=== PATIENT | male | born 1950 | race Caucasian/White ===

== ENCOUNTER 2016-08-13 04:39 | Inpatient (IN) | payer MEDICARE, MEDICAID ==
[~2016-08-13] VITALS: Ht 154.9 cm; Wt 52.6 kg
[2016-08-13] VITALS (13 sets, daily range): BP systolic 105–131; BP diastolic 54–85
--- NOTE | ~2016-08-13 | CON ---
[place], [place] REPORT OF CONSULTATION NAME: YURIDIA CHRISTIE UNIT #: [id number] ROOM: [facility] DOCTOR: HEATH GANDARA MD,HAN BIRTHDATE: [birth year] DOS: 08/13/2016 PULMONARY CONSULTATION, EVALUATION AND MANAGEMENT REASON FOR CONSULTATION: Assess the patient for possibility of acute exacerbation. The consultation requested by the hospitalist services. HISTORY OF PRESENT ILLNESS: This is a 65-year-old old male who has been admitted to the hospitalist service this morning and currently noted in the Intensive Care Unit. The patient stated that he has been noted symptoms of shortness breath, which has been ongoing for the patient in about 10 days or so. Shortness of breath for the patient has been noted gradual worsening. The shortness of breath occurs significantly worse in the past couple of days. He has been noted tightness in the chest and also developed pain, which were described in the retrosternal area without radiation scale of 1-10 up to 3 for this patient. The pain was described to be sharp and all other times. The patient has been noted better at this time. The patient does have symptoms of wheezing as well. Denies symptoms of hemoptysis. The patient stated that he has been using the albuterol sulfate for the medical management of his previous history of COPD and took multiple breathing treatments at home for this patient to resolve the symptom and they were not improving prior to admission and assessment in the Emergency Room. REVIEW OF SYSTEMS: CONSTITUTIONAL: Fatigue and tiredness described without symptoms of fever or chills. EYES: Denies any burning, redness, or tenderness. EARS, NOSE, THROAT: No sore throat, hoarseness, otalgia, postnasal drainage or epistaxis. CARDIOVASCULAR SYSTEM: Denies anginal pain, edema or pain of the lower extremities. GASTROINTESTINAL: Denies dysphagia, nausea, vomiting, diarrhea, abdominal pain, hematemesis, melena or hematochezia. Denies any abnormal weight loss history. MUSCULOSKELETAL: Denies acute joint pain, redness, or tenderness. CENTRAL NERVOUS SYSTEM: Denies dizziness, headache, diplopia or syncopal episodes. SKIN: No lesions or rashes described. Remaining systems were reviewed with the patient, they were noted all negative. PAST MEDICAL HISTORY: 1. Past hospitalization noted in April 2016. The patient was treated at that time for the electrolyte imbalance with alcohol intoxication, independent. 2. History of centrilobular emphysema. 3. Coronary artery disease. 4. Past history of alcohol dependence. 5. Essential hypertension. 6. Hepatitis C. [place], [place] REPORT OF CONSULTATION NAME: YURIDIA CHRISTIE UNIT #: [id number] ROOM: [facility] DOCTOR: HEATH GANDARA MD,HAN BIRTHDATE: [birth year] 7. Past CVA for patient without any focal neurologic deficit. 8. Degenerative arthritis. 9. History of congestive heart failure with diastolic dysfunction as well. 10. Difficulty of ambulation. SOCIAL HISTORY: The patient stated that he is , has 4 children. Smoking, the patient was noted as his younger age 1 pack of cigarettes per day that was discontinued approximately in 2011. He has been noted with past history of intermittent alcohol use. There was no history of illicit drug use described. PAST SURGICAL HISTORY: 1. Cataract extraction bilaterally. 2. Left hip ORIF. FAMILY HISTORY: The patient's father at the age of about 60-year-old, complication of myocardial infarction with cancer as well. The mother at the age of 60-year-old from complication related to acute myocardial infarction, history of diabetes as well. HOME MEDICATIONS: 1. Listed use of ProAir HFA inhaler p.r.n. use, Norvasc 5 mg p.o. b.i.d. 2. Atenolol 25 mg daily. 3. Vitamin D 3000 international units daily. 4. DuoNeb for the patient q.4 hours. 5. Harvoni 1 tablet p.o. daily. 6. Lisinopril 5 mg daily. 7. Protonix 40 mg daily. 8. Thiamine 100 mg p.o. daily. DRUG ALLERGY: Noted no known allergies. PHYSICAL EXAMINATION: GENERAL: This is a 65-year-old white male who has been comfortably resting seen in the Intensive Care Unit without any distress. The patient has been getting IV heparin and nitro drip. Height was noted 5 feet 1 inch, weight of 116 pounds, BMI 21.9. VITAL SIGNS: Normal temperature since admission, respiratory recorded highest of 30 and the lowest of 18, heart rate of patient ranges between 112-72 beats per minute, sinus tachycardia, which is mild, blood pressure 163/76-110/71. Pulse oxygen saturation of the patient is 100% on 100% nonrebreather mask later on room air was 98% saturation. Currently on 50% Venturi mask 98% saturation. HEENT: Head was atraumatic. Eyes nonicterus. NECK: Supple. CARDIOVASCULAR SYSTEM: S1, S2 is audible. LUNGS: Noted generalized reduction of breath sounds noted in the lungs bilaterally, diffuse expiratory wheezing without any crackles heard. ABDOMEN: Flat, soft, nontender. Bowel sounds present. EXTREMITIES: Showed no edema, clubbing, cyanosis. CENTRAL NERVOUS SYSTEM: No gross focal deficit. The patient has cranial nerves [place], [place] REPORT OF CONSULTATION NAME: YURIDIA CHRISTIE UNIT #: [id number] ROOM: [facility] DOCTOR: JOHANNY KISER MDM BIRTHDATE: [birth year] 2-12 intact. MUSCULOSKELETAL: No deformities. SKIN: No lesions or rashes. LABORATORY DATA: The PT, PTT patient this morning was noted INR 1.2, PTT normal. D-dimer was normal. CMP of the patient this morning, BUN and creatinine were normal, sodium 132, chloride of 94, BUN 66, creatinine 107, alkaline phosphatase normal. Troponin 0.082 for the patient mildly elevated the first set. CBC this morning on admission, hemoglobin 13.6, hematocrit 39.7, WBC count normal, platelet count mildly elevated to 412,000. The PTT for this patient 31.5, the repeat PTT for this patient at 11:30 was greater than 250. The troponin for this patient, second set was elevated at 2.370. Venous duplex of both lower extremities the patient was done, which does not show any evidence of deep venous thrombosis. The chest x-ray of the patient shows hyperinflation of the lungs with changes of COPD without any acute pulmonary infiltration was reviewed. CT of the chest, the patient does not show any evidence of pulmonary embolism. Pulmonary artery of the patient was noted filling defect. A 3 mm nodule the patient was noted in the right upper lobe for this patient. Some deformities of the rib was also noted the patient on the right side, most likely secondary to past heel fractures of the patient as well. No acute pulmonary infiltration noted. Changes of centrilobular emphysema were observed. There was no abnormal lymphadenopathy visible. IMPRESSION: 1. The patient has been currently admitted to the hospital noted with acute exacerbation of chronic obstructive pulmonary disease with acute bacterial bronchitis of the patient, which has noted gradual worsening. 2. Incidental finding of a 3 mm pulmonary nodule in the right upper lobe for this patient of unknown significance at this time needs to be monitored later as an outpatient with additional assessment possibly in 6-[address] scan of the chest. 3. Acute coronary artery syndrome. The patient was also suspected with abnormal troponins. The patient with [id number] elevation myocardial infarction consideration. 4. Mild toxicity was noted with heparin and the dose being adjusted for that. 5. Past history of nicotine dependence. 6. Abnormal liver function testing secondary to hepatitis C, which has been actively treated. 7. Chronic alcohol dependence as well. Monitor for any alcohol withdrawal for this patient as well. PLAN OF TREATMENT: Use of the Solu-Medrol for this patient for the medical management of acute exacerbation of COPD. Bronchodilators for the patient will be used. The patient Cardiology consultation has been pending. Continue nitro drip for this patient and the IV therapeutic anticoagulation in the therapeutic range. Other supportive therapy, plan of management. Sputum for Gram stain culture was ordered. The patient will be started on oral antibiotics for the medical management of acute tracheobronchitis as doxycycline 100 mg p.o. b.i.d. [place], [place] REPORT OF CONSULTATION NAME: YURIDIA CHRISTIE UNIT #: [id number] ROOM: [facility] DOCTOR: HAN KISER MD BIRTHDATE: [birth year] HAN JOE MD CM:CONSTR:REPORT OF CONSULTATION 1247 08/13/16 9952 interface
--- NOTE | ~2016-08-13 | CON ---
[place], [place] REPORT OF CONSULTATION NAME: YURIDIA CHRISTIE UNIT #: [id number] ROOM: [facility] DOCTOR: JOSE MENDOZA MD BIRTHDATE: [birth year] DOS: 08/13/2016 REASON FOR CONSULTATION: Elevated troponin and shortness of breath. HISTORY OF PRESENT ILLNESS: The patient is a 65-year-old gentleman with history of COPD, hypertension, alcohol use, came in with progressive shortness of breath for the past week, and he has been using multiple breathing treatments described that his symptoms continued to worse. Last night, he developed some nonradiating substernal chest pain described as tightness at rest. No associated nausea, diaphoresis. This pain lasted for several minutes and then he came to the Emergency Room, and he was admitted to the hospital for COPD exacerbation and also slight elevation of troponin, but he denies any fever or chills. No palpitation, no dizziness. No nausea, vomiting. No tingling, numbness or weakness, but he said he had history of a heart catheterization 5 years ago, results not available. SOCIAL HISTORY: He was treated with the breathing treatments as well as Solu-Medrol and admitted to the hospital and the manager trade consulted. REVIEW OF SYSTEMS: Review of the 8 systems negative except as mentioned above. His chest pain is at rest, substernal pain. No radiation, mild. No associated nausea, diaphoresis, or dizziness. The pain is more or less steady pain and relieved on its own. PAST MEDICAL HISTORY: 1. Hypertension. 2. Questionable coronary artery disease. 3. COPD. 4. Esophageal stricture. 5. Chronic gastritis. 6. Alcohol use. PAST SURGICAL HISTORY: The patient had left hip surgery. SOCIAL HISTORY: Does not drink chronically mostly beer 6 cans a day. Former smoker, but quit few years ago. Does not use illicit drugs. FAMILY HISTORY: Mother also in the age of 50-60s, history of coronary artery disease and also had diabetes. ALLERGIES: No known drug allergies. HOME MEDICATIONS: Reviewed. PHYSICAL EXAMINATION: VITAL SIGNS: Currently, blood pressure is 122/65, heart rate is 106, respiratory rate is 20. GENERAL: Alert, comfortable, in no acute distress. HEENT: Pupils are round and equal. No jaundice. Tongue is moist and pharynx is clear. [place], [place] REPORT OF CONSULTATION NAME: YURIDIA CHRISTIE UNIT #: [id number] ROOM: [facility] DOCTOR: REJI ATKINSON,SUNITAKAREN BIRTHDATE: [birth year] CHEST: Symmetrical, nontender. LUNGS: A few scattered rhonchi. No rales. Slightly diminished at bases. HEART: Regular rhythm, slightly tachycardic around 110. At the time of my examination, grade 1/6 systolic murmur at the right sternal border. No palpable thrills. ABDOMEN: Benign, nontender. Bowel sounds normal. EXTREMITIES: Showed 1+ pitting edema bilaterally. Distal pulses are palpable. SKIN: Warm and dry. No cyanosis, no clubbing. RECTAL: Deferred. NEUROLOGIC: Deferred. GENITOURINARY: Deferred. MUSCULOSKELETAL: No joint tenderness or swelling. PSYCHIATRIC: The patient is alert with good mood and affect. REVIEW OF THE DIAGNOSTIC TESTS: His EKG showed normal sinus rhythm with old anterior infarction. His CBC, chemistry, labs reviewed. The cardiac troponin was 0.082. The proBNP is normal at 74. Slightly elevated liver enzymes, creatinine 0.66, potassium 4.1, hemoglobin 13.6 and platelets of 412,000. IMPRESSION: 1. Chronic obstructive pulmonary disease exacerbation. 2. Chest pain appears to be atypical with a borderline elevation of troponin x1 set. 3. Alcohol use. 4. Mild normocytic anemia. 5. History of hypertension. 6. Slightly elevated liver enzymes. RECOMMENDATIONS: 1. Currently, denies any chest pains. 2. Second set of cardiac enzymes are pending, and the second set is elevated if he is having recurrent chest pain, then I would recommend cardiac catheterization. He is agreeable to go for cardiac catheterization. Currently, his code status is DNR-CCA. 3. There is no family at bedside. 4. Continue his current treatment including aspirin, nitro and heparin. I will start a low dose beta blockers for his sinus tachycardia and also positive non ST-segment elevation myocardial infarction. 5. Check 2D echo for LV function and valvular function. 6. The patient strongly counseled to quit drinking. 7. If they had 1+ edema clinically, I see no signs of acute heart failure and his BNP levels are normal. [place], [place] REPORT OF CONSULTATION NAME: YURIDIA CHRISTIE UNIT #: [id number] ROOM: [facility] DOCTOR: REJI ATKINSON,JOSE BIRTHDATE: [birth year] JOSE MENDOZA MD CM:CONSTR:REPORT OF CONSULTATION 1200 08/13/16 1908 interface
[~2016-08-13 04:39] MED LIST: AEROSOL THERAPY1 DEV PO; AMLODIPINE BES10 MG PO; AMLODIPINE BESYL5 MG PO; AMOXICILLIN500 MG PO; AMOXIL500 MG PO; ASPIRIN81 M1 PO; ATARAX25 MG PO; ATENOLOL25 MG PO; CARAFATE1 G1 PO; CATAPRES0.1 MG PO; CLARITIN10 MG PO; COLCHICINE0.6 M1 PO; COZAAR50 MG PO; DOXYCYCLINE HY100 M5 PO; DOXYCYCLINE100 M3 PO; DOXYCYCLINE100 MG PO; DUONEB 3 MG/3 ML3 M1 NEB; FLAGYL500 MG PO; HARVONI1 TAB PO; KEFLEX500 MG PO; LEVAQUIN500 M2 PO; LEVAQUIN750 M1 PO; LISINOPRIL/HCTZ1 TA1 PO; LISINOPRIL20 MG PO; LISINOPRIL5 MG PO; MEDROL DOSEPAK4 MG PO; MOTRIN800 MG PO; MUCINEX ER600 MG PO; NAPROXEN500 MG PO; NATURE'S BLEND F1 MG PO; NORVASC5 MG PO; NOVAPLUS V0.09 MG/Ac IH; PREDNISONE10 MG PO; PREDNISONE20 MG PO; PREDNISONE5 M1 PO; PRILOSEC20 MG PO; PROAIR HFA8.5 GM INH; PROTONIX40 MG PO; QVAR40 MCG INH; TENORMIN25 MG PO; TYLENOL325 M1 PO; TYLENOL500 MG PO; ULTRAM50 MG PO; VENTOLIN H0.09 MG/AC INH; VITAMIN B-11 TAB PO; VITAMIN D31000 IU PO; ZITHROMAX250 MG PO; [UNRECOGNIZED DRUG - REMARK]
[2016-08-13 05:16] LABS: HEMATOCRIT 39.7 % (42.0-52.0); HEMOGLOBIN 13.6 g/dl (14.0-18.0); MEAN CELL VOLUME 85.4 fl (80.0-94.0); MEAN CORPUSCULAR HGB 29.2 pg (27.0-31.0); MEAN CORPUSCULAR HGB CONC 34.3 g/dl (33.0-37.0); MEAN PLATELET VOLUME 8.2 fl (9.6-12.3); PLATELET COUNT AUTOMATED 412 10*3/uL (130-400); RED BLOOD COUNT 4.65 10*6/uL (4.50-5.90); RED CELL DISTRI WIDTH 15.1 % (0-14.5); WHITE BLOOD COUNT 6.4 10*3/uL (4.8-10.8)
[2016-08-13 05:29] LABS: INTERNATIONAL NORM RATIO 1.2 (2.0-3.5); PROTHROMBIN TIME 12.7 SECONDS (9.0-12.4)
[2016-08-13 05:33] LABS: ALKALINE PHOSPHATASE 91 U/L (45-117); BILIRUBIN, TOTAL 0.3 mg/dl (0.2-1.0); BUN 3 mg/dl (7-24); CARBON DIOXIDE 26 mmol/L (21-32); CHLORIDE 94 mmol/L (98-107); EST GLOM FILT AFRICAN AMERICAN > 60 ml/min; GLUCOSE 92 mg/dL (65-99); POTASSIUM 4.1 mmol/L (3.5-5.1); SGOT/AST 66 IU/L (3-35); SGPT/ALT 107 U/L (12-78); SODIUM 132 mmol/L (136-145); TOTAL PROTEIN 7.3 gm/dL (6.4-8.2)
[2016-08-13 05:34] LABS: TROPONIN I 0.082 ng/ml (<0.045)
[2016-08-13 05:36] LABS: ATYPICAL LYMPHS 1 % (0-0); BASOPHIL # 0.3 10*3/uL (0-0.1); BASOPHILS 4 % (0-1); EOSINOPHIL # 1.2 10*3/uL (0-0.4); EOSINOPHILS 18 % (1-4); LYMPHOCYTE # 2.2 10*3/uL (1.3-4.4); MONOCYTE # 0.3 10*3/uL (0.1-1.0); NEUTROPHIL # 2.4 10*3/uL (2.3-7.9); NEUTROPHILS 38 % (47-73); PLATELET SUFFICIENCY HIGH (NORMAL); TOTAL CELLS COUNTED 100 #CELLS
[2016-08-13] MEDS ORDERED: LOPRESSOR25 MG PO (15:45)
[2016-08-13] MEDS ORDERED: DOXYCYCLINE MO100 M1 PO (15:45)
[2016-08-13 18:51] LABS: BILIRUBIN NEGATIVE (NEGATIVE); BLOOD NEGATIVE (NEGATIVE); CLARITY CLEAR (CLEAR); COLOR YELLOW (YELLOW); GLUCOSE NEGATIVE (NEGATIVE); KETONE NEGATIVE (NEGATIVE); LEUKO ESTERASE NEGATIVE (NEGATIVE); NITRITE NEGATIVE (NEGATIVE); PROTEIN TRACE (NEGATIVE); SPECIFIC GRAVITY <= 1.005 (1.005-1.030); UROBILINOGEN 0.2 E.U./dl (0.2-1.0)
[2016-08-13 19:12] LABS: RBC 0-2 rbc/hpf (0-2); URINE REFLEX COMMENT NO (NO)
[2016-08-14] VITALS: BP 114/66; BP 133/69
[2016-08-14 03:26] VITALS: BP 110/56
[2016-08-14 06:06] LABS: ALBUMIN 3.3 gm/dl (3.1-4.5); ALKALINE PHOSPHATASE 66 U/L (45-117); BILIRUBIN, TOTAL 0.4 mg/dl (0.2-1.0); BUN 10 mg/dl (7-24); CARBON DIOXIDE 25 mmol/L (21-32); CHLORIDE 97 mmol/L (98-107); EST GLOM FILT AFRICAN AMERICAN > 60 ml/min; GLUCOSE 104 mg/dL (65-99); POTASSIUM 4.1 mmol/L (3.5-5.1); SGOT/AST 37 IU/L (3-35); SGPT/ALT 73 U/L (12-78); SODIUM 133 mmol/L (136-145)
[2016-08-14 06:07] LABS: BASO % 0.2 % (0.0-1.0); EOS % 0.5 % (1.0-4.0); HEMATOCRIT 35.2 % (42.0-52.0); HEMOGLOBIN 12.1 g/dl (14.0-18.0); LYMPH # 1.3 10*3/uL (1.3-4.4); LYMPH % 16.3 % (27.0-41.0); MEAN CELL VOLUME 83.8 fl (80.0-94.0); MEAN CORPUSCULAR HGB 28.8 pg (27.0-31.0); MEAN CORPUSCULAR HGB CONC 34.4 g/dl (33.0-37.0); MONO # 0.8 10*3/uL (0.1-1.0); MONO % 9.3 % (3.0-9.0); NEUT % 73.2 % (47.0-73.0); PLATELET COUNT AUTOMATED 416 10*3/uL (130-400); WHITE BLOOD COUNT 8.2 10*3/uL (4.8-10.8)
[2016-08-14 06:35] LABS: INTERNATIONAL NORM RATIO 1.2 (2.0-3.5); PROTHROMBIN TIME 12.6 SECONDS (9.0-12.4)
== END 2016-08-14 07:14 | disposition other institution (70) | DRG 871 ==
LOC: ED 04:39 → EDHOLD 06:01 → ICCU 06:01
PROVIDERS: Emergency Medicine Emergency Medical Services; Internal Medicine Critical Care Medicine; Internal Medicine Hospice and Palliative Medicine
DX: A41.9 Sepsis, unspecified organism (principal); J18.9 Pneumonia, unspecified organism; I21.4 Non-ST elevation (NSTEMI) myocardial infarction; I11.0 Hypertensive heart disease with heart failure; I50.32 Chronic diastolic (congestive) heart failure; J44.1 Chronic obstructive pulmonary disease with (acute) exacerbation; E44.0 Moderate protein-calorie malnutrition; E87.1 Hypo-osmolality and hyponatremia; I25.110 Atherosclerotic heart disease of native coronary artery with unstable angina pectoris; J44.0 Chronic obstructive pulmonary disease with (acute) lower respiratory infection; F10.239 Alcohol dependence with withdrawal, unspecified; Z66 Do not resuscitate; Z96.642 Presence of left artificial hip joint; K21.9 Gastro-esophageal reflux disease without esophagitis; D47.3 Essential (hemorrhagic) thrombocythemia; B19.20 Unspecified viral hepatitis C without hepatic coma; D64.9 Anemia, unspecified; J20.9 Acute bronchitis, unspecified; T45.515A Adverse effect of anticoagulants, initial encounter; K29.50 Unspecified chronic gastritis without bleeding; Z87.891 Personal history of nicotine dependence; Z82.49 Family history of ischemic heart disease and other diseases of the circulatory system; Z86.73 Personal history of transient ischemic attack (TIA), and cerebral infarction without residual deficits; Z98.42 Cataract extraction status, left eye; Z98.41 Cataract extraction status, right eye; Z83.3 Family history of diabetes mellitus; Z80.9 Family history of malignant neoplasm, unspecified; Z79.51 Long term (current) use of inhaled steroids; Z79.899 Other long term (current) drug therapy; Z68.24 Body mass index [BMI] 24.0-24.9, adult

== ENCOUNTER 2016-08-21 04:00 | Inpatient (IN) | payer MEDICARE, MEDICAID ==
[2016-08-21] VITALS (11 sets, daily range): BP systolic 40–162; BP diastolic 00–79
[~2016-08-21] VITALS: Ht 154.9 cm; Wt 55.6 kg
--- NOTE | ~2016-08-21 | CON ---
[place], [place] REPORT OF CONSULTATION NAME: [facility]IE [id number] UNIT #: [id number] ROOM: 404 DOCTOR: RYNE FORBES MD BIRTHDATE: [birth year] DOS: 08/21/2016 CARDIOLOGY CONSULTATION REASON FOR CONSULTATION: Chest pain and elevated troponin levels. HISTORY OF PRESENT ILLNESS: This is one of multiple hospitalizations for the patient, a 65-year-old man with a history of obstructive lung disease, hypertension, and ongoing alcohol abuse. He presented to the hospital on this occasion with inability to pass his urine. He was seen in the Emergency Room and released, but had more problems with urinary retention and therefore returned to the hospital. Upon return, he stated that he was somewhat dyspneic and did have chest pain. In addition, he was unable to pass his urine. He also felt constipated. Because of all of his complaints, a laboratory workup was done. He was noted to have an elevation in troponin and therefore was admitted to the hospital for further care. The patient was recently hospitalized at the [facility] on 08/13/2016. He was seen by my partner, Dr. Zavala at that time. During that hospitalization, his troponin level was elevated as high as 3.9. He was therefore transferred to the [facility] where he underwent cardiac catheterization by Dr. Rashid Jonas on 08/14/2016. The left main, LAD, circumflex, and right coronary arteries were all wall entirely free of disease. Left ventricular wall motion was normal with an ejection fraction of 60%. An echocardiogram was performed on 08/14/2016 as well and showed normal left ventricular size, wall motion and function with stage 1 diastolic relaxation abnormalities. The ejection fraction was 65%. He had mild mitral annular calcification with mild mitral insufficiency. The left atrium was borderline dilated. There was no other valve abnormality noted. On the current admission, the patient's troponin level was 0.092 and subsequently falling to 0.081. This is 8 days after he had a troponin level of 3.92 and probably does represent the normal clearance kinetics of troponin. Currently, the patient complains of constipation and dyspnea. He does have an indwelling Govea catheter in place. PAST MEDICAL HISTORY: Includes: 1. Essential hypertension. 2. Chronic obstructive pulmonary disease. 3. Esophageal stricture. 4. Chronic gastritis. 5. Long-term and ongoing alcohol abuse. 6. History of cigarette abuse. The patient quit many years ago. 7. Hospitalization with elevated troponin and chest pain 08/13/2016. Cardiac catheterization at [facility] on 08/14/2016 showed normal left ventricular wall motion and systolic function with normal coronary anatomy. It was felt likely that the patient did have an episode of subendocardial ischemia due to an exacerbation of his lung disease. [place], [place] REPORT OF CONSULTATION NAME: YURIDIA CHRISTIE UNIT #: [id number] ROOM: [facility] DOCTOR: RYNE FORBES MD BIRTHDATE: [birth year] 8. History of left hip surgery. REVIEW OF SYSTEMS: The patient denies diplopia or focal weakness. He denies syncope. He does have some lightheadedness. He does admit that his legs are weak and he has a hard time walking. He denies nausea or vomiting. He does have chest pain and indigestion. He does have a nonproductive cough. He does complain of constipation. He denies any blood in his stools or urine. He denies focal weakness, but states that his legs are weak and incoordinated. He denies any new skin rashes. He denies fevers or chills. He denies hemoptysis or hematemesis. He denies heat or cold intolerance and denies any new skin rashes. The remainder of the review of systems is negative except as noted above. SOCIAL HISTORY: The patient does drink beer on a daily basis. He was a smoker, but quit many years ago. He does not use illegal drugs. FAMILY HISTORY: His mother at the age of 50 or 60 from coronary artery disease, but also had diabetes. MEDICATIONS PRIOR TO ADMISSION: Albuterol by inhaler 2 puffs q. 6 hours, amlodipine 5 mg b.i.d., atenolol 25 mg daily, diltiazem 120 mg daily, docusate 100 mg daily, folic acid 1 mg daily, guaifenesin 600 mg q. 12 hours, hydrocodone with acetaminophen 1 tablet b.i.d., lisinopril 5 mg b.i.d., pantoprazole 40 mg daily, tamsulosin 0.4 mg daily and thiamine 100 mg daily. ALLERGIES: The patient has no known drug allergies. PHYSICAL EXAMINATION: GENERAL: The patient is a slender white male who is awake, alert and oriented. VITAL SIGNS: Pulse is 94 and regular, blood pressure is 108/66. He is afebrile. He weighs 55.6 kilograms with a body mass index of 23.2. HEENT: Normocephalic, atraumatic. Extraocular muscles are intact. Sclerae are clear. Pupils are equal, round and react to light. Oral mucosa is moist. Tongue is midline. NECK: Supple. He had mild jugular distention with hepatojugular reflux present. Carotids were full. I heard no bruits. LUNGS: Respirations were labored at rest. He had marked expiratory prolongation bilaterally with scattered wheezes bilaterally. He had no rales. He had no presacral edema. CARDIOVASCULAR: Heart had a regular rhythm with an S4 gallop, but no S3 or murmur. The PMI was not displaced. ABDOMEN: Soft and normoactive without masses, organomegaly or bruits. EXTREMITIES: Showed no edema. Peripheral pulses were palpable in the feet. His gait was ataxic. LABORATORY DATA: I reviewed his electrocardiogram, which showed sinus rhythm with poor precordial R-wave progression, but no acute changes. IMPRESSION: 1. Atypical chest pain. The patient did have a significant elevation in [place], [place] REPORT OF CONSULTATION NAME: YURIDIA CHRISTIE UNIT #: [id number] ROOM: [facility] DOCTOR: RYNE FORBES MD BIRTHDATE: [birth year] troponin approximately a week ago, his current troponin elevation probably represents the normal elimination kinetics of troponin. 2. Significant elevation of troponin 1 week ago. This may have represented subendocardial ischemia due to an exacerbation of the patient's obstructive lung disease, hypoxemia, hypotension, etc. 3. Cardiac catheterization 08/14/2016, normal coronary anatomy, normal left ventricular wall motion and systolic function, normal exam. 4. Long-term and ongoing alcohol abuse. 5. Severe chronic obstructive pulmonary disease with an acute exacerbation noted on this admission. 6. Esophageal stricture. 7. Chronic gastritis. 8. History of hepatitis C. PLAN: We will resume diuretics and low-dose atenolol. We will also keep him on his amlodipine for blood pressure control. No other cardiac workup is felt to be indicated at this time, but we will treat him symptomatically while his primary physicians take care of his underlying lung disease. We thank the hospitalist physicians for asking our advice regarding the patient's care. RYNE FORBES MD CM:CONSTR:REPORT OF CONSULTATION 1733 08/22/16 0506 interface
[~2016-08-21 04:00] MED LIST changes: +DOXYCYCLINE MO100 M1 PO; +FLOMAX0.4 MG PO; +LOPRESSOR25 MG PO
[2016-08-21 04:29] LABS: BILIRUBIN NEGATIVE (NEGATIVE); BLOOD 3+ (NEGATIVE); CLARITY CLEAR (CLEAR); COLOR YELLOW (YELLOW); GLUCOSE NEGATIVE (NEGATIVE); KETONE NEGATIVE (NEGATIVE); LEUKO ESTERASE TRACE (NEGATIVE); NITRITE NEGATIVE (NEGATIVE); PROTEIN NEGATIVE (NEGATIVE); SPECIFIC GRAVITY <= 1.005 (1.005-1.030); UROBILINOGEN 0.2 E.U./dl (0.2-1.0)
[2016-08-21 04:30] LABS: BASO # 0.2 10*3/uL (0.0-0.1); BASO % 1.8 % (0.0-1.0); EOS # 1.3 10*3/uL (0.0-0.4); HEMATOCRIT 36.7 % (42.0-52.0); HEMOGLOBIN 12.6 g/dl (14.0-18.0); IG # 0.1 10*3/uL (0.0-0.1); LYMPH # 2.4 10*3/uL (1.3-4.4); LYMPH % 27.2 % (27.0-41.0); MEAN CELL VOLUME 85.7 fl (80.0-94.0); MEAN CORPUSCULAR HGB 29.4 pg (27.0-31.0); MEAN CORPUSCULAR HGB CONC 34.3 g/dl (33.0-37.0); MEAN PLATELET VOLUME 8.4 fl (9.6-12.3); MONO % 11.5 % (3.0-9.0); NEUT % 44.9 % (47.0-73.0); PLATELET COUNT AUTOMATED 341 10*3/uL (130-400); RED BLOOD COUNT 4.28 10*6/uL (4.50-5.90)
[2016-08-21 04:39] LABS: URINE REFLEX COMMENT YES (NO)
[2016-08-21 04:47] LABS: ALBUMIN 3.7 gm/dl (3.1-4.5); ALKALINE PHOSPHATASE 77 U/L (45-117); BILIRUBIN, TOTAL 0.3 mg/dl (0.2-1.0); BUN 5 mg/dl (7-24); C-REACTIVE PROTEIN < 0.29 MG/DL (0-0.3); CARBON DIOXIDE 24 mmol/L (21-32); CHLORIDE 92 mmol/L (98-107); EST GLOM FILT AFRICAN AMERICAN > 60 ml/min; GLUCOSE 82 mg/dL (65-99); POTASSIUM 4.2 mmol/L (3.5-5.1); SGOT/AST 35 IU/L (3-35); SGPT/ALT 62 U/L (12-78); SODIUM 128 mmol/L (136-145); TOTAL PROTEIN 6.7 gm/dL (6.4-8.2)
[2016-08-21 04:49] LABS: TROPONIN I 0.092 ng/ml (<0.045)
[2016-08-21 06:26] LABS: LA>2 REFLEX 2 HR DRAW NOW
[2016-08-21 06:52] LABS: LA>2 RFLX FOLLOW UP AT 2 HRS 2.6 mmol/L (0.4-2.0)
[2016-08-21 08:46] LABS: LA>2 REFLEX 4 HR DRAW NOW
[2016-08-21] MEDS ORDERED: GUAIFENESIN600 MG PO (10:38)
[2016-08-21] MEDS ORDERED: CARDIZEM120 MG PO (10:39)
[2016-08-21] MEDS ORDERED: ATENOLOL25 MG PO (10:39)
[2016-08-21] MEDS ORDERED: COLACE100 MG PO (10:39)
[2016-08-21] MEDS ORDERED: NORCO 5-325 TA1 EACH PO (10:40)
[2016-08-21 12:46] LABS: TROPONIN I 0.081 ng/ml (<0.045)
[2016-08-21 18:04] LABS: CKMB 7.4 ng/ml (0.5-3.6); TROPONIN I 0.079 ng/ml (<0.045)
[2016-08-22] VITALS: BP 160/72
[2016-08-22 00:54] LABS: CKMB 6.8 ng/ml (0.5-3.6)
[2016-08-22 00:55] LABS: TROPONIN I 0.076 ng/ml (<0.045)
[2016-08-22 06:53] LABS: BASO % 0.2 % (0.0-1.0); EOS % 0.2 % (1.0-4.0); HEMATOCRIT 39.5 % (42.0-52.0); HEMOGLOBIN 13.4 g/dl (14.0-18.0); IG # 0.1 10*3/uL (0.0-0.1); LYMPH # 0.6 10*3/uL (1.3-4.4); LYMPH % 9.2 % (27.0-41.0); MEAN CELL VOLUME 84.8 fl (80.0-94.0); MEAN CORPUSCULAR HGB 28.8 pg (27.0-31.0); MEAN CORPUSCULAR HGB CONC 33.9 g/dl (33.0-37.0); MEAN PLATELET VOLUME 8.7 fl (9.6-12.3); MONO # 0.3 10*3/uL (0.1-1.0); MONO % 4.9 % (3.0-9.0); NEUT # 5.3 10*3/uL (2.3-7.9); NEUT % 84.2 % (47.0-73.0); PLATELET COUNT AUTOMATED 428 10*3/uL (130-400); RED BLOOD COUNT 4.66 10*6/uL (4.50-5.90); RED CELL DISTRI WIDTH 14.9 % (0-14.5); WHITE BLOOD COUNT 6.3 10*3/uL (4.8-10.8)
[2016-08-22 07:28] LABS: INTERNATIONAL NORM RATIO 1.1 (2.0-3.5); PROTHROMBIN TIME 12.1 SECONDS (9.0-12.4)
[2016-08-22 07:30] LABS: ALBUMIN 3.7 gm/dl (3.1-4.5); BUN 10 mg/dl (7-24); CARBON DIOXIDE 27 mmol/L (21-32); CHLORIDE 97 mmol/L (98-107); GLUCOSE 132 mg/dL (65-99); MAGNESIUM 1.6 mg/dL (1.5-2.1); POTASSIUM 3.9 mmol/L (3.5-5.1); SODIUM 134 mmol/L (136-145)
[2016-08-22 07:38] LABS: ALKALINE PHOSPHATASE 77 U/L (45-117); BILIRUBIN, TOTAL 0.5 mg/dl (0.2-1.0); CHOLESTEROL 157 mg/dL (<200); EST GLOM FILT AFRICAN AMERICAN > 60 ml/min; FREE T4 0.87 ng/dl (0.76-1.46); HDL CHOLESTEROL 71 mg/dl (40-60); LDL CHOLESTEROL 77 mg/dL (9-159); PHOSPHOROUS 3.2 mg/dL (2.5-4.9); SGOT/AST 25 IU/L (3-35); SGPT/ALT 52 U/L (12-78); THYROID STIM HORMONE (HS) 0.536 uIU/ml (0.358-4.75); TOTAL PROTEIN 6.9 gm/dL (6.4-8.2); TRIGLYCERIDES 43 mg/dl (<150); VLDL CHOLESTEROL 9 mg/dL (6-40)
[2016-08-22 08:00] VITALS: BP 145/70
[2016-08-22 08:40] LABS: VITAMIN D, 25-HYDROXY 26.8 ng/mL (30-100)
[2016-08-22 08:41] LABS: FOLIC ACID 20.93 ng/mL (>5.38)
[2016-08-22 12:00] VITALS: BP 137/64
[2016-08-22] MEDS ORDERED: ATORVASTATIN CA80 M1 PO (13:39)
[2016-08-22] MEDS ORDERED: D-1000 185 MG-11 TAB PO (13:39)
[2016-08-22] MEDS ORDERED: PREDNISONE10 MG PO (13:39)
[2016-08-22] MEDS ORDERED: DOXYCYCLINE100 M3 PO (13:39)
== END 2016-08-22 16:12 | disposition home health service (06) | DRG 313 ==
LOC: ED 04:00 → 4E 05:26 → EDHOLD 05:26 → 4E 05:33
PROVIDERS: Emergency Medicine Emergency Medical Services; Student in an Organized Health Care Education/Training Program
DX: R07.89 Other chest pain (principal); I25.2 Old myocardial infarction; E87.2 Acidosis; I50.32 Chronic diastolic (congestive) heart failure; I11.0 Hypertensive heart disease with heart failure; E87.1 Hypo-osmolality and hyponatremia; J44.1 Chronic obstructive pulmonary disease with (acute) exacerbation; R07.2 Precordial pain; F10.220 Alcohol dependence with intoxication, uncomplicated; I25.10 Atherosclerotic heart disease of native coronary artery without angina pectoris; K29.20 Alcoholic gastritis without bleeding; B18.2 Chronic viral hepatitis C; R00.1 Bradycardia, unspecified; D64.9 Anemia, unspecified; Z96.642 Presence of left artificial hip joint; K21.9 Gastro-esophageal reflux disease without esophagitis; Z86.73 Personal history of transient ischemic attack (TIA), and cerebral infarction without residual deficits; Z87.891 Personal history of nicotine dependence; Z82.49 Family history of ischemic heart disease and other diseases of the circulatory system; Z80.8 Family history of malignant neoplasm of other organs or systems; Z83.3 Family history of diabetes mellitus

== ENCOUNTER 2016-09-17 14:52 | Inpatient (IN) | payer MEDICARE, MEDICAID ==
[~2016-09-17] VITALS: Ht 157.4 cm; Wt 54.4 kg
--- NOTE | ~2016-09-17 | CON ---
[place], [place] REPORT OF CONSULTATION NAME: YURIDIA CHRISTIE UNIT #: [id number] ROOM: 415 DOCTOR: ELENA CRUZ MD BIRTHDATE: [birth year] DOS: 09/18/2016 GASTROENDOSCOPIC REPORT HISTORY OF PRESENT ILLNESS: A 65-year-old patient who presented with a chief complaint of constipation, unable to move his bowels, chronic and apparently associated with cramps. I have been asked this morning for colonic decompression on this patient. His labs and records are reviewed. CT scan of the abdomen yesterday reviewed. Compression fracture and thoracic, occlusive calcific plaquing, aortic bifurcation, subsegmental atelectasis, normal solid abdominal visceral and gallbladder markedly distended and air filled right colon, transverse colon ileus. He has had a panel of blood work. Lactic acid has been normal. CBC: White blood cells 7.8, H and H 14 and 40. Serum ammonia 12. Urine osmolarity of 318. Basic metabolic panel: Sodium 126, potassium 3.2, phosphorus 2.4. Thyroid studies normal. PAST MEDICAL HISTORY: Associated with constipation, coronary artery disease, esophageal stricture, constipation, presently hypokalemia, hyponatremic, chronic obstructive pulmonary disease, cerebrovascular accident, gastroesophageal reflux, old history of myocardial infarction. PAST SURGICAL HISTORY: Left hip prosthesis. SOCIAL HISTORY: History of alcohol and nicotine dependency. FAMILY HISTORY: Noncontributory. ALLERGIES: None known. MEDICATIONS: List has been reviewed. REVIEW OF SYSTEMS: HEENT: Denies double vision, blurred vision. RESPIRATORY: Admits to chronic shortness of breath. CARDIOVASCULAR: Denies chest pain; however, history of myocardial infarction. DIGESTIVE SYSTEM: History of constipation, reflux, esophageal stricture. MUSCULOSKELETAL: Normal. CENTRAL NERVOUS SYSTEM: No tremor. Review of other systems are benign. PHYSICAL EXAMINATION: VITAL SIGNS: Stable. HEENT: Head normocephalic, nontraumatic. Mouth and buccal mucosa benign. NECK: Supple, no thyromegaly, no cervical lymphadenopathy. CHEST: Symmetric anatomy, decreased air entry in general. HEART: Normal sinus rhythm, no gallop, no murmur. ABDOMEN: Bloated, globular, soft. No rebound tenderness, umbilical hernia a small size was noticed. Bowel sounds present. EXTREMITIES: No cyanosis, no pedal edema. NEUROLOGIC: Alert, oriented to time, place, person. Sensory, motor intact. Cranial nerves 2-12 intact. [place], [place] REPORT OF CONSULTATION NAME: YURIDIA CHRISTIE UNIT #: [id number] ROOM: 415 DOCTOR: ELENA CRUZ MD BIRTHDATE: [birth year] IMPRESSION: Ileus versus obstruction. Other adjunctive diagnoses as outlined in paragraph of past medical and surgical history. I have been asked for assessment of the patient regarding decompression colonoscopy. Further comments are depending on the findings on the colon. His colon is unprepped. The expected limitation in colonoscopy is on the list. Prolonged PT, PTT at 12.5 seconds and 32.1 seconds with normal INR was noticed. His latest electrolyte abnormality of sodium 126, potassium 3.2, is noticed. PLAN AND DISCUSSION: We will proceed with decompression. ELENA CRUZ MD CM:CONSTR:REPORT OF CONSULTATION 1154 09/19/16 0454 interface
--- NOTE | ~2016-09-17 | EKG ---
[place], [place] ELECTROCARDIOGRAM REPORT NAME: YURIDIA CHRISTIE UNIT #: [id number] ROOM: 415 DOCTOR: RYNE FORBES MD BIRTHDATE: [birth year] DOS: 09/17/2016 TIME: 15:41 p.m. FINDINGS: Normal sinus rhythm at rate of 76. Left axis deviation with left anterior fascicular block. Left atrial enlargement. Anterolateral T-wave inversion suggesting ischemia. Abnormal electrocardiogram. RYNE FORBES MD CM:EKGRPT:ELECTROCARDIOGRAM REPORT [id number] RYNE FORBES MD
--- NOTE | ~2016-09-17 | O ---
[place], [place] OPERATIVE NOTE NAME: YURIDIA CHRISTIE UNIT #: [id number] ROOM: 415 DOCTOR: ELENA CRUZ MD BIRTHDATE: [birth year] DOS: 09/20/2016 GASTROENDOSCOPIC REPORT HISTORY OF PRESENT ILLNESS: This is a 65-year-old patient who has presented with chief complaint of ileus, right upper quadrant pain, abdominal pain, bloated. Consultation has been dictated. PROCEDURE: Today's procedure part of investigation is colonoscopy decompression. PREMEDICATION: Versed and Diprivan. SCOPE: Olympus forward viewing colonoscope 10L video. REPORT: After putting the patient in the left lateral position and after application of lubricant to the scope, the scope was introduced; thereafter, under direct visualization, advanced through the length of colon without difficulty. Base of the cecum explored, appendiceal orifice identified, and ileocecal valve was defined. Evidence of segmental ischemic colitis in a skipped form in the cecum and hepatic flexure and mid ascending colon was identified. Photographed, biopsied. The scope was gradually withdrawn. Air was suctioned out. The patient was extubated, tolerated procedure well. IMPRESSION: Short segments of ischemic colitis in the cecum, hepatic flexure and mid ascending colon, status post biopsy. PLAN AND DISCUSSION: This is ischemia that I noticed without ulcerations. They are nonsurgical concerns. Therefore, soft diet and Flagyl therapy while inpatient is recommended and clinical reassessment. ELENA CRUZ MD CM:OPRECORD:OPERATIVE NOTE 180 15 ELENA CRUZ MD 09/20/162116 interface
--- NOTE | ~2016-09-17 | PR ---
[place], [place] PROGRESS NOTE NAME[id number] UNIT #: [id number] ROOM: 415 DOCTOR: PAPO SANTOS MD BIRTHDATE: [birth year] DOS: 09/21/2016 SUBJECTIVE: The patient underwent another colonoscopy yesterday by Dr. De, tolerated it fairly well, short segments of ischemic colitis were noted. Biopsies were taken. Soft diet was started and Flagyl also started. The patient is eating and drinking well who was very hungry from several days of liquid and n.p.o. diets. His sodium continues to improve slowly, it is 132. No other acute events overnight. OBJECTIVE: VITAL SIGNS: 97.4, pulse 72, respiratory rate 16, blood pressure 130-140s over 50s-60s, pulse ox 100%. GENERAL: Awake, alert and oriented without acute distress, age appropriate male. LUNGS: Decreased breath sounds, no audible rales or wheeze. CARDIOVASCULAR: Rate regular. No audible rub. No palpable lift or heave. ABDOMEN: Soft, nontender, less distended. SKIN: Without diffuse rashes or breakdown. EXTREMITIES: Peripheries without cyanosis or edema of significance. LABORATORY DATA AND DIAGNOSTICS: White blood cell count 5.2, hemoglobin 12.3, platelets 407. Sodium 132, potassium 3.2, chloride 96, bicarb 27, BUN 5, creatinine 0.4, calcium 7.8. ASSESSMENT AND PLAN: Acute on chronic hyponatremia, improved. Discontinue normal saline at this point as he has now ordered a diet, try to maintain slight fluid restriction. However, this will be difficult given the past days clear liquid diets and now soft diet. We will continue fair amount of fluid. Generally, I think discontinuation of the alcoholic beverages when he is discharged will be the primary main state of continued treatment and he should be able to maintain a fairly eunatremic state. The patient is made aware and is going to try to do this. He told this son in fact that he cannot continue to drink otherwise his body is deteriorating. The patient may also have an element of reset osmostat and that may be playing a role into his chronically low sodium levels as well. His BUN is finally starting to trend up and was likely secondary to very poor protein calorie malnutrition, at least of a moderate nature. He has mild anemia, which appears partly dilutional, mild hypokalemia will be replaced with potassium runs today and hopefully an increased diet will improve this as well. [place], [place] PROGRESS NOTE NAME: YURIDIA CHRISTIE UNIT #: [id number] ROOM: [facility] DOCTOR: PAPO SANTOS MD BIRTHDATE: [birth year] PAPO SANTOS MD CM:PNTRANS [phone] PAPO SANTOS MD 09/22/16 013 interface
--- NOTE | ~2016-09-17 | O ---
[place], [place] OPERATIVE NOTE NAME: YURIDIA CHRISTIE UNIT #: [id number] ROOM: 415 DOCTOR: ELENA CRUZ MD BIRTHDATE: [birth year] DOS: GASTROENDOSCOPIC REPORT INDICATIONS: This gentleman is a 65-year-old who has presented with multiple medical problems, among which has been abdominal distention. I have been asked this morning for colonic decompression. CT scan, labs and records were reviewed. He was found to have severe hyponatremia. PROCEDURE: Today's procedure part of investigation is colonoscopy and decompression. PREMEDICATION: Versed and Diprivan. SCOPE: Olympus forward-viewing colonoscope 10L video. REPORT: After putting the patient in the left lateral position and after application of lubricant to the scope, the scope was introduced. Thereafter, under direct visualization, I advanced through the length of colon without difficulty. Left colon benign, some diverticular concerns were noticed. However, scope was negotiated beyond mid transverse colon, residual pasty stool was identified. Detailed cecal evaluation cannot be done due to retention of stool. Air was suctioned out. The patient was extubated, tolerated the procedure well. Decompression was performed. IMPRESSION: Ileus, retained stool, suspected diverticulosis. PLAN AND DISCUSSION: Gradual prep of colon with Dulcolax 25 mg p.o. today and 255 gram of MiraLax tomorrow and organizing colonoscopy on Friday. Hyponatremia, hypokalemia and suspected hypomagnesemia and phosphorus is going to be addressed and recolonoscopy Friday. ELENA CRUZ MD CM:OPRECORD:OPERATIVE NOTE 1239 1344 ELENA CRUZ MD 09/18/16 1345 interface
[2016-09-17 14:52] VITALS: BP 110/50
[~2016-09-17 14:52] MED LIST changes: +ATORVASTATIN CA80 M1 PO; +CARDIZEM120 MG PO; +COLACE100 MG PO; +D-1000 185 MG-11 TAB PO; +GUAIFENESIN600 MG PO; +NORCO 5-325 TA1 EACH PO
[2016-09-17 15:30] LABS: BASO # 0.1 10*3/uL (0.0-0.1); BASO % 0.8 % (0.0-1.0); EOS # 0.1 10*3/uL (0.0-0.4); EOS % 1.5 % (1.0-4.0); HEMATOCRIT 40.5 % (42.0-52.0); HEMOGLOBIN 14.2 g/dl (14.0-18.0); IG # 0.1 10*3/uL (0.0-0.1); LYMPH # 0.9 10*3/uL (1.3-4.4); LYMPH % 11.9 % (27.0-41.0); MEAN CORPUSCULAR HGB 28.7 pg (27.0-31.0); MEAN CORPUSCULAR HGB CONC 35.1 g/dl (33.0-37.0); MEAN PLATELET VOLUME 8.1 fl (9.6-12.3); MONO # 0.7 10*3/uL (0.1-1.0); NEUT % 76.2 % (47.0-73.0); PLATELET COUNT AUTOMATED 447 10*3/uL (130-400); RED BLOOD COUNT 4.94 10*6/uL (4.50-5.90); RED CELL DISTRI WIDTH 14.1 % (0-14.5); WHITE BLOOD COUNT 7.8 10*3/uL (4.8-10.8)
[2016-09-17 15:50] LABS: ALBUMIN 3.6 gm/dl (3.1-4.5); ALKALINE PHOSPHATASE 69 U/L (45-117); BILIRUBIN, TOTAL 0.4 mg/dl (0.2-1.0); BUN 8 mg/dl (7-24); CARBON DIOXIDE 24 mmol/L (21-32); CHLORIDE 91 mmol/L (98-107); CPK 125 U/L (39-308); EST GLOM FILT AFRICAN AMERICAN > 60 ml/min; GLUCOSE 103 mg/dL (65-99); LDH 268 U/L (87-241); MAGNESIUM 1.7 mg/dL (1.5-2.1); POTASSIUM 3.7 mmol/L (3.5-5.1); SGOT/AST 35 IU/L (3-35); SGPT/ALT 41 U/L (12-78); SODIUM 127 mmol/L (136-145); TOTAL PROTEIN 7.1 gm/dL (6.4-8.2); TROPONIN I 0.025 ng/ml (<0.045)
[2016-09-17] MEDS ORDERED: LASIX20 MG PO (17:32)
[2016-09-17] MEDS ORDERED: LACTULOSE20 GM/30 M PO (18:17)
[2016-09-17 18:46] LABS: CKMB 4.2 ng/ml (0.5-3.6); TROPONIN I 0.023 ng/ml (<0.045)
[2016-09-17 20:00] VITALS: BP 129/67
[2016-09-17 23:36] LABS: BILIRUBIN NEGATIVE (NEGATIVE); BLOOD NEGATIVE (NEGATIVE); CLARITY CLEAR (CLEAR); COLOR YELLOW (YELLOW); GLUCOSE NEGATIVE (NEGATIVE); KETONE 1+ (NEGATIVE); LEUKO ESTERASE NEGATIVE (NEGATIVE); NITRITE NEGATIVE (NEGATIVE); PROTEIN NEGATIVE (NEGATIVE); UROBILINOGEN 0.2 E.U./dl (0.2-1.0)
[2016-09-17 23:43] LABS: URINE TP/CRE RATIO 0.6 (<0.21)
[2016-09-17 23:44] LABS: RBC 0-2 rbc/hpf (0-2); URINE REFLEX COMMENT NO (NO)
[2016-09-18] VITALS (9 sets, daily range): BP systolic 124–143; BP diastolic 50–86
[2016-09-18 00:49] LABS: CKMB 3.3 ng/ml (0.5-3.6); TROPONIN I 0.037 ng/ml (<0.045)
[2016-09-18 06:04] LABS: BASO # 0.1 10*3/uL (0.0-0.1); BASO % 0.6 % (0.0-1.0); EOS # 0.2 10*3/uL (0.0-0.4); EOS % 1.5 % (1.0-4.0); HEMOGLOBIN 14.4 g/dl (14.0-18.0); IG # 0.1 10*3/uL (0.0-0.1); LYMPH % 9.5 % (27.0-41.0); MEAN CORPUSCULAR HGB 29.1 pg (27.0-31.0); MEAN CORPUSCULAR HGB CONC 35.1 g/dl (33.0-37.0); MEAN PLATELET VOLUME 8.2 fl (9.6-12.3); MONO # 0.8 10*3/uL (0.1-1.0); MONO % 7.2 % (3.0-9.0); NEUT # 8.8 10*3/uL (2.3-7.9); NEUT % 80.6 % (47.0-73.0); PLATELET COUNT AUTOMATED 435 10*3/uL (130-400); RED BLOOD COUNT 4.94 10*6/uL (4.50-5.90); RED CELL DISTRI WIDTH 14.3 % (0-14.5)
[2016-09-18 06:14] LABS: CKMB 3.2 ng/ml (0.5-3.6); TROPONIN I 0.035 ng/ml (<0.045)
[2016-09-18 06:34] LABS: BUN 2 mg/dl (7-24); CARBON DIOXIDE 25 mmol/L (21-32); CHLORIDE 94 mmol/L (98-107); EST GLOM FILT AFRICAN AMERICAN > 60 ml/min; FREE T4 1.05 ng/dl (0.76-1.46); GLUCOSE 90 mg/dL (65-99); PHOSPHOROUS 2.4 mg/dL (2.5-4.9); POTASSIUM 3.2 mmol/L (3.5-5.1); SODIUM 126 mmol/L (136-145)
[2016-09-18 06:40] LABS: THYROID STIM HORMONE (HS) 0.365 uIU/ml (0.358-4.75)
[2016-09-18 06:54] LABS: INTERNATIONAL NORM RATIO 1.2 (2.0-3.5); PROTHROMBIN TIME 12.5 SECONDS (9.0-12.4)
[2016-09-18 06:58] LABS: HEMOGLOBIN A1c 5.5 % (4.8-5.6)
[2016-09-18 17:28] LABS: BUN 2 mg/dl (7-24); CARBON DIOXIDE 25 mmol/L (21-32); CHLORIDE 94 mmol/L (98-107); EST GLOM FILT AFRICAN AMERICAN > 60 ml/min; GLUCOSE 130 mg/dL (65-99); POTASSIUM 3.5 mmol/L (3.5-5.1); SODIUM 130 mmol/L (136-145)
[2016-09-19] VITALS: BP 144/68
[2016-09-19 06:03] LABS: BASO # 0.1 10*3/uL (0.0-0.1); BASO % 1.1 % (0.0-1.0); EOS # 0.2 10*3/uL (0.0-0.4); EOS % 2.9 % (1.0-4.0); HEMATOCRIT 36.6 % (42.0-52.0); HEMOGLOBIN 12.8 g/dl (14.0-18.0); LYMPH % 13.7 % (27.0-41.0); MEAN CELL VOLUME 83.4 fl (80.0-94.0); MEAN CORPUSCULAR HGB 29.2 pg (27.0-31.0); MEAN PLATELET VOLUME 8.1 fl (9.6-12.3); MONO # 0.7 10*3/uL (0.1-1.0); NEUT # 5.2 10*3/uL (2.3-7.9); NEUT % 71.7 % (47.0-73.0); PLATELET COUNT AUTOMATED 412 10*3/uL (130-400); RED BLOOD COUNT 4.39 10*6/uL (4.50-5.90); RED CELL DISTRI WIDTH 14.2 % (0-14.5); WHITE BLOOD COUNT 7.2 10*3/uL (4.8-10.8)
[2016-09-19 06:24] LABS: BUN 1 mg/dl (7-24); CARBON DIOXIDE 28 mmol/L (21-32); CHLORIDE 91 mmol/L (98-107); EST GLOM FILT AFRICAN AMERICAN > 60 ml/min; GLUCOSE 92 mg/dL (65-99); MAGNESIUM 1.2 mg/dL (1.5-2.1); PHOSPHOROUS 2.3 mg/dL (2.5-4.9); POTASSIUM 3.3 mmol/L (3.5-5.1); SODIUM 129 mmol/L (136-145)
[2016-09-19 08:00] VITALS: BP 150/72
[2016-09-19 12:00] VITALS: BP 148/82
[2016-09-19 16:00] VITALS: BP 153/66
[2016-09-19 20:00] VITALS: BP 160/67
[2016-09-20] VITALS (9 sets, daily range): BP systolic 101–186; BP diastolic 41–86
[2016-09-20 06:06] LABS: BASO # 0.1 10*3/uL (0.0-0.1); BASO % 1.5 % (0.0-1.0); EOS # 0.2 10*3/uL (0.0-0.4); EOS % 3.5 % (1.0-4.0); HEMATOCRIT 37.9 % (42.0-52.0); HEMOGLOBIN 13.3 g/dl (14.0-18.0); IG # 0.1 10*3/uL (0.0-0.1); LYMPH # 1.2 10*3/uL (1.3-4.4); LYMPH % 19.9 % (27.0-41.0); MEAN CORPUSCULAR HGB 29.5 pg (27.0-31.0); MEAN CORPUSCULAR HGB CONC 35.1 g/dl (33.0-37.0); MEAN PLATELET VOLUME 7.8 fl (9.6-12.3); MONO # 0.8 10*3/uL (0.1-1.0); MONO % 14.1 % (3.0-9.0); NEUT # 3.6 10*3/uL (2.3-7.9); PLATELET COUNT AUTOMATED 424 10*3/uL (130-400); RED BLOOD COUNT 4.51 10*6/uL (4.50-5.90); RED CELL DISTRI WIDTH 14.1 % (0-14.5)
[2016-09-20 06:37] LABS: CHLORIDE 92 mmol/L (98-107); POTASSIUM 3.6 mmol/L (3.5-5.1); SODIUM 130 mmol/L (136-145)
[2016-09-20 06:41] LABS: CARBON DIOXIDE 28 mmol/L (21-32); EST GLOM FILT AFRICAN AMERICAN > 60 ml/min; GLUCOSE 90 mg/dL (65-99)
[2016-09-20 06:48] LABS: BUN < 1 mg/dl (7-24)
[2016-09-21] VITALS: BP 138/76
[2016-09-21 07:03] LABS: BASO # 0.1 10*3/uL (0.0-0.1); BASO % 1.5 % (0.0-1.0); EOS # 0.2 10*3/uL (0.0-0.4); EOS % 3.6 % (1.0-4.0); HEMOGLOBIN 12.3 g/dl (14.0-18.0); LYMPH # 1.2 10*3/uL (1.3-4.4); LYMPH % 22.1 % (27.0-41.0); MEAN CELL VOLUME 84.7 fl (80.0-94.0); MEAN CORPUSCULAR HGB 28.9 pg (27.0-31.0); MEAN CORPUSCULAR HGB CONC 34.2 g/dl (33.0-37.0); MONO # 0.8 10*3/uL (0.1-1.0); MONO % 15.5 % (3.0-9.0); NEUT % 56.5 % (47.0-73.0); PLATELET COUNT AUTOMATED 407 10*3/uL (130-400); RED BLOOD COUNT 4.25 10*6/uL (4.50-5.90); RED CELL DISTRI WIDTH 14.1 % (0-14.5); WHITE BLOOD COUNT 5.2 10*3/uL (4.8-10.8)
[2016-09-21 07:32] LABS: BUN 5 mg/dl (7-24); CARBON DIOXIDE 27 mmol/L (21-32); CHLORIDE 96 mmol/L (98-107); EST GLOM FILT AFRICAN AMERICAN > 60 ml/min; GLUCOSE 96 mg/dL (65-99); POTASSIUM 3.2 mmol/L (3.5-5.1); SODIUM 132 mmol/L (136-145)
[2016-09-21 08:00] VITALS: BP 147/66
[2016-09-21] MEDS ORDERED: METRONIDAZOLE250 M1 PO (11:37)
[2016-09-21 12:00] VITALS: BP 150/71
== END 2016-09-21 14:25 | disposition home health service (06) | DRG 394 ==
LOC: ED 14:52 → EDHOLD 16:30 → 4E 16:30
PROVIDERS: Internal Medicine; Internal Medicine Nephrology; Physician Assistant; Student in an Organized Health Care Education/Training Program
PROC: 0DBH8ZX Excision of Cecum, Via Natural or Artificial Opening Endoscopic, Diagnostic (ICD-10-PCS; principal; 2016-09-20)
PROC: 0DBK8ZX Excision of Ascending Colon, Via Natural or Artificial Opening Endoscopic, Diagnostic (ICD-10-PCS; principal; 2016-09-20)
PROC: 0D9H8ZX Drainage of Cecum, Via Natural or Artificial Opening Endoscopic, Diagnostic (ICD-10-PCS; principal; 2016-09-20)
PROC: 0DBL8ZX Excision of Transverse Colon, Via Natural or Artificial Opening Endoscopic, Diagnostic (ICD-10-PCS; principal; 2016-09-20)
DX: K55.9 Vascular disorder of intestine, unspecified (principal); K56.7 Ileus, unspecified; I11.0 Hypertensive heart disease with heart failure; E87.1 Hypo-osmolality and hyponatremia; I50.32 Chronic diastolic (congestive) heart failure; E83.42 Hypomagnesemia; D47.3 Essential (hemorrhagic) thrombocythemia; F10.10 Alcohol abuse, uncomplicated; K21.9 Gastro-esophageal reflux disease without esophagitis; B19.20 Unspecified viral hepatitis C without hepatic coma; J44.9 Chronic obstructive pulmonary disease, unspecified; D64.9 Anemia, unspecified; E87.6 Hypokalemia; E83.39 Other disorders of phosphorus metabolism; K57.30 Diverticulosis of large intestine without perforation or abscess without bleeding; Z79.899 Other long term (current) drug therapy

== ENCOUNTER → 2016-10-11 | Outpatient (CLI) | payer MEDICARE, MEDICAID ==
[~2016-10-11] MED LIST changes: +LACTULOSE20 GM/30 M PO; +LASIX20 MG PO; +METRONIDAZOLE250 M1 PO
[2016-10-11 08:52] LABS: BASO # 0.2 10*3/uL (0.0-0.1); BASO % 1.9 % (0.0-1.0); EOS # 0.5 10*3/uL (0.0-0.4); EOS % 5.5 % (1.0-4.0); HEMATOCRIT 39.1 % (42.0-52.0); IG # 0.1 10*3/uL (0.0-0.1); LYMPH % 20.6 % (27.0-41.0); MEAN CELL VOLUME 85.4 fl (80.0-94.0); MEAN CORPUSCULAR HGB 28.4 pg (27.0-31.0); MEAN CORPUSCULAR HGB CONC 33.2 g/dl (33.0-37.0); MEAN PLATELET VOLUME 8.2 fl (9.6-12.3); MONO # 0.9 10*3/uL (0.1-1.0); MONO % 8.8 % (3.0-9.0); NEUT % 62.5 % (47.0-73.0); PLATELET COUNT AUTOMATED 599 10*3/uL (130-400); RED BLOOD COUNT 4.58 10*6/uL (4.50-5.90); RED CELL DISTRI WIDTH 13.5 % (0-14.5); WHITE BLOOD COUNT 9.7 10*3/uL (4.8-10.8)
[2016-10-11 09:27] LABS: ALBUMIN 3.9 gm/dl (3.1-4.5); ALKALINE PHOSPHATASE 92 U/L (45-117); BILIRUBIN, TOTAL 0.3 mg/dl (0.2-1.0); BUN 8 mg/dl (7-24); CARBON DIOXIDE 26 mmol/L (21-32); CHLORIDE 101 mmol/L (98-107); EST GLOM FILT AFRICAN AMERICAN > 60 ml/min; GLUCOSE 90 mg/dL (65-99); POTASSIUM 4.2 mmol/L (3.5-5.1); SGOT/AST 87 IU/L (3-35); SGPT/ALT 102 U/L (12-78); SODIUM 135 mmol/L (136-145); TOTAL PROTEIN 7.4 gm/dL (6.4-8.2)
== END ==
LOC: LAB 08:31
PROVIDERS: Internal Medicine
DX: E78.00 Pure hypercholesterolemia, unspecified (principal); R06.02 Shortness of breath

== ENCOUNTER 2016-10-22 08:25 | Inpatient (IN) | payer MEDICARE, MEDICAID ==
[~2016-10-22] VITALS: Ht 157.4 cm; Wt 53.1 kg
--- NOTE | ~2016-10-22 | CON ---
[place], [place] REPORT OF CONSULTATION NAME: YURIDIA CHRISTIE UNIT #: [id number] ROOM: 507 [facility] [birth year] DOS: HISTORY OF PRESENT ILLNESS: A 65-year-old patient who has presented with chief complaint of abdominal pain who has been suspected to have a mass in the right liver and extensive calcification of vasculature in the abdomen. The patient with COPD, O2 dependency and emaciation. The patient has had a colonoscopy done a few weeks ago and at that stage, he had multi segment skipped segments of the colon ischemic pattern in the cecum as well as hepatic flexure and mid ascending colon. This has been biopsied at that stage. At that stage, we have discussed with the family and with patient itself who is fully alert. He did not want to have surgical option to be considered. Therefore, on 09/20/2016, the decision was to proceed with antibiotic therapy and resumption of the feedings for and reassessment of supportive management. His labs and records have been reviewed. White blood cell at this stage was 20, H and H of 13 and 39 with neutrophil of 89. Chest x-ray remains normal. Basic metabolic panel, electrolytes, sodium 131, chloride 93, otherwise liver function test normal. BNP of 350. Troponin within normal limits. Lactic acid remained normal. Serum ammonia level less than 10. CT scan of the abdomen with contrast was done. There is 3 cm mass of the right lobe of the liver just under the diaphragm; no significant enhancement is noticed, remainder of the liver appeared to be normal. Extensive calcifications of arteries to rule out the abdomen noticed. Urinary bladder is without mass. Prostate is not enlarged and colon throughout without obstructive mass. Skeleton, multiple compression fractures of thoracic and lumbar, no suspicious bony lesions. Troponins were within normal limits. KUB of the abdomen today, significant amount of generalized vascular calcifications, which is known to us adynamic ileus possibility. PAST MEDICAL HISTORY: Associated with coronary artery disease, vascular calcification, history of ETOH dependency, coronary artery disease, degenerative joint disease, COPD, O2 dependency, gastroesophageal reflux, hepatitis C, CVA history, ischemic colitis history. PAST SURGICAL HISTORY: Multi rib fractures, cataract, left hip prosthesis, cardiac catheterization. SOCIAL HISTORY: History of extensive alcohol dependency and smoking history extensively. FAMILY HISTORY: Noncontributory. ALLERGIES: No known medications. MEDICATIONS: Medication list has been reviewed. REVIEW OF SYSTEMS: HEENT: Denies double vision, blurred vision. RESPIRATORY: Admits some shortness of breath, O2 helps him nasal cannula therefore in place. CARDIOVASCULAR: Denies chest pain. DIGESTIVE SYSTEM: Abdominal pain. No hematemesis, no hematochezia, no [place], [place] REPORT OF CONSULTATION NAME: YURIDIA CHRISTIE UNIT #: [id number] ROOM: 507 DOCTOR: ELENA CRUZ MD BIRTHDATE: [birth year] diarrhea. PHYSICAL EXAMINATION: VITAL SIGNS: Stable. HEENT: Head: Normocephalic, nontraumatic. Mouth and buccal mucosa benign. NECK: Supple, no thyromegaly. CHEST: Symmetric anatomy, equal expansion. Decreased air entry bilaterally. HEART: Normal sinus rhythm, no gallop, no murmur. ABDOMEN: Soft. No hepato-organomegaly. Bowel sounds present. No pulsatile mass. EXTREMITIES: No cyanosis, no pedal edema. NEUROLOGIC: Alert, oriented to time, place, person. IMPRESSION: Abdominal pain presence of mass in the liver, history of ischemic colitis has multiple levels, cecum, mid ascending and hepatic flexure. Other adjunctive diagnoses, hepatitis C, extensive vascular calcifications, chronic obstructive pulmonary disease, O2 dependency, diastolic congestive heart failure, history of ETOH and nicotine dependency and dip-BZ-[id number] elevation myocardial infarction history all has been recognized. Labs have been reviewed. Records have been reviewed. CBC differential, CT scan of the abdomen all has been reviewed. Past biopsies of his colon nonmalignant tissue has been reported in past. PLAN AND DISCUSSION: The patient has changed his mind regarding surgery at this time and he is telling me that I have changed by mind since then and if surgery helps me I want to have that option. Therefore, arrangement has been made for transfer to . ELENA CRUZ MD CM:CONSTR:REPORT OF CONSULTATION 99 10/23/16 364 interface
[2016-10-22 08:26] VITALS: BP 119/58
[2016-10-22 09:20] LABS: BASO # 0.1 10*3/uL (0.0-0.1); BASO % 0.2 % (0.0-1.0); HEMATOCRIT 39.4 % (42.0-52.0); HEMOGLOBIN 13.6 g/dl (14.0-18.0); IG # 0.1 10*3/uL (0.0-0.1); LYMPH # 0.7 10*3/uL (1.3-4.4); LYMPH % 3.6 % (27.0-41.0); MEAN CELL VOLUME 82.4 fl (80.0-94.0); MEAN CORPUSCULAR HGB 28.5 pg (27.0-31.0); MEAN CORPUSCULAR HGB CONC 34.5 g/dl (33.0-37.0); MEAN PLATELET VOLUME 8.5 fl (9.6-12.3); MONO # 1.2 10*3/uL (0.1-1.0); NEUT # 18.5 10*3/uL (2.3-7.9); NEUT % 89.5 % (47.0-73.0); PLATELET COUNT AUTOMATED 434 10*3/uL (130-400); RED BLOOD COUNT 4.78 10*6/uL (4.50-5.90); RED CELL DISTRI WIDTH 13.7 % (0-14.5); WHITE BLOOD COUNT 20.7 10*3/uL (4.8-10.8)
[2016-10-22 09:38] LABS: ALBUMIN 3.6 gm/dl (3.1-4.5); ALKALINE PHOSPHATASE 85 U/L (45-117); BILIRUBIN, DIRECT 0.2 mg/dL (0.0-0.2); BILIRUBIN, TOTAL 0.7 mg/dl (0.2-1.0); BUN 9 mg/dl (7-24); CARBON DIOXIDE 27 mmol/L (21-32); CHLORIDE 93 mmol/L (98-107); EST GLOM FILT AFRICAN AMERICAN > 60 ml/min; GLUCOSE 112 mg/dL (65-99); POTASSIUM 4.2 mmol/L (3.5-5.1); SGOT/AST 25 IU/L (3-35); SGPT/ALT 48 U/L (12-78); SODIUM 131 mmol/L (136-145); TOTAL PROTEIN 7.2 gm/dL (6.4-8.2)
[2016-10-22 09:40] LABS: TROPONIN I < 0.015 ng/ml (<0.045)
[2016-10-22 10:00] VITALS: BP 112/78
[2016-10-22 11:01] LABS: BILIRUBIN NEGATIVE (NEGATIVE); BLOOD NEGATIVE (NEGATIVE); CLARITY CLEAR (CLEAR); COLOR YELLOW (YELLOW); GLUCOSE NEGATIVE (NEGATIVE); KETONE TRACE (NEGATIVE); LEUKO ESTERASE NEGATIVE (NEGATIVE); NITRITE NEGATIVE (NEGATIVE); PH 6.5 (5.0-9.0); PROTEIN NEGATIVE (NEGATIVE); SPECIFIC GRAVITY <= 1.005 (1.005-1.030); UROBILINOGEN 0.2 E.U./dl (0.2-1.0)
[2016-10-22 11:11] LABS: EPITHELIAL CELLS 0-2; RBC 0-2 rbc/hpf (0-2); URINE REFLEX COMMENT NO (NO)
[2016-10-22 11:24] VITALS: BP 107/62
[2016-10-22 16:00] VITALS: BP 105/55
[2016-10-22 20:00] VITALS: BP 110/53
[2016-10-23] VITALS: BP 110/55
[2016-10-23 06:27] LABS: BASO # 0.1 10*3/uL (0.0-0.1); BASO % 0.3 % (0.0-1.0); EOS # 0.1 10*3/uL (0.0-0.4); EOS % 0.6 % (1.0-4.0); HEMATOCRIT 35.9 % (42.0-52.0); HEMOGLOBIN 12.3 g/dl (14.0-18.0); IG # 0.1 10*3/uL (0.0-0.1); LYMPH # 1.4 10*3/uL (1.3-4.4); LYMPH % 7.3 % (27.0-41.0); MEAN CELL VOLUME 83.9 fl (80.0-94.0); MEAN CORPUSCULAR HGB 28.7 pg (27.0-31.0); MEAN CORPUSCULAR HGB CONC 34.3 g/dl (33.0-37.0); MEAN PLATELET VOLUME 8.6 fl (9.6-12.3); MONO # 1.2 10*3/uL (0.1-1.0); MONO % 6.1 % (3.0-9.0); NEUT # 16.4 10*3/uL (2.3-7.9); NEUT % 85.1 % (47.0-73.0); PLATELET COUNT AUTOMATED 367 10*3/uL (130-400); RED BLOOD COUNT 4.28 10*6/uL (4.50-5.90); WHITE BLOOD COUNT 19.3 10*3/uL (4.8-10.8)
[2016-10-23 06:47] LABS: HEMOGLOBIN A1c 5.7 % (4.8-5.6)
[2016-10-23 06:48] LABS: INTERNATIONAL NORM RATIO 1.3 (2.0-3.5); PROTHROMBIN TIME 14.1 SECONDS (9.0-12.4)
[2016-10-23 07:00] LABS: BUN 9 mg/dl (7-24); CARBON DIOXIDE 27 mmol/L (21-32); CHLORIDE 97 mmol/L (98-107); CHOLESTEROL 103 mg/dL (<200); EST GLOM FILT AFRICAN AMERICAN > 60 ml/min; FREE T4 1.32 ng/dl (0.76-1.46); GLUCOSE 110 mg/dL (65-99); HDL CHOLESTEROL 43 mg/dl (40-60); LDL CHOLESTEROL 52 mg/dL (9-159); MAGNESIUM 1.3 mg/dL (1.5-2.1); PHOSPHOROUS 2.7 mg/dL (2.5-4.9); POTASSIUM 3.9 mmol/L (3.5-5.1); SODIUM 134 mmol/L (136-145); TRIGLYCERIDES 38 mg/dl (<150); VLDL CHOLESTEROL 8 mg/dL (6-40)
[2016-10-23 07:06] LABS: THYROID STIM HORMONE (HS) 0.896 uIU/ml (0.358-4.75)
[2016-10-23 07:23] LABS: VITAMIN D, 25-HYDROXY 26.9 ng/mL (30-100)
[2016-10-23 07:24] LABS: FOLIC ACID 20.82 ng/mL (>5.38)
[2016-10-23 08:00] VITALS: BP 116/58
[2016-10-23 12:00] VITALS: BP 118/60
[2016-10-23] MEDS ORDERED: VITAMIN D50000 I3 PO (15:30)
[2016-10-23 16:00] VITALS: BP 127/60
[2016-10-23] MEDS ORDERED: ENOXAPARIN40 MG/0.2 SC (16:06)
[2016-10-23] MEDS ORDERED: PROTONIX40 M1 IV (16:06)
[2016-10-23] MEDS ORDERED: ONDANSETRON H2 MG/ML IV (16:06)
[2016-10-23] MEDS ORDERED: ZOSYN1 SO1 IV (16:06)
[2016-10-23] MEDS ORDERED: MORPHINE SULF2 MG/M1 IV (16:06)
[2016-10-23] MEDS ORDERED: NOVAPLUS LIDOCAINE5% T (16:06)
== END 2016-10-23 18:34 | disposition short-term general hospital (02) | DRG 375 ==
LOC: ED 08:25 → EDHOLD 11:21 → 5E 11:21
PROVIDERS: Emergency Medicine; Internal Medicine
DX: C18.9 Malignant neoplasm of colon, unspecified (principal); K56.7 Ileus, unspecified; I11.0 Hypertensive heart disease with heart failure; J44.1 Chronic obstructive pulmonary disease with (acute) exacerbation; I50.32 Chronic diastolic (congestive) heart failure; E87.1 Hypo-osmolality and hyponatremia; R16.0 Hepatomegaly, not elsewhere classified; I25.10 Atherosclerotic heart disease of native coronary artery without angina pectoris; K29.50 Unspecified chronic gastritis without bleeding; K59.03 Drug induced constipation; D64.9 Anemia, unspecified; D47.3 Essential (hemorrhagic) thrombocythemia; Z96.1 Presence of intraocular lens; Z96.642 Presence of left artificial hip joint; F10.10 Alcohol abuse, uncomplicated; K21.9 Gastro-esophageal reflux disease without esophagitis; Z86.73 Personal history of transient ischemic attack (TIA), and cerebral infarction without residual deficits; I25.2 Old myocardial infarction; Z98.42 Cataract extraction status, left eye; Z98.41 Cataract extraction status, right eye; Z87.891 Personal history of nicotine dependence; Z82.49 Family history of ischemic heart disease and other diseases of the circulatory system; Z79.51 Long term (current) use of inhaled steroids; Z79.899 Other long term (current) drug therapy; K76.9 Liver disease, unspecified

== ENCOUNTER 2016-11-10 12:45 | Inpatient (IN) | payer MEDICARE, MEDICAID ==
[2016-11-10] VITALS (8 sets, daily range): BP systolic 112–157; BP diastolic 52–72
[~2016-11-10] VITALS: Ht 157.5 cm; Wt 51.3 kg
--- NOTE | ~2016-11-10 | CON ---
[place], [place] REPORT OF CONSULTATION NAME: [facility]IA [facility]RISTIE [id number] UNIT #: [id number] ROOM: 422 DOCTOR: RYNE FORBES MD BIRTHDATE: [birth year] DOS: 11/11/2016 REASON FOR CONSULTATION: Dyspnea, chest pain and constipation. HISTORY OF PRESENT ILLNESS: This is one of several hospitalizations for the patient who is a 65-year-old man with history of obstructive lung disease, hypertension, and alcohol abuse. He has had several hospitalizations recently with abdominal discomfort, constipation and dyspnea. Yesterday, he stated that he felt constipated and strained at stool. As he was trying to move his bowels, he became dyspneic. Associated with the dyspnea was some chest discomfort. Because of all these complaints, he came to the Emergency Room. His electrocardiogram shows no acute changes and cardiac biomarkers on this occasion have been normal. The patient was hospitalized in 07/2016 at which time he did have an elevation in troponin. He was sent to [facility] where he underwent cardiac catheterization. He had no significant coronary artery disease and his left ventricular ejection fraction was 60% with normal wall motion. No cardiac cause for the patient's symptoms and elevation in troponin was found. PAST MEDICAL HISTORY: Includes: 1. Essential hypertension. 2. Chronic obstructive pulmonary disease. 3. History of esophageal stricture. 4. Chronic gastritis. 5. Long-term alcohol abuse. 6. History of cigarette abuse. The patient quit many years ago. 7. Hospitalization with elevated troponin and chest pain, 08/13/2016. The patient was transferred to [facility] where cardiac catheterization, 08/14/2016, showed normal left ventricular wall motion and systolic function with multiple coronary anatomy. It was felt that he had subendocardial ischemia due to hypoxemia from his lung disease. 8. Echocardiogram, 08/14/2016, at [facility], normal left ventricular size, wall motion and function with stage 1 diastolic relaxation abnormalities. Ejection fraction 65%, mild mitral annular calcification with mild mitral insufficiency, left atrium borderline dilated. No other significant abnormalities were noted. 9. History of left hip surgery. REVIEW OF SYSTEMS: The patient currently feels well. He denies diplopia or focal weakness. He denies lightheadedness or syncope. He does have occasional generalized weakness and does occasionally have a hard time walking. He has not had any recent nausea or vomiting. He does have constipation and states that he gets breathless when he tries to strain at stool. He denies chest pain again. He does have a nonproductive cough. He denies any blood in his stools or urine. He denies any focal weakness. He denies hemoptysis or hematemesis. He denies heat or cold intolerance and denies any skin rashes. He denies any peripheral edema on the left. He states that his right leg is always a little bit swollen, but does not hurt. The remainder of the review of systems is negative except as noted above. [place], [place] REPORT OF CONSULTATION NAME: YURIDIA CHRISTIE UNIT #: [id number] ROOM: 422 DOCTOR: RYNE FORBES MD BIRTHDATE: [birth year] MEDICATIONS PRIOR TO ADMISSION: Albuterol by metered dose inhaler p.r.n., acetaminophen p.r.n., aspirin 81 mg daily, atenolol 25 mg daily, calcium carbonate b.i.d., vitamin D 3000 units daily, Colace 100 mg daily, folic acid 1 mg daily, furosemide 20 mg daily, guaifenesin 600 mg twice a day, hydrocodone with acetaminophen 1 tablet q.12h. Lisinopril 5 mg every 12 hours, Protonix 40 mg daily, tamsulosin 0.4 mg daily and thiamine 100 mg daily. ALLERGIES: He has no known drug allergies. FAMILY HISTORY: Mother at age 50 or 60 from coronary artery disease, also had a history of diabetes. There is no family history of early coronary disease. SOCIAL HISTORY: The patient admits to drinking beer on a daily basis. He was a smoker, but quit many years ago. He does not use illegal drugs. PHYSICAL EXAMINATION: GENERAL: The patient is a slender white male who is awake, alert and oriented. VITAL SIGNS: Pulse is 90 and regular, blood pressure 147/69. He is afebrile. He weighs 51.3 kg and has a body mass index of 20.7. HEENT: Normocephalic, atraumatic. Extraocular muscles are intact. Sclerae are clear. Pupils are round and react to light. The oral mucosa is moist. Tongue is midline. NECK: Supple. He has no jugular distention. Carotids are full, he has no bruits. He has no neck or supraclavicular masses. No thyromegaly. LUNGS: Respirations are unlabored. Chest is clear to auscultation and percussion. He had no presacral edema or chest wall tenderness. CARDIOVASCULAR: Heart had a regular rhythm. He had a fourth heart sound. He did not have an obvious third heart sound. The PMI was not displaced. There was no precordial heave, lift or thrill. ABDOMEN: Soft and normally active without masses, organomegaly or bruits. EXTREMITIES: Showed no clubbing, cyanosis or edema. Peripheral pulses are easily palpated bilaterally. LABORATORY DATA: I reviewed his electrocardiogram, which showed sinus rhythm and was a normal tracing. His chest x-ray was also normal. Serial cardiac biomarkers have been negative. IMPRESSION: 1. Chronic constipation. 2. Dyspnea while straining at stool. The patient does not have any signs of heart failure or acute coronary syndrome and recently had a normal catheterization. He has dyspnea with straining, probably is related to underlying pulmonary problems. 3. Cardiac catheterization, 08/14/2016, normal coronary anatomy with normal left ventricular wall motion and systolic function, normal exam. 4. Long-term alcohol abuse. 5. Severe chronic obstructive pulmonary disease. 6. History of esophageal stricture. [place], [place] REPORT OF CONSULTATION NAME: YURIDIA CHRISTIE UNIT #: [id number] ROOM: [facility] DOCTOR: RYNE FORBES MD BIRTHDATE: [birth year] 7. Chronic gastritis. 8. History of hepatitis C. PLAN: The patient appears to be hemodynamically stable and I do not see any signs of heart failure. We will continue to observe him with his other physicians, but no other cardiac workup is planned at this time. I thank the hospitalist physicians for asking our advice regarding his management. RYNE FORBES MD CM:CONSTR:REPORT OF CONSULTATION 1114 11/11/16 2228 interface
--- NOTE | ~2016-11-10 | PR ---
[place], [place] PROGRESS NOTE NAME: YURIDIA CHRISTIE UNIT #: [id number] ROOM: 422 DOCTOR: HEATH GANDARA MD,HAN BIRTHDATE: [birth year] DOS: 11/12/2016 PULMONARY FOLLOWUP SUBJECTIVE: He has reported significant reduction in the respiratory symptom this morning. Denies symptoms of chest pain. Coughing has been subsiding. Denies symptoms of abdominal pain. OBJECTIVE: VITAL SIGNS: For the patient, which has been recorded for the patient showed the temperature noted as normal, respiratory rate 18, heart rate 76, blood pressure 120/56. Pulse oxygen saturation on room air 95% saturation. HEENT: Examination shows no acute change. NECK: Supple. CARDIOVASCULAR: S1, S2 audible. LUNGS: Moderate decreased breath sounds noted without any crackles. Occasional wheezing. ABDOMEN: Soft, nontender. IMPRESSION: The patient with resolving acute exacerbation of chronic obstructive pulmonary disease with acute tracheobronchitis was noted at this time, responding to treatment with clinical improvement in the respiratory status continued. PLAN OF TREATMENT: No changes in the plan of therapy, continue the patient's current therapy and plan of management as previously. Usual care, other supportive plan of management. HAN JOE MD CM:PNTRANS 1121 1306 HAN GANDARA MD 11/12/16 1305 interface
--- NOTE | ~2016-11-10 | CON ---
[place], [place] REPORT OF CONSULTATION NAME: YURIDIA CHRISTIE UNIT #: [id number] ROOM: 422 DOCTOR: HEATH GANDARA MD,HAN BIRTHDATE: [birth year] DOS: 11/11/2016 PULMONARY CONSULTATION EVALUATION AND MANAGEMENT CONSULTATION REQUESTED BY: Hospitalist service. REASON FOR CONSULTATION: Assessment of pneumonia and other respiratory problems. HISTORY OF PRESENT ILLNESS: This is a 65-year-old white male with a past diagnosis of COPD, has been admitted to the hospital for the increased respiratory symptoms related to the COPD. The patient has been noted symptoms of shortness of breath, which has been present for the past few days with gradual worsening. He was also noted with coughing with some sputum expectoration. The patient was reported with symptoms of wheezing as well. Denies symptoms of chest pain or hemoptysis. PAST MEDICAL HISTORY: 1. Centrilobular emphysema. 2. Uncomplicated severe persistent bronchial asthma, treated with Singulair and Xolair shots twice a week. 3. History of past alcohol use. 4. Coronary artery disease. 5. Hepatitis C. 6. Past CVA without any residual focal neurologic deficit. 7. Degenerative arthritis. 8. History of congestive heart failure with diastolic dysfunction. 9. Decreased mobility. SOCIAL HISTORY: The patient is , has 4 children. Denies history of alcohol or illicit drug use, tobacco use was started at younger age, a pack of cigarettes per day. The patient smoked 1 pack of cigarettes per day that has been discontinued in 2011 approximately. History of alcohol use was noted with dependence from the past as well. PAST SURGICAL HISTORY: 1. Cataract extraction with lens implantation. 2. Left hip ORIF. FAMILY HISTORY: The patient's father at the age of 6565 years old, complication of myocardial infarction, also known with history of cancer. Mother at the age of 6060 years old, complication related to acute myocardial infarction and diabetes mellitus. MEDICATIONS: The current administered medications noted use of aspirin, atenolol, Flomax, folic acid, thiamine, Lovenox, Protonix, lisinopril, Mucinex, Solu-Medrol 40 mg q.8h., DuoNeb and Levaquin. DRUG ALLERGIES: The patient was noted as no known drug allergies. [place], [place] REPORT OF CONSULTATION NAME: YURIDIA CHRISTIE UNIT #: [id number] ROOM: 422 DOCTOR: HEATH GANDARA MD,[facility] BIRTHDATE: [birth year] REVIEW OF SYSTEMS: CONSTITUTIONAL: Fatigue and tiredness noted without symptoms of fever or chills. EYES: Denies any burning, redness, or tenderness. EARS, NOSE, AND THROAT: No sore throat, hoarseness, otalgia, postnasal drainage. CARDIOVASCULAR: Denies anginal pain, edema, pain of the lower extremities. CENTRAL NERVOUS SYSTEM: Denies dizziness, headache, diplopia, syncopal episode. SKIN: Denies any lesions or rashes. PHYSICAL EXAMINATION: GENERAL: A 65-year-old male who has been currently sitting, resting on his bed without any distress. VITAL SIGNS: Height noted as 5 feet 2 inches, weight of 113 pounds, BMI was normal. Vital signs of the patient which has been recorded showed the temperature noted as normal, respiratory rate 18-20, heart rate of 90-105, blood pressure 147/69 to 190/52. Pulse oxygen saturation 2-1/2 liters nasal cannula 97% saturation. HEENT: Examination shows no new change. NECK: Supple. CARDIOVASCULAR: S1, S2 audible. LUNGS: The patient was noted with expiratory wheezing. There were no crackles heard. ABDOMEN: Soft, flat, nontender, bowel sounds present. CENTRAL NERVOUS SYSTEM: Cranial nerves 2-12 intact. No focal deficit. SKIN: No lesions or rashes. MUSCULOSKELETAL: No deformities. LABORATORY DATA: CBC on 11/10/2016 on admission noted hemoglobin 11.4, hematocrit 34.7, platelet count was elevated at 597 with normal WBC count. The CK-MB and troponin, which were done on the and were all noted normal. CBC of 11/11/2016 shows similar finding as of yesterday. PT/INR noted 1.3 with normal PTT. CMP of 11/10/2016 shows normal CBC. The CMP of the patient of 11/10/2016 on admission, normal electrolytes. The AST was minimally elevated at 40. The chest x-ray of the patient that was done on 11/10/2016 was noted changes, hyperinflation without any acute pulmonary infiltration. The PT and PTT were noted as INR 1.3, which is normal with normal PTT at 25. IMPRESSION: 1. The patient who has been currently admitted to the hospital and to hospitalist services was noted with acute exacerbation of chronic obstructive pulmonary disease and acute tracheobronchitis. 2. There was no clinical or radiologic evidence of large pneumonia was noted. 3. Past history of alcohol use. 4. Former tobacco use for 40 years or greater. PLAN OF TREATMENT: The patient will be continued on current plan of therapy as previously in progress. Usual care. Bronchodilator administration to be continued. Monitor respiratory status closely. Further treatment changes will be done based on progression of the illness. Order the sputum for Gram stain [place], [place] REPORT OF CONSULTATION NAME: YURIDIA CHRISTIE UNIT #: [id number] ROOM: 422 DOCTOR: HAN KISER MD BIRTHDATE: [birth year] and culture as well. Continued abstinence from tobacco use was advised. Thanks for allowing me to participate in the care of this patient. HAN JOE MD CM:CONSTR:REPORT OF CONSULTATION 1236 11/11/16 1348 interface
[~2016-11-10 12:45] MED LIST changes: +ENOXAPARIN40 MG/0.2 SC; +MORPHINE SULF2 MG/M1 IV; +NOVAPLUS LIDOCAINE5% T; +ONDANSETRON H2 MG/ML IV; +PROTONIX40 M1 IV; +VITAMIN D50000 I3 PO; +ZOSYN1 SO1 IV
[2016-11-10 13:19] LABS: BASO # 0.1 10*3/uL (0.0-0.1); BASO % 2.6 % (0.0-1.0); EOS # 0.4 10*3/uL (0.0-0.4); EOS % 6.9 % (1.0-4.0); HEMATOCRIT 34.7 % (42.0-52.0); HEMOGLOBIN 11.4 g/dl (14.0-18.0); LYMPH # 1.6 10*3/uL (1.3-4.4); LYMPH % 30.1 % (27.0-41.0); MEAN CELL VOLUME 85.9 fl (80.0-94.0); MEAN CORPUSCULAR HGB 28.2 pg (27.0-31.0); MEAN CORPUSCULAR HGB CONC 32.9 g/dl (33.0-37.0); MEAN PLATELET VOLUME 7.9 fl (9.6-12.3); MONO # 0.8 10*3/uL (0.1-1.0); MONO % 14.1 % (3.0-9.0); NEUT # 2.5 10*3/uL (2.3-7.9); NEUT % 46.1 % (47.0-73.0); PLATELET COUNT AUTOMATED 597 10*3/uL (130-400); RED BLOOD COUNT 4.04 10*6/uL (4.50-5.90); WHITE BLOOD COUNT 5.4 10*3/uL (4.8-10.8)
[2016-11-10 13:41] LABS: ALBUMIN 3.7 gm/dl (3.1-4.5); ALKALINE PHOSPHATASE 68 U/L (45-117); BILIRUBIN, TOTAL 0.3 mg/dl (0.2-1.0); BUN 7 mg/dl (7-24); CARBON DIOXIDE 26 mmol/L (21-32); CHLORIDE 100 mmol/L (98-107); EST GLOM FILT AFRICAN AMERICAN > 60 ml/min; GLUCOSE 94 mg/dL (65-99); POTASSIUM 4.9 mmol/L (3.5-5.1); SGOT/AST 40 IU/L (3-35); SGPT/ALT 57 U/L (12-78); SODIUM 137 mmol/L (136-145); TROPONIN I 0.018 ng/ml (<0.045)
[2016-11-10] MEDS ORDERED: COLACE100 MG PO (15:02)
[2016-11-10] MEDS ORDERED: NORCO 5-325 TA1 EACH PO (15:02)
[2016-11-10] MEDS ORDERED: GUAIFENESIN600 MG PO (15:03)
[2016-11-10] MEDS ORDERED: VITAMIN B-1100 M1 PO (15:03)
[2016-11-10] MEDS ORDERED: ZESTRIL5 MG PO (15:04)
[2016-11-10] MEDS ORDERED: LASIX20 MG PO (15:04)
[2016-11-10] MEDS ORDERED: NATURE'S BLEND F1 MG PO (15:05)
[2016-11-10] MEDS ORDERED: FLOMAX0.4 MG PO (15:06)
[2016-11-10] MEDS ORDERED: PROTONIX40 MG PO (15:06)
[2016-11-10] MEDS ORDERED: VITAMIN D31000 I1 PO (15:06)
[2016-11-10] MEDS ORDERED: VENTOLIN H0.09 MG/AC INH (15:07)
[2016-11-10] MEDS ORDERED: TENORMIN25 M1 PO (15:07)
[2016-11-10] MEDS ORDERED: OYSTER SHELL+D1 EACH PO (15:09)
[2016-11-10] MEDS ORDERED: TYLENOL325 M1 PO (15:09)
[2016-11-10] MEDS ORDERED: ASPIR 8181 MG PO (15:09)
[2016-11-10] MEDS ORDERED: MUCINEX ER600 MG PO (15:10)
[2016-11-10] MEDS ORDERED: OSCAL/D,OYSTER250 MG PO (15:12)
[2016-11-10 15:54] LABS: BILIRUBIN NEGATIVE (NEGATIVE); BLOOD NEGATIVE (NEGATIVE); CLARITY CLEAR (CLEAR); COLOR YELLOW (YELLOW); GLUCOSE NEGATIVE (NEGATIVE); KETONE NEGATIVE (NEGATIVE); LEUKO ESTERASE NEGATIVE (NEGATIVE); NITRITE NEGATIVE (NEGATIVE); PROTEIN NEGATIVE (NEGATIVE); UROBILINOGEN 0.2 E.U./dl (0.2-1.0)
[2016-11-10 16:11] LABS: BACTERIA TRACE; HYALINE CAST 0-2; RBC 0-2 rbc/hpf (0-2); URINE REFLEX COMMENT NO (NO); WBC 0-2 wbc/hpf (0-5)
[2016-11-10 16:23] LABS: CKMB 3.7 ng/ml (0.5-3.6); TROPONIN I 0.018 ng/ml (<0.045)
[2016-11-10 19:16] LABS: CPK 80 U/L (39-308)
[2016-11-10 19:17] LABS: TROPONIN I < 0.015 ng/ml (<0.045)
[2016-11-11] VITALS: BP 119/52
[2016-11-11 06:19] LABS: BASO % 0.2 % (0.0-1.0); HEMATOCRIT 35.3 % (42.0-52.0); HEMOGLOBIN 11.9 g/dl (14.0-18.0); LYMPH # 0.6 10*3/uL (1.3-4.4); LYMPH % 11.3 % (27.0-41.0); MEAN CELL VOLUME 83.8 fl (80.0-94.0); MEAN CORPUSCULAR HGB 28.3 pg (27.0-31.0); MEAN CORPUSCULAR HGB CONC 33.7 g/dl (33.0-37.0); MEAN PLATELET VOLUME 8.1 fl (9.6-12.3); MONO # 0.1 10*3/uL (0.1-1.0); MONO % 2.5 % (3.0-9.0); NEUT # 4.4 10*3/uL (2.3-7.9); NEUT % 85.2 % (47.0-73.0); PLATELET COUNT AUTOMATED 610 10*3/uL (130-400); RED BLOOD COUNT 4.21 10*6/uL (4.50-5.90); RED CELL DISTRI WIDTH 14.6 % (0-14.5); WHITE BLOOD COUNT 5.2 10*3/uL (4.8-10.8)
[2016-11-11 06:42] LABS: INTERNATIONAL NORM RATIO 1.3 (2.0-3.5); PROTHROMBIN TIME 13.7 SECONDS (9.0-12.4)
[2016-11-11 06:44] LABS: ALBUMIN 3.4 gm/dl (3.1-4.5); BUN 11 mg/dl (7-24); CARBON DIOXIDE 26 mmol/L (21-32); CHLORIDE 96 mmol/L (98-107); EST GLOM FILT AFRICAN AMERICAN > 60 ml/min; GLUCOSE 151 mg/dL (65-99); MAGNESIUM 1.4 mg/dL (1.5-2.1); SGOT/AST 26 IU/L (3-35); SODIUM 133 mmol/L (136-145)
[2016-11-11 06:53] LABS: ALKALINE PHOSPHATASE 63 U/L (45-117); BILIRUBIN, TOTAL 0.4 mg/dl (0.2-1.0); FREE T4 1.07 ng/dl (0.76-1.46); SGPT/ALT 48 U/L (12-78); THYROID STIM HORMONE (HS) 0.183 uIU/ml (0.358-4.75); TOTAL PROTEIN 6.8 gm/dL (6.4-8.2)
[2016-11-11 07:22] LABS: FOLIC ACID 20.02 ng/mL (>5.38); VITAMIN D, 25-HYDROXY 38.2 ng/mL (30-100)
[2016-11-11 08:00] VITALS: BP 147/69
[2016-11-11 12:00] VITALS: BP 136/66
[2016-11-11 16:00] VITALS: BP 114/45
[2016-11-11 20:00] VITALS: BP 112/56
[2016-11-12] VITALS: BP 134/77
[2016-11-12 05:57] LABS: BASO % 0.1 % (0.0-1.0); HEMATOCRIT 33.1 % (42.0-52.0); HEMOGLOBIN 11.1 g/dl (14.0-18.0); IG # 0.1 10*3/uL (0.0-0.1); LYMPH # 0.9 10*3/uL (1.3-4.4); MEAN CELL VOLUME 83.6 fl (80.0-94.0); MEAN CORPUSCULAR HGB CONC 33.5 g/dl (33.0-37.0); MEAN PLATELET VOLUME 8.3 fl (9.6-12.3); MONO # 0.3 10*3/uL (0.1-1.0); MONO % 2.7 % (3.0-9.0); NEUT # 10.1 10*3/uL (2.3-7.9); NEUT % 88.2 % (47.0-73.0); PLATELET COUNT AUTOMATED 575 10*3/uL (130-400); RED BLOOD COUNT 3.96 10*6/uL (4.50-5.90); RED CELL DISTRI WIDTH 14.7 % (0-14.5); WHITE BLOOD COUNT 11.4 10*3/uL (4.8-10.8)
[2016-11-12 06:40] LABS: CHLORIDE 96 mmol/L (98-107); POTASSIUM 3.9 mmol/L (3.5-5.1); SODIUM 136 mmol/L (136-145)
[2016-11-12 06:46] LABS: ALBUMIN 3.4 gm/dl (3.1-4.5); ALKALINE PHOSPHATASE 54 U/L (45-117); BILIRUBIN, TOTAL 0.2 mg/dl (0.2-1.0); BUN 15 mg/dl (7-24); CARBON DIOXIDE 27 mmol/L (21-32); EST GLOM FILT AFRICAN AMERICAN > 60 ml/min; GLUCOSE 141 mg/dL (65-99); MAGNESIUM 1.4 mg/dL (1.5-2.1); SGOT/AST 17 IU/L (3-35); SGPT/ALT 38 U/L (12-78); TOTAL PROTEIN 6.4 gm/dL (6.4-8.2)
[2016-11-12 08:00] VITALS: BP 128/56
[2016-11-12 12:00] VITALS: BP 118/62
[2016-11-12] MEDS ORDERED: LEVOFLOXACIN500 MG PO (13:18)
[2016-11-12] MEDS ORDERED: PREDNISONE10 MG PO (13:18)
== END 2016-11-12 14:30 | disposition home or self-care (01) | DRG 190 ==
LOC: ED 12:45 → 4E 14:46
PROVIDERS: Emergency Medicine; Internal Medicine Hospice and Palliative Medicine
DX: J44.0 Chronic obstructive pulmonary disease with (acute) lower respiratory infection (principal); J18.9 Pneumonia, unspecified organism; I11.0 Hypertensive heart disease with heart failure; E87.1 Hypo-osmolality and hyponatremia; I50.30 Unspecified diastolic (congestive) heart failure; J44.1 Chronic obstructive pulmonary disease with (acute) exacerbation; E55.9 Vitamin D deficiency, unspecified; K29.50 Unspecified chronic gastritis without bleeding; Z86.73 Personal history of transient ischemic attack (TIA), and cerebral infarction without residual deficits; E83.42 Hypomagnesemia; R73.9 Hyperglycemia, unspecified; Z85.038 Personal history of other malignant neoplasm of large intestine; F10.20 Alcohol dependence, uncomplicated; I25.10 Atherosclerotic heart disease of native coronary artery without angina pectoris; K21.9 Gastro-esophageal reflux disease without esophagitis; B19.20 Unspecified viral hepatitis C without hepatic coma; I25.2 Old myocardial infarction; Z82.49 Family history of ischemic heart disease and other diseases of the circulatory system; Z79.82 Long term (current) use of aspirin; Z79.899 Other long term (current) drug therapy; K76.9 Liver disease, unspecified; Z98.49 Cataract extraction status, unspecified eye

== ENCOUNTER 2016-12-08 06:10 | Inpatient (IN) | payer MEDICARE, MEDICAID ==
[~2016-12-08] VITALS: Ht 157.4 cm; Wt 52.4 kg
[2016-12-08] VITALS (7 sets, daily range): BP systolic 112–152; BP diastolic 61–118
[~2016-12-08 06:10] MED LIST changes: +ASPIR 8181 MG PO; +LEVOFLOXACIN500 MG PO; +OSCAL/D,OYSTER250 MG PO; +OYSTER SHELL+D1 EACH PO; +TENORMIN25 M1 PO; +VITAMIN B-1100 M1 PO; +VITAMIN D31000 I1 PO; +ZESTRIL5 MG PO
[2016-12-08 06:46] LABS: BASO # 0.1 10*3/uL (0.0-0.1); BASO % 1.8 % (0.0-1.0); EOS % 16.7 % (1.0-4.0); HEMATOCRIT 34.8 % (42.0-52.0); HEMOGLOBIN 12.1 g/dl (14.0-18.0); LYMPH # 2.1 10*3/uL (1.3-4.4); LYMPH % 33.2 % (27.0-41.0); MEAN CORPUSCULAR HGB 27.8 pg (27.0-31.0); MEAN CORPUSCULAR HGB CONC 34.8 g/dl (33.0-37.0); MEAN PLATELET VOLUME 8.4 fl (9.6-12.3); MONO % 15.6 % (3.0-9.0); NEUT % 32.4 % (47.0-73.0); PLATELET COUNT AUTOMATED 432 10*3/uL (130-400); RED BLOOD COUNT 4.35 10*6/uL (4.50-5.90); RED CELL DISTRI WIDTH 14.7 % (0-14.5); WHITE BLOOD COUNT 6.2 10*3/uL (4.8-10.8)
[2016-12-08 07:02] LABS: ALBUMIN 3.9 gm/dl (3.1-4.5); ALKALINE PHOSPHATASE 80 U/L (45-117); BILIRUBIN, TOTAL 0.8 mg/dl (0.2-1.0); BUN 6 mg/dl (7-24); CARBON DIOXIDE 25 mmol/L (21-32); CHLORIDE 84 mmol/L (98-107); EST GLOM FILT AFRICAN AMERICAN > 60 ml/min; GLUCOSE 93 mg/dL (65-99); POTASSIUM 4.1 mmol/L (3.5-5.1); SGOT/AST 35 IU/L (3-35); SGPT/ALT 45 U/L (12-78); SODIUM 122 mmol/L (136-145)
[2016-12-08 07:03] LABS: TROPONIN I 0.017 ng/ml (<0.045)
[2016-12-08 07:12] LABS: CKMB 13.2 ng/ml (0.5-3.6)
[2016-12-08 07:14] LABS: INTERNATIONAL NORM RATIO 1.2 (2.0-3.5); PROTHROMBIN TIME 12.7 SECONDS (9.0-12.4)
[2016-12-08 08:58] LABS: BILIRUBIN NEGATIVE (NEGATIVE); BLOOD NEGATIVE (NEGATIVE); CLARITY CLEAR (CLEAR); COLOR YELLOW (YELLOW); GLUCOSE NEGATIVE (NEGATIVE); KETONE NEGATIVE (NEGATIVE); LEUKO ESTERASE NEGATIVE (NEGATIVE); NITRITE NEGATIVE (NEGATIVE); PH 5.5 (5.0-9.0); PROTEIN TRACE (NEGATIVE); SPECIFIC GRAVITY <= 1.005 (1.005-1.030); UROBILINOGEN 0.2 E.U./dl (0.2-1.0)
[2016-12-08 09:21] LABS: EPITHELIAL CELLS 0-2; RBC 0-2 rbc/hpf (0-2); URINE REFLEX COMMENT NO (NO)
[2016-12-08] MEDS ORDERED: NORCO 7.5-3251 EACH PO (10:12)
[2016-12-08] MEDS ORDERED: CARTIA XT120 MG PO (10:12)
[2016-12-08] MEDS ORDERED: NORVASC5 MG PO (10:12)
[2016-12-08 14:34] LABS: URINE OSMOLALITY 141 mOsm/kg (500-850)
[2016-12-08 18:39] LABS: BUN 8 mg/dl (7-24); CARBON DIOXIDE 25 mmol/L (21-32); CHLORIDE 86 mmol/L (98-107); EST GLOM FILT AFRICAN AMERICAN > 60 ml/min; GLUCOSE 166 mg/dL (65-99); POTASSIUM 4.4 mmol/L (3.5-5.1); SODIUM 123 mmol/L (136-145)
[2016-12-09] VITALS: BP 102/59
[2016-12-09 06:36] LABS: HEMATOCRIT 34.1 % (42.0-52.0); LYMPH # 0.5 10*3/uL (1.3-4.4); LYMPH % 9.8 % (27.0-41.0); MEAN CELL VOLUME 79.9 fl (80.0-94.0); MEAN CORPUSCULAR HGB 28.1 pg (27.0-31.0); MEAN CORPUSCULAR HGB CONC 35.2 g/dl (33.0-37.0); MEAN PLATELET VOLUME 8.8 fl (9.6-12.3); MONO # 0.2 10*3/uL (0.1-1.0); MONO % 4.3 % (3.0-9.0); NEUT # 4.2 10*3/uL (2.3-7.9); NEUT % 85.1 % (47.0-73.0); PLATELET COUNT AUTOMATED 476 10*3/uL (130-400); RED BLOOD COUNT 4.27 10*6/uL (4.50-5.90); WHITE BLOOD COUNT 4.9 10*3/uL (4.8-10.8)
[2016-12-09 07:02] LABS: ALBUMIN 3.5 gm/dl (3.1-4.5); ALKALINE PHOSPHATASE 70 U/L (45-117); BILIRUBIN, TOTAL 0.5 mg/dl (0.2-1.0); BUN 10 mg/dl (7-24); CARBON DIOXIDE 24 mmol/L (21-32); CHLORIDE 89 mmol/L (98-107); CHOLESTEROL 143 mg/dL (<200); EST GLOM FILT AFRICAN AMERICAN > 60 ml/min; GLUCOSE 149 mg/dL (65-99); HDL CHOLESTEROL 84 mg/dl (40-60); LDL CHOLESTEROL 52 mg/dL (9-159); MAGNESIUM 1.4 mg/dL (1.5-2.1); PHOSPHOROUS 2.6 mg/dL (2.5-4.9); POTASSIUM 3.9 mmol/L (3.5-5.1); SGOT/AST 22 IU/L (3-35); SGPT/ALT 36 U/L (12-78); SODIUM 126 mmol/L (136-145); TOTAL PROTEIN 6.5 gm/dL (6.4-8.2); TRIGLYCERIDES 35 mg/dl (<150); VLDL CHOLESTEROL 7 mg/dL (6-40)
[2016-12-09 07:06] LABS: THYROID STIM HORMONE (HS) 0.151 uIU/ml (0.358-4.75)
[2016-12-09 07:27] LABS: HEMOGLOBIN A1c 5.4 % (4.8-5.6)
[2016-12-09 07:36] LABS: FOLIC ACID 20.57 ng/mL (>5.38); VITAMIN D, 25-HYDROXY 46.3 ng/mL (30-100)
[2016-12-09 08:00] VITALS: BP 112/59
[2016-12-09 12:00] VITALS: BP 100/55
[2016-12-09 16:00] VITALS: BP 108/45
[2016-12-09 20:00] VITALS: BP 91/46
[2016-12-10] VITALS (8 sets, daily range): BP systolic 92–124; BP diastolic 43–60
[2016-12-10 07:05] LABS: ALBUMIN 3.5 gm/dl (3.1-4.5); ALKALINE PHOSPHATASE 63 U/L (45-117); BILIRUBIN, TOTAL 0.3 mg/dl (0.2-1.0); BUN 11 mg/dl (7-24); CARBON DIOXIDE 25 mmol/L (21-32); CHLORIDE 87 mmol/L (98-107); EST GLOM FILT AFRICAN AMERICAN > 60 ml/min; GLUCOSE 152 mg/dL (65-99); POTASSIUM 4.5 mmol/L (3.5-5.1); SGOT/AST 14 IU/L (3-35); SGPT/ALT 29 U/L (12-78); SODIUM 122 mmol/L (136-145)
[2016-12-10 12:38] LABS: ALBUMIN 3.7 gm/dl (3.1-4.5); BUN 10 mg/dl (7-24); CARBON DIOXIDE 24 mmol/L (21-32); CHLORIDE 90 mmol/L (98-107); EST GLOM FILT AFRICAN AMERICAN > 60 ml/min; GLUCOSE 134 mg/dL (65-99); PHOSPHOROUS 1.5 mg/dL (2.5-4.9); POTASSIUM 5.2 mmol/L (3.5-5.1); SODIUM 125 mmol/L (136-145)
[2016-12-11] VITALS: BP 120/47
[2016-12-11 06:21] LABS: HEMATOCRIT 32.4 % (42.0-52.0); MEAN CORPUSCULAR HGB 27.8 pg (27.0-31.0); MEAN PLATELET VOLUME 8.9 fl (9.6-12.3); PLATELET COUNT AUTOMATED 444 10*3/uL (130-400); RED BLOOD COUNT 3.95 10*6/uL (4.50-5.90); RED CELL DISTRI WIDTH 15.6 % (0-14.5)
[2016-12-11 06:25] LABS: BUN 7 mg/dl (7-24); CARBON DIOXIDE 25 mmol/L (21-32); CHLORIDE 97 mmol/L (98-107); EST GLOM FILT AFRICAN AMERICAN > 60 ml/min; GLUCOSE 145 mg/dL (65-99); MAGNESIUM 1.6 mg/dL (1.5-2.1); PHOSPHOROUS 1.9 mg/dL (2.5-4.9); SODIUM 131 mmol/L (136-145)
[2016-12-11 06:29] LABS: POTASSIUM 4.1 mmol/L (3.5-5.1)
[2016-12-11 06:57] LABS: LYMPHOCYTE # 0.4 10*3/uL (1.3-4.4); MONOCYTE # 0.2 10*3/uL (0.1-1.0); NEUTROPHIL # 6.4 10*3/uL (2.3-7.9); NEUTROPHILS 91 % (47-73); PLATELET SUFFICIENCY HIGH (NORMAL); TOTAL CELLS COUNTED 100 #CELLS
[2016-12-11 08:00] VITALS: BP 151/55
[2016-12-11] MEDS ORDERED: MUCINEX ER600 MG PO (11:19)
[2016-12-11] MEDS ORDERED: K-PHOS500 MG PO (11:19)
[2016-12-11] MEDS ORDERED: PREDNISONE10 MG PO (11:19)
[2016-12-11] MEDS ORDERED: LEVAQUIN500 M2 PO (11:19)
[2016-12-11 12:00] VITALS: BP 102/53
== END 2016-12-11 14:17 | disposition home or self-care (01) | DRG 191 ==
LOC: ED 06:10 → 5E 07:27 → EDHOLD 07:27 → 5E 07:33
PROVIDERS: Emergency Medicine Emergency Medical Services; Hospitalist; Internal Medicine Nephrology; Nurse Practitioner Adult Health
DX: J44.1 Chronic obstructive pulmonary disease with (acute) exacerbation (principal); I50.32 Chronic diastolic (congestive) heart failure; C18.9 Malignant neoplasm of colon, unspecified; E87.1 Hypo-osmolality and hyponatremia; I11.0 Hypertensive heart disease with heart failure; E83.39 Other disorders of phosphorus metabolism; D64.9 Anemia, unspecified; K21.9 Gastro-esophageal reflux disease without esophagitis; K29.20 Alcoholic gastritis without bleeding; B18.2 Chronic viral hepatitis C; Z96.642 Presence of left artificial hip joint; F10.20 Alcohol dependence, uncomplicated; I25.10 Atherosclerotic heart disease of native coronary artery without angina pectoris; Z86.73 Personal history of transient ischemic attack (TIA), and cerebral infarction without residual deficits; Z82.49 Family history of ischemic heart disease and other diseases of the circulatory system; Z98.42 Cataract extraction status, left eye; Z98.41 Cataract extraction status, right eye; Z87.891 Personal history of nicotine dependence; I25.2 Old myocardial infarction

== ENCOUNTER 2017-01-17 07:43 | Inpatient (IN) | payer MEDICARE, MEDICAID ==
[~2017-01-17] VITALS: Ht 157.4 cm; Wt 55.1 kg
[~2017-01-17 07:43] MED LIST changes: +CARTIA XT120 MG PO; +K-PHOS500 MG PO; +NORCO 7.5-3251 EACH PO
[2017-01-17 07:46] VITALS: BP 122/68
[2017-01-17 08:05] LABS: BASO % 0.3 % (0.0-1.0); EOS # 0.2 10*3/uL (0.0-0.4); EOS % 3.7 % (1.0-4.0); HEMATOCRIT 39.2 % (42.0-52.0); HEMOGLOBIN 12.9 g/dl (14.0-18.0); LYMPH # 1.3 10*3/uL (1.3-4.4); LYMPH % 21.1 % (27.0-41.0); MEAN CELL VOLUME 80.2 fl (80.0-94.0); MEAN CORPUSCULAR HGB 26.4 pg (27.0-31.0); MEAN CORPUSCULAR HGB CONC 32.9 g/dl (33.0-37.0); MEAN PLATELET VOLUME 8.4 fl (9.6-12.3); MONO # 0.5 10*3/uL (0.1-1.0); NEUT # 3.9 10*3/uL (2.3-7.9); NEUT % 65.6 % (47.0-73.0); PLATELET COUNT AUTOMATED 391 10*3/uL (130-400); RED BLOOD COUNT 4.89 10*6/uL (4.50-5.90)
[2017-01-17 08:14] LABS: ACT PARTIAL THROMBO TIME 29.8 SECONDS (20.8-31.5); INTERNATIONAL NORM RATIO 1.2 (2.0-3.5)
[2017-01-17 08:23] LABS: ALBUMIN 3.9 gm/dl (3.1-4.5); ALKALINE PHOSPHATASE 77 U/L (45-117); BUN 4 mg/dl (7-24); CHLORIDE 98 mmol/L (98-107); CREATININE 0.62 mg/dL (0.70-1.30); MAGNESIUM 1.4 mg/dL (1.5-2.1); POTASSIUM 3.7 mmol/L (3.5-5.1); SGOT/AST 25 IU/L (3-35); SGPT/ALT 38 U/L (12-78); SODIUM 132 mmol/L (136-145); TOTAL PROTEIN 7.6 gm/dL (6.4-8.2)
[2017-01-17 08:24] LABS: TROPONIN I < 0.015 ng/ml (<0.045)
--- NOTE | 2017-01-17 08:35 | NUR ---
SOB RESOLVED. RESP RATE MUCH IMPROVED (SEE). VITALS STABLE. NO VOICED COMPLAINTS. WATCHING TV, ADMISSION PENDING.
[2017-01-17 08:58] VITALS: BP 116/64
--- NOTE | 2017-01-17 09:15 | NUR ---
FAMILY NOW ARRIVES TO BEDSIDE. PT DENIES SOB AT THIS TIME. WE ARE NOW AWAITING BED ASSIGNMENT.
--- NOTE | 2017-01-17 09:36 | NUR ---
AWAITING RETURN CALL TO PROVIDE REPORT. ADMISSIONBED PROVIDED, 515/2. NO FURTHER VOICED COMPLAINTS FROM POT.
--- NOTE | 2017-01-17 09:48 | NUR ---
MAG SULFATE INFUSING AT TIME OF ADMISSION.
[2017-01-17 10:40] VITALS: BP 108/59
[2017-01-17 12:00] VITALS: BP 112/53
[2017-01-17 16:00] VITALS: BP 121/54
[2017-01-17] MEDS ORDERED: PROAIR HFA8.5 GM INH (16:25)
[2017-01-17] MEDS ORDERED: LASIX20 MG PO (16:29)
[2017-01-17] MEDS ORDERED: GUAIFENESIN600 MG PO (16:30)
--- NOTE | 2017-01-17 16:32 | NUR ---
MEDS RECONCILLED PER [facility].
--- NOTE | 2017-01-17 16:33 | NUR ---
DR. STARK NOTIFIED OF UPDATED MED REQ.
[2017-01-17 20:00] VITALS: BP 131/49
--- NOTE | 2017-01-17 20:00 | NUR ---
RESTING IN BED WATCHING TV. RESPIRATIONS EASY. LUNGS DIMINISHED WITH SCATTERED WHEEZES. PULSE OX 98% 3L, HUMIDIFICATION APPLIED. CLAIMS INFREQUENT COUGH, NONE NOTED. +2 PITTING BLE EDEMA NOTED R>L, TEDS APPLIED PER ORDER. CALL LIGHT WITHIN REACH. NO VOICED COMPLAINTS.
--- NOTE | 2017-01-17 22:30 | NUR ---
STATES RELIEF FROM EARLIER PAIN MEDS. SITTING IN BED WATCHING TV. NO DISTRESS NOTED. RESPIRATIONS EASY. O2 IN USE. CALL LIGHT WITHIN REACH
[2017-01-18] VITALS: BP 112/44
--- NOTE | 2017-01-18 00:30 | NUR ---
SLEEPING. NO DISTRESS NOTED. RESPIRATIONS EASY. VSS. CALL LIGHT WITHIN REACH
--- NOTE | 2017-01-18 06:00 | NUR ---
SLEPT THROUGHOUT NIGHT WITH NO DISTRESS NOTED. RESPIRATIONS EASY. O2 IN USE. NO C/O SOB. CALL LIGHT WITHIN REACH. NO VOICED COMPLAINTS THIS SHIFT
[2017-01-18 06:26] LABS: BASO % 0.1 % (0.0-1.0); HEMATOCRIT 33.2 % (42.0-52.0); HEMOGLOBIN 11.1 g/dl (14.0-18.0); LYMPH # 0.6 10*3/uL (1.3-4.4); LYMPH % 7.4 % (27.0-41.0); MEAN CELL VOLUME 78.7 fl (80.0-94.0); MEAN CORPUSCULAR HGB 26.3 pg (27.0-31.0); MEAN CORPUSCULAR HGB CONC 33.4 g/dl (33.0-37.0); MEAN PLATELET VOLUME 8.8 fl (9.6-12.3); MONO # 0.2 10*3/uL (0.1-1.0); MONO % 2.3 % (3.0-9.0); NEUT # 7.1 10*3/uL (2.3-7.9); NEUT % 89.1 % (47.0-73.0); PLATELET COUNT AUTOMATED 384 10*3/uL (130-400); RED BLOOD COUNT 4.22 10*6/uL (4.50-5.90); RED CELL DISTRI WIDTH 14.8 % (0-14.5); WHITE BLOOD COUNT 7.9 10*3/uL (4.8-10.8)
[2017-01-18 06:58] LABS: INTERNATIONAL NORM RATIO 1.2 (2.0-3.5)
[2017-01-18 07:00] LABS: BUN 10 mg/dl (7-24); CHLORIDE 99 mmol/L (98-107); CREATININE 0.61 mg/dL (0.70-1.30); MAGNESIUM 1.5 mg/dL (1.5-2.1); PHOSPHOROUS 3.3 mg/dL (2.5-4.9); POTASSIUM 3.9 mmol/L (3.5-5.1); SODIUM 130 mmol/L (136-145)
[2017-01-18 07:07] LABS: THYROID STIM HORMONE (HS) 0.209 uIU/ml (0.358-4.75)
[2017-01-18 08:00] VITALS: BP 126/43
[2017-01-18 09:09] LABS: VITAMIN D, 25-HYDROXY 44.9 ng/mL (30-100)
[2017-01-18 12:00] VITALS: BP 141/68
--- NOTE | 2017-01-18 13:49 | NUR ---
PT ASKED FOR DIET TO BE ADVANCED TO REGULAR ACCOUNTING TUTOR WAS DC'D. DR CANTU CALLED ORDERS TO FOLLOW.
[2017-01-18 16:00] VITALS: BP 118/56
--- NOTE | 2017-01-18 16:00 | NUR ---
PT REQUESTED AND WAS MEDICATED WITH NORCO FOR C/O GENERALIZED PAIN. CALL LIGHT IN REACH. WILL MONITOR
[2017-01-18 20:00] VITALS: BP 116/49
--- NOTE | 2017-01-18 20:00 | NUR ---
RESTING IN BED WATCHING TV. NO DISTRESS NOTED. RESPIRATIONS EASY. LUNGS DIMINISHED. PULSE OX 96% 2L HUMIDIFIED. DENIES SOB. CLAIMS INFREQUENT COUGH, NONE NOTED UPON ASSESSMENT. +1 PITTING BLE EDEMA NOTED, DECLINING TEDS. CALL LIGHT WITHIN REACH. NO VOICED COMPLAINTS
--- NOTE | 2017-01-18 21:19 | NUR ---
REQUESTED AND RECEIVED NORCO PER PRN ORDER FOR COMPLAINTS OF TAILBONE / COCCYX PAIN RATING A 5. CALL LIGHT WITHIN REACH. WILL MONITOR FOR EFFECTIVENESS
--- NOTE | 2017-01-18 23:00 | NUR ---
EARLIER NORCO APPEARS EFFECTIVE. SLEEPING. RESPIRATIONS EASY. O2 IN USE. CALL LIGHT WITHIN REACH
[2017-01-19] VITALS: BP 112/45
--- NOTE | 2017-01-19 01:00 | NUR ---
SLEEPING. NO DISTRESS NOTED. RESPIRATIONS EASY. VSS. CALL LIGHT WITHIN REACH
--- NOTE | 2017-01-19 04:30 | NUR ---
SLEEPING, NO DISTRESS NOTED. RESPIRATIONS EASY. O2 IN USE. CALL LIGHT WITHIN REACH
--- NOTE | 2017-01-19 06:00 | NUR ---
SLEPT THROUGHOUT NIGHT WITH NO DISTRESS NOTED. RESPIRATIONS EASY. O2 IN USE. CALL LIGHT WITHIN REACH. NO VOICED COMPLAINTS THIS SHIFT
[2017-01-19 06:41] LABS: HEMATOCRIT 33.6 % (42.0-52.0); MEAN CELL VOLUME 79.8 fl (80.0-94.0); MEAN CORPUSCULAR HGB 26.1 pg (27.0-31.0); MEAN CORPUSCULAR HGB CONC 32.7 g/dl (33.0-37.0); PLATELET COUNT AUTOMATED 419 10*3/uL (130-400); RED BLOOD COUNT 4.21 10*6/uL (4.50-5.90); RED CELL DISTRI WIDTH 14.9 % (0-14.5); WHITE BLOOD COUNT 11.8 10*3/uL (4.8-10.8)
[2017-01-19 07:04] LABS: BURR CELLS MODERATE; MICROCYTOSIS SLIGHT; SCHISTOCYTES FEW; TOTAL CELLS COUNTED 100 #CELLS
[2017-01-19 07:05] LABS: HOWELL-JOLLY BODIES FEW; PLATELET SUFFICIENCY HIGH (NORMAL)
[2017-01-19 07:08] LABS: BUN 11 mg/dl (7-24); CHLORIDE 96 mmol/L (98-107); CREATININE 0.62 mg/dL (0.70-1.30); FREE T4 0.95 ng/dl (0.76-1.46); POTASSIUM 3.9 mmol/L (3.5-5.1); SODIUM 129 mmol/L (136-145)
[2017-01-19 08:00] VITALS: BP 140/58
--- NOTE | 2017-01-19 11:17 | NUR ---
NORCO 7.5/325 MG GIVEN FOR C/O BACK PAIN,03/04.
[2017-01-19 12:00] VITALS: BP 121/42
[2017-01-19] MEDS ORDERED: PREDNISONE10 MG PO (13:15)
[2017-01-19] MEDS ORDERED: LEVOFLOXACIN500 MG PO (13:15)
--- NOTE | 2017-01-19 15:35 | NUR ---
NORCO 7.5/325 MG GIVEN FOR C/O BACK PAIN,02/02.
--- NOTE | 2017-01-19 16:30 | NUR ---
Discharge instructions reviewed with patient/family. Patient receptive and verbalizes understanding. Follow-up care arranged. Written instructions given to patient/family.HEPLOCK REMOVED. JOSE BURTON
== END 2017-01-19 16:32 | disposition home or self-care (01) | DRG 872 ==
LOC: ED 07:43 → EDHOLD 08:33 → 5E 09:25
PROVIDERS: Emergency Medicine; Internal Medicine; Student in an Organized Health Care Education/Training Program; ADMIT Internal Medicine
DX: A41.9 Sepsis, unspecified organism (principal); I11.0 Hypertensive heart disease with heart failure; I50.32 Chronic diastolic (congestive) heart failure; Z99.81 Dependence on supplemental oxygen; J44.1 Chronic obstructive pulmonary disease with (acute) exacerbation; E87.1 Hypo-osmolality and hyponatremia; D50.9 Iron deficiency anemia, unspecified; F10.20 Alcohol dependence, uncomplicated; R73.9 Hyperglycemia, unspecified; E83.42 Hypomagnesemia; K21.9 Gastro-esophageal reflux disease without esophagitis; R65.20 Severe sepsis without septic shock; I25.10 Atherosclerotic heart disease of native coronary artery without angina pectoris; K29.50 Unspecified chronic gastritis without bleeding; R94.6 Abnormal results of thyroid function studies; Z96.642 Presence of left artificial hip joint; Z96.1 Presence of intraocular lens; Z85.038 Personal history of other malignant neoplasm of large intestine; Z86.73 Personal history of transient ischemic attack (TIA), and cerebral infarction without residual deficits; Z98.42 Cataract extraction status, left eye; Z98.41 Cataract extraction status, right eye; Z87.891 Personal history of nicotine dependence; Z82.49 Family history of ischemic heart disease and other diseases of the circulatory system; Z79.82 Long term (current) use of aspirin; Z79.899 Other long term (current) drug therapy

== ENCOUNTER 2017-04-17 13:32 | Inpatient (IN) | payer MEDICARE, MEDICAID ==
[~2017-04-17] VITALS: Ht 157.4 cm; Wt 57.4 kg
[2017-04-17 13:32] VITALS: BP 146/76
[2017-04-17 14:01] LABS: BASO # 0.2 10*3/uL (0.0-0.1); BASO % 2.9 % (0.0-1.0); EOS # 0.5 10*3/uL (0.0-0.4); EOS % 7.9 % (1.0-4.0); HEMATOCRIT 39.8 % (42.0-52.0); HEMOGLOBIN 13.2 g/dl (14.0-18.0); LYMPH # 2.3 10*3/uL (1.3-4.4); MEAN CELL VOLUME 80.4 fl (80.0-94.0); MEAN CORPUSCULAR HGB 26.7 pg (27.0-31.0); MEAN CORPUSCULAR HGB CONC 33.2 g/dl (33.0-37.0); MEAN PLATELET VOLUME 8.3 fl (9.6-12.3); MONO # 0.8 10*3/uL (0.1-1.0); MONO % 13.8 % (3.0-9.0); NEUT # 2.1 10*3/uL (2.3-7.9); NEUT % 36.1 % (47.0-73.0); PLATELET COUNT AUTOMATED 521 10*3/uL (130-400); RED BLOOD COUNT 4.95 10*6/uL (4.50-5.90); RED CELL DISTRI WIDTH 17.6 % (0-14.5); WHITE BLOOD COUNT 5.9 10*3/uL (4.8-10.8)
[2017-04-17 14:18] LABS: ALBUMIN 4.4 gm/dl (3.1-4.5); ALKALINE PHOSPHATASE 88 U/L (45-117); BUN 7 mg/dl (7-24); CHLORIDE 93 mmol/L (98-107); CREATININE 0.68 mg/dL (0.70-1.30); POTASSIUM 4.7 mmol/L (3.5-5.1); SGOT/AST 15 IU/L (3-35); SGPT/ALT 15 U/L (12-78); SODIUM 129 mmol/L (136-145); TOTAL PROTEIN 8.1 gm/dL (6.4-8.2)
[2017-04-17 14:19] LABS: TROPONIN I < 0.015 ng/ml (<0.045)
[2017-04-17 14:44] VITALS: BP 111/836
--- NOTE | 2017-04-17 14:46 | NUR ---
A 66, admitted to , under the services of VIGNESH Maguire DO with a diagnosis of COPD W/ACUTE EXACERBATION, ELEVATED BP. Chief complaint is COUGH, INCREASED SOB. Patient arrived via bed from ER. Monitor applied. Initial assessment completed. Vital signs taken and recorded. VIGNESH MAGUIRE DO notified of admission to the unit. Orders received. See assessment for past medical history, medications and allergies. Patient and/or family oriented to unit. [facility] Clothing/patient valuable form completed. ALEX CIFUENTES
--- NOTE | 2017-04-17 14:48 | NUR ---
PHARMACY CLOSED TODAY
[2017-04-17 15:30] VITALS: BP 144/51
[2017-04-17 20:00] VITALS: BP 134/65
--- NOTE | 2017-04-17 20:25 | NUR ---
Called and notified Dr. Prater regarding CTA chest results and new orders were received.
[2017-04-18] VITALS: BP 123/61
--- NOTE | 2017-04-18 01:08 | NUR ---
24 HR chart check completed.
[2017-04-18 06:25] LABS: HEMATOCRIT 35.3 % (42.0-52.0); HEMOGLOBIN 11.8 g/dl (14.0-18.0); MEAN CELL VOLUME 81.3 fl (80.0-94.0); MEAN CORPUSCULAR HGB 27.2 pg (27.0-31.0); MEAN CORPUSCULAR HGB CONC 33.4 g/dl (33.0-37.0); MEAN PLATELET VOLUME 8.5 fl (9.6-12.3); PLATELET COUNT AUTOMATED 474 10*3/uL (130-400); RED BLOOD COUNT 4.34 10*6/uL (4.50-5.90); RED CELL DISTRI WIDTH 17.4 % (0-14.5); WHITE BLOOD COUNT 7.8 10*3/uL (4.8-10.8)
[2017-04-18 06:59] LABS: ATYPICAL LYMPHS 1 % (0-0); PLATELET SUFFICIENCY HIGH (NORMAL); TOTAL CELLS COUNTED 100 #CELLS
[2017-04-18 07:54] LABS: BUN 7 mg/dl (7-24); CHLORIDE 99 mmol/L (98-107); PHOSPHOROUS 2.6 mg/dL (2.5-4.9); SODIUM 134 mmol/L (136-145)
[2017-04-18 08:00] VITALS: BP 150/66
[2017-04-18 08:00] LABS: THYROID STIM HORMONE (HS) 0.197 uIU/ml (0.358-4.75)
[2017-04-18 08:19] LABS: VITAMIN D, 25-HYDROXY 37.6 ng/mL (30-100)
[2017-04-18 12:00] VITALS: BP 133/67
--- NOTE | 2017-04-18 13:23 | NUR ---
INFORMED SIGNED CONSENT OBTAINED FOR LEXISCAN STRESS TEST WITH DR FORBES. RESTING EKG NSR HR 99 BP 130/72. PULSE OX 97% ON 3L, LUNGS CLEARLY DIMINISHED. PT COMPLETED ONE MINUTE OF A LEXISCAN PROTOCOL WITH PT RECEIVING LEXISCAN 0.4MG IV OVER 10 SECONDS. NO ARRHYTHMIAS OR ST CHANGES NOTED. LAST RECOVERY HR OF 112 BP 144/86. PT C/O SOB WITH INFUSION, POST TEST SOB RESOLVED. PT IN STABLE CONDITION, AWAITING NUCLEAR IMAGES.
[2017-04-18 16:00] VITALS: BP 130/63
--- NOTE | 2017-04-18 19:50 | NUR ---
PT ASSESSED AT THIS TIME, ALERT, ORIENTED AND PLEASANT. NO COMPLAINTS VOICED, NO PAIN OR SOB PER PT. RESPIRTIONS EASY AND UNLABORED. LUNGS DIMINISHED THROUGHOUT, HEART RATE NSR AND 100 ON CM. NORMOACTIVE BSX4 QUADRANTS. PT ENCOURAGED TO USE CALL LIGHT FOR ANY NEEDS.
[2017-04-18 20:00] VITALS: BP 98/55
--- NOTE | 2017-04-18 22:00 | NUR ---
DR. JULIEN GONZALEZ NOTIFIED OF PT LOW BLOOD PRESSURE AND SCHEDULED LISINPRIL AND NORVASC. LISINOPRIL AND NORVASC HELD AT THIS TIME. PT AWARE. WILL CONTINUE TO MONITOR PT BLOOD PRESSURE THROUGHOUT SHIFT.
[2017-04-19] VITALS: BP 136/67
--- NOTE | 2017-04-19 | NUR ---
PT RESTING IN BED, EASILY AROUSED. NO S/S OF DISTRESS. RESPIRATIONS EASY AND UNLABORED. BLOOD PRESSURE WNL. NO COMPLAINTS VOICED AT THIS TIME. CALL LIGHT IN REACH.
--- NOTE | 2017-04-19 03:40 | NUR ---
24 HR chart check completed.
[2017-04-19 04:39] LABS: HEMATOCRIT 33.3 % (42.0-52.0); HEMOGLOBIN 11.1 g/dl (14.0-18.0); MEAN CORPUSCULAR HGB 27.3 pg (27.0-31.0); MEAN CORPUSCULAR HGB CONC 33.3 g/dl (33.0-37.0); MEAN PLATELET VOLUME 8.5 fl (9.6-12.3); PLATELET COUNT AUTOMATED 473 10*3/uL (130-400); RED BLOOD COUNT 4.06 10*6/uL (4.50-5.90); RED CELL DISTRI WIDTH 17.6 % (0-14.5); WHITE BLOOD COUNT 11.6 10*3/uL (4.8-10.8)
[2017-04-19 04:57] LABS: ATYPICAL LYMPHS 1 % (0-0); PLATELET SUFFICIENCY HIGH (NORMAL); TOTAL CELLS COUNTED 100 #CELLS
[2017-04-19 05:04] LABS: BUN 7 mg/dl (7-24); CHLORIDE 96 mmol/L (98-107); CREATININE 0.59 mg/dL (0.70-1.30); SODIUM 132 mmol/L (136-145)
[2017-04-19 08:00] VITALS: BP 138/62
--- NOTE | 2017-04-19 09:02 | NUR ---
Dr David and team rounded,order recieved for discontinuation of cardiac monitoring. Dr David spoke to family at bedside with pt. regarding outpatient f/u with mri and further tests to lesion on liver.
[2017-04-19] MEDS ORDERED: LEVAQUIN500 M2 PO ×2 (11:13→12:20)
--- NOTE | 2017-04-19 11:26 | NUR ---
MED RECONCILIATION COMPLETED VIA TELEPHONE WITH SUSANNA LEIGH PHARMACIST. NOTIFIED DR BRENNAN.
[2017-04-19] MEDS ORDERED: LACTULOSE20 GM/30 M PO (11:28)
[2017-04-19] MEDS ORDERED: TOPROL XL25 MG PO (11:34)
--- NOTE | 2017-04-19 12:31 | NUR ---
Discharge instructions reviewed with patient/family. Patient receptive and verbalizes understanding. Follow-up care arranged. Written instructions given to patient/family.HEPLOCK REMOVED. JOSE BURTON
== END 2017-04-19 12:31 | disposition home or self-care (01) | DRG 871 ==
LOC: ED 13:32 → EDHOLD 14:24 → 4E 14:34
PROVIDERS: Nurse Practitioner Family; Student in an Organized Health Care Education/Training Program; ADMIT Internal Medicine
PROC: 3E073KZ Introduction of Other Diagnostic Substance into Coronary Artery, Percutaneous Approach (ICD-10-PCS; principal; 2017-04-18)
PROC: 4A02XM4 Measurement of Cardiac Total Activity, External Approach (ICD-10-PCS; principal; 2017-04-18)
DX: A41.9 Sepsis, unspecified organism (principal); J96.20 Acute and chronic respiratory failure, unspecified whether with hypoxia or hypercapnia; I11.0 Hypertensive heart disease with heart failure; J18.9 Pneumonia, unspecified organism; I50.32 Chronic diastolic (congestive) heart failure; Z99.81 Dependence on supplemental oxygen; E87.1 Hypo-osmolality and hyponatremia; J44.1 Chronic obstructive pulmonary disease with (acute) exacerbation; J44.0 Chronic obstructive pulmonary disease with (acute) lower respiratory infection; D70.9 Neutropenia, unspecified; I25.10 Atherosclerotic heart disease of native coronary artery without angina pectoris; K21.9 Gastro-esophageal reflux disease without esophagitis; Z96.642 Presence of left artificial hip joint; Z96.1 Presence of intraocular lens; D64.9 Anemia, unspecified; D47.3 Essential (hemorrhagic) thrombocythemia; F10.10 Alcohol abuse, uncomplicated; B18.2 Chronic viral hepatitis C; R73.9 Hyperglycemia, unspecified; Z79.899 Other long term (current) drug therapy; Z79.82 Long term (current) use of aspirin; Z86.73 Personal history of transient ischemic attack (TIA), and cerebral infarction without residual deficits; Z85.038 Personal history of other malignant neoplasm of large intestine; Z98.42 Cataract extraction status, left eye; Z98.41 Cataract extraction status, right eye; Z87.891 Personal history of nicotine dependence; Z82.49 Family history of ischemic heart disease and other diseases of the circulatory system

== ENCOUNTER 2017-05-08 04:16 | Inpatient (IN) | payer MEDICARE ==
[2017-05-08] VITALS (7 sets, daily range): BP systolic 119–167; BP diastolic 50–75
[~2017-05-08] VITALS: Ht 157.4 cm; Wt 53.7 kg
--- NOTE | ~2017-05-08 | CON ---
[place], [place] REPORT OF CONSULTATION [id number] UNIT #: [id number] ROOM: 416 DOCTOR: HAN KISER MD BIRTHDATE: [birth year] DOS: 05/08/2017 PULMONARY CONSULTATION CONSULTATION REQUESTED BY: Hospitalist services. REASON FOR CONSULTATION: Assessment of acute exacerbation of COPD. HISTORY OF PRESENT ILLNESS: This is a 66-year-old male patient with known past history of chronic hypoxic respiratory failure, use of oxygen 3 liters, continuous use and a history of COPD/centrilobular emphysema, presented to the hospital. The patient has reported symptoms of increased shortness of breath, which has been occurring for about 24 hours or greater. He has taken 3 breathing treatments back to back. Stated that it has not resulted in improvement and resolution of the shortness of breath. The patient brought to the hospital by the EMS. The respiratory symptoms have been noted partially decreased from yesterday assessed ____ hospitalization. He has been hospitalized earlier this morning. The patient denies any symptoms of chest pain without symptoms. He does have symptoms of cough, which has been noted without any sputum expectoration. Denies symptoms of hemoptysis. The patient denies symptoms of chest trauma. The patient's past chart reviewed. The patient has been noted admission in this hospital under care of the hospitalist service from 04/17/2017 until 04/19/2017 and managed for the acute exacerbation of chronic obstructive pulmonary disease and acute bronchitis and other medical problems. REVIEW OF SYSTEMS: CONSTITUTIONAL: No fatigue or tiredness reported and symptoms of fever or chills. EYES: Denies any burning, redness, or tenderness. EARS, NOSE, AND THROAT: Denies sore throat, hoarseness, otalgia, postnasal drainage or epistaxis. CARDIOVASCULAR: Denies anginal pain, edema, or pain of the lower extremity. GASTROINTESTINAL: Denies dysphagia, nausea, vomiting, diarrhea, abdominal pain, hematemesis, melena, hematochezia. SKIN: Denies lesions or rashes. CENTRAL NERVOUS SYSTEM: Denies dizziness, headache, diplopia, syncopal episodes. Remaining systems were reviewed with the patient, they were noted all negative. PAST MEDICAL HISTORY: 1. Known with history of chronic obstructive pulmonary disease. 2. Chronic hypoxic respiratory failure. 3. Past history of alcohol use. 4. Coronary artery disease. 5. Hepatitis C. 6. Previous CVA with complete neurologic recovery. 7. Uncomplicated severe persistent bronchial asthma. [place], [place] REPORT OF CONSULTATION NAME: YURIDIA CHRISTIE UNIT #: [id number] ROOM: [facility] DOCTOR: HEATH GANDARA MD,HAN BIRTHDATE: [birth year] 8. History of congestive heart failure with diastolic dysfunction. 9. Degenerative arthritis. 10. Limited mobility. SOCIAL HISTORY: The patient is , has 4 children. Denies history of alcohol or illicit drug use. Tobacco use noted at younger age, a pack of cigarettes per day. Discontinuation was reported in 2011. History of alcohol use was noted in the past, but currently the patient has not been drinking any alcohol. PAST SURGICAL HISTORY: 1. Cataract extraction with lens implantation. 2. Left hip ORIF. FAMILY HISTORY: The patient's father at the age of 6565 years old for complication of myocardial infarction and also noted with cancer history of unknown origin. The mother at age 60 years of complication related to acute myocardial infarction. MEDICATIONS: Current administered medications Solu-Medrol 60 mg b.i.d., Mucinex 1200 mg b.i.d., Lovenox 40 mg subcutaneous daily, DuoNeb q.4 h., Levaquin 500 mg daily, temazepam 15 mg at bedtime p.r.n. and other p.r.n. medications administration. DRUG ALLERGIES: Noted as no known drug allergies. PHYSICAL EXAMINATION: GENERAL: This is a 66-year-old male who has been currently noted to be awake and alert without any acute distress at this time. VITAL SIGNS: Height was recorded for the patient by the nursing staff on current admission 5 feet 2 inches, weight of 118 pounds, BMI 21.6. VITAL SIGNS: Normal temperature recorded, respiratory rate 18-20, heart rate of 91-107, blood pressure 167/68-142/75. Pulse oxygen saturation on 3 liters is 100% saturation recorded. HEENT: Head was atraumatic. Eyes nonicterus. NECK: Supple. CARDIOVASCULAR: S1, S2 is audible. LUNGS: The patient was noted without any crackles. Diffuse expiratory wheezing was present. ABDOMEN: Soft, flat, nontender. EXTREMITIES: Without any edema. NEUROLOGIC: Cranial nerves 2-12 intact. No focal deficit. MUSCULOSKELETAL: No deformities. SKIN: No lesions or rashes. LABORATORY DATA: CBC this morning; WBC count normal, platelet count normal, hemoglobin 12.3, hematocrit 36.0. CMP from 05/08/2017; BUN of 3, creatinine was normal, glucose 103, sodium 124, chloride of 86. IMAGING: Chest x-ray done, 1 view was personally reviewed. It does show [place], [place] REPORT OF CONSULTATION NAME: YURIDIA CHRISTIE UNIT #: [id number] ROOM: [facility] DOCTOR: HEATH GANDARA MD,HAN BIRTHDATE: [birth year] changes of COPD, old rib fracture noted in the right chest. There was no acute pulmonary infiltration or other abnormalities was visible with the 1 view chest x-ray. Mild blunting of the left costophrenic angle can be excluded. IMPRESSION: 1. The patient who has been currently admitted to the hospital noted recurrence of acute exacerbation of chronic obstructive pulmonary disease, recently admitted to the hospital in 03/2017 and then discharged on oral medications with the recurrence of the symptoms. 2. Past history of tobacco use. Currently, the patient denying any tobacco use. 3. Acute chronic respiratory failure with hypoxia, treated with long-term home oxygen use. 4. Old rib fracture noted on the chest x-ray as well. 5. Hyponatremia, exact etiology unclear, may be related to the intravascular volume depletion and decreased oral intake. However, other etiology SIADH and others to be considered as well. PLAN OF MANAGEMENT: Agree with current use of Solu-Medrol dose 60 mg b.i.d. Continue bronchodilator every 4 hours. Continuation of Mucinex. Collect the sputum for Gram stain culture. I will be ordering PA lateral chest x-ray, which would be more accurately showing the lung to exclude any occult infiltration in the lower lungs. Other supportive therapy, plan and management as well. Usual care. Additional treatment changes will be ordered based on the progression of the illness. Usual medical management and plan of care. Thanks for allowing me to participate in the care of this patient. HAN JOE MD CM:CONSTR:REPORT OF CONSULTATION 1252 05/08/17 1448 interface
--- NOTE | ~2017-05-08 | PR ---
[place], [place] PROGRESS NOTE NAME: YURIDIA CHRISTIE UNIT #: [id number] ROOM: 416 DOCTOR: HEATH GANDARA MD,HAN BIRTHDATE: [birth year] DOS: 05/11/2017 SUBJECTIVE: He has not been noted any ongoing acute shortness of breath. The patient's cough has been noted mild. There was no wheezing or chest pain. OBJECTIVE: VITAL SIGNS: For the patient which has been recorded showed normal temperature, respiratory rate 18, heart rate 58, blood pressure 123/51, pulse ox saturation on room air 97% saturation. HEENT: No acute change. NECK: Supple. CARDIOVASCULAR: S1, S2 audible. LUNGS: The patient was noted without any wheezing or crackles. ABDOMEN: Soft with incisional abdominal hernia, which are noted, reducible. EXTREMITIES: Without any edema. LABORATORY DATA: CBC, mild anemia, otherwise normal. BMP, normal BUN and creatinine. Sodium was still noted, decreased as 128. IMPRESSION: 1. The patient with hyponatremia variable, etiology unclear. 2. The patient with resolving acute exacerbation of chronic obstructive pulmonary disease and acute bronchitis. 3. Abdominal hernia, which has been assessed by the surgeon at this time. No intervention was suggested. PLAN OF MANAGEMENT: From the pulmonary standpoint, the patient could be discharged home. The patient had discussed with Dr. Skip Gtz. Outpatient assessment, if the patient is agreeable ____ respiratory status. In the meantime, continue other supportive plan of management. HAN JOE MD CM:PNTRANS 11 [phone] HAN GANDARA MD 05/11/172130 interface
--- NOTE | ~2017-05-08 | PR ---
[place], [place] PROGRESS NOTE NAME: YURIDIA CHRISTIE UNIT #: [id number] ROOM: 416 DOCTOR: HAN KISER MD BIRTHDATE: [birth year] DOS: 05/09/2017 SUBJECTIVE: The patient was seen and examined on 05/09/2017. He has been noted comfortable at this time, had noted with reduction of symptoms of shortness of breath. The patient denies symptoms of chest pain. The coughing has been noted nonproductive, [id number]. There were symptoms of chest pain. OBJECTIVE: VITAL SIGNS: For the patient which has been recorded shows a normal temperature, respiratory rate recorded as 18, heart rate of 80, blood pressure is 137/57. The pulse oxygen saturation on 3 liters nasal cannula was 100% saturation. HEENT: No acute change. NECK: Supple. CARDIOVASCULAR: S1, S2 audible. LUNGS: The patient was noted without any crackles. Moderate decreased breath sounds with expiratory wheezing. ABDOMEN: Soft, nontender. LABORATORY DATA: PT/PTT on 05/09, was noted as normal. CMP of the patient on 05/09, BUN and creatinine was normal. The sodium was noted at 132. CT scan of the abdomen and pelvis that was done on 05/08/2017, ordered by the primary care attending. The patient was reported without any acute abnormal process. Stable hypodense mass in the dome of the liver was reported. IMPRESSION: 1. The patient with resolving exacerbation of chronic obstructive pulmonary disease, acute tracheobronchitis that is improving. 2. Hyponatremia. 3. Severe debility. 4. Past history of nicotine abuse. PLAN OF MANAGEMENT: No changes in the plan of therapy for the patient at this time. Continuation of other supportive plan of management and care. Usual care. All other supportive treatments. [place], [place] PROGRESS NOTE NAME: YURIDIA CHRISTIE UNIT #: [id number] ROOM: 416 DOCTOR: HAN KISER MD BIRTHDATE: [birth year] HAN JOE MD CM:PNTRANS 1254 [id number] HAN GANDARA MD 05/10/171841 interface
--- NOTE | ~2017-05-08 | PR ---
[place], [place] PROGRESS NOTE NAME: YURIDIA CHRISTIE UNIT #: [id number] ROOM: 416 DOCTOR: HEATH GANDARA MD,HAN BIRTHDATE: [birth year] DOS: 05/10/2017 SUBJECTIVE: She has not been noted any ongoing acute complaints at this time, noted awake and alert and doing much better in the last 24 hours. OBJECTIVE: VITAL SIGNS: Normal temperature, respiratory rate 18, heart rate of 53, blood pressure 133/44. The pulse oxygen saturation on 3 liters is 97% saturation. HEENT: No acute change. NECK: Supple. CARDIOVASCULAR: S1, S2 audible. LUNGS: The patient noted [id number] decreased breath sounds without any wheeze or crackles. ABDOMEN: Soft, nontender. LABORATORY DATA: CBC normal BUN and creatinine. Sodium was still noted as 128 decreased. CBC this morning, mild anemia, otherwise normal CBC. The chest x-ray that was done yesterday as I ordered was noted without any acute pulmonary infiltration or other abnormalities with a PA lateral view chest x-ray. IMPRESSION: 1. The patient was being currently noted with gradual resolution and improvement of the acute exacerbation of chronic obstructive pulmonary disease. 2. ____ was noted partially improved and still noted suboptimal improved, but better than admission. PLAN OF TREATMENT: No change in the plan of therapy at this time. Continue the patient's current therapy, plan of management and care. Other supportive plan of management and therapies. HAN JOE MD CM:LENA 1251 [id number] HAN GANDARA MD 05/10/17 1759 interface
[~2017-05-08 04:16] MED LIST changes: +TOPROL XL25 MG PO
[2017-05-08 05:13] LABS: BASO # 0.1 10*3/uL (0.0-0.1); BASO % 2.2 % (0.0-1.0); EOS # 0.6 10*3/uL (0.0-0.4); EOS % 10.1 % (1.0-4.0); HEMOGLOBIN 12.3 g/dl (14.0-18.0); LYMPH # 1.5 10*3/uL (1.3-4.4); LYMPH % 25.3 % (27.0-41.0); MEAN CELL VOLUME 79.1 fl (80.0-94.0); MEAN CORPUSCULAR HGB CONC 34.2 g/dl (33.0-37.0); MEAN PLATELET VOLUME 8.5 fl (9.6-12.3); MONO % 16.9 % (3.0-9.0); NEUT # 2.7 10*3/uL (2.3-7.9); PLATELET COUNT AUTOMATED 349 10*3/uL (130-400); RED BLOOD COUNT 4.55 10*6/uL (4.50-5.90); RED CELL DISTRI WIDTH 15.9 % (0-14.5); WHITE BLOOD COUNT 5.9 10*3/uL (4.8-10.8)
[2017-05-08 05:27] LABS: ALBUMIN 4.2 gm/dl (3.1-4.5); ALKALINE PHOSPHATASE 75 U/L (45-117); BUN 3 mg/dl (7-24); CHLORIDE 86 mmol/L (98-107); CREATININE 0.49 mg/dL (0.70-1.30); POTASSIUM 3.9 mmol/L (3.5-5.1); SGOT/AST 32 IU/L (3-35); SGPT/ALT 39 U/L (12-78); SODIUM 124 mmol/L (136-145); TOTAL PROTEIN 7.3 gm/dL (6.4-8.2)
--- NOTE | 2017-05-08 06:37 | NUR ---
ATTEMPTED TO CALL REPORT AND WAS INFORMED THAT PT HAD NOT BEEN ASSIGNED YET
--- NOTE | 2017-05-08 06:52 | NUR ---
REPORT GIVEN TO ANUSHA MOSQUEDA
--- NOTE | 2017-05-08 07:05 | NUR ---
A 66, admitted to , under the services of CEDRIC Amato DO with a diagnosis of ACUTE EXACERBATION OF COPD, INGUINAL HERNIA. Chief complaint is SHORTNESS OF BREATH. Patient arrived via bed from ER. Monitor applied. Initial assessment completed. Vital signs taken and recorded. CEDRIC AMATO DO notified of admission to the unit. Orders received. See assessment for past medical history, medications and allergies. Patient and/or family oriented to unit. [facility] visitation policy reviewed. Clothing/patient valuable form completed. RANDY MCKEE
--- NOTE | 2017-05-08 07:06 | NUR ---
REDNESS NOTED TO BUTTOCKS. RN INFORMED
--- NOTE | 2017-05-08 07:46 | NUR ---
NO MED LIST PROVIDED BY PATIENT.
--- NOTE | 2017-05-08 08:36 | NUR ---
DR JOE NOTIFIED OF CONSULT.
--- NOTE | 2017-05-08 08:53 | NUR ---
DR JOE IN TO SEE PATIENT.
[2017-05-08] MEDS ORDERED: GUAIFENESIN600 MG PO (12:10)
[2017-05-08] MEDS ORDERED: OYSTER SHELL 51 EACH PO (12:11)
[2017-05-08] MEDS ORDERED: VITAMIN B-1100 M1 PO (12:13)
[2017-05-08] MEDS ORDERED: NATURE'S BLEND F1 MG PO (16:24)
[2017-05-08] MEDS ORDERED: CONSTULOSE10 GM/151 PO (16:24)
[2017-05-08] MEDS ORDERED: FLOMAX0.4 MG PO (16:25)
[2017-05-08] MEDS ORDERED: CARTIA XT120 MG PO (16:25)
[2017-05-08] MEDS ORDERED: ATENOLOL25 MG PO (16:26)
[2017-05-08] MEDS ORDERED: DOC-Q-LACE100 MG PO (16:28)
[2017-05-09] VITALS: BP 151/64
[2017-05-09 06:44] LABS: BASO % 0.3 % (0.0-1.0); EOS % 0.4 % (1.0-4.0); HEMATOCRIT 37.1 % (42.0-52.0); HEMOGLOBIN 12.2 g/dl (14.0-18.0); LYMPH % 13.8 % (27.0-41.0); MEAN CELL VOLUME 81.4 fl (80.0-94.0); MEAN CORPUSCULAR HGB 26.8 pg (27.0-31.0); MEAN CORPUSCULAR HGB CONC 32.9 g/dl (33.0-37.0); MONO # 0.7 10*3/uL (0.1-1.0); MONO % 9.7 % (3.0-9.0); NEUT # 5.6 10*3/uL (2.3-7.9); NEUT % 75.4 % (47.0-73.0); PLATELET COUNT AUTOMATED 410 10*3/uL (130-400); RED BLOOD COUNT 4.56 10*6/uL (4.50-5.90); RED CELL DISTRI WIDTH 16.1 % (0-14.5); WHITE BLOOD COUNT 7.5 10*3/uL (4.8-10.8)
[2017-05-09 06:59] LABS: ALBUMIN 3.8 gm/dl (3.1-4.5); ALKALINE PHOSPHATASE 80 U/L (45-117); BUN 6 mg/dl (7-24); CHLORIDE 92 mmol/L (98-107); CREATININE 0.61 mg/dL (0.70-1.30); PHOSPHOROUS 2.5 mg/dL (2.5-4.9); POTASSIUM 3.9 mmol/L (3.5-5.1); SGOT/AST 18 IU/L (3-35); SGPT/ALT 32 U/L (12-78); SODIUM 132 mmol/L (136-145); TOTAL PROTEIN 6.9 gm/dL (6.4-8.2)
[2017-05-09 07:05] LABS: THYROID STIM HORMONE (HS) 0.241 uIU/ml (0.358-4.75)
[2017-05-09 07:15] LABS: INTERNATIONAL NORM RATIO 1.2 (2.0-3.5)
[2017-05-09 08:00] VITALS: BP 147/71
--- NOTE | 2017-05-09 09:00 | NUR ---
[place] in to talk to patient. Patient states lives at home a with alone. There are no steps in the home. Physician: olu thomas Pharmacy: [facility]: none Patient's level of ADLs: INDEPENDENT Patient has working utilities: all working DME: home oxygen, portable tanks, nebulizer [facility] Follow-up physician's appointment after d/c: will be made by hospitalist nurse director upon discharge Does patient want to access PORTAL?: no Discharge plan discussed with patient, patient lives at home alone in [facility], he states he uses a walker for ambulation, he also states he doesn't drive and walks to the grocery store, informed him that the grocery store had delivery so he didn't have to go out in the cold and patient stated he liked to go for the walk, patient states he will be going back home when able and denies any home needs. THAIS KUMAR
[2017-05-09 12:00] VITALS: BP 137/57
[2017-05-09 16:00] VITALS: BP 124/51
[2017-05-09 20:00] VITALS: BP 134/46
[2017-05-10] VITALS: BP 138/54
[2017-05-10 06:09] LABS: BASO # 0.1 10*3/uL (0.0-0.1); BASO % 0.5 % (0.0-1.0); EOS # 0.2 10*3/uL (0.0-0.4); EOS % 2.4 % (1.0-4.0); HEMATOCRIT 34.3 % (42.0-52.0); HEMOGLOBIN 11.4 g/dl (14.0-18.0); LYMPH % 19.3 % (27.0-41.0); MEAN CELL VOLUME 81.1 fl (80.0-94.0); MEAN CORPUSCULAR HGB CONC 33.2 g/dl (33.0-37.0); MEAN PLATELET VOLUME 9.2 fl (9.6-12.3); MONO # 0.9 10*3/uL (0.1-1.0); MONO % 8.8 % (3.0-9.0); NEUT % 68.2 % (47.0-73.0); PLATELET COUNT AUTOMATED 389 10*3/uL (130-400); RED BLOOD COUNT 4.23 10*6/uL (4.50-5.90); RED CELL DISTRI WIDTH 16.3 % (0-14.5); WHITE BLOOD COUNT 10.2 10*3/uL (4.8-10.8)
[2017-05-10 06:44] LABS: ALBUMIN 3.3 gm/dl (3.1-4.5); BUN 9 mg/dl (7-24); CHLORIDE 91 mmol/L (98-107); POTASSIUM 3.5 mmol/L (3.5-5.1); SODIUM 128 mmol/L (136-145)
[2017-05-10 06:47] LABS: ALKALINE PHOSPHATASE 88 U/L (45-117); CREATININE 0.48 mg/dL (0.70-1.30); PHOSPHOROUS 2.4 mg/dL (2.5-4.9); SGOT/AST 16 IU/L (3-35); SGPT/ALT 29 U/L (12-78); TOTAL PROTEIN 6.1 gm/dL (6.4-8.2)
[2017-05-10 08:00] VITALS: BP 126/54
--- NOTE | 2017-05-10 11:56 | NUR ---
DR. PRADO AWARE OF CONSULT AND IS ON THE FLOOR TO SEE THE PATIENT.
[2017-05-10 12:00] VITALS: BP 133/44
--- NOTE | 2017-05-10 14:20 | NUR ---
NORCO 5/325 GIVEN FOR LOWER BACK PAIN RATING A 7/10.
[2017-05-10 16:00] VITALS: BP 119/45
[2017-05-10 20:00] VITALS: BP 118/53
[2017-05-11] VITALS: BP 105/61
[2017-05-11 05:55] LABS: ALBUMIN 3.3 gm/dl (3.1-4.5); ALKALINE PHOSPHATASE 71 U/L (45-117); BUN 14 mg/dl (7-24); CHLORIDE 92 mmol/L (98-107); CREATININE 0.53 mg/dL (0.70-1.30); SGOT/AST 10 IU/L (3-35); SGPT/ALT 25 U/L (12-78); SODIUM 128 mmol/L (136-145); TOTAL PROTEIN 6.1 gm/dL (6.4-8.2)
[2017-05-11 06:00] LABS: POTASSIUM 4.5 mmol/L (3.5-5.1)
[2017-05-11 06:08] LABS: BASO % 0.1 % (0.0-1.0); EOS % 0.1 % (1.0-4.0); HEMATOCRIT 33.4 % (42.0-52.0); LYMPH # 1.2 10*3/uL (1.3-4.4); LYMPH % 12.2 % (27.0-41.0); MEAN CELL VOLUME 81.1 fl (80.0-94.0); MEAN CORPUSCULAR HGB 26.7 pg (27.0-31.0); MEAN CORPUSCULAR HGB CONC 32.9 g/dl (33.0-37.0); MEAN PLATELET VOLUME 9.2 fl (9.6-12.3); MONO # 0.7 10*3/uL (0.1-1.0); NEUT % 79.7 % (47.0-73.0); PLATELET COUNT AUTOMATED 423 10*3/uL (130-400); RED BLOOD COUNT 4.12 10*6/uL (4.50-5.90); RED CELL DISTRI WIDTH 16.1 % (0-14.5)
[2017-05-11 08:00] VITALS: BP 144/58
[2017-05-11 12:00] VITALS: BP 123/51
[2017-05-11] MEDS ORDERED: PREDNISONE10 MG PO (13:22)
[2017-05-11] MEDS ORDERED: LEVAQUIN750 M1 PO (13:22)
--- NOTE | 2017-05-11 14:14 | NUR ---
Discharge instructions reviewed with patient/family. Patient receptive and verbalizes understanding. Follow-up care arranged. Written instructions given to patient/family. NITZA SCALES
== END 2017-05-11 14:14 | disposition home or self-care (01) | DRG 871 ==
LOC: ED 04:16 → EDHOLD 06:01 → 4E 06:01
PROVIDERS: Emergency Medicine; Family Medicine; Internal Medicine; Registered Nurse; ADMIT Internal Medicine
DX: A41.9 Sepsis, unspecified organism (principal); J18.9 Pneumonia, unspecified organism; J96.21 Acute and chronic respiratory failure with hypoxia; I11.0 Hypertensive heart disease with heart failure; E22.2 Syndrome of inappropriate secretion of antidiuretic hormone; I50.32 Chronic diastolic (congestive) heart failure; Z99.81 Dependence on supplemental oxygen; D50.9 Iron deficiency anemia, unspecified; F10.10 Alcohol abuse, uncomplicated; J44.1 Chronic obstructive pulmonary disease with (acute) exacerbation; J44.0 Chronic obstructive pulmonary disease with (acute) lower respiratory infection; E83.42 Hypomagnesemia; K40.90 Unilateral inguinal hernia, without obstruction or gangrene, not specified as recurrent; R73.9 Hyperglycemia, unspecified; K21.9 Gastro-esophageal reflux disease without esophagitis; B19.20 Unspecified viral hepatitis C without hepatic coma; K29.50 Unspecified chronic gastritis without bleeding; I25.10 Atherosclerotic heart disease of native coronary artery without angina pectoris; Z96.642 Presence of left artificial hip joint; Z96.1 Presence of intraocular lens; J20.9 Acute bronchitis, unspecified; M19.90 Unspecified osteoarthritis, unspecified site; Z82.49 Family history of ischemic heart disease and other diseases of the circulatory system; Z87.891 Personal history of nicotine dependence; Z98.41 Cataract extraction status, right eye; Z98.42 Cataract extraction status, left eye; Z85.038 Personal history of other malignant neoplasm of large intestine; Z86.73 Personal history of transient ischemic attack (TIA), and cerebral infarction without residual deficits; Z79.82 Long term (current) use of aspirin; Z79.899 Other long term (current) drug therapy; Z86.19 Personal history of other infectious and parasitic diseases; Z80.8 Family history of malignant neoplasm of other organs or systems; Z87.81 Personal history of (healed) traumatic fracture

== ENCOUNTER 2017-06-18 17:32 | Inpatient (IN) | payer MEDICARE ==
[~2017-06-18] VITALS: Ht 157.5 cm; Wt 52.3 kg
[~2017-06-18 17:32] MED LIST changes: +CONSTULOSE10 GM/151 PO; +DOC-Q-LACE100 MG PO; +OYSTER SHELL 51 EACH PO
[2017-06-18 17:44] VITALS: BP 116/92
[2017-06-18 18:25] LABS: BASO # 0.1 10*3/uL (0.0-0.1); BASO % 1.7 % (0.0-1.0); EOS # 0.1 10*3/uL (0.0-0.4); EOS % 1.6 % (1.0-4.0); HEMATOCRIT 34.7 % (42.0-52.0); HEMOGLOBIN 11.6 g/dl (14.0-18.0); LYMPH # 1.5 10*3/uL (1.3-4.4); LYMPH % 20.1 % (27.0-41.0); MEAN CELL VOLUME 78.5 fl (80.0-94.0); MEAN CORPUSCULAR HGB 26.2 pg (27.0-31.0); MEAN CORPUSCULAR HGB CONC 33.4 g/dl (33.0-37.0); MEAN PLATELET VOLUME 7.9 fl (9.6-12.3); MONO # 1.1 10*3/uL (0.1-1.0); NEUT # 4.7 10*3/uL (2.3-7.9); NEUT % 61.7 % (47.0-73.0); PLATELET COUNT AUTOMATED 568 10*3/uL (130-400); RED BLOOD COUNT 4.42 10*6/uL (4.50-5.90); RED CELL DISTRI WIDTH 15.9 % (0-14.5); WHITE BLOOD COUNT 7.6 10*3/uL (4.8-10.8)
[2017-06-18 18:38] LABS: INTERNATIONAL NORM RATIO 1.1 (2.0-3.5)
[2017-06-18 18:44] LABS: ALBUMIN 3.7 gm/dl (3.1-4.5); ALKALINE PHOSPHATASE 74 U/L (45-117); BUN 3 mg/dl (7-24); CHLORIDE 92 mmol/L (98-107); CREATININE 0.46 mg/dL (0.70-1.30); POTASSIUM 4.5 mmol/L (3.5-5.1); SGOT/AST 37 IU/L (3-35); SGPT/ALT 51 U/L (12-78); SODIUM 126 mmol/L (136-145); TOTAL PROTEIN 7.1 gm/dL (6.4-8.2)
[2017-06-18 19:59] VITALS: BP 121/89
[2017-06-18 20:10] VITALS: BP 166/77
[2017-06-18 21:00] VITALS: BP 166/77
[2017-06-18] MEDS ORDERED: K-PHOS500 MG PO (21:25)
[2017-06-18] MEDS ORDERED: LOPRESSOR25 MG PO (21:32)
[2017-06-18] MEDS ORDERED: PROAIR HFA8.5 GM INH (21:33)
[2017-06-18] MEDS ORDERED: DUONEB 3 MG/3 ML3 M1 INH (21:34)
[2017-06-18 22:34] LABS: BILIRUBIN NEGATIVE (NEGATIVE); BLOOD NEGATIVE (NEGATIVE); CLARITY CLEAR (CLEAR); COLOR YELLOW (YELLOW); GLUCOSE NEGATIVE (NEGATIVE); KETONE NEGATIVE (NEGATIVE); LEUKO ESTERASE NEGATIVE (NEGATIVE); NITRITE NEGATIVE (NEGATIVE); SPECIFIC GRAVITY <= 1.005 (1.005-1.030); UROBILINOGEN 0.2 E.U./dl (0.2-1.0)
[2017-06-18 22:54] LABS: RBC 0-2 rbc/hpf (0-2)
[2017-06-19] VITALS: BP 117/50
[2017-06-19 07:25] LABS: BASO # 0.1 10*3/uL (0.0-0.1); BASO % 2.4 % (0.0-1.0); EOS # 0.2 10*3/uL (0.0-0.4); EOS % 3.4 % (1.0-4.0); HEMATOCRIT 34.6 % (42.0-52.0); HEMOGLOBIN 11.3 g/dl (14.0-18.0); LYMPH # 1.2 10*3/uL (1.3-4.4); LYMPH % 19.3 % (27.0-41.0); MEAN CELL VOLUME 79.9 fl (80.0-94.0); MEAN CORPUSCULAR HGB 26.1 pg (27.0-31.0); MEAN CORPUSCULAR HGB CONC 32.7 g/dl (33.0-37.0); MEAN PLATELET VOLUME 8.3 fl (9.6-12.3); MONO # 0.9 10*3/uL (0.1-1.0); MONO % 15.1 % (3.0-9.0); NEUT # 3.5 10*3/uL (2.3-7.9); PLATELET COUNT AUTOMATED 585 10*3/uL (130-400); RED BLOOD COUNT 4.33 10*6/uL (4.50-5.90); RED CELL DISTRI WIDTH 16.1 % (0-14.5)
[2017-06-19 07:57] LABS: ALBUMIN 3.2 gm/dl (3.1-4.5); ALKALINE PHOSPHATASE 64 U/L (45-117); BUN 3 mg/dl (7-24); CHLORIDE 101 mmol/L (98-107); CHOLESTEROL 140 mg/dL (<200); CREATININE 0.45 mg/dL (0.70-1.30); HDL CHOLESTEROL 63 mg/dl (40-60); LDL CHOLESTEROL 68 mg/dL (9-159); PHOSPHOROUS 3.4 mg/dL (2.5-4.9); POTASSIUM 3.7 mmol/L (3.5-5.1); SGOT/AST 28 IU/L (3-35); SGPT/ALT 39 U/L (12-78); SODIUM 135 mmol/L (136-145); TOTAL PROTEIN 6.4 gm/dL (6.4-8.2); TRIGLYCERIDES 43 mg/dl (<150); VLDL CHOLESTEROL 9 mg/dL (6-40)
[2017-06-19 07:58] LABS: INTERNATIONAL NORM RATIO 1.1 (2.0-3.5)
[2017-06-19 08:00] VITALS: BP 158/70
[2017-06-19 08:02] LABS: THYROID STIM HORMONE (HS) 0.897 uIU/ml (0.358-4.75)
[2017-06-19 08:57] LABS: VITAMIN D, 25-HYDROXY 45.3 ng/mL (30-100)
[2017-06-19 12:00] VITALS: BP 162/68
[2017-06-19 16:00] VITALS: BP 147/58
== END 2017-06-19 17:54 | disposition home or self-care (01) | DRG 394 ==
LOC: ED 17:32 → EDHOLD 18:18 → 4E 18:18
PROVIDERS: Emergency Medicine; Hospitalist
DX: K40.30 Unilateral inguinal hernia, with obstruction, without gangrene, not specified as recurrent (principal); I50.32 Chronic diastolic (congestive) heart failure; E87.8 Other disorders of electrolyte and fluid balance, not elsewhere classified; E87.1 Hypo-osmolality and hyponatremia; I11.0 Hypertensive heart disease with heart failure; E44.1 Mild protein-calorie malnutrition; F10.20 Alcohol dependence, uncomplicated; D50.9 Iron deficiency anemia, unspecified; I25.10 Atherosclerotic heart disease of native coronary artery without angina pectoris; K29.50 Unspecified chronic gastritis without bleeding; K21.9 Gastro-esophageal reflux disease without esophagitis; J44.9 Chronic obstructive pulmonary disease, unspecified; Z96.642 Presence of left artificial hip joint; D47.3 Essential (hemorrhagic) thrombocythemia; B18.2 Chronic viral hepatitis C; Z96.1 Presence of intraocular lens; Z99.81 Dependence on supplemental oxygen; Z79.2 Long term (current) use of antibiotics; Z79.82 Long term (current) use of aspirin; Z79.899 Other long term (current) drug therapy; Z85.038 Personal history of other malignant neoplasm of large intestine; Z86.73 Personal history of transient ischemic attack (TIA), and cerebral infarction without residual deficits; Z87.01 Personal history of pneumonia (recurrent); Z98.42 Cataract extraction status, left eye; Z98.41 Cataract extraction status, right eye; Z87.891 Personal history of nicotine dependence; Z82.49 Family history of ischemic heart disease and other diseases of the circulatory system; Z68.21 Body mass index [BMI] 21.0-21.9, adult

== ENCOUNTER 2017-06-25 12:55 | Inpatient (IN) | payer MEDICARE ==
[~2017-06-25] VITALS: Ht 160 cm; Wt 56.8 kg
[~2017-06-25 12:55] MED LIST changes: +DUONEB 3 MG/3 ML3 M1 INH
[2017-06-25 13:05] VITALS: BP 166/80
[2017-06-25 13:30] LABS: BASO # 0.2 10*3/uL (0.0-0.1); BASO % 2.7 % (0.0-1.0); EOS # 0.6 10*3/uL (0.0-0.4); EOS % 9.5 % (1.0-4.0); HEMATOCRIT 33.1 % (42.0-52.0); LYMPH # 1.2 10*3/uL (1.3-4.4); LYMPH % 19.4 % (27.0-41.0); MEAN CELL VOLUME 78.4 fl (80.0-94.0); MEAN CORPUSCULAR HGB 26.1 pg (27.0-31.0); MEAN CORPUSCULAR HGB CONC 33.2 g/dl (33.0-37.0); MEAN PLATELET VOLUME 8.4 fl (9.6-12.3); MONO % 15.4 % (3.0-9.0); NEUT # 3.3 10*3/uL (2.3-7.9); PLATELET COUNT AUTOMATED 476 10*3/uL (130-400); RED BLOOD COUNT 4.22 10*6/uL (4.50-5.90); RED CELL DISTRI WIDTH 16.6 % (0-14.5); WHITE BLOOD COUNT 6.3 10*3/uL (4.8-10.8)
[2017-06-25 13:49] LABS: ALBUMIN 3.7 gm/dl (3.1-4.5); ALKALINE PHOSPHATASE 65 U/L (45-117); BUN 5 mg/dl (7-24); CHLORIDE 93 mmol/L (98-107); CREATININE 0.47 mg/dL (0.70-1.30); POTASSIUM 4.2 mmol/L (3.5-5.1); SGOT/AST 32 IU/L (3-35); SGPT/ALT 30 U/L (12-78); SODIUM 128 mmol/L (136-145); TOTAL PROTEIN 7.1 gm/dL (6.4-8.2); TROPONIN I 0.033 ng/ml (<0.045)
[2017-06-25 13:49] LABS: ACT PARTIAL THROMBO TIME 30.7 SECONDS (20.8-31.5); INTERNATIONAL NORM RATIO 1.1 (2.0-3.5)
[2017-06-25 13:52] LABS: ETHYL ALCOHOL < 3.0 mg/dl (<3)
[2017-06-25 14:31] VITALS: BP 158/78
[2017-06-25 15:30] VITALS: BP 181/72
[2017-06-25] MEDS ORDERED: OXYCODONE5 M1 PO (17:14)
[2017-06-25] MEDS ORDERED: ATENOLOL25 MG PO (17:15)
[2017-06-25 20:00] VITALS: BP 149/73
[2017-06-26] VITALS: BP 143/67
[2017-06-26 06:34] LABS: BASO % 0.8 % (0.0-1.0); EOS % 0.4 % (1.0-4.0); HEMATOCRIT 32.7 % (42.0-52.0); LYMPH # 0.3 10*3/uL (1.3-4.4); LYMPH % 12.5 % (27.0-41.0); MEAN CORPUSCULAR HGB 26.3 pg (27.0-31.0); MEAN CORPUSCULAR HGB CONC 33.6 g/dl (33.0-37.0); MEAN PLATELET VOLUME 8.6 fl (9.6-12.3); MONO # 0.2 10*3/uL (0.1-1.0); MONO % 5.7 % (3.0-9.0); NEUT # 2.1 10*3/uL (2.3-7.9); NEUT % 79.8 % (47.0-73.0); PLATELET COUNT AUTOMATED 483 10*3/uL (130-400); RED BLOOD COUNT 4.19 10*6/uL (4.50-5.90); RED CELL DISTRI WIDTH 16.9 % (0-14.5); WHITE BLOOD COUNT 2.6 10*3/uL (4.8-10.8)
[2017-06-26 06:43] LABS: ALBUMIN 3.3 gm/dl (3.1-4.5); BUN 8 mg/dl (7-24); CHLORIDE 94 mmol/L (98-107); CREATININE 0.37 mg/dL (0.70-1.30); PHOSPHOROUS 3.3 mg/dL (2.5-4.9); POTASSIUM 4.1 mmol/L (3.5-5.1); SGOT/AST 20 IU/L (3-35); SGPT/ALT 30 U/L (12-78); SODIUM 130 mmol/L (136-145); TOTAL PROTEIN 6.8 gm/dL (6.4-8.2)
[2017-06-26 06:45] LABS: ALKALINE PHOSPHATASE 58 U/L (45-117)
[2017-06-26 07:14] LABS: ACT PARTIAL THROMBO TIME 30.3 SECONDS (20.8-31.5); INTERNATIONAL NORM RATIO 1.2 (2.0-3.5)
[2017-06-26 08:50] VITALS: BP 159/72
[2017-06-26 12:35] VITALS: BP 112/52
[2017-06-26 12:37] VITALS: BP 133/63
[2017-06-26 16:00] VITALS: BP 122/53
[2017-06-26 20:00] VITALS: BP 156/63
[2017-06-27] VITALS: BP 146/61
[2017-06-27 07:21] LABS: BUN 7 mg/dl (7-24); CHLORIDE 93 mmol/L (98-107); CREATININE 0.49 mg/dL (0.70-1.30); POTASSIUM 4.1 mmol/L (3.5-5.1); SODIUM 129 mmol/L (136-145)
[2017-06-27 08:00] VITALS: BP 144/52
[2017-06-27] MEDS ORDERED: NATURE'S BLEND100 M2 PO (11:28)
[2017-06-27] MEDS ORDERED: DOXYCYCLINE100 M3 PO (11:28)
[2017-06-27] MEDS ORDERED: PREDNISONE10 MG PO (11:28)
== END 2017-06-27 12:33 | disposition home or self-care (01) | DRG 191 ==
LOC: ED 12:55 → 5E 14:31 → EDHOLD 14:31 → 5E 14:36
PROVIDERS: Emergency Medicine; Family Medicine; Internal Medicine
DX: J44.1 Chronic obstructive pulmonary disease with (acute) exacerbation (principal); I50.32 Chronic diastolic (congestive) heart failure; E87.8 Other disorders of electrolyte and fluid balance, not elsewhere classified; E83.42 Hypomagnesemia; I11.0 Hypertensive heart disease with heart failure; E87.1 Hypo-osmolality and hyponatremia; F10.10 Alcohol abuse, uncomplicated; D50.9 Iron deficiency anemia, unspecified; I25.118 Atherosclerotic heart disease of native coronary artery with other forms of angina pectoris; D47.3 Essential (hemorrhagic) thrombocythemia; K21.9 Gastro-esophageal reflux disease without esophagitis; B18.2 Chronic viral hepatitis C; K40.91 Unilateral inguinal hernia, without obstruction or gangrene, recurrent; K59.00 Constipation, unspecified; K29.50 Unspecified chronic gastritis without bleeding; K29.20 Alcoholic gastritis without bleeding; Y90.9 Presence of alcohol in blood, level not specified; Z96.1 Presence of intraocular lens; Z96.642 Presence of left artificial hip joint; Z87.891 Personal history of nicotine dependence; Z82.49 Family history of ischemic heart disease and other diseases of the circulatory system; Z99.81 Dependence on supplemental oxygen; Z85.038 Personal history of other malignant neoplasm of large intestine; Z86.73 Personal history of transient ischemic attack (TIA), and cerebral infarction without residual deficits; Z98.42 Cataract extraction status, left eye; Z98.41 Cataract extraction status, right eye; Z79.82 Long term (current) use of aspirin; Z79.899 Other long term (current) drug therapy

== ENCOUNTER 2017-06-28 12:03 | Emergency (ER) | payer MEDICARE ==
[~2017-06-28] VITALS: Ht 157.4 cm; Wt 57.2 kg
[~2017-06-28 12:03] MED LIST changes: +NATURE'S BLEND100 M2 PO; +OXYCODONE5 M1 PO
[2017-06-28 13:31] LABS: BASO % 0.1 % (0.0-1.0); EOS % 0.1 % (1.0-4.0); HEMATOCRIT 28.7 % (42.0-52.0); HEMOGLOBIN 9.9 g/dl (14.0-18.0); LYMPH # 0.8 10*3/uL (1.3-4.4); MEAN CELL VOLUME 77.2 fl (80.0-94.0); MEAN CORPUSCULAR HGB 26.6 pg (27.0-31.0); MEAN CORPUSCULAR HGB CONC 34.5 g/dl (33.0-37.0); MEAN PLATELET VOLUME 8.2 fl (9.6-12.3); MONO # 1.2 10*3/uL (0.1-1.0); MONO % 8.9 % (3.0-9.0); NEUT # 11.5 10*3/uL (2.3-7.9); NEUT % 83.7 % (47.0-73.0); PLATELET COUNT AUTOMATED 474 10*3/uL (130-400); RED BLOOD COUNT 3.72 10*6/uL (4.50-5.90); WHITE BLOOD COUNT 13.8 10*3/uL (4.8-10.8)
[2017-06-28 13:45] LABS: ACT PARTIAL THROMBO TIME 26.3 SECONDS (20.8-31.5); INTERNATIONAL NORM RATIO 1.1 (2.0-3.5)
[2017-06-28 13:51] LABS: ALBUMIN 3.3 gm/dl (3.1-4.5); ALKALINE PHOSPHATASE 51 U/L (45-117); BUN 9 mg/dl (7-24); CHLORIDE 86 mmol/L (98-107); CREATININE 0.36 mg/dL (0.70-1.30); POTASSIUM 4.1 mmol/L (3.5-5.1); SGOT/AST 36 IU/L (3-35); SGPT/ALT 25 U/L (12-78); SODIUM 123 mmol/L (136-145); TOTAL PROTEIN 6.1 gm/dL (6.4-8.2)
[2017-06-28 15:24] LABS: BILIRUBIN NEGATIVE (NEGATIVE); BLOOD NEGATIVE (NEGATIVE); CLARITY CLEAR (CLEAR); COLOR YELLOW (YELLOW); GLUCOSE NEGATIVE (NEGATIVE); KETONE TRACE (NEGATIVE); LEUKO ESTERASE NEGATIVE (NEGATIVE); NITRITE NEGATIVE (NEGATIVE); PH 6.5 (5.0-9.0)
[2017-06-28 15:43] LABS: RBC 0-2 rbc/hpf (0-2); WBC 0-2 wbc/hpf (0-5)
== END 2017-06-28 18:30 | disposition short-term general hospital (02) ==
LOC: ED 12:03
PROVIDERS: Nurse Practitioner Family; Student in an Organized Health Care Education/Training Program
DX: S72.001A Fracture of unspecified part of neck of right femur, initial encounter for closed fracture (principal); I25.10 Atherosclerotic heart disease of native coronary artery without angina pectoris; J44.9 Chronic obstructive pulmonary disease, unspecified; K21.9 Gastro-esophageal reflux disease without esophagitis; I11.0 Hypertensive heart disease with heart failure; I50.32 Chronic diastolic (congestive) heart failure; Z79.899 Other long term (current) drug therapy; Z79.82 Long term (current) use of aspirin; Z86.73 Personal history of transient ischemic attack (TIA), and cerebral infarction without residual deficits; Z87.891 Personal history of nicotine dependence; W19.XXXA Unspecified fall, initial encounter; Y93.89 Activity, other specified; Y92.89 Other specified places as the place of occurrence of the external cause; Y99.8 Other external cause status

== ENCOUNTER 2017-07-24 16:31 | Emergency (ER) | payer MEDICARE ==
[~2017-07-24] VITALS: Ht 157.4 cm; Wt 53.5 kg
[2017-07-24 17:15] LABS: BASO # 0.1 10*3/uL (0.0-0.1); BASO % 0.8 % (0.0-1.0); EOS # 0.4 10*3/uL (0.0-0.4); EOS % 5.6 % (1.0-4.0); HEMATOCRIT 31.5 % (42.0-52.0); HEMOGLOBIN 10.1 g/dl (14.0-18.0); LYMPH # 2.1 10*3/uL (1.3-4.4); LYMPH % 27.5 % (27.0-41.0); MEAN CELL VOLUME 81.6 fl (80.0-94.0); MEAN CORPUSCULAR HGB 26.2 pg (27.0-31.0); MEAN CORPUSCULAR HGB CONC 32.1 g/dl (33.0-37.0); MEAN PLATELET VOLUME 8.2 fl (9.6-12.3); MONO # 0.9 10*3/uL (0.1-1.0); MONO % 11.6 % (3.0-9.0); NEUT # 4.2 10*3/uL (2.3-7.9); NEUT % 53.7 % (47.0-73.0); PLATELET COUNT AUTOMATED 576 10*3/uL (130-400); RED BLOOD COUNT 3.86 10*6/uL (4.50-5.90); RED CELL DISTRI WIDTH 16.5 % (0-14.5); WHITE BLOOD COUNT 7.7 10*3/uL (4.8-10.8)
[2017-07-24 17:23] LABS: BILIRUBIN NEGATIVE (NEGATIVE); BLOOD TRACE-INTACT (NEGATIVE); CLARITY SL CLOUDY (CLEAR); COLOR YELLOW (YELLOW); GLUCOSE NEGATIVE (NEGATIVE); KETONE NEGATIVE (NEGATIVE); LEUKO ESTERASE 3+ (NEGATIVE); NITRITE NEGATIVE (NEGATIVE); UROBILINOGEN 0.2 E.U./dl (0.2-1.0)
[2017-07-24 17:30] LABS: BACTERIA 1+; WBC 51-100 wbc/hpf (0-5)
[2017-07-24 17:34] LABS: ALBUMIN 3.1 gm/dl (3.1-4.5); ALKALINE PHOSPHATASE 115 U/L (45-117); BUN 9 mg/dl (7-24); CHLORIDE 95 mmol/L (98-107); CREATININE 0.41 mg/dL (0.70-1.30); POTASSIUM 3.9 mmol/L (3.5-5.1); SGOT/AST 15 IU/L (3-35); SGPT/ALT 22 U/L (12-78); SODIUM 130 mmol/L (136-145); TOTAL PROTEIN 6.7 gm/dL (6.4-8.2)
== END 2017-07-24 21:25 | disposition short-term general hospital (02) ==
LOC: ED 16:31
PROVIDERS: Nurse Practitioner Family
DX: N48.89 Other specified disorders of penis (principal); N39.0 Urinary tract infection, site not specified; Z87.891 Personal history of nicotine dependence; Z96.642 Presence of left artificial hip joint; Z98.890 Other specified postprocedural states; Z79.82 Long term (current) use of aspirin; Z79.899 Other long term (current) drug therapy

== ENCOUNTER 2017-10-04 08:34 | Inpatient (IN) | payer MEDICARE, MEDICAID ==
[~2017-10-04] VITALS: Ht 157.5 cm; Wt 53.1 kg
--- NOTE | ~2017-10-04 | PR ---
[place], [place] PROGRESS NOTE NAME: YURIDIA CHRISTIE UNIT #: [id number] ROOM: [facility] DOCTOR: HEATH GANDARA MD,HAN BIRTHDATE: [birth year] DOS: 10/05/2017 SUBJECTIVE: The patient noted comfortable at this time, resting on the bed at this time. He has used the BiPAP for a short period of time yesterday. He had not been using the BiPAP this morning. He was still complaining of shortness of breath, but the overall reduction noted. The cough has been noted moderate without any sputum ____ has not been noted any hemodynamic instability or change in mental status ____ in the Intensive Care Unit. General weakness and fatigue were noted. He was noted somewhat increased anxiety. The patient was to be treated with his medications. He had not reported symptoms of headache. Denies symptoms of nausea, vomiting, diarrhea, abdominal pain, hematemesis, or melena. Remaining systems were reviewed. They were noted all negative. PHYSICAL EXAMINATION: VITAL SIGNS: Normal temperature, respiratory rate 20, heart rate 88, blood pressure 126/60 142/68. The pulse oxygen saturation on 3 liters nasal cannula was 100% saturation. HEAD, EYES, EARS, NOSE, AND THROAT: Head was atraumatic. Eyes nonicterus. NECK: Supple. CARDIOVASCULAR SYSTEM: S1, S2 is audible. LUNGS: The patient was noted with moderate decreased breath sounds, expiratory wheezing, no crackles. ABDOMEN: Soft, nontender. Bowel sounds present. EXTREMITIES: The patient was noted without any acute edema. MUSCULOSKELETAL SYMPTOMS: Without any acute deformities. LABORATORY DATA: BMP today, sodium 127, potassium 4.0, chloride of 92, normal BUN, creatinine and LFTs normal. CBC noted normal WBC and platelet count was noted mildly elevated 538. Hemoglobin was noted mildly decreased as 11. Troponin noted elevated, highest troponin was noted as 2.30 at midnight. IMPRESSION: 1. The patient with ongoing acute exacerbation of chronic obstructive pulmonary disease was noted with a possible non-ST segment elevation myocardial infarction concomitantly. 2. Anxiety disorder. 3. Mild anemia. 4. Past history of nicotine abuse. PLAN OF MANAGEMENT: The patient already getting unfractionated therapeutic ____ that will be continued. The dose of the Solu-Medrol will be changed from 60 mg every 8 hours to 40 mg every 8 hours. If agreeable by the Cardiology Service the patient could be transferred to the telemetry floor for further continued medical management. The BiPAP was discontinued since the patient does not wish to use it anymore. Continuation of the other supportive plan of therapy and care. Monitoring the culture if the patient is able to expectorate sputum as well that will be sent to the lab. Additional treatment changes, continue be made based on progression of the illness. [place], [place] PROGRESS NOTE NAME: YURIDIA CHRISTIE UNIT #: [id number] ROOM: [facility] DOCTOR: HAN KISER MD BIRTHDATE: [birth year] HAN JOE MD CM:PNTRANS 1216 1305 HAN GANDARA MD 10/05/17 1304 interface
--- NOTE | ~2017-10-04 | CON ---
[place], [place] REPORT OF CONSULTATION NAME: YURIDIA CHRISTIE UNIT #: [id number] ROOM: [facility] DOCTOR: JOSE MENDOZA MD BIRTHDATE: [birth year] DOS: 10/05/2017 CARDIOLOGY CONSULT REASON FOR CONSULTATION: Elevated cardiac enzymes. CLINICAL HISTORY: The patient is a 66-year-old gentleman with history of hypertension and COPD, who came to the Emergency Room with shortness of breath as well as chest pain. He describes the chest pain as midsternal area constant pain. He stated that this pain is pretty there for at least a few years. He is unable to give the type of the pain except it is "uncomfortable." This pain has no radiation and no associated symptoms, but his main complaint is exertional shortness of breath. No PND, no orthopnea, no fever and chills, no cough, no hemoptysis. He was found to have elevated cardiac enzymes and has been admitted to the hospital and Cardiology was consulted for further recommendations. He used to smoke, but he quit several years ago. He was on home oxygen 3 liters, but he does drink regularly. At the time of examination, the patient is alert and oriented and comfortable, no acute distress. Denies any chest pain or shortness of breath. No palpitation, no dizziness, no orthopnea. REVIEW OF SYSTEMS: Review of the 10 system negative except as described above. PAST MEDICAL HISTORY: 1. Hypertension. 2. COPD. 3. Home oxygen. 4. Questionable CVA in the past. 5. Colon cancer. 6. Acid reflux. PAST SURGICAL HISTORY: 1. History of left hip replacement. 2. History of cataract surgery. SOCIAL HISTORY: The patient quit smoking about 7 years ago, but he did drink about 6 cans of beer. Does not use any illicit drugs. FAMILY HISTORY: Father at the age 50s from coronary artery disease. Mother in her 50s from coronary artery disease. ALLERGIES: No known drug allergies. HOME MEDICATIONS: Reviewed. His pertinent cardiac medications include Norvasc 5 mg, aspirin 81 mg, Lipitor, Lopressor, lisinopril and Lasix. PHYSICAL EXAMINATION: VITAL SIGNS: Blood pressure 126/64, pulse 80, respiration is 20. Weight 53.1 kilos, BMI 21.4. GENERAL: Alert, comfortable, in no acute distress. [place], [place] REPORT OF CONSULTATION NAME: YURIDIA CHRISTIE UNIT #: [id number] ROOM: [facility] DOCTOR: JOSE MENDOZA MD BIRTHDATE: [birth year] HEENT: Pupils are equal, no jaundice. The patient is wearing oxygen by nasal cannula. Tongue was moist and pharynx clear. NECK: Supple, no distended neck veins, no carotid bruit. CHEST: Symmetrical, nontender. LUNGS: A few scattered rhonchi, but good air entry bilaterally. HEART: Regular rhythm, no S3, grade 1/6 systolic murmur. ABDOMEN: Benign, nontender. Bowel sounds normal. EXTREMITIES: Showed no edema. Distal pulses palpable. SKIN: Warm and dry. No cyanosis, no clubbing. RECTAL: Deferred. GENITOURINARY: Deferred. REVIEW OF THE DIAGNOSTIC TESTS: EKG and his imaging studies and labs reviewed. EKG showed nonspecific ST-T changes. The troponin I was elevated with the first was 0.3, second set was 1.1, then subsequently 1.9, 2.2., 2.3. Magnesium 1.8, potassium , creatinine 0.44. CK-MB was 13.2, BNP 205, hemoglobin 11, platelets 538,000. IMPRESSION: 1. Non-ST elevation myocardial infarction. 2. Hypertension. 3. Home oxygen. 4. Chronic dyspnea, probably due to pulmonary condition. 5. Acid reflux. 6. Questionable history of CVA in the past. RECOMMENDATIONS: 1. Continue his aspirin, beta blockers, ZACHARY inhibitors and Lovenox. 2. Start statins, Lipitor 40 mg once daily. 3. Recommend cardiac catheterization due to his NSTEMI and multiple coronary disease risk factors. Risks, benefits and alternatives were discussed and the patient agreed to proceed with cardiac arrest and bypass surgery if needed. 4. We will transfer him to [facility] in [place] tomorrow for cardiac catheterization. However if he did have recurrent chest pain with EKG changes, then he will be going for urgent cardiac catheterization. 5. There is no family at bedside at the time of examination. 6. His cardiac catheterization indication is 3 and score 8. JOSE MENDOZA MD CM:CONSTR:REPORT OF CONSULTATION 2321 10/06/17 0136 interface
--- NOTE | ~2017-10-04 | EKG ---
[place], [place] ELECTROCARDIOGRAM REPORT NAME: YURIDIA CHRISTIE UNIT #: [id number] ROOM: [facility] DOCTOR: HEATH GANDARA MD,HAN BIRTHDATE: [birth year] DOS: 10/04/2017 Echocardiogram was done on 10/04/2017, at 1:06 p.m. Sinus tachycardia noted. Heart rate of 117 beats per minute with old inferior myocardial infarction was also noted. HAN JOE MD CM:EKGRPT:ELECTROCARDIOGRAM REPORT 1401 1413 HAN GANDARA MD
--- NOTE | ~2017-10-04 | CON ---
[place], [place] REPORT OF CONSULTATION NAME: YURIDIA CHRISTIE UNIT #: [id number] ROOM: [facility] DOCTOR: HAN KISER MD BIRTHDATE: [birth year] DOS: 10/04/2017 PULMONARY CONSULTATION, EVALUATION AND MANAGEMENT CONSULTATION REQUESTING BY: Hospitalist Service. REASON FOR CONSULTATION: For assessment of current ongoing acute respiratory exacerbation of COPD. HISTORY OF PRESENT ILLNESS: This is 66-year-old white male patient who has been known with past history of COPD with chronic hypoxic respiratory failure, use of oxygen, brought to the hospital by the EMS. The patient has been treated in the hospital previously and later in custodial facility and recently discharged home. He developed symptoms of increasing shortness of breath for the past couple of days. He has been using nebulized bronchodilator frequently. He says no improvement in symptoms. The patient had developed symptoms of increased wheezing with chest congestion, which were noted mild. He has been assessed in the Emergency Room noted with acute exacerbation of chronic obstructive pulmonary disease and admitted to the hospital for further medical management. The patient denies any symptoms of chest tightness, but noted some retrosternal chest pain. REVIEW OF SYSTEMS: CONSTITUTIONAL SYMPTOMS: Fatigue and tiredness reported without any symptoms of fever or chills. EYES: Denies burning, redness, or tenderness. EARS, NOSE, AND THROAT SYMPTOMS: Denies sore throat, hoarseness, otalgia, postnasal drainage or epistaxis. CARDIOVASCULAR: Denies anginal pain, edema, pain of the lower extremity. GASTROINTESTINAL: Denies dysphagia, nausea, vomiting, diarrhea, abdominal pain, hematemesis, melena, or hematochezia. SKIN: Denies abnormal lesions or rashes. MUSCULOSKELETAL: Without any acute deformities. CENTRAL NERVOUS SYSTEM: Denies dizziness, headache, diplopia, syncopal episodes. Remaining systems were reviewed. They were noted all negative. PAST MEDICAL HISTORY: 1. Known with history of chronic obstructive pulmonary disease. 2. Chronic hypoxic respiratory failure. 3. Alcohol dependence. 4. Coronary artery disease. 5. Hepatitis C. 6. Past CVA with complete neurologic recovery by history. 7. Uncomplicated severe persistent bronchial asthma. 8. Congestive heart failure with diastolic dysfunction. 9. Degenerative arthritis. 10. Decreased mobility. 11. Abdominal hernia, which has been currently conservatively managed. [place], [place] REPORT OF CONSULTATION NAME: YURIDIA CHRISTIE UNIT #: [id number] ROOM: [facility] DOCTOR: HEATH GANDARA MD,HAN BIRTHDATE: [birth year] SOCIAL HISTORY: The patient is , has 4 children. Denies alcohol use or illicit drug use. Tobacco use was noted since his early teens a pack of cigarettes per day stated not been smoking cigarettes since 2011. History of intermittent alcohol use. PAST SURGICAL HISTORY: 1. Cataract extraction with lens implantation. 2. Left ORIF. FAMILY HISTORY: The patient and his father passed at the age 65 of complication of myocardial infarction and unknown cancer. Mother at 60 years old, complication related to acute myocardial infarction. CURRENT MEDICATIONS: Administered noted use of Lovenox for DVT prophylaxis, Solu-Medrol 60 mg q. 8 hours, Mucinex 1200 mg b.i.d., Rocephin and Zithromax intravenous use. Other p.r.n. medications also administered. PHYSICAL EXAMINATION: GENERAL: This is a 66-year-old white male who has been noted currently awake and alert without acute distress, sitting on side of the bed. Height of 5 feet 2 inches, weight 117 pounds, BMI 21.4. VITAL SIGNS: For the patient, which has been recorded showed normal temperature, respiratory rate 24-30, heart rate of 119-123, sinus tachycardia, blood pressure 132/79-106/67. The pulse oxygen saturation of the patient noted on 3 liters nasal cannula is 99% saturation. HEENT: Examination shows head was atraumatic. Eyes nonicterus. NECK: Supple. Oral mucosa moist. CARDIOVASCULAR: S1, S2 audible. LUNGS: Noted without any crackles. Expiratory noted diffuse in the lungs bilaterally, decreased breath sounds. ABDOMEN: Flat, soft, nontender. Bowel sounds present. CENTRAL NERVOUS SYSTEM: Noted cranial nerves 2-12 intact. No focal deficit. VISIBLE SKIN: No lesions or rashes. MUSCULOSKELETAL: Without any acute deformities. LABORATORY DATA: The patient's arterial blood gas pH of 7.42 pCO2 of 32, pO2 of 94 in the Emergency Room was done this morning. Lactic acid 1.7 emergent this morning. CBC 10/04/2017, WBC count normal, platelet count 541,000, hemoglobin 11.4. PT and PTT was noted as normal. CMP of 10/04/2017, BUN 6, creatinine normal, glucose 102. Sodium 128. Troponin 0.34. The chest x-ray 1, which was done in the Emergency Room. The patient shows hyperinflation of the lung with changes of COPD without any acute grossly visible pulmonary abnormalities. The patient had a CTA of the chest completed as well in the Emergency Room, the patient that was reviewed. There was no evidence of acute pulmonary embolism noted in the pulmonary arterial branches, which are major. The pulmonary arteries are well opacified. There were no pleural effusions, changes of chronic obstructive pulmonary disease. Centrilobular emphysema was noted No acute pulmonary infiltration noted. There was no evidence of any pulmonary nodule and/or consolidation. [place], [place] REPORT OF CONSULTATION NAME: YURIDIA CHRISTIE UNIT #: [id number] ROOM: [facility] DOCTOR: HAN KISER MD BIRTHDATE: [birth year] IMPRESSION: 1. The patient who has been currently admitted to the hospital noted with ongoing acute exacerbation of chronic obstructive pulmonary disease for this patient with current ongoing presentation. 2. Abnormal troponin rule out acute myocardial infarction as well as stress related elevation of the troponins. 3. The patient with past nicotine abuse, stating no tobacco use since 2011. 4. History of chronic hypoxic respiratory failure. PLAN OF MANAGEMENT: At this time, the patient has been already started on the treatment needed for acute exacerbation of COPD continued and to be monitored. Followup troponin in case of respiratory distress. The patient could be started on the BiPAP setting of 02/27. Other plan of management and care. Further change in treatment will be done for the patient based on progression of the illness for this admission. HAN JOE MD CM:CONSTR:REPORT OF CONSULTATION 1435 10/05/17 0151 interface
--- NOTE | ~2017-10-04 | EKG ---
[place], [place] ELECTROCARDIOGRAM REPORT NAME: YURIDIA CHRISTIE UNIT #: [id number] ROOM: [facility] DOCTOR: HEATH GANDARA MD,HAN BIRTHDATE: [birth year] DOS: 10/05/2017 Echocardiogram was done at 8:53 a.m. Sinus tachycardia noted. Heart rate 126 beats per minute. Old inferior myocardial infarction was also noted with possibility of old anterior wall myocardial infarction as well. HAN JOE MD CM:EKGRPT:ELECTROCARDIOGRAM REPORT 1402 1417 HAN GANDARA MD
[2017-10-04 08:35] VITALS: BP 109/62
[2017-10-04] MEDS ORDERED: VITAMIN B-1100 M1 PO (08:46)
[2017-10-04] MEDS ORDERED: VITAMIN D31000 UNI1 PO (08:46)
[2017-10-04] MEDS ORDERED: CARTIA XT120 MG PO (08:46)
[2017-10-04] MEDS ORDERED: PROTONIX40 MG PO (08:47)
[2017-10-04] MEDS ORDERED: FLOMAX0.4 MG PO (08:47)
[2017-10-04] MEDS ORDERED: ATENOLOL25 MG PO (08:47)
[2017-10-04] MEDS ORDERED: GUAIFENESIN600 MG PO (08:48)
[2017-10-04] MEDS ORDERED: ASPIRIN ADULT L81 M2 PO (08:49)
[2017-10-04] MEDS ORDERED: NORVASC5 MG PO (08:49)
[2017-10-04] MEDS ORDERED: NATURE'S BLEND F1 MG PO (08:49)
[2017-10-04] MEDS ORDERED: METOPROLOL25 MG PO (08:49)
[2017-10-04] MEDS ORDERED: LASIX20 MG PO (08:50)
[2017-10-04] MEDS ORDERED: OYSTER SHELL C1 EAC3 PO (08:50)
[2017-10-04] MEDS ORDERED: K-PHOS500 MG PO (08:51)
[2017-10-04] MEDS ORDERED: ZESTRIL,PRINIVIL5 MG PO (08:51)
[2017-10-04] MEDS ORDERED: HYDROCODONE-AC1 EAC2 PO (08:51)
[2017-10-04] MEDS ORDERED: DOCUSATE SODIU100 M2 PO (08:52)
[2017-10-04] MEDS ORDERED: CONSTULOSE10 GM/151 PO (08:53)
[2017-10-04] MEDS ORDERED: PROVENTIL HFA6.7 GM INH (08:53)
[2017-10-04] MEDS ORDERED: DUONEB 3 MG/3 ML3 M1 INH (08:53)
[2017-10-04 09:17] LABS: ABG BASE EXCESS -1.4 mmol/L (-2.0-2.0); ABG HCO3 21.9 mmol/l (22-26); ABG O2 SATURATION 97.7 % (95-97); ARTERIAL BLOOD GAS PCO2 33.7 mmHg (35-45); ARTERIAL BLOOD GAS PH 7.429 (7.35-7.45); ARTERIAL BLOOD GAS PO2 94.1 mmHg (80-90)
[2017-10-04 09:18] LABS: BASO # 0.1 10*3/uL (0.0-0.1); BASO % 1.6 % (0.0-1.0); EOS # 0.9 10*3/uL (0.0-0.4); EOS % 10.6 % (1.0-4.0); HEMATOCRIT 34.8 % (42.0-52.0); HEMOGLOBIN 11.4 g/dl (14.0-18.0); LYMPH # 1.2 10*3/uL (1.3-4.4); LYMPH % 13.5 % (27.0-41.0); MEAN CELL VOLUME 74.8 fl (80.0-94.0); MEAN CORPUSCULAR HGB 24.5 pg (27.0-31.0); MEAN CORPUSCULAR HGB CONC 32.8 g/dl (33.0-37.0); MEAN PLATELET VOLUME 8.3 fl (9.6-12.3); MONO # 0.6 10*3/uL (0.1-1.0); MONO % 6.5 % (3.0-9.0); NEUT % 67.5 % (47.0-73.0); PLATELET COUNT AUTOMATED 541 10*3/uL (130-400); RED BLOOD COUNT 4.65 10*6/uL (4.50-5.90); RED CELL DISTRI WIDTH 15.6 % (0-14.5); WHITE BLOOD COUNT 8.9 10*3/uL (4.8-10.8)
[2017-10-04 09:23] VITALS: BP 106/67
[2017-10-04 09:29] LABS: INTERNATIONAL NORM RATIO 1.1 (2.0-3.5)
[2017-10-04 09:36] LABS: ALBUMIN 3.8 gm/dl (3.1-4.5); ALKALINE PHOSPHATASE 115 U/L (45-117); BUN 6 mg/dl (7-24); CHLORIDE 91 mmol/L (98-107); CREATININE 0.53 mg/dL (0.70-1.30); POTASSIUM 4.1 mmol/L (3.5-5.1); SGOT/AST 37 IU/L (3-35); SGPT/ALT 34 U/L (12-78); SODIUM 128 mmol/L (136-145); TOTAL PROTEIN 7.6 gm/dL (6.4-8.2)
[2017-10-04 11:21] LABS: BILIRUBIN NEGATIVE (NEGATIVE); BLOOD NEGATIVE (NEGATIVE); CLARITY CLEAR (CLEAR); COLOR YELLOW (YELLOW); GLUCOSE NEGATIVE (NEGATIVE); KETONE NEGATIVE (NEGATIVE); LEUKO ESTERASE NEGATIVE (NEGATIVE); NITRITE NEGATIVE (NEGATIVE); PH 6.5 (5.0-9.0); UROBILINOGEN 0.2 E.U./dl (0.2-1.0)
[2017-10-04 12:00] VITALS: BP 132/79
[2017-10-04 16:00] VITALS: BP 129/70
[2017-10-04 20:00] VITALS: BP 131/59
[2017-10-05 00:05] VITALS: BP 138/74
[2017-10-05 04:00] VITALS: BP 142/68
[2017-10-05 06:35] LABS: BASO % 0.1 % (0.0-1.0); HEMATOCRIT 33.9 % (42.0-52.0); LYMPH # 0.8 10*3/uL (1.3-4.4); LYMPH % 8.7 % (27.0-41.0); MEAN CELL VOLUME 74.5 fl (80.0-94.0); MEAN CORPUSCULAR HGB 24.2 pg (27.0-31.0); MEAN CORPUSCULAR HGB CONC 32.4 g/dl (33.0-37.0); MONO # 0.5 10*3/uL (0.1-1.0); MONO % 5.1 % (3.0-9.0); NEUT # 8.2 10*3/uL (2.3-7.9); NEUT % 85.3 % (47.0-73.0); PLATELET COUNT AUTOMATED 538 10*3/uL (130-400); RED BLOOD COUNT 4.55 10*6/uL (4.50-5.90); RED CELL DISTRI WIDTH 15.6 % (0-14.5); WHITE BLOOD COUNT 9.6 10*3/uL (4.8-10.8)
[2017-10-05 07:06] LABS: ALBUMIN 3.5 gm/dl (3.1-4.5); BUN 11 mg/dl (7-24); CHLORIDE 92 mmol/L (98-107); SODIUM 127 mmol/L (136-145)
[2017-10-05 07:09] LABS: ALKALINE PHOSPHATASE 107 U/L (45-117); CREATININE 0.44 mg/dL (0.70-1.30); PHOSPHOROUS 3.3 mg/dL (2.5-4.9); SGOT/AST 29 IU/L (3-35); SGPT/ALT 30 U/L (12-78); TOTAL PROTEIN 7.3 gm/dL (6.4-8.2)
[2017-10-05 08:00] VITALS: BP 126/60
[2017-10-05 12:00] VITALS: BP 130/64
[2017-10-05 15:40] VITALS: BP 116/60
[2017-10-05] MEDS ORDERED: Azithromycin500 MG IV (16:34)
[2017-10-05] MEDS ORDERED: ENOXAPARIN60 MG/0.2 SC (16:34)
[2017-10-05] MEDS ORDERED: SOLU-MEDRO40 MG/1 ML IV (16:34)
[2017-10-05] MEDS ORDERED: ATORVASTATIN CA40 M1 PO (16:34)
[2017-10-05] MEDS ORDERED: CEFTRIAXONE1 GM IJ (16:34)
[2017-10-05 20:00] VITALS: BP 123/65
[2017-10-06] VITALS: BP 134/71
[2017-10-06 04:00] VITALS: BP 127/69
[2017-10-06 05:14] LABS: ALBUMIN 3.5 gm/dl (3.1-4.5); ALKALINE PHOSPHATASE 91 U/L (45-117); BUN 5 mg/dl (7-24); CHLORIDE 94 mmol/L (98-107); CREATININE 0.41 mg/dL (0.70-1.30); POTASSIUM 4.2 mmol/L (3.5-5.1); SGOT/AST 23 IU/L (3-35); SGPT/ALT 32 U/L (12-78); SODIUM 128 mmol/L (136-145); TOTAL PROTEIN 7.2 gm/dL (6.4-8.2)
[2017-10-06 06:16] LABS: HEMATOCRIT 36.3 % (42.0-52.0); HEMOGLOBIN 11.5 g/dl (14.0-18.0); LYMPH # 0.7 10*3/uL (1.3-4.4); LYMPH % 7.5 % (27.0-41.0); MEAN CELL VOLUME 75.9 fl (80.0-94.0); MEAN CORPUSCULAR HGB 24.1 pg (27.0-31.0); MEAN CORPUSCULAR HGB CONC 31.7 g/dl (33.0-37.0); MEAN PLATELET VOLUME 9.1 fl (9.6-12.3); MONO # 0.3 10*3/uL (0.1-1.0); MONO % 2.9 % (3.0-9.0); NEUT # 8.1 10*3/uL (2.3-7.9); PLATELET COUNT AUTOMATED 490 10*3/uL (130-400); RED BLOOD COUNT 4.78 10*6/uL (4.50-5.90); RED CELL DISTRI WIDTH 15.8 % (0-14.5); WHITE BLOOD COUNT 9.1 10*3/uL (4.8-10.8)
[2017-10-06 08:00] VITALS: BP 127/68
== END 2017-10-06 08:00 | disposition other institution (70) | DRG 871 ==
LOC: ED 08:34 → EDHOLD 09:31 → ICCU 09:47
PROVIDERS: Emergency Medicine; Internal Medicine
PROC: 5A09357 Assistance with Respiratory Ventilation, Less than 24 Consecutive Hours, Continuous Positive Airway Pressure (ICD-10-PCS; principal; 2017-10-04)
DX: A41.9 Sepsis, unspecified organism (principal); I21.4 Non-ST elevation (NSTEMI) myocardial infarction; J96.20 Acute and chronic respiratory failure, unspecified whether with hypoxia or hypercapnia; I11.0 Hypertensive heart disease with heart failure; J18.9 Pneumonia, unspecified organism; I50.32 Chronic diastolic (congestive) heart failure; E87.8 Other disorders of electrolyte and fluid balance, not elsewhere classified; E87.1 Hypo-osmolality and hyponatremia; D50.9 Iron deficiency anemia, unspecified; F10.10 Alcohol abuse, uncomplicated; J44.1 Chronic obstructive pulmonary disease with (acute) exacerbation; J44.0 Chronic obstructive pulmonary disease with (acute) lower respiratory infection; I25.10 Atherosclerotic heart disease of native coronary artery without angina pectoris; K29.20 Alcoholic gastritis without bleeding; K21.9 Gastro-esophageal reflux disease without esophagitis; R73.9 Hyperglycemia, unspecified; D47.3 Essential (hemorrhagic) thrombocythemia; M19.90 Unspecified osteoarthritis, unspecified site; F41.9 Anxiety disorder, unspecified; Z96.1 Presence of intraocular lens; Z96.642 Presence of left artificial hip joint; Y90.9 Presence of alcohol in blood, level not specified; B18.2 Chronic viral hepatitis C; Z85.038 Personal history of other malignant neoplasm of large intestine; Z86.73 Personal history of transient ischemic attack (TIA), and cerebral infarction without residual deficits; Z99.81 Dependence on supplemental oxygen; Z87.440 Personal history of urinary (tract) infections; Z98.42 Cataract extraction status, left eye; Z98.41 Cataract extraction status, right eye; Z87.891 Personal history of nicotine dependence; Z82.49 Family history of ischemic heart disease and other diseases of the circulatory system; Z79.899 Other long term (current) drug therapy; Z79.82 Long term (current) use of aspirin; Z80.9 Family history of malignant neoplasm, unspecified

== ENCOUNTER 2017-10-26 19:44 | Inpatient (IN) | payer MEDICARE, MEDICAID ==
[~2017-10-26] VITALS: Ht 170 cm; Wt 54.0 kg
[2017-10-26] VITALS (21 sets, daily range): BP systolic 61–110; BP diastolic 28–49
--- NOTE | ~2017-10-26 | PR ---
[place], [place] PROGRESS NOTE NAME: YURIDIA CHRISTIE [facility] #: [id number] UNIT #: [id number] ROOM: 405 DOCTOR: RYNE FORBES MD BIRTHDATE: [birth year] DOS: 10/29/2017 SUBJECTIVE: The patient was seen at his bedside today 10/29/2017 for followup of his atypical chest pain, abnormal electrocardiogram, and elevated troponin levels. This is one of multiple hospitalizations for this 66-year-old man with a history of severe obstructive lung disease, hypertension, alcohol abuse. He presented to the hospital on this occasion with recurrent dyspnea. Laboratory studies did show a mild elevation in troponin; however, there was no typical rise and fall pattern to suggest that this was an acute coronary injury. The patient was recently hospitalized with chest discomfort and an elevated troponin level and underwent catheterization at the [facility] on 10/06/2017. He was found to have no significant coronary artery disease; however, there was some evidence for apical ballooning. On this occasion, we did obtain an echocardiogram on 10/27/2017 and it showed normal left ventricular wall motion and overall systolic function. No apical ballooning or cardiomyopathic findings were found. PHYSICAL EXAMINATION: VITAL SIGNS: Today, his pulse is 89 and regular, blood pressure 125/60, he is afebrile. He weighs 54 kg and has a body mass index of 18.7. NECK: Supple. There is no jugular distention. Carotids are full without bruits. LUNGS: Respirations are unlabored. He has decreased breath sounds at the bases, but no wheezes or rales. HEART: Has a regular rhythm with a fourth heart sound, but no third heart sound or significant murmur. EXTREMITIES: Showed no edema. IMPRESSION: 1. Acute exacerbation of chronic obstructive pulmonary disease. 2. Abnormal electrocardiogram with elevated troponin. A stress cardiomyopathy was considered; however, the patient's echocardiogram showed no wall motion abnormalities or left ventricular dysfunction. 3. Cardiac catheterization 10/06/2017 showed normal coronary arteries. 4. Hypotension and bradycardia, probably due to medications. 5. History of alcoholism. 6. History of peripheral vascular disease. PLAN: The patient has tolerated reintroduction of his atenolol and his blood pressure appears well controlled today. No other cardiac assessment is planned. The patient may be discharged to home. Cardiology will sign off, but we will remain available to see the patient if needed. We thank the hospitalist physicians for asking our advice regarding his care. [place], [place] PROGRESS NOTE NAME: YURIDIA CHRISTIE UNIT #: [id number] ROOM: 405 DOCTOR: RYNE FORBES MD BIRTHDATE: [birth year] RYNE FORBES MD CM:PNTRANS 1343 1415 RYNE FORBES MD 10/29/17 1414 interface
--- NOTE | ~2017-10-26 | CON ---
[place], [place] REPORT OF CONSULTATION NAME: YURIDIA CHRISTIE UNIT #: [id number] ROOM: [facility] DOCTOR: HAN KISER MD BIRTHDATE: [birth year] DOS: 10/27/2017 PULMONARY CONSULTATION EVALUATION AND MANAGEMENT REASON FOR CONSULTATION: Assess the patient for possible acute pneumonia and shortness of breath. HISTORY OF PRESENT ILLNESS: This is 66-year-old white male patient, who presented to Emergency Room by the ambulance. The patient stated he has developed symptoms of shortness of breath on the day of the assessment in the ER. He has taken a couple of breathing treatments and stated no improvement in symptom. The patient was also complaining of general weakness and fatigue with the shortness of breath occurring with exertion, not at rest. He does not have any symptoms of coughing or sputum expectoration. Denies symptoms of wheezing. As the patient arrived in the Emergency Room, his blood pressure were reported by the EMS to be 76/40. His pulse ox saturation recorded 99% on 2 liters nasal cannula. He has been admitted to the hospital, given intravenous fluid, later on started on Levophed for the patient that was weaned off for the patient overnight and taken off at about 7 o'clock or later. The patient is receiving Levophed at the present time. He had not been noted any symptoms of acute chest pain. He has been noted chronic pain, which he described in the retrosternal area intermittently. REVIEW OF SYSTEMS: CONSTITUTIONAL: Fatigue and tiredness reported and symptoms of fever or chills. EYES: Denies any burning, discharge or redness. ENT: Denies any epistaxis, sore throat, hoarseness, otalgia, postnasal drainage. GASTROINTESTINAL: Dysphagia, nausea, vomiting, diarrhea, abdominal pain, hematemesis, melena, or abnormal weight loss. SKIN: No abnormal lesions or rashes. GENITOURINARY SYMPTOMS: No dysuria, suprapubic pain, or hematuria. MUSCULOSKELETAL: No acute joint pain, redness or tenderness or deformity reported. CENTRAL NERVOUS SYSTEM: General weakness. There were no symptoms of dizziness, syncopal episode, diplopia or migraine headache. Remaining systems were reviewed. They were noted all negative. Past medical history, social history, surgical history, family history were reviewed for the patient, had essentially remains unchanged, since my consultation of 10/04/2017 for this patient. Please refer to that part of the past history for this patient for further reference, which is [facility]. The patient was admitted in the hospital in 09/2017, he was suspected with non-ST segment elevation myocardial infarction and transferred to [facility] with subsequent discharge. The details about the cardiac workup including cardiac catheterization, but not known by the patient. MEDICATIONS: Current administered medications were noted use of Solu-Medrol 60 mg b.i.d., Lovenox 40 mg subcutaneous daily, Levaquin 500 mg IV daily and other [place], [place] REPORT OF CONSULTATION NAME: YURIDIA CHRISTIE UNIT #: [id number] ROOM: [facility] DOCTOR: HAN KISER MD BIRTHDATE: [birth year] p.r.n. medications. DRUG ALLERGIES: For the patient were noted as no known drug allergies. PHYSICAL EXAMINATION: GENERAL: This is 66-year-old white male who has been noted currently awake and alert without acute distress. Height of 5 feet 7 inches, weight of 119 pounds, BMI 18.6. VITAL SIGNS: Normal temperature, respiratory rate was recorded as 19-20; heart rate 55-64, blood pressure 130/54, the lowest blood pressure was noted as 61/31 in the Emergency Room. Intake is 2.280 liters, output 900 mL, since admission. Pulse oxygen saturation on 3 liter nasal cannula was recorded as 99% saturation. HEENT: Head was atraumatic. Eyes nonicterus. NECK: Supple. Oral mucosa was moist. CARDIOVASCULAR: S1, S2 audible. LUNGS: The patient was noted without any crackles. Decreased breath sounds are noted in the lungs bilaterally. Scattered expiratory wheezing. ABDOMEN: Flat, soft, nontender. EXTREMITIES: Without any acute edema. MUSCULOSKELETAL: The patient was noted without any acute deformities. SKIN: Noted without any lesions or rashes. MUSCULOSKELETAL SYMPTOMS: Noted without any deformities. Cranial nerves 2-12 intact. LABORATORY DATA: The lactic acid noted in remission 4.0. The ammonia level noted at 17. Arterial blood gas on 10/26/2017, pH of 7.49, pCO2 17, pO2 of 18. Ethyl alcohol level noted as 7. CMP of the patient, normal BUN and creatinine. Sodium 122 and chloride of 17. AST was 40. Troponin 0.04. The salicylate level was noted at 25.2. Serum osmolality was noted as 260, which was low. The CBC of the patient; WBC count 8.0, hemoglobin 10.4, hematocrit 32.0, and platelet count were normal on admission yesterday as well. Follow up lactic acid 1.6. Troponin second set was 0.189. CBC showed this morning repeated again normal WBC count, hemoglobin 11.2, and platelet count mildly elevated at 469,000. CMP of the patient, normal BUN and creatinine. Sodium was 124. PT/PTT were noted as normal. The chest x-ray that was done for the patient 1 view in the Emergency Room was noted with changes of chronic obstructive pulmonary disease and hyperinflation. IMPRESSION: 1. The patient will be currently admitted to the hospital for general weakness and fatigue with severe hyponatremia, also noted with alcohol intake for this patient. 2. Hypertension, secondary to intravascular volume depletion, rule out sepsis as well. 3. Lactic acidosis related to the hypoperfusion with hypertension and/or from sepsis or combination of both would be considered. 4. Acute exacerbation of chronic obstructive pulmonary disease as well. 5. Previous history of nicotine use as well. 6. Abnormal troponin with non-ST segment elevation myocardial infarction noted in 09/2017. Further workup was unknown for this patient. [place], [place] REPORT OF CONSULTATION NAME: YURIDIA CHRISTIE UNIT #: [id number] ROOM: [facility] DOCTOR: HEATH GANDARA MD,HAN BIRTHDATE: [birth year] 7. History of chronic hypoxic respiratory failure, use of oxygen supplementation about the same flow of oxygen as previously. PLAN OF THERAPY: The patient has been receiving intravenous corticosteroids. The blood pressure has been ordered to get corrected. Empirical use of the antibiotics until the pneumonia is excluded. A repeat chest x-ray, PA and lateral view for the patient to determination. The pneumonic infiltration especially in the lower lungs. Bronchodilator will be given every 4 hours. Continue DVT prophylaxis. The patient was also noted with elevation of the salicylate level for the patient, which would be also resulting in acidosis as well. There was no history of intentional overdose with the salicylate, reported by the patient. He might be taking pain medication, which might contain salicylate resulting in mild toxicity as well. Repeat the salicylate level for the patient again to assess is still elevated. Alkalinization of the urine might be necessary. Other supportive therapy and plan of management as well. Obtain the arterial blood gas to correctly assess underlying acid based disorder. HAN JOE MD CM:CONSTR:REPORT OF CONSULTATION 1418 10/28/17 0104 interface
--- NOTE | ~2017-10-26 | PR ---
[place], [place] PROGRESS NOTE NAME: YURIDIA CHRISTIE UNIT #: [id number] ROOM: 405 DOCTOR: HEATH GANDARA MD,HAN BIRTHDATE: [birth year] DOS: 10/28/2017 SUBJECTIVE: He has been noted comfortable at this time, resting on the bed. The patient denies symptoms of coughing, sputum expectoration, insisting of wanting to be discharged home. Denies symptoms of chest pain, hemoptysis, or abdominal pain. OBJECTIVE: VITAL SIGNS: For the patient noted without any evidence of hypotension. The temperature noted normal, respiratory rate 22, heart rate 98, blood pressure 144/61. Pulse oxygen saturation of the patient noted on 2 liters nasal cannula 96% saturation. HEENT: Head was atraumatic. Eyes nonicterus. NECK: Supple. CARDIOVASCULAR: S1, S2 audible. LUNGS: The patient was noted without any wheezing or crackles at the present time. ABDOMEN: Soft, nontender. EXTREMITIES: Without acute edema. LABORATORY DATA: CBC today: WBC count of 11.1, hemoglobin 9.2, hematocrit 28.5, platelet count 406. BMP this morning noted, glucose 212. Sodium 131. IMPRESSION: Resolving hyponatremia, improving acute exacerbation of chronic obstructive pulmonary disease gradually. Overall respiratory status, the patient has been improving at the present time. The hypotension resolved. PLAN OF MANAGEMENT: No changes from the pulmonary standpoint. The patient will be planned for home discharge. He will require tapering dose of prednisone. Continued abstinence from tobacco use was advised. Other plan of therapy as previously. Usual care. HAN JOE MD CM:PNTRANS [id number] 1329 HAN GANDARA MD 11/04/17 0753 interface
--- NOTE | ~2017-10-26 | PR ---
[place], [place] PROGRESS NOTE NAME: YURIDIA CHRISTIE UNIT #: [id number] ROOM: 405 DOCTOR: HAN KISER MD BIRTHDATE: [birth year] DOS: 10/29/2017 SUBJECTIVE: The patient noted comfortable at this time without any acute distress, resting on his bed. The patient was not noted any symptoms of hemoptysis or any chest pain. Transferred from the intensive care to telemetry floor. OBJECTIVE: VITAL SIGNS: For the patient, which were recorded showed the temperature noted as normal. The respiratory rate 20, heart rate of 89, blood pressure 125/60, pulse oxygen saturation of the patient recorded 2 liters nasal cannula 99% saturation. HEENT: Head was atraumatic. Eyes nonicterus. NECK: Supple. CARDIOVASCULAR: S1, S2 audible. LUNGS: Without any wheeze or crackles. ABDOMEN: Soft, nontender. Bowel sounds present. EXTREMITIES: No edema. LABORATORY DATA: BUN noted normal, creatinine was normal, and sodium 131. CBC this morning, hemoglobin 9.5, platelet count 439,000, mildly elevated, and normal WBC count. IMPRESSION: 1. Progressive resolution of the hyponatremia, multifactorial with history of alcohol use as well. 2. Improving respiratory status. The patient was noted stable at this time with current medical management. 3. Improving acute exacerbation of chronic obstructive pulmonary disease. PLAN OF MANAGEMENT: No change in the plan of management. Discharge planning per primary care attending. No other change in his treatment needs to be done today. [place], [place] PROGRESS NOTE NAME: YURIDIA CHRISTIE UNIT #: [id number] ROOM: 405 DOCTOR: HAN KISER MD BIRTHDATE: [birth year] HAN JOE MD CM:LENA [id number] HAN GANDARA MD 11/04/17 0754 interface
--- NOTE | ~2017-10-26 | PR ---
[place], [place] PROGRESS NOTE NAME: YURIDIA CHRISTIE [facility] #: [id number] UNIT #: [id number] ROOM: 405 DOCTOR: RYNE FORBES MD BIRTHDATE: [birth year] DOS: 10/28/2017 SUBJECTIVE: The patient was seen at his bedside today, 10/28/2017, for followup of dyspnea and an elevated troponin. This one of multiple hospitalizations for this 66-year-old man with a history of severe obstructive lung disease, hypertension and alcohol abuse. He presented to the hospital on this occasion with recurrent dyspnea. Laboratory studies did show a mild elevation in troponin, but did not show a rise and fall pattern that suggested an acute coronary injury. On the contrary, there was a low-level elevation consistent with a type 2 myocardial injury (demand ischemia). The patient recently was hospitalized with chest discomfort and elevated troponin and underwent catheterization on 10/06/2017. He was found to have no significant coronary artery disease, but he did have apical ballooning. An echocardiogram was done today, which showed normal left ventricular size, wall motion and function. There was no evidence for apical ballooning and wall thickness and systolic function were normal with an ejection fraction of 65%, stage 1 diastolic relaxation abnormalities. PHYSICAL EXAMINATION: VITAL SIGNS: Today, his pulse is 90 and regular, blood pressure is 109/75. He is afebrile and weighs 54 kilograms with a body mass index of 18.7. NECK: Supple. He has no jugular distention. Carotids are full. LUNGS: Respirations are unlabored. He did have decreased breath sounds at the bases, but no wheezes or rales. HEART: Had a regular rhythm with a fourth heart sound, but no third heart sound. The PMI was not displaced. EXTREMITIES: Showed no edema. IMPRESSION: 1. Acute exacerbation of chronic obstructive pulmonary disease. 2. Abnormal electrocardiogram with elevated troponin. A stress cardiomyopathy was considered; however, the patient's echocardiogram shows no evidence for wall motion abnormalities. 3. Recent cardiac catheterization on 10/06/2017 showed normal coronary arteries. 4. Hypotension and bradycardia, probably due to medications. 5. History of alcoholism. 6. History of peripheral vascular disease. PLAN: The patient's atenolol is being reintroduced. His steroids are being weaned. No other cardiac workup is planned at this time and the patient may be discharged to home when medically stable. [facility] and I thank the hospitalist physicians for asking our advice regarding the patient's care. [place], [place] PROGRESS NOTE NAME: YURIDIA CHRISTIE UNIT #: [id number] ROOM: 405 DOCTOR: RYNE FORBES MD BIRTHDATE: [birth year] RYNE FORBES MD CM:PNTRANS [id number] RYNE FORBES MD 10/29/17 0538 interface
--- NOTE | ~2017-10-26 | CON ---
[place], [place] REPORT OF CONSULTATION NAME: Y[facility]IDIA CHRISTIE [facility] #[facility] [id number] UNIT #: [id number] ROOM: [facility] DOCTOR: RYNE FORBES MD BIRTHDATE: [birth year] DOS: 10/27/2017 REASON FOR CONSULTATION: Dyspnea, elevated troponin. HISTORY OF PRESENT ILLNESS: This is one of multiple hospital admissions for the patient, a 66-year-old man who has a history of severe obstructive lung disease, hypertension, and alcohol abuse. He has had episodes of chest discomfort as well as elevated troponins in the past. This prompted a catheterization in July 2016, at which time, his ejection fraction was 60% and he had no significant coronary disease. More recently, he was hospitalized with chest discomfort and elevated troponin in September 2017. He did undergo cardiac catheterization on 10/06/2017. He was found to have evidence for peripheral vascular disease. No right radial artery could be located and he had external iliac disease in both femorals which prevented passage of a wire from the legs. He was catheterized by the left radial approach and was found to have 0% left main disease with 0% LAD stenosis. Circumflex had 0% stenosis. The right coronary artery was dominant with mild disease. The LV angiogram showed an ejection fraction of 75%, but he had apical ballooning. It was felt that his symptoms were due to a stress-induced cardiomyopathy. He was sent home with medical therapy. He presents to the hospital now with recurrent dyspnea. PAST MEDICAL HISTORY: Includes: 1. Essential hypertension. 2. Chronic obstructive pulmonary disease. 3. History of esophageal stricture. 4. Chronic gastritis. 5. Long-term alcohol abuse. 6. History of cigarette abuse; patient quit over 10 years ago. 7. Elevated troponin and chest pain, 08/13/2016. Cardiac catheterization showed normal left ventricular wall motion and systolic function with normal coronary anatomy. It was felt that he had a subendocardial ischemia due to hypoxemia (type 2 myocardial injury or demand ischemia). 8. Echocardiogram, 08/14/2016, normal left ventricular size, wall motion and function with stage 1 diastolic relaxation abnormalities. Ejection fraction 65%. 9. History of left hip surgery. 10. Hospitalization, 10/26/2017, with worsening dyspnea. Troponin levels are mildly elevated at 0.185, 0.189 and 0.196. The electrocardiogram was strikingly different from previous tracings with deep symmetric T-wave inversions in leads I, II, aVL, aVF and V4 through V6. The patient was also hypotensive and bradycardic. MEDICATIONS PRIOR TO ADMISSION: Albuterol by inhaler q.4 hours p.r.n., DuoNeb by nebulizer q.4 hours, aspirin 81 mg per day, atenolol 50 mg per day, diltiazem 120 mg per day, finasteride 5 mg per day, lisinopril 2.5 mg per day, Singulair 10 mg daily, tamsulosin 0.4 mg daily, theophylline 100 mg b.i.d. and Spiriva 1 inhalation daily. ALLERGIES: He has no known drug allergies. [place], [place] REPORT OF CONSULTATION NAME: YURIDIA CHRISTIE UNIT #: [id number] ROOM: [facility] DOCTOR: RYNE FORBES MD BIRTHDATE: [birth year] REVIEW OF SYSTEMS: The patient denies diplopia or loss of vision. He denies lightheadedness or syncope. He denies fevers, chills, sweats or recent weight change. He has been dyspneic and weak. He denies chest pain. He denies nausea or vomiting. Denies hemoptysis or hematemesis. He denies change in bowel or bladder habits. Denies blood in his stool or urine. He denies any peripheral edema. He is dyspneic with minor exertion. The remainder of the review of systems is negative except as noted above. SOCIAL HISTORY: The patient lives alone. He does have a history of alcohol and cigarette abuse, although the cigarette abuse seems to be remote. He continues to consume alcohol. PHYSICAL EXAMINATION: GENERAL: The patient is a slender white male who is awake, alert and oriented. VITAL SIGNS: Pulse is 67 and regular, blood pressure is 130/50. He is afebrile. He weighs 54 kg and has a body mass index of 18.7. HEENT: Normocephalic and atraumatic. Extraocular muscles are intact. Sclerae are clear. Pupils are equal, round and react to light. The oral mucosa is moist. Tongue is midline. NECK: Supple. He has no jugular distention. Carotids are full. He had no bruits. He had no neck or supraclavicular masses. LUNGS: Respirations are unlabored at rest. He has decreased breath sounds at the bases, but no wheezes or rales. CARDIOVASCULAR: His heart has a regular rhythm. He has a fourth heart sound, but no third heart sound. The PMI is not displaced. ABDOMEN: Soft and normally active without masses, organomegaly or bruits. EXTREMITIES: Showed no edema. Peripheral pulses are easily palpated in the feet bilaterally. IMPRESSION: 1. Acute exacerbation of chronic obstructive pulmonary disease. 2. Abnormal electrocardiogram with elevated troponin, possibly due to stress cardiomyopathy (Takotsubo syndrome). The patient did have a heart catheterization 2 weeks ago that did show normal coronary arteries with apical ballooning, but normal overall left ventricular systolic function. 3. Hypotension. 4. Bradycardia, probably due to medications. 5. Possible sepsis. 6. History of alcoholism. 7. Peripheral vascular disease. PLAN: For now, I would avoid rate slowing medications as he is recovering from his acute event. I would reintroduce beta blockers if his heart rate remains stable over the next 24 hours. We will be getting an echocardiogram to assess his left ventricular chamber dimensions and systolic function. For now, however, only supportive care will be administered. Another heart catheterization is not indicated at this time. [facility] and I thank the hospitalist physicians for asking our advice regarding the patient's care. [place], [place] REPORT OF CONSULTATION NAME: YURIDIA CHRISTIE UNIT #: [id number] ROOM: [facility] DOCTOR: RYNE FORBES MD BIRTHDATE: [birth year] RYNE FORBES MD CM:CONSTR:REPORT OF CONSULTATION 1533 10/28/17 0051 interface
[~2017-10-26 19:44] MED LIST changes: +ASPIRIN ADULT L81 M2 PO; +ATORVASTATIN CA40 M1 PO; +Azithromycin500 MG IV; +CEFTRIAXONE1 GM IJ; +DOCUSATE SODIU100 M2 PO; +ENOXAPARIN60 MG/0.2 SC; +HYDROCODONE-AC1 EAC2 PO; +METOPROLOL25 MG PO; +OYSTER SHELL C1 EAC3 PO; +PROVENTIL HFA6.7 GM INH; +SOLU-MEDRO40 MG/1 ML IV; +VITAMIN D31000 UNI1 PO; +ZESTRIL2.5 MG PO
[2017-10-26 20:39] LABS: INTERNATIONAL NORM RATIO 1.1 (2.0-3.5)
[2017-10-26 20:48] LABS: ALBUMIN 3.8 gm/dl (3.1-4.5); ALKALINE PHOSPHATASE 105 U/L (45-117); BUN 10 mg/dl (7-24); CHLORIDE 92 mmol/L (98-107); CREATININE 0.96 mg/dL (0.70-1.30); POTASSIUM 4.3 mmol/L (3.5-5.1); SGOT/AST 40 IU/L (3-35); SGPT/ALT 32 U/L (12-78); SODIUM 122 mmol/L (136-145); TOTAL PROTEIN 7.5 gm/dL (6.4-8.2)
[2017-10-26 20:49] LABS: ABG HCO3 13.6 mmol/l (22-26); ABG O2 SATURATION 98.8 % (95-97); ARTERIAL BLOOD GAS PCO2 17.7 mmHg (35-45); ARTERIAL BLOOD GAS PH 7.492 (7.35-7.45)
[2017-10-26 20:50] LABS: ABG BASE EXCESS -8.3 mmol/L (-2.0-2.0)
[2017-10-26 20:51] LABS: TROPONIN I 0.185 ng/ml (<0.045)
[2017-10-26 21:15] LABS: HEMOGLOBIN 10.4 g/dl (14.0-18.0); MEAN CELL VOLUME 72.9 fl (80.0-94.0); MEAN CORPUSCULAR HGB 23.7 pg (27.0-31.0); MEAN CORPUSCULAR HGB CONC 32.5 g/dl (33.0-37.0); MEAN PLATELET VOLUME 8.7 fl (9.6-12.3); PLATELET COUNT AUTOMATED 350 10*3/uL (130-400); RED BLOOD COUNT 4.39 10*6/uL (4.50-5.90); RED CELL DISTRI WIDTH 16.2 % (0-14.5)
[2017-10-26 22:07] LABS: TOTAL CELLS COUNTED 100 #CELLS
[2017-10-26 22:08] LABS: BURR CELLS FEW; PLATELET SUFFICIENCY NORMAL (NORMAL); POLYCHROMASIA SLIGHT
[2017-10-26 22:09] LABS: OVALOCYTES FEW
[2017-10-26 22:10] LABS: MICROCYTOSIS SLIGHT
[2017-10-27] VITALS (33 sets, daily range): BP systolic 103–1471; BP diastolic 37–64
[2017-10-27 02:46] LABS: BASO % 0.4 % (0.0-1.0); EOS % 0.7 % (1.0-4.0); HEMATOCRIT 34.7 % (42.0-52.0); HEMOGLOBIN 11.2 g/dl (14.0-18.0); LYMPH # 0.4 10*3/uL (1.3-4.4); LYMPH % 7.4 % (27.0-41.0); MEAN CELL VOLUME 73.8 fl (80.0-94.0); MEAN CORPUSCULAR HGB 23.8 pg (27.0-31.0); MEAN CORPUSCULAR HGB CONC 32.3 g/dl (33.0-37.0); MEAN PLATELET VOLUME 8.3 fl (9.6-12.3); MONO # 0.1 10*3/uL (0.1-1.0); MONO % 2.1 % (3.0-9.0); NEUT % 88.5 % (47.0-73.0); RED CELL DISTRI WIDTH 16.3 % (0-14.5); WHITE BLOOD COUNT 5.7 10*3/uL (4.8-10.8)
[2017-10-27 02:51] LABS: PLATELET COUNT AUTOMATED 469 10*3/uL (130-400)
[2017-10-27 02:58] LABS: ACT PARTIAL THROMBO TIME 30.8 SECONDS (20.8-31.5); INTERNATIONAL NORM RATIO 1.1 (2.0-3.5)
[2017-10-27 03:01] LABS: ALBUMIN 3.5 gm/dl (3.1-4.5); ALKALINE PHOSPHATASE 98 U/L (45-117); BUN 13 mg/dl (7-24); CHLORIDE 89 mmol/L (98-107); CREATININE 1.05 mg/dL (0.70-1.30); PHOSPHOROUS 4.5 mg/dL (2.5-4.9); POTASSIUM 4.1 mmol/L (3.5-5.1); SGOT/AST 29 IU/L (3-35); SGPT/ALT 29 U/L (12-78); SODIUM 124 mmol/L (136-145); TOTAL PROTEIN 6.9 gm/dL (6.4-8.2)
[2017-10-27] MEDS ORDERED: PROSCAR5 M1 PO (09:16)
[2017-10-27] MEDS ORDERED: DILTIAZEM 24HR120 MG PO (09:17)
[2017-10-27] MEDS ORDERED: TENORMIN50 MG PO (09:17)
[2017-10-27] MEDS ORDERED: SINGULAIR10 M1 PO (09:18)
[2017-10-27] MEDS ORDERED: THEO-24100 MG PO (09:18)
[2017-10-27] MEDS ORDERED: SPIRIVA18 MCG PO (09:18)
[2017-10-27 14:51] LABS: ABG BASE EXCESS -6.3 mmol/L (-2.0-2.0); ABG HCO3 16.1 mmol/l (22-26); ABG O2 SATURATION 98.2 % (95-97); ARTERIAL BLOOD GAS PH 7.457 (7.35-7.45)
[2017-10-28] VITALS (7 sets, daily range): BP systolic 103–150; BP diastolic 47–75
[2017-10-28 06:02] LABS: HEMOGLOBIN 9.2 g/dl (14.0-18.0); MEAN CELL VOLUME 73.3 fl (80.0-94.0); MEAN CORPUSCULAR HGB 23.7 pg (27.0-31.0); MEAN CORPUSCULAR HGB CONC 32.3 g/dl (33.0-37.0); MEAN PLATELET VOLUME 8.8 fl (9.6-12.3); PLATELET COUNT AUTOMATED 406 10*3/uL (130-400); RED BLOOD COUNT 3.89 10*6/uL (4.50-5.90); RED CELL DISTRI WIDTH 16.5 % (0-14.5); WHITE BLOOD COUNT 11.1 10*3/uL (4.8-10.8)
[2017-10-28 06:14] LABS: HEMATOCRIT 28.5 % (42.0-52.0)
[2017-10-28 06:19] LABS: BUN 11 mg/dl (7-24); CHLORIDE 97 mmol/L (98-107); CREATININE 0.56 mg/dL (0.70-1.30); POTASSIUM 3.6 mmol/L (3.5-5.1); SODIUM 131 mmol/L (136-145)
[2017-10-28 06:36] LABS: BURR CELLS MODERATE; MICROCYTOSIS SLIGHT; PLATELET SUFFICIENCY NORMAL (NORMAL); POLYCHROMASIA SLIGHT; TOTAL CELLS COUNTED 100 #CELLS
[2017-10-28] MEDS ORDERED: LEVAQUIN500 M2 PO (13:26)
[2017-10-28] MEDS ORDERED: PREDNISONE10 MG PO (13:26)
[2017-10-29] VITALS: BP 130/63
[2017-10-29 07:11] LABS: HEMATOCRIT 29.2 % (42.0-52.0); HEMOGLOBIN 9.5 g/dl (14.0-18.0); LYMPH # 0.6 10*3/uL (1.3-4.4); LYMPH % 5.5 % (27.0-41.0); MEAN CELL VOLUME 73.9 fl (80.0-94.0); MEAN CORPUSCULAR HGB 24.1 pg (27.0-31.0); MEAN CORPUSCULAR HGB CONC 32.5 g/dl (33.0-37.0); MEAN PLATELET VOLUME 8.8 fl (9.6-12.3); MONO # 0.5 10*3/uL (0.1-1.0); MONO % 4.6 % (3.0-9.0); PLATELET COUNT AUTOMATED 439 10*3/uL (130-400); RED BLOOD COUNT 3.95 10*6/uL (4.50-5.90); RED CELL DISTRI WIDTH 17.1 % (0-14.5); WHITE BLOOD COUNT 10.1 10*3/uL (4.8-10.8)
[2017-10-29 07:44] LABS: BUN 7 mg/dl (7-24); CHLORIDE 97 mmol/L (98-107); CREATININE 0.43 mg/dL (0.70-1.30); POTASSIUM 4.2 mmol/L (3.5-5.1); SGOT/AST 11 IU/L (3-35); SGPT/ALT 25 U/L (12-78); SODIUM 131 mmol/L (136-145); TOTAL PROTEIN 6.2 gm/dL (6.4-8.2)
[2017-10-29 07:45] LABS: ALKALINE PHOSPHATASE 92 U/L (45-117)
[2017-10-29 08:00] VITALS: BP 126/62
[2017-10-29 12:00] VITALS: BP 125/60
[2017-10-29] MEDS ORDERED: DILTIAZEM60 MG PO (12:12)
== END 2017-10-29 14:00 | disposition home or self-care (01) | DRG 314 ==
LOC: ED 19:44 → ICCU 22:49 → EDHOLD 22:49 → ICCU 22:54 → 4E 10-28 13:31
PROVIDERS: Emergency Medicine; Family Medicine; Internal Medicine; Internal Medicine Critical Care Medicine; Internal Medicine Hospice and Palliative Medicine
PROC: 02HV33Z Insertion of Infusion Device into Superior Vena Cava, Percutaneous Approach (ICD-10-PCS; principal; 2017-10-26)
DX: I95.9 Hypotension, unspecified (principal); J18.9 Pneumonia, unspecified organism; J96.20 Acute and chronic respiratory failure, unspecified whether with hypoxia or hypercapnia; E44.0 Moderate protein-calorie malnutrition; E87.2 Acidosis; E87.3 Alkalosis; E87.8 Other disorders of electrolyte and fluid balance, not elsewhere classified; E87.1 Hypo-osmolality and hyponatremia; F10.20 Alcohol dependence, uncomplicated; D50.9 Iron deficiency anemia, unspecified; I50.32 Chronic diastolic (congestive) heart failure; J44.0 Chronic obstructive pulmonary disease with (acute) lower respiratory infection; J44.1 Chronic obstructive pulmonary disease with (acute) exacerbation; I11.0 Hypertensive heart disease with heart failure; I49.8 Other specified cardiac arrhythmias; R74.8 Abnormal levels of other serum enzymes; Z96.1 Presence of intraocular lens; E78.00 Pure hypercholesterolemia, unspecified; K21.9 Gastro-esophageal reflux disease without esophagitis; B18.2 Chronic viral hepatitis C; K29.50 Unspecified chronic gastritis without bleeding; I25.10 Atherosclerotic heart disease of native coronary artery without angina pectoris; I73.9 Peripheral vascular disease, unspecified; E87.6 Hypokalemia; D47.3 Essential (hemorrhagic) thrombocythemia; N40.0 Benign prostatic hyperplasia without lower urinary tract symptoms; Z66 Do not resuscitate; Z51.5 Encounter for palliative care; D72.810 Lymphocytopenia; Z96.642 Presence of left artificial hip joint; R73.9 Hyperglycemia, unspecified; Z99.81 Dependence on supplemental oxygen; I25.2 Old myocardial infarction; Z85.038 Personal history of other malignant neoplasm of large intestine; Z86.73 Personal history of transient ischemic attack (TIA), and cerebral infarction without residual deficits; Z87.440 Personal history of urinary (tract) infections; Z98.42 Cataract extraction status, left eye; Z98.41 Cataract extraction status, right eye; Z87.891 Personal history of nicotine dependence; Z82.49 Family history of ischemic heart disease and other diseases of the circulatory system; Z83.3 Family history of diabetes mellitus; Z79.82 Long term (current) use of aspirin; Z79.899 Other long term (current) drug therapy

== ENCOUNTER 2017-12-12 13:50 | Inpatient (IN) | payer MEDICARE, MEDICAID ==
[2017-12-12] VITALS (7 sets, daily range): BP systolic 176–215; BP diastolic 82–88
[~2017-12-12] VITALS: Ht 157.4 cm; Wt 52.7 kg
--- NOTE | ~2017-12-12 | PR ---
[place], [place] PROGRESS NOTE NAME: YURIDIA CHRISTIE UNIT #: [id number] ROOM: 506 DOCTOR: REJI ATKINSON,JOSE BIRTHDATE: [birth year] DOS: 12/14/2017 CARDIOLOGY FOLLOWUP VISIT NOTE REASON FOR VISIT: Shortness of breath and abnormal EKG. HISTORY OF PRESENT ILLNESS: The patient is feeling better. Denies any chest pain. His breathing is much better. No fever. No nausea or vomiting. No PND, no orthopnea, no palpitations. REVIEW OF SYSTEMS: Review of the 8 systems negative except as mentioned above. RHYTHM STRIPS: The patient in sinus rhythm. PHYSICAL EXAMINATION: VITAL SIGNS: Blood pressure 109/48, pulse 96, respiratory rate 20. GENERAL: Alert, comfortable, in no acute distress. HEAD AND NECK: Pupils are round and equal, No jaundice. Tongue was moist. Pharynx clear. Neck supple, no distended neck veins, no carotid bruit. CHEST: Symmetrical, nontender. LUNGS: A few scattered rhonchi. Good air entry bilaterally. HEART: Regular rhythm, no S3. Grade 1/6 systolic murmur. ABDOMEN: Benign, nontender. Bowel sounds normal. EXTREMITIES: Showed no edema. Distal pulses are palpable. SKIN: Warm and dry. No cyanosis, no clubbing. RECTAL: Deferred. LABORATORY DATA AND RHYTHM STRIPS: Reviewed. MEDICATIONS: Reviewed. IMPRESSION: 1. Chest pain, atypical and myocardial infarction ruled out. 2. Abnormal EKG with lateral ST-T changes. The patient is chest pain free, had a nonischemic stress in March 2017. 3. Coronary artery disease, currently stable. 4. Acute on chronic diastolic heart failure. 5. Pneumonia. 6. History of cerebrovascular accident. 7. Alcohol abuse. 8. Noncompliance with medications. 9. Mild hypokalemia. RECOMMENDATIONS: 1. Continue current medication. The patient was not on beta elle due to his significant COPD with home oxygen. 2. The patient is also not on statins since the lipid profile is normal in the past with a total cholesterol 138, LDL 75, HDL 55. 3. No further cardiac testing at this time. His recent echo from 10/2017 and stress test in March 2017 reviewed. [place], [place] PROGRESS NOTE NAME: YURIDIA CHRISTIE UNIT #: [id number] ROOM: [facility] DOCTOR: REJI ATKINSON,JOSE BIRTHDATE: [birth year] 4. Compliance with medications and followup was discussed. 5. He is anticipating his hernia surgery in the near future. 6. There is no family at bedside at the time of my examination. JOSE MENDOZA MD CM:PNTRANS 09 01 JOSE MENDOZA MD 12/15/172100 interface
--- NOTE | ~2017-12-12 | CON ---
[place], [place] REPORT OF CONSULTATION NAME: YURIDIA CHRISTIE UNIT #: [id number] ROOM: 506 DOCTOR: REJI ATKINSON,JOSE BIRTHDATE: [birth year] DOS: 12/13/2017 REASON FOR CONSULTATION: Shortness of breath, abnormal EKG. CLINICAL HISTORY: The patient is a 67-year-old gentleman with history of coronary artery disease, diastolic heart failure, COPD, hypertension, CVA, noncompliant with the medications who presented to the Emergency Room for shortness of breath. About a day ago, he started having some shortness of breath that is gradually progressive and also noted to have some midsternal chest pain and runny nose and runny eyes and there was some cough and weakness and fatigue. He also has had some multiple episodes of diarrhea. His chest pain is midsternal like aching, no radiation. He did have some progressive shortness of breath, but no PND, no orthopnea, no cough, no hemoptysis. The chest pain is worse with deep inspiration. So, he came to the Emergency Room and was admitted to the hospital for pneumonia and also his shortness of breath. Cardiology was consulted because of his abnormal EKG and his chest pain on admission. At the time of examination, he denies any chest pain. Breathing is better. No PND, no orthopnea, no fever or chills. No musculoskeletal symptoms. His nausea is better. He did have some diarrhea at home. No headache. No tingling, numbness or weakness. REVIEW OF SYSTEMS: Review of the 10 system negative except as mentioned above. PAST MEDICAL HISTORY: 1. Coronary artery disease, nonischemic stress testing in 03/2017. 2. Chronic diastolic heart failure. 3. Hypertension. 4. Stroke. 5. Chronic obstructive pulmonary disease. 6. Acid reflux. 7. Benign prostate hypertrophy. 8. Hepatitis C. 9. History of anemia. 10. Noncompliance with medications. 11. Inguinal hernia. PAST SURGICAL HISTORY: History of left hip replacement and cataract surgery. SOCIAL HISTORY: The patient does drink alcohol about 6 cans of beer a day. Former smoker, does not use illicit drugs. FAMILY HISTORY: Nil contributory. ALLERGIES: No known drug allergies. HOME MEDICATIONS: Reviewed. PHYSICAL EXAMINATION: VITAL SIGNS: Blood pressure 115/58, pulse 77, respiration rate was 20, weight 52.3 kilos, BMI 21. [place], [place] REPORT OF CONSULTATION NAME: YURIDIA CHRISTIE UNIT #: [id number] ROOM: 506 DOCTOR: JOSE MENDOZA MD BIRTHDATE: [birth year] GENERAL: Alert, comfortable, slightly short of breath. Denies any chest pain. HEAD AND NECK: Pupils are round and equal. No jaundice. Tongue was moist and pharynx clear. NECK: Supple, no distended neck veins, no carotid bruit. CHEST: Symmetrical, nontender. LUNGS: Few scattered rhonchi and diminished at bases. HEART: Regular rhythm, no S3. Grade 1/6 systolic murmur. ABDOMEN: Benign, nontender. Bowel sounds normal. EXTREMITIES: Showed no edema. Distal pulses are palpable. SKIN: Warm and dry. No cyanosis, no clubbing. NEUROLOGIC: Alert, oriented. No focal neurologic deficit. RECTAL: Deferred. GENITOURINARY: Deferred. REVIEW OF THE DIAGNOSTIC TESTS: EKG sinus rhythm with lateral T inversion in lead V4-V6. His CBC, chemistry, and cardiac enzymes reviewed. The pertinent labs including magnesium of 1.5, sodium 121, potassium 3.5. Hemoglobin 12.4. His lipid profile previously, cholesterol 138, LDL 75, HDL is 55. IMPRESSION: 1. Hypoxic respiratory failure, currently better on oxygen. 2. Pneumonia. 3. Atypical chest pain, myocardial infarction ruled out with 3 negative sets of cardiac enzymes. 4. Coronary artery disease with history of nonischemic stress in January 2017. 5. History of cerebrovascular accident. 6. Alcohol use. 7. Noncompliance with medications. 8. Chronic obstructive pulmonary disease. 9. Elevated liver enzymes. RECOMMENDATIONS: Currently, denies any chest pain. His cardiac enzymes are unremarkable. He had non-ischemic stress test in 03/2017. 1. Continue his aspirin and ZACHARY inhibitors. 2. He was not on beta elle due to his severe chronic obstructive pulmonary disease. 3. His lipid profile is normal without any medical therapy. 4. Add isosorbide 20 b.i.d. for CAD and also blood pressure control. 5. Add magnesium oxide 400 mg once daily. 6. Compliance with medications and followups was discussed. 7. Rest of the management for his primary care physicians. There is no family at bedside at the time of my examination. He is answering the hernia surgery in the near future. [place], [place] REPORT OF CONSULTATION NAME: YURIDIA CHRISTIE UNIT #: [id number] ROOM: [facility] DOCTOR: REJI ATKINSON,JOSE BIRTHDATE: [birth year] JOSE MENDOZA MD CM:CONSTR:REPORT OF CONSULTATION 26 12/15/17 1729 interface
--- NOTE | ~2017-12-12 | EKG ---
[place], [place] ELECTROCARDIOGRAM REPORT NAME: YURIDIA CHRISTIE UNIT #: [id number] ROOM: 506 DOCTOR: MICHELLEANY DRAFT REPORT BIRTHDATE: [birth year] [facility] Test Date: 2017-12-12 Test Time: 17:07:56 Pat Name: YURIDIA CHRISTIE Department: Room: Gender: [employer] Hand: EKG.TSJ : 1950 Requested By: MIMI AVILA PA-C Order Number: [id number] Reading MD: Ab Patino MD Measurements Intervals [place] Rate: 90 P: 80 MD: 149 QRS: -55 QRSD: 77 T: 104 QT: 376 QTc: 460 Interpretive Statements Sinus rhythm Probable left atrial enlargement Left anterior fascicular block Nonspecific T abnrm, anterolateral leads Electronically Signed On 12-15-2017 18:40:13 PDT by Ab Patino MD CM:EKGRPT:ELECTROCARDIOGRAM REPORT [id number] MIMI AVILA PA-C EPIPHANY DRAFT REPORT MIMI AVILA PA-C
--- NOTE | ~2017-12-12 | CON ---
[place], [place] REPORT OF CONSULTATION NAME: YRUIDIA CHRISTIE UNIT #: [id number] ROOM: 506 DOCTOR: TRINA PATEL DO BIRTHDATE: [birth year] DOS: 12/13/2017 REASON FOR CONSLUTATION: Hyponatremia. HISTORY OF PRESENT ILLNESS: A pleasant 67-year-old male who has a history of alcoholism, drinks approximately 6 pack a day; BPH; coronary artery disease; COPD; colon cancer; GE reflux disease; hypertension; previous history of CVA x 2 in the past; hepatitis C. He has had recurrent episodes of hyponatremia for which he has been evaluated by our service in the past. This hyponatremia is thought predominantly related to poor solute intake in the setting of his alcohol use as apparently has a typical response in the past to increase solute intake. At one point, he was adding salt to his beer as well, but stopped doing so as he did not care for the taste. Presented to this institution yesterday due to shortness of breath, which had been going on for several days in duration. Had experienced poor oral intake with diarrhea, but this was only 1-day duration and occurred 2-3 days prior to admission, but he states that time he cut down his alcohol consumption as he was not feeling well, but continued to eat quite well. He denied any fevers, chills, rigors, diaphoresis URI symptoms, other than a chronic cough that was unchanged. Denied any cardiac symptoms with the above, denied any change in his voiding habits, denied any edema. When evaluated in the Emergency Room, he underwent a chest x-ray, which showed an atypical interstitial alveolar pattern, thought to represent possibly a form of pneumonitis. He was afebrile and hemodynamically stable. In the Emergency Room, we will start on antibiotic therapy and given a liter of saline in the Emergency Room, which was subsequently stopped after arriving to the floor. He was noted to have a white count of 13.7 in the Emergency Room with a hemoglobin of 12.8, 85 segs on differential with chemistry showing sodium of 122, bicarbonate of 18, magnesium of 1.2, calcium of 8.8 and corrected to normal value with albumin of 3.7. As of today, sodium is slightly worse at 121, bicarbonate is increased to 22, magnesium is now 1.5. Chemistries also show a calcium uncorrected of 8.2 with normal TSH. The white count 14.3, hemoglobin 12.4. He did have urine chemistries obtained last evening after he was put on IV fluid bolus showing a sodium of 75 and osmolality of 469. He has remained afebrile and hemodynamically stable since being admitted. States he is feeling much better now. He is eating better and feeling stronger and his breathing is better. He denies use of NSAIDs, has not been on any other potential medications that may contribute to his hyponatremia. PAST MEDICAL HISTORY: As above. ALLERGIES: No known drug allergies. CURRENT MEDICATIONS: Levaquin 750 mg IV daily, lisinopril 5 mg b.i.d., vitamin D 2000 International Units p.o. daily, Flomax 0.4 mg daily, folic acid 1 mg daily, Lovenox 40 mg subcutaneously daily, Os-Binu plus D 1 p.o. daily, aspirin 81 mg a day, vancomycin 1 gram IV b.i.d., Protonix 40 mg daily, Zosyn 3.375 grams IV q. 6 hours, Solu-Medrol 60 mg IV q. 8 hours, Mucinex 1 p.o. q.12 hours. SOCIAL HISTORY: He resides at home. [place], [place] REPORT OF CONSULTATION NAME: YURIDIA CHRISTIE UNIT #: [id number] ROOM: [facility] DOCTOR: TRINA PATEL DO BIRTHDATE: [birth year] FAMILY HISTORY: Noncontributory. REVIEW OF SYSTEMS: Please see HPI. A 10-point review of system was performed and obtained the above noted measures, was unremarkable except as noted in the HPI. PHYSICAL EXAMINATION: VITAL SIGNS: His blood pressure was 115/58, pulse 67, respiratory rate 20, temperature was 97.5 degrees Fahrenheit. GENERAL APPEARANCE: A thin elderly male, awake, alert, oriented x 3, currently in no apparent distress. HEENT: Conjunctivae pink and moist. Oral mucosa is pink and moist. Dentition is fair. No carotid bruit or thyromegaly, thyromegaly, adenopathy, JVD appreciated. HEART: Regular without S4, S3, gallop, rub, murmur or heave noted. LUNGS: Slightly diminished at the bases, otherwise clear to auscultation and percussion. ABDOMEN: Soft, positive bowel sounds x 4, nontender, without CVA tenderness noted. No rebound, guarding, rigidity noted. No abdominal or flank bruits appreciated. NEUROLOGIC: Grossly nonfocal. EXTREMITIES: No clubbing or cyanosis. No edema noted. Pulses are +2, radials, dorsalis pedis. SKIN: Dry without rash, ulcers, lesions or petechiae appreciated. LABORATORY DATA: From today, sodium is 121, potassium 3.5, chloride 87, CO2 of 22, BUN 11, creatinine 0.39, glucose 105, phosphorus 2.0. Mag is 1.5, calcium is 8.2. WBCs are 14.3, hemoglobin 12.4, hematocrit 38.2, platelets 497,000. Urine chemistries on admission was noted. ASSESSMENT AND PLAN: 1. Hyponatremia, relatively unchanged since admission. Previous evaluation has shown a low urine osmolality level consistent with poor solute intake as a cause of his hyponatremia episodes in the past, improving as his oral intake increased. On this occasion, the urine osmolality was elevated, was obtained after he received IV fluids; however, his history does somewhat suggest more of a picture of either volume depletion or SIADH related to his underlying pulmonary process, the point again is not clear. 2. Hypomagnesemia. This has improved spontaneously. 3. Hypertension. Blood pressure under satisfactory control. 4. Question pneumonitis, on antibiotic therapy. RECOMMENDATIONS: We will check chemistries this afternoon, sodium and consider the addition of fluid restrictions pending the above studies. We will follow electrolytes closely. Thank you for allowing us to participate in care of the patient. [place], [place] REPORT OF CONSULTATION NAME: YURIDIA CHRISTIE UNIT #: [id number] ROOM: 506 DOCTOR: TRINA PATEL DO BIRTHDATE: [birth year] TRINA PATEL DO CM:CONSTR:REPORT OF CONSULTATION 1554 12/25/17 0747 interface
--- NOTE | ~2017-12-12 | PR ---
[place], [place] PROGRESS NOTE NAME: YURIDIA CHRISTIE UNIT #: [id number] ROOM: 506 DOCTOR: JORGE TRINA BIRTHDATE: [birth year] DOS: 12/14/2017 RENAL PROGRESS NOTE SUBJECTIVE: The patient offers no complaints. He has been placed on fluid restriction. States he is tolerating these well. He is eating well. Also, this is confirmed by the nursing staff. No nausea, vomiting, no diarrhea. No orthopnea, PND or dyspnea. States he has been told he can be discharged to home tomorrow. PHYSICAL EXAMINATION: VITAL SIGNS: Blood pressure is 109/48, pulse is 98, respiratory rate 20, temperature is 98.1 degrees Fahrenheit. GENERAL APPEARANCE: A thin male, awake, alert, oriented x 3, no apparent distress. HEAD AND NECK: There is no JVD appreciated. CHEST: Lungs are slightly diminished at the bases, otherwise clear to auscultation and percussion. HEART: Regular without S3 or rub, murmur is not appreciated. ABDOMEN: Soft, positive bowel sounds x 4. EXTREMITIES: No clubbing, cyanosis, no edema noted. LABORATORY DATA: Today, WBC is 13.2, hemoglobin 10.3, hematocrit 31.7, platelets 415,000. Sodium is 123, potassium 3.5, chloride is 90, CO2 of 25, BUN of 9, creatinine 0.47, glucose is 156, calcium is 8.2, albumin is 3.1, corrected calcium is 8.9, total protein is 5.7, ALT is 51, AST is 21, alkaline phosphatase is 67, total bilirubin is 0.4. PLAN: 1. Hyponatremia. This is slowly improving with fluid restrictions and use of potassium and use of sodium chloride tablets, which were instituted yesterday. His workup suggestive in the past is hyponatremia has been related to poor salt intake in the setting of his alcohol use; however, currently appears to be more likely related to SIADH based upon the urine osmolality studies. 2. Underlying pneumonitis or possibly could be due to volume depletion. 3. Hypertension. Blood pressure is under satisfactory control. 4. Question pneumonia, on antibiotics and steroids. RECOMMENDATIONS: Continue current fluid restrictions and sodium chloride tablets. Recheck labs this evening to reassess his electrolytes. [place], [place] PROGRESS NOTE NAME: YURIDIA CHRISTIE UNIT #: [id number] ROOM: 506 DOCTOR: TRINA PATEL DO BIRTHDATE: [birth year] TRINA PATEL DO CM:LENA 1511 0329 TRINA PATEL DO 12/15/17 0328 interface
--- NOTE | ~2017-12-12 | EKG ---
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: : 1950 Requested By: MIIM AVILA PA-C Order Number: [id number] Reading MD: Ab Patino MD Measurements Intervals [place] Rate: 82 P: 81 [place]: 172 QRS: -40 QRSD: 79 T: 147 QT: 366 QTc: 428 Interpretive Statements Sinus rhythm Left anterior fascicular block Abnrm T, consider ischemia, anterolateral lds Artifact in lead(s) II,III,aVR,aVL,V2,V4,V5,V6 and baseline wander in lead(s) V2 Compared to earlier ECG this date, lateral T-wave inversions are now present Electronically Signed On 12-15-2017 18:44:53 PDT by Ab Patino MD CM:EKGRPT:ELECTROCARDIOGRAM REPORT 11 1844 MIMI AVILA PA-C EPIPHANY DRAFT REPORT MIMI AVILA PA-C
--- NOTE | ~2017-12-12 | EKG ---
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
[~2017-12-12 13:50] MED LIST changes: +DILTIAZEM 24HR120 MG PO; +DILTIAZEM60 MG PO; +PROSCAR5 M1 PO; +SINGULAIR10 M1 PO; +SPIRIVA18 MCG PO; +TENORMIN50 MG PO; +THEO-24100 MG PO
[2017-12-12 15:22] LABS: BUN 12 mg/dl (7-24); CHLORIDE 86 mmol/L (98-107); CREATININE 0.43 mg/dL (0.70-1.30); POTASSIUM 4.1 mmol/L (3.5-5.1); SODIUM 122 mmol/L (136-145); TOTAL PROTEIN 6.7 gm/dL (6.4-8.2)
[2017-12-12 15:23] LABS: ALBUMIN 3.7 gm/dl (3.1-4.5); ALKALINE PHOSPHATASE 100 U/L (45-117); SGOT/AST 60 IU/L (3-35); SGPT/ALT 83 U/L (12-78); TROPONIN I 0.035 ng/ml (<0.045)
[2017-12-12 15:38] LABS: BASO # 0.1 10*3/uL (0.0-0.1); BASO % 0.4 % (0.0-1.0); EOS % 0.2 % (1.0-4.0); HEMATOCRIT 38.8 % (42.0-52.0); HEMOGLOBIN 12.8 g/dl (14.0-18.0); LYMPH # 0.9 10*3/uL (1.3-4.4); LYMPH % 6.8 % (27.0-41.0); MEAN CELL VOLUME 70.7 fl (80.0-94.0); MEAN CORPUSCULAR HGB 23.3 pg (27.0-31.0); MEAN PLATELET VOLUME 8.5 fl (9.6-12.3); MONO # 0.9 10*3/uL (0.1-1.0); MONO % 6.7 % (3.0-9.0); NEUT # 11.7 10*3/uL (2.3-7.9); NEUT % 85.2 % (47.0-73.0); PLATELET COUNT AUTOMATED 529 10*3/uL (130-400); RED BLOOD COUNT 5.49 10*6/uL (4.50-5.90); RED CELL DISTRI WIDTH 16.7 % (0-14.5); WHITE BLOOD COUNT 13.7 10*3/uL (4.8-10.8)
[2017-12-12] MEDS ORDERED: NATURE'S BLEND F1 MG PO (17:51)
[2017-12-12] MEDS ORDERED: OYSTER SHELL 51 EACH PO (17:53)
[2017-12-12] MEDS ORDERED: DOK100 M1 PO (17:55)
[2017-12-12] MEDS ORDERED: BAYER BACK & B1 EACH PO (17:55)
[2017-12-12] MEDS ORDERED: VITAMIN D400 I1 PO (17:57)
[2017-12-12] MEDS ORDERED: LISINOPRIL5 MG PO (17:58)
[2017-12-12 18:31] LABS: ABG BASE EXCESS -2.3 mmol/L (-2.0-2.0); ABG HCO3 18.8 mmol/l (22-26); ABG O2 SATURATION 98.9 % (95-97); ARTERIAL BLOOD GAS PCO2 22.1 mmHg (35-45); ARTERIAL BLOOD GAS PH 7.536 (7.35-7.45)
[2017-12-13] VITALS (7 sets, daily range): BP systolic 100–190; BP diastolic 50–80
[2017-12-13 06:30] LABS: HEMATOCRIT 38.2 % (42.0-52.0); HEMOGLOBIN 12.4 g/dl (14.0-18.0); MEAN CELL VOLUME 71.1 fl (80.0-94.0); MEAN CORPUSCULAR HGB 23.1 pg (27.0-31.0); MEAN CORPUSCULAR HGB CONC 32.5 g/dl (33.0-37.0); MEAN PLATELET VOLUME 8.8 fl (9.6-12.3); PLATELET COUNT AUTOMATED 497 10*3/uL (130-400); RED BLOOD COUNT 5.37 10*6/uL (4.50-5.90); RED CELL DISTRI WIDTH 16.6 % (0-14.5); WHITE BLOOD COUNT 14.3 10*3/uL (4.8-10.8)
[2017-12-13 06:56] LABS: BURR CELLS MANY; POLYCHROMASIA SLIGHT; TOTAL CELLS COUNTED 100 #CELLS
[2017-12-13 06:57] LABS: MICROCYTOSIS SLIGHT; PLATELET SUFFICIENCY HIGH (NORMAL)
[2017-12-13 06:58] LABS: BUN 11 mg/dl (7-24); CHLORIDE 87 mmol/L (98-107); CHOLESTEROL 138 mg/dL (<200); CREATININE 0.39 mg/dL (0.70-1.30); FREE T4 1.04 ng/dl (0.76-1.46); HDL CHOLESTEROL 55 mg/dl (40-60); LDL CHOLESTEROL 75 mg/dL (9-159); POTASSIUM 3.5 mmol/L (3.5-5.1); SODIUM 121 mmol/L (136-145); TRIGLYCERIDES 39 mg/dl (<150); VLDL CHOLESTEROL 8 mg/dL (6-40)
[2017-12-13 07:04] LABS: THYROID STIM HORMONE (HS) 0.389 uIU/ml (0.358-4.75)
[2017-12-13 16:37] LABS: BUN 14 mg/dl (7-24); CHLORIDE 90 mmol/L (98-107); POTASSIUM 3.5 mmol/L (3.5-5.1); SODIUM 121 mmol/L (136-145)
[2017-12-13 21:27] LABS: BUN 13 mg/dl (7-24); CHLORIDE 89 mmol/L (98-107); CREATININE 0.51 mg/dL (0.70-1.30); POTASSIUM 3.2 mmol/L (3.5-5.1); SODIUM 122 mmol/L (136-145)
[2017-12-14] VITALS: BP 96/42
[2017-12-14 04:00] VITALS: BP 132/54
[2017-12-14 06:54] LABS: MEAN CORPUSCULAR HGB 23.4 pg (27.0-31.0); MEAN CORPUSCULAR HGB CONC 32.5 g/dl (33.0-37.0); MEAN PLATELET VOLUME 8.7 fl (9.6-12.3); PLATELET COUNT AUTOMATED 415 10*3/uL (130-400); RED CELL DISTRI WIDTH 16.6 % (0-14.5); WHITE BLOOD COUNT 13.2 10*3/uL (4.8-10.8)
[2017-12-14 07:05] LABS: HEMATOCRIT 31.7 % (42.0-52.0); HEMOGLOBIN 10.3 g/dl (14.0-18.0)
[2017-12-14 07:19] LABS: TOTAL CELLS COUNTED 100 #CELLS
[2017-12-14 07:20] LABS: BURR CELLS MANY; MICROCYTOSIS SLIGHT; PLATELET SUFFICIENCY NORMAL (NORMAL); POLYCHROMASIA SLIGHT
[2017-12-14 07:27] LABS: ALBUMIN 3.1 gm/dl (3.1-4.5); BUN 9 mg/dl (7-24); CHLORIDE 90 mmol/L (98-107); POTASSIUM 3.5 mmol/L (3.5-5.1); SGOT/AST 21 IU/L (3-35); SODIUM 123 mmol/L (136-145); TOTAL PROTEIN 5.7 gm/dL (6.4-8.2)
[2017-12-14 07:28] LABS: ALKALINE PHOSPHATASE 67 U/L (45-117); CREATININE 0.47 mg/dL (0.70-1.30); SGPT/ALT 51 U/L (12-78)
[2017-12-14 08:00] VITALS: BP 113/50
[2017-12-14 11:38] VITALS: BP 109/48
[2017-12-14 16:00] VITALS: BP 153/60
[2017-12-14 18:15] LABS: BUN 9 mg/dl (7-24); CHLORIDE 96 mmol/L (98-107); CREATININE 0.48 mg/dL (0.70-1.30); SODIUM 127 mmol/L (136-145)
[2017-12-14 20:00] VITALS: BP 146/56
[2017-12-15] VITALS: BP 131/52
[2017-12-15 08:00] VITALS: BP 145/76
[2017-12-15 09:06] LABS: HEMOGLOBIN 11.7 g/dl (14.0-18.0); MEAN CELL VOLUME 72.6 fl (80.0-94.0); MEAN CORPUSCULAR HGB 23.6 pg (27.0-31.0); MEAN CORPUSCULAR HGB CONC 32.5 g/dl (33.0-37.0); MEAN PLATELET VOLUME 8.6 fl (9.6-12.3); PLATELET COUNT AUTOMATED 425 10*3/uL (130-400); RED BLOOD COUNT 4.96 10*6/uL (4.50-5.90); RED CELL DISTRI WIDTH 17.1 % (0-14.5)
[2017-12-15 09:22] LABS: ALBUMIN 3.5 gm/dl (3.1-4.5); ALKALINE PHOSPHATASE 79 U/L (45-117); BUN 6 mg/dl (7-24); CHLORIDE 92 mmol/L (98-107); CREATININE 0.56 mg/dL (0.70-1.30); POTASSIUM 3.3 mmol/L (3.5-5.1); SGOT/AST 16 IU/L (3-35); SGPT/ALT 50 U/L (12-78); SODIUM 126 mmol/L (136-145); TOTAL PROTEIN 6.7 gm/dL (6.4-8.2)
[2017-12-15 10:05] LABS: ACANTHOCYTES FEW; MICROCYTOSIS SLIGHT; PLATELET SUFFICIENCY HIGH (NORMAL); SCHISTOCYTES FEW; TOTAL CELLS COUNTED 100 #CELLS
[2017-12-15] MEDS ORDERED: PREDNISONE10 MG PO (10:24)
[2017-12-15] MEDS ORDERED: LEVAQUIN750 M1 PO (10:24)
[2017-12-15] MEDS ORDERED: PANTOPRAZOLE SO40 MG PO (10:27)
[2017-12-15] MEDS ORDERED: ISORDIL10 M1 PO (10:27)
[2017-12-15] MEDS ORDERED: MUCINEX ER600 MG PO (10:27)
[2017-12-15] MEDS ORDERED: MAGNESIUM OXID400 MG PO (10:27)
[2017-12-15] MEDS ORDERED: SODIUM CHLORIDE1 GM PO (10:27)
[2017-12-15 11:47] VITALS: BP 143/63
== END 2017-12-15 12:10 | disposition home or self-care (01) | DRG 871 ==
LOC: ED 13:50 → 5E 16:17 → EDHOLD 16:17 → 5E 17:01
PROVIDERS: Internal Medicine; Internal Medicine Nephrology; Physician Assistant; Student in an Organized Health Care Education/Training Program
DX: A41.9 Sepsis, unspecified organism (principal); J96.91 Respiratory failure, unspecified with hypoxia; I50.33 Acute on chronic diastolic (congestive) heart failure; J18.1 Lobar pneumonia, unspecified organism; E87.8 Other disorders of electrolyte and fluid balance, not elsewhere classified; I11.0 Hypertensive heart disease with heart failure; F10.10 Alcohol abuse, uncomplicated; D50.9 Iron deficiency anemia, unspecified; J44.0 Chronic obstructive pulmonary disease with (acute) lower respiratory infection; E87.1 Hypo-osmolality and hyponatremia; I16.1 Hypertensive emergency; J44.1 Chronic obstructive pulmonary disease with (acute) exacerbation; E83.42 Hypomagnesemia; D47.3 Essential (hemorrhagic) thrombocythemia; B19.20 Unspecified viral hepatitis C without hepatic coma; R65.20 Severe sepsis without septic shock; R74.0 Nonspecific elevation of levels of transaminase and lactic acid dehydrogenase [LDH]; K21.9 Gastro-esophageal reflux disease without esophagitis; I25.10 Atherosclerotic heart disease of native coronary artery without angina pectoris; Z96.1 Presence of intraocular lens; Z66 Do not resuscitate; Z51.5 Encounter for palliative care; N40.0 Benign prostatic hyperplasia without lower urinary tract symptoms; E87.6 Hypokalemia; Z96.642 Presence of left artificial hip joint; Z85.038 Personal history of other malignant neoplasm of large intestine; I25.2 Old myocardial infarction; Z82.49 Family history of ischemic heart disease and other diseases of the circulatory system; Z86.73 Personal history of transient ischemic attack (TIA), and cerebral infarction without residual deficits; Z91.14 Patient's other noncompliance with medication regimen; Z79.899 Other long term (current) drug therapy; Z79.82 Long term (current) use of aspirin; Z98.42 Cataract extraction status, left eye; Z98.41 Cataract extraction status, right eye; Z87.891 Personal history of nicotine dependence

== ENCOUNTER 2018-02-19 18:28 | Inpatient (IN) | payer MEDICARE, MEDICAID ==
[2018-02-19] VITALS (8 sets, daily range): BP systolic 108–158; BP diastolic 58–76
[~2018-02-19] VITALS: Ht 157.4 cm; Wt 48.8 kg
--- NOTE | ~2018-02-19 | EKG ---
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 : 1950 Requested By: CHRISTINA ANDERSON Order Number: [id number] Reading MD: Jia Zavala MD Measurements Intervals [place] Rate: 124 P: 76 [place]: 155 QRS: -73 QRSD: 82 T: 71 QT: 309 QTc: 444 Interpretive Statements Sinus tachycardia LAE, consider biatrial enlargement Left anterior fascicular block Borderline low voltage, extremity leads Abnormal R-wave progression, late transition Baseline wander in lead(s) I,III,aVL,V2 Compared to ECG 12/12/2017 20:12:50 Sinus rhythm no longer present Possible ischemia no longer present Electronically Signed On 02-20-2018 8:29:10 PDT by Jia Zavala MD CM:EKGRPT:ELECTROCARDIOGRAM REPORT 1831 0829 CHRISTINA CHAVIRA DRAFT REPORT CHRISTINA ANDERSON M.D.
--- NOTE | ~2018-02-19 | ST ---
[place], [place] EXERCISE STRESS TEST REPORT NAME: YURIDIA CHRISTIE UNIT #: [id number] ROOM: 424 DOCTOR: REJI ATKINSON,JOSE BIRTHDATE: [birth year] DOS: 02/20/2018 LEXISCAN REPORT REASON FOR TEST: Chest pain. REFERRING PHYSICIAN: Dr. David. PHYSICAL EXAMINATION NECK: Supple. LUNGS: Clear anteriorly. HEART: Regular rhythm. PROTOCOL: Lexiscan protocol. Maximum heart rate 104. Peak blood pressure 164/82. SYMPTOMS: The patient is chest pain free, developed mild shortness of breath, resolved. EKG: Resting EKG showed sinus rhythm. Stress EKG showed no ischemia, no arrhythmias. CONCLUSION: Clinically, the patient is chest pain free. EKG is nonischemic. POST-STRESS COMPLICATIONS: None. The patient received a total of 0.4 mg Lexiscan. JOSE MENDOZA MD CM:STRESS:EXERCISE STRESS TEST REPORT 1545 0228 JOSE MENDOZA MD
--- NOTE | ~2018-02-19 | EKG ---
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
--- NOTE | ~2018-02-19 | CON ---
[place], [place] REPORT OF CONSULTATION NAME: YURIDIA CHRISTIE UNIT #: [id number] ROOM: 424 DOCTOR: REJI ATKINSON,JOSE BIRTHDATE: [birth year] DOS: 02/20/2018 REASON FOR CONSULTATION: Chest pain. CLINICAL HISTORY: The patient is a 67-year-old gentleman with history of CVA, hepatitis C, COPD, hypertension, acid reflux, presented to the Emergency Room for "chest pain." Apparently, his pain is in the epigastric area as well as abdominal area. This has been going on for the past couple of days. He said his epigastric pain did radiate towards his jaw one time and also had some diaphoresis. He also has some shortness of breath with his epigastric area pain. His pain is mostly in the left upper abdominal area and also had some shortness of breath and nausea. The patient did not have any bowel movement for a couple of days at home. Cardiology was consulted for further evaluation of his chest pain. At the time of my examination, the patient denied any chest pains. He is saying his pain is more lower epigastric area and abdominal area. His nausea is somewhat better. He did have two episodes of large bowel movements today. He denies any palpitations, dizziness. No syncope. No PND or orthopnea. He did have some shortness of breath for the past few days at home. No headache. No tingling, numbness or weakness. No blurred vision. No hematuria, dysuria. No hemoptysis, no cough. REVIEW OF SYSTEMS: Review of 10 systems negative except as mentioned above. PAST MEDICAL HISTORY: 1. Hypertension. 2. Stroke. 3. Colon cancer. 4. Alcohol use. 5. Acid reflux. 6. Hepatitis C. 7. Questionable coronary artery disease, per patient had "heart attack" long time ago. PAST SURGICAL HISTORY: History of hip surgery, colon surgery, cataract surgery. The patient said he had a cardiac catheterization 10-15 years ago, unremarkable per him, records not available. SOCIAL HISTORY: The patient does drink regularly 6 cans of beer, smokes over a pack a day, does not use illicit drugs. FAMILY HISTORY: Father in his 50s with coronary artery disease. Mother in her 50s to 60s from coronary artery disease. ALLERGIES: No known drug allergies. HOME MEDICATIONS: Reviewed. PHYSICAL EXAMINATION: VITAL SIGNS: Blood pressure 120/60, pulse 90, respirations 18. GENERAL: Alert, comfortable, in no acute distress. [place], [place] REPORT OF CONSULTATION NAME: YURIDIA CHRISTIE UNIT #: [id number] ROOM: [facility] DOCTOR: JOSE MENDOZA MD BIRTHDATE: [birth year] NECK: Supple, no distended neck veins, no carotid bruit. HEENT: Tongue was moist and pharynx clear. CHEST: Symmetrical, nontender. LUNGS: A few scattered rhonchi, but good air entry bilaterally. HEART: Regular rhythm, no S3. Grade 1/6 systolic murmur. ABDOMEN: Bowel sounds normal. Mild tenderness on the left side. No palpable masses, no pulsatile aorta. EXTREMITIES: Showed trace edema. Distal pulses palpable. SKIN: Warm and dry. No cyanosis, no clubbing. RECTAL: Deferred. GENITOURINARY: Deferred. REVIEW OF THE DIAGNOSTIC TESTS: EKG shows sinus rhythm, nonspecific ST changes. Hemoglobin 12.6, white count 6.8 thousand. Sodium 126, potassium 3.9. The troponin is negative. The creatinine is 0.49. TSH normal. IMPRESSION: 1. Atypical chest pain, myocardial infarction ruled out. 2. Epigastric abdominal pain. 3. History of alcohol use. 4. History of hypertension. 5. Tobacco use. 6. History of hepatitis C. 7. History of cerebrovascular accident. 8. Questionable history of coronary artery disease per patient, no documentation found. RECOMMENDATIONS: 1. Lexiscan stress was scheduled for today. 2. His blood pressure and heart rates are stable. 3. A 2D echo was ordered and pending. 4. If the stress test and 2D echo are unremarkable, Cardiology will sign off. There is no family at bedside at the time of my examination. JOSE MENDOZA MD CM:CONSTR:REPORT OF CONSULTATION 1613 02/21/18 0245 interface
--- NOTE | ~2018-02-19 | EKG ---
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
[~2018-02-19 18:28] MED LIST changes: +BAYER BACK & B1 EACH PO; +DOK100 M1 PO; +ISORDIL10 M1 PO; +MAGNESIUM OXID400 MG PO; +PANTOPRAZOLE SO40 MG PO; +SODIUM CHLORIDE1 GM PO; +VITAMIN D400 I1 PO
[2018-02-19 19:01] LABS: BASO # 0.1 10*3/uL (0.0-0.1); BASO % 1.4 % (0.0-1.0); EOS # 0.1 10*3/uL (0.0-0.4); EOS % 1.5 % (1.0-4.0); HEMATOCRIT 39.3 % (42.0-52.0); HEMOGLOBIN 12.7 g/dl (14.0-18.0); LYMPH # 1.9 10*3/uL (1.3-4.4); LYMPH % 19.9 % (27.0-41.0); MEAN CELL VOLUME 71.6 fl (80.0-94.0); MEAN CORPUSCULAR HGB 23.1 pg (27.0-31.0); MEAN CORPUSCULAR HGB CONC 32.3 g/dl (33.0-37.0); MONO # 0.7 10*3/uL (0.1-1.0); MONO % 7.4 % (3.0-9.0); NEUT # 6.6 10*3/uL (2.3-7.9); NEUT % 69.4 % (47.0-73.0); PLATELET COUNT AUTOMATED 512 10*3/uL (130-400); RED BLOOD COUNT 5.49 10*6/uL (4.50-5.90); RED CELL DISTRI WIDTH 18.6 % (0-14.5); WHITE BLOOD COUNT 9.5 10*3/uL (4.8-10.8)
[2018-02-19 19:11] LABS: ACT PARTIAL THROMBO TIME 28.3 SECONDS (20.8-31.5); INTERNATIONAL NORM RATIO 1.3 (2.0-3.5)
[2018-02-19 19:17] LABS: ALBUMIN 3.6 gm/dl (3.1-4.5); ALKALINE PHOSPHATASE 90 U/L (45-117); BUN 16 mg/dl (7-24); CHLORIDE 96 mmol/L (98-107); SGOT/AST 89 IU/L (3-35); SGPT/ALT 92 U/L (12-78); SODIUM 126 mmol/L (136-145); TOTAL PROTEIN 7.2 gm/dL (6.4-8.2); TROPONIN I 0.031 ng/ml (<0.045)
[2018-02-19] MEDS ORDERED: MUCINEX1200 M1 PO (23:07)
[2018-02-20 01:12] VITALS: BP 126/60
[2018-02-20 06:31] LABS: BASO % 0.4 % (0.0-1.0); EOS % 0.1 % (1.0-4.0); HEMATOCRIT 38.3 % (42.0-52.0); HEMOGLOBIN 12.6 g/dl (14.0-18.0); LYMPH # 0.7 10*3/uL (1.3-4.4); LYMPH % 10.2 % (27.0-41.0); MEAN CELL VOLUME 70.1 fl (80.0-94.0); MEAN CORPUSCULAR HGB 23.1 pg (27.0-31.0); MEAN CORPUSCULAR HGB CONC 32.9 g/dl (33.0-37.0); MEAN PLATELET VOLUME 8.6 fl (9.6-12.3); MONO # 0.1 10*3/uL (0.1-1.0); MONO % 1.6 % (3.0-9.0); NEUT # 5.9 10*3/uL (2.3-7.9); NEUT % 87.3 % (47.0-73.0); PLATELET COUNT AUTOMATED 519 10*3/uL (130-400); RED BLOOD COUNT 5.46 10*6/uL (4.50-5.90); RED CELL DISTRI WIDTH 18.9 % (0-14.5); RETICULOCYTE % 0.88 % (0.50-2.50); WHITE BLOOD COUNT 6.8 10*3/uL (4.8-10.8)
[2018-02-20 06:34] LABS: ALBUMIN 3.2 gm/dl (3.1-4.5); BUN 17 mg/dl (7-24); CHLORIDE 95 mmol/L (98-107); CHOLESTEROL 127 mg/dL (<200); PHOSPHOROUS 3.5 mg/dL (2.5-4.9); POTASSIUM 3.9 mmol/L (3.5-5.1); SODIUM 126 mmol/L (136-145); TRIGLYCERIDES 33 mg/dl (<150); VLDL CHOLESTEROL 7 mg/dL (6-40)
[2018-02-20 06:44] LABS: ALKALINE PHOSPHATASE 82 U/L (45-117); CREATININE 0.49 mg/dL (0.70-1.30); HDL CHOLESTEROL 43 mg/dl (40-60); IRON 43 ug/dL (65-175); LDL CHOLESTEROL 77 mg/dL (9-159); SGOT/AST 74 IU/L (3-35); SGPT/ALT 85 U/L (12-78); THYROID STIM HORMONE (HS) 0.531 uIU/ml (0.358-4.75); TOTAL IRON BINDING CAPACITY 421 ug/dl (250-450); TOTAL PROTEIN 6.5 gm/dL (6.4-8.2)
[2018-02-20 07:42] LABS: VITAMIN D, 25-HYDROXY 55.6 ng/mL (30-100)
[2018-02-20 12:00] VITALS: BP 130/72
[2018-02-20 16:00] VITALS: BP 88/58
[2018-02-20 20:00] VITALS: BP 109/58
[2018-02-21] VITALS: BP 127/60
[2018-02-21 08:00] VITALS: BP 140/66
[2018-02-21] MEDS ORDERED: DOXYCYCLINE100 M3 PO (10:31)
[2018-02-21] MEDS ORDERED: PREDNISONE10 MG PO (10:31)
== END 2018-02-21 13:30 | disposition home or self-care (01) | DRG 872 ==
LOC: ED 18:28 → EDHOLD 21:14 → 4E 21:14
PROVIDERS: Emergency Medicine; Internal Medicine
PROC: 4A02XM4 Measurement of Cardiac Total Activity, External Approach (ICD-10-PCS; principal; 2018-02-20)
PROC: 3E073KZ Introduction of Other Diagnostic Substance into Coronary Artery, Percutaneous Approach (ICD-10-PCS; principal; 2018-02-20)
DX: A41.9 Sepsis, unspecified organism (principal); J44.1 Chronic obstructive pulmonary disease with (acute) exacerbation; I50.32 Chronic diastolic (congestive) heart failure; E87.1 Hypo-osmolality and hyponatremia; E44.1 Mild protein-calorie malnutrition; K56.7 Ileus, unspecified; M48.56XA Collapsed vertebra, not elsewhere classified, lumbar region, initial encounter for fracture; M94.0 Chondrocostal junction syndrome [Tietze]; R39.198 Other difficulties with micturition; I25.10 Atherosclerotic heart disease of native coronary artery without angina pectoris; I11.0 Hypertensive heart disease with heart failure; E83.42 Hypomagnesemia; R74.0 Nonspecific elevation of levels of transaminase and lactic acid dehydrogenase [LDH]; K21.9 Gastro-esophageal reflux disease without esophagitis; F10.20 Alcohol dependence, uncomplicated; K29.50 Unspecified chronic gastritis without bleeding; B19.20 Unspecified viral hepatitis C without hepatic coma; K40.90 Unilateral inguinal hernia, without obstruction or gangrene, not specified as recurrent; D50.9 Iron deficiency anemia, unspecified; N40.1 Benign prostatic hyperplasia with lower urinary tract symptoms; K56.41 Fecal impaction; R39.16 Straining to void; D47.3 Essential (hemorrhagic) thrombocythemia; E87.8 Other disorders of electrolyte and fluid balance, not elsewhere classified; Z96.642 Presence of left artificial hip joint; Z96.1 Presence of intraocular lens; Z68.21 Body mass index [BMI] 21.0-21.9, adult; Z98.42 Cataract extraction status, left eye; Z98.41 Cataract extraction status, right eye; I25.2 Old myocardial infarction; Z86.73 Personal history of transient ischemic attack (TIA), and cerebral infarction without residual deficits; Z85.038 Personal history of other malignant neoplasm of large intestine; Z99.81 Dependence on supplemental oxygen; Z79.82 Long term (current) use of aspirin; Z79.899 Other long term (current) drug therapy; Z87.891 Personal history of nicotine dependence; Z82.49 Family history of ischemic heart disease and other diseases of the circulatory system

== ENCOUNTER 2018-03-31 18:26 | Inpatient (IN) | payer MEDICARE, MEDICAID ==
[~2018-03-31] VITALS: Ht 162.6 cm; Wt 52.6 kg
--- NOTE | ~2018-03-31 | CON ---
[place], [place] REPORT OF CONSULTATION NAME: YURIDIA CHRISTIE UNIT #: [id number] ROOM: 518 DOCTOR: ANGE CRUZ [facility] BIRTHDATE: [birth year] DOS: 04/01/2018 HISTORY OF PRESENT ILLNESS: The patient has presented with left abdominal pain. The patient with a very large sigmoid colon herniation into the left inguinal tract and into testicular sac. The patient with microcytic anemia with H and H of 10 and 31. Lactic acid was 1.4. His GFR was greater than 60. His initial potassium 3 supplemented. Liver function tests were normal. C-reactive protein was elevated. Sed rate normal. CT scan of the abdomen and pelvis was done. In summary, large left inguinal hernia remains containing some of the sigmoid colon and loops of small bowel even. The small bowel in the hernia is minimally dilated, but no other evidence of entrapment on obstruction is appreciated which is probably incarceration. The appearance is similar to prior exam and umbilical hernia containing mesenteric fat. Apparently, this has been from his childhood in place. There is also a 3 cm lesion in the superior right liver noticed. This could be a cavernous hemangioma and no acute concern has been raised above. His troponins repeatedly remains elevated, but he has had a falling episode and that could be false positive for cardiac concerns. Lower extremity, he has ambulation difficulty and dense stasis dermatitis and suspected cellulitis, DVT has been negative and the patient is on heavy IV antibiotic. Recommending reducing antibiotic coverage. PAST MEDICAL HISTORY: Associated with COPD, oxygen dependency, history of ambulation difficulty with cellulitis of lower extremities. Past medical history also associated with coronary artery disease, CVA, congestive heart failure, colon carcinomas, essential hypertension, gastroesophageal reflux, hepatitis C history, non-ST myocardial infarction, peripheral vascular insufficiency, possibility with stasis dermatitis and edema of lower extremities. PAST SURGICAL HISTORY: Left hip prosthesis, cardiac catheterization, colonic segmental resection, and cataracts. SOCIAL HISTORY: Smoker 10 years ago and alcohol consumer actively. FAMILY HISTORY: Noncontributory. ALLERGIES: No known medications. MEDICATIONS: Medication list has been reviewed including aspirin and iron supplementation for his anemia and pantoprazole for his dyspepsia as part of GI medication others reviewed. REVIEW OF SYSTEMS: HEENT: Denies double vision, blurred vision. RESPIRATORY: Admits to shortness of breath and usage of O2 nasal. CARDIOVASCULAR: Denies chest pain. DIGESTIVE SYSTEM: No hematemesis, no hematochezia, usually constipated side. I have questioned him at the bedside, yes he is using massage of the left inguinal area to be able to facilitate his bowel movements. [place], [place] REPORT OF CONSULTATION NAME: YURIDIA CHRISTIE UNIT #: [id number] ROOM: 518 DOCTOR: ANTHONY ATKINSON,[facility] BIRTHDATE: [birth year] PHYSICAL EXAMINATION: GENERAL: Reveals a frail patient. Alert and oriented. VITAL SIGNS: Stable. HEENT: Head normocephalic, nontraumatic. Eyes: Pupils round, reactive. Sclerae nonicteric. Mouth: Poor dental hygiene. No aphthae ulceration. NECK: Supple, no thyromegaly, no cervical lymphadenopathy. CHEST: Symmetric anatomy, decreased air entry bilaterally. No wheezes, however. HEART: Normal sinus rhythm, no gallop, no murmur. ABDOMEN: Soft. No hepato-organomegaly, his umbilical hernia approximately 2 cm in diameter and extended externally which is reducible with the tip of the finger and does not the area that he has his pain experience since his childhood. However, as one is approaching his left inguinal anatomy, there is a large segment of the bowel, which is felt to be inside the inguinal sac and bowel sounds is positive on this segment and is somewhat tender. EXTREMITIES: Intense stasis dermatitis and erythema is noticed and reddish in color. However, this has been studied today. There has been no DVT in the lower extremities. NEUROLOGIC: Alert, oriented. IMPRESSION: Left inguinal hernia with entrapment of segment of sigmoid colon and small bowel within the sac, which eventually has to be repaired before is totally incarcerated and gangrene. Apparently, he has seen in [facility] and he has experience of previous discussion suspected to be Dr. Wick. Also, a ventral hernia, which is a small of no acute concern. Other adjunctive diagnoses chronic obstructive pulmonary disease, borderline anemia and lower extremities suspected cellulitis, history of gastroesophageal reflux, hypertension, coronary artery disease, all has been recognized. Other adjunctive diagnoses as dictated in paragraph past medical and surgical history. PLAN AND DISCUSSION: At the present time, antibiotic therapy for lower extremity and Dr. Benavidez is following him here in [facility] for surgical assessment and he has declared him to be a poor candidate due to the extreme compromise COPD, coronary artery disease history and multiple other issues as outlined above. ELENA CRUZ MD CM:CONSTR:REPORT OF CONSULTATION 1745 04/14/18 1313 interface
[2018-03-31 18:26] VITALS: BP 167/123
[~2018-03-31 18:26] MED LIST changes: +MUCINEX1200 M1 PO
[2018-03-31 19:00] VITALS: BP 102/51
[2018-03-31 19:32] LABS: BASO # 0.1 10*3/uL (0.0-0.1); BASO % 1.5 % (0.0-1.0); EOS # 0.3 10*3/uL (0.0-0.4); EOS % 3.7 % (1.0-4.0); HEMATOCRIT 31.4 % (42.0-52.0); HEMOGLOBIN 10.4 g/dl (14.0-18.0); LYMPH # 1.8 10*3/uL (1.3-4.4); LYMPH % 24.7 % (27.0-41.0); MEAN CELL VOLUME 73.2 fl (80.0-94.0); MEAN CORPUSCULAR HGB 24.2 pg (27.0-31.0); MEAN CORPUSCULAR HGB CONC 33.1 g/dl (33.0-37.0); MEAN PLATELET VOLUME 8.4 fl (9.6-12.3); MONO # 0.8 10*3/uL (0.1-1.0); MONO % 11.1 % (3.0-9.0); NEUT # 4.3 10*3/uL (2.3-7.9); NEUT % 58.6 % (47.0-73.0); PLATELET COUNT AUTOMATED 437 10*3/uL (130-400); RED BLOOD COUNT 4.29 10*6/uL (4.50-5.90); RED CELL DISTRI WIDTH 20.4 % (0-14.5); WHITE BLOOD COUNT 7.3 10*3/uL (4.8-10.8)
[2018-03-31 19:38] VITALS: BP 92/53
[2018-03-31 19:46] LABS: ALKALINE PHOSPHATASE 79 U/L (45-117); BUN 7 mg/dl (7-24); CHLORIDE 103 mmol/L (98-107); CREATININE 0.58 mg/dL (0.70-1.30); LIPASE 64 U/L (73-393); POTASSIUM 3.2 mmol/L (3.5-5.1); SGOT/AST 31 IU/L (3-35); SGPT/ALT 40 U/L (12-78); SODIUM 134 mmol/L (136-145)
[2018-03-31 20:48] VITALS: BP 120/61
[2018-03-31 22:50] VITALS: BP 130/80
[2018-04-01 07:03] LABS: BASO # 0.2 10*3/uL (0.0-0.1); BASO % 2.2 % (0.0-1.0); EOS # 0.3 10*3/uL (0.0-0.4); EOS % 3.6 % (1.0-4.0); HEMOGLOBIN 11.8 g/dl (14.0-18.0); LYMPH # 1.6 10*3/uL (1.3-4.4); LYMPH % 22.1 % (27.0-41.0); MEAN CELL VOLUME 76.1 fl (80.0-94.0); MEAN CORPUSCULAR HGB 23.5 pg (27.0-31.0); MEAN CORPUSCULAR HGB CONC 30.8 g/dl (33.0-37.0); MEAN PLATELET VOLUME 8.9 fl (9.6-12.3); MONO # 0.8 10*3/uL (0.1-1.0); MONO % 10.8 % (3.0-9.0); NEUT # 4.4 10*3/uL (2.3-7.9); NEUT % 60.9 % (47.0-73.0); PLATELET COUNT AUTOMATED 512 10*3/uL (130-400); RED BLOOD COUNT 5.03 10*6/uL (4.50-5.90); RED CELL DISTRI WIDTH 21.6 % (0-14.5); WHITE BLOOD COUNT 7.2 10*3/uL (4.8-10.8)
[2018-04-01 07:10] LABS: HEMATOCRIT 38.3 % (42.0-52.0)
[2018-04-01 07:15] LABS: BUN 8 mg/dl (7-24); CHLORIDE 102 mmol/L (98-107); CREATININE 0.82 mg/dL (0.70-1.30); IRON 64 ug/dL (65-175); PHOSPHOROUS 3.3 mg/dL (2.5-4.9); POTASSIUM 3.8 mmol/L (3.5-5.1); SODIUM 136 mmol/L (136-145); TOTAL IRON BINDING CAPACITY 450 ug/dl (250-450)
[2018-04-01] MEDS ORDERED: VITAMIN D31000 UNI1 PO (10:50)
[2018-04-01] MEDS ORDERED: PANTOPRAZOLE SO40 MG PO (10:56)
[2018-04-01] MEDS ORDERED: MAGNESIUM400 M1 PO (10:57)
[2018-04-01] MEDS ORDERED: SODIUM CHLORI1000 MG PO (10:59)
[2018-04-01] MEDS ORDERED: ISOSORBIDE DINI10 M1 PO (11:00)
[2018-04-01] MEDS ORDERED: IRON325 M1 PO (11:02)
[2018-04-01 12:00] VITALS: BP 169/48
[2018-04-01 16:00] VITALS: BP 160/80
[2018-04-01 20:00] VITALS: BP 158/74
[2018-04-02] VITALS: BP 146/64
[2018-04-02] MEDS ORDERED: DOXYCYCLINE100 MG PO (10:56)
[2018-04-02] MEDS ORDERED: K-TAB10 MEQ PO (10:57)
[2018-04-02] MEDS ORDERED: LASIX20 MG PO (10:57)
[2018-04-02] MEDS ORDERED: PROTONIX20 MG PO (10:59)
== END 2018-04-02 11:35 | disposition home or self-care (01) | DRG 872 ==
LOC: ED 18:26 → EDHOLD 22:03 → 5E 22:03
PROVIDERS: Physician Assistant; Student in an Organized Health Care Education/Training Program
DX: A41.9 Sepsis, unspecified organism (principal); E87.1 Hypo-osmolality and hyponatremia; I50.32 Chronic diastolic (congestive) heart failure; L03.115 Cellulitis of right lower limb; M48.56XA Collapsed vertebra, not elsewhere classified, lumbar region, initial encounter for fracture; J41.0 Simple chronic bronchitis; K42.9 Umbilical hernia without obstruction or gangrene; E87.6 Hypokalemia; K40.90 Unilateral inguinal hernia, without obstruction or gangrene, not specified as recurrent; K21.9 Gastro-esophageal reflux disease without esophagitis; N40.0 Benign prostatic hyperplasia without lower urinary tract symptoms; D47.3 Essential (hemorrhagic) thrombocythemia; Z96.642 Presence of left artificial hip joint; B19.20 Unspecified viral hepatitis C without hepatic coma; R60.9 Edema, unspecified; K76.9 Liver disease, unspecified; Z66 Do not resuscitate; Z51.5 Encounter for palliative care; Z96.1 Presence of intraocular lens; I11.0 Hypertensive heart disease with heart failure; D50.9 Iron deficiency anemia, unspecified; I25.10 Atherosclerotic heart disease of native coronary artery without angina pectoris; K29.50 Unspecified chronic gastritis without bleeding; Z99.81 Dependence on supplemental oxygen; Z98.42 Cataract extraction status, left eye; Z98.41 Cataract extraction status, right eye; Z87.891 Personal history of nicotine dependence; Z82.49 Family history of ischemic heart disease and other diseases of the circulatory system; Z85.038 Personal history of other malignant neoplasm of large intestine; Z86.73 Personal history of transient ischemic attack (TIA), and cerebral infarction without residual deficits; I25.2 Old myocardial infarction; Z79.82 Long term (current) use of aspirin; Z79.899 Other long term (current) drug therapy

== ENCOUNTER 2018-05-26 01:35 | Inpatient (IN) | payer MEDICARE, MEDICAID ==
[~2018-05-26] VITALS: Ht 157.4 cm; Wt 49.2 kg
[2018-05-26] VITALS (7 sets, daily range): BP systolic 94–157; BP diastolic 46–92
--- NOTE | ~2018-05-26 | EKG ---
[place], [place] ELECTROCARDIOGRAM REPORT NAME: YURIDIA CHRISTIE UNIT #: [id number] ROOM: 526 DOCTOR: EPIPHANY DRAFT REPORT BIRTHDATE: [birth year] [facility] Test Date: 2018-05-26 Test Time: 02:02:46 Pat Name: YURIDIA CHRISTIE Department: ER Room: 4 Gender: M Department Sales Manager: Rosa Chandler : 1950 Requested By: PÉREZ MEJIA Order Number: [id number] Reading MD: Jia Zavala MD Measurements Intervals [place] Rate: 78 P: 46 NH: 157 QRS: -60 QRSD: 71 T: 59 QT: 368 QTc: 420 Interpretive Statements Sinus rhythm Inferior infarct, old Borderline ST elevation, anterolateral leads Compared to ECG 02/20/2018 00:15:33 Electronically Signed On 05-26-2018 11:56:30 PST by Jia Zavala MD CM:EKGRPT:ELECTROCARDIOGRAM REPORT [id number] PÉREZ MEJIA MD EPIPHANY DRAFT REPORT PÉREZ MEJIA MD
[~2018-05-26 01:35] MED LIST changes: +IRON325 M1 PO; +ISOSORBIDE DINI10 M1 PO; +K-TAB10 MEQ PO; +MAGNESIUM400 M1 PO; +PROTONIX20 MG PO; +SODIUM CHLORI1000 MG PO
--- NOTE | 2018-05-26 02:08 | NUR ---
PATIENT REFUSED TO BE PLACED IN A GOWN AND ON A LARGE ANIMAL HUSBANDRY TECHNICIAN AT THIS TIME.
[2018-05-26 02:13] LABS: BASO # 0.2 10*3/uL (0.0-0.1); BASO % 2.4 % (0.0-1.0); EOS # 1.5 10*3/uL (0.0-0.4); EOS % 18.8 % (1.0-4.0); HEMATOCRIT 40.9 % (42.0-52.0); HEMOGLOBIN 13.7 g/dl (14.0-18.0); LYMPH % 24.8 % (27.0-41.0); MEAN CORPUSCULAR HGB 27.1 pg (27.0-31.0); MEAN CORPUSCULAR HGB CONC 33.5 g/dl (33.0-37.0); MEAN PLATELET VOLUME 8.2 fl (9.6-12.3); MONO # 0.7 10*3/uL (0.1-1.0); MONO % 8.5 % (3.0-9.0); NEUT # 3.7 10*3/uL (2.3-7.9); NEUT % 45.3 % (47.0-73.0); PLATELET COUNT AUTOMATED 419 10*3/uL (130-400); RED BLOOD COUNT 5.05 10*6/uL (4.50-5.90); RED CELL DISTRI WIDTH 17.9 % (0-14.5); WHITE BLOOD COUNT 8.1 10*3/uL (4.8-10.8)
[2018-05-26 02:21] LABS: INTERNATIONAL NORM RATIO 1.1 (2.0-3.5)
[2018-05-26 02:30] LABS: ALBUMIN 3.7 gm/dl (3.1-4.5); ALKALINE PHOSPHATASE 108 U/L (45-117); BUN 5 mg/dl (7-24); CHLORIDE 96 mmol/L (98-107); CREATININE 0.48 mg/dL (0.70-1.30); POTASSIUM 3.8 mmol/L (3.5-5.1); SGOT/AST 25 IU/L (3-35); SGPT/ALT 27 U/L (12-78); SODIUM 133 mmol/L (136-145); TOTAL PROTEIN 7.3 gm/dL (6.4-8.2)
[2018-05-26 02:31] LABS: TROPONIN I 0.023 ng/ml (<0.045)
--- NOTE | 2018-05-26 04:35 | NUR ---
A 67, admitted to , under the services of LAURA Painting DO with a diagnosis of EXACERBATION OF COPD. Chief complaint is SHORTNESS OF BREATH. Patient arrived via stretcher from ER. Monitor applied. Initial assessment completed. Vital signs taken and recorded. LAURA PAINTING DO notified of admission to the unit. Orders received. See assessment for past medical history, medications and allergies. Patient and/or family oriented to unit. [facility]. Clothing/patient valuable form completed. MIMI VENTURA
--- NOTE | 2018-05-26 05:27 | NUR ---
DR ARGUETA CALLED- PATIENT'S HOME MEDS UP TO DATE.
[2018-05-26 05:44] LABS: ALBUMIN 3.4 gm/dl (3.1-4.5); ALKALINE PHOSPHATASE 97 U/L (45-117); BUN 6 mg/dl (7-24); CHLORIDE 94 mmol/L (98-107); CREATININE 0.48 mg/dL (0.70-1.30); PHOSPHOROUS 3.1 mg/dL (2.5-4.9); POTASSIUM 3.8 mmol/L (3.5-5.1); SGOT/AST 21 IU/L (3-35); SGPT/ALT 24 U/L (12-78); SODIUM 129 mmol/L (136-145); TOTAL PROTEIN 7.1 gm/dL (6.4-8.2); TROPONIN I 0.023 ng/ml (<0.045)
[2018-05-26 06:22] LABS: BASO # 0.1 10*3/uL (0.0-0.1); BASO % 1.8 % (0.0-1.0); EOS # 0.3 10*3/uL (0.0-0.4); EOS % 5.1 % (1.0-4.0); HEMATOCRIT 40.5 % (42.0-52.0); HEMOGLOBIN 13.3 g/dl (14.0-18.0); LYMPH # 0.6 10*3/uL (1.3-4.4); MEAN CELL VOLUME 81.7 fl (80.0-94.0); MEAN CORPUSCULAR HGB 26.8 pg (27.0-31.0); MEAN CORPUSCULAR HGB CONC 32.8 g/dl (33.0-37.0); MEAN PLATELET VOLUME 8.6 fl (9.6-12.3); MONO # 0.1 10*3/uL (0.1-1.0); MONO % 1.8 % (3.0-9.0); NEUT # 5.1 10*3/uL (2.3-7.9); NEUT % 80.8 % (47.0-73.0); PLATELET COUNT AUTOMATED 402 10*3/uL (130-400); RED BLOOD COUNT 4.96 10*6/uL (4.50-5.90); RED CELL DISTRI WIDTH 17.8 % (0-14.5); WHITE BLOOD COUNT 6.3 10*3/uL (4.8-10.8)
[2018-05-27] VITALS: BP 114/51
[2018-05-27 06:19] LABS: BASO % 0.1 % (0.0-1.0); EOS % 0.1 % (1.0-4.0); HEMATOCRIT 35.1 % (42.0-52.0); HEMOGLOBIN 11.4 g/dl (14.0-18.0); LYMPH # 0.8 10*3/uL (1.3-4.4); LYMPH % 7.5 % (27.0-41.0); MEAN CELL VOLUME 82.4 fl (80.0-94.0); MEAN CORPUSCULAR HGB 26.8 pg (27.0-31.0); MEAN CORPUSCULAR HGB CONC 32.5 g/dl (33.0-37.0); MEAN PLATELET VOLUME 8.8 fl (9.6-12.3); MONO # 0.5 10*3/uL (0.1-1.0); MONO % 4.7 % (3.0-9.0); NEUT # 8.7 10*3/uL (2.3-7.9); NEUT % 86.8 % (47.0-73.0); PLATELET COUNT AUTOMATED 377 10*3/uL (130-400); RED BLOOD COUNT 4.26 10*6/uL (4.50-5.90); RED CELL DISTRI WIDTH 18.1 % (0-14.5)
[2018-05-27 06:36] LABS: ALBUMIN 2.9 gm/dl (3.1-4.5); ALKALINE PHOSPHATASE 87 U/L (45-117); BUN 12 mg/dl (7-24); CHLORIDE 95 mmol/L (98-107); CREATININE 0.57 mg/dL (0.70-1.30); POTASSIUM 3.8 mmol/L (3.5-5.1); SGOT/AST 12 IU/L (3-35); SGPT/ALT 18 U/L (12-78); SODIUM 130 mmol/L (136-145); TOTAL PROTEIN 5.9 gm/dL (6.4-8.2)
[2018-05-27 08:00] VITALS: BP 136/58
--- NOTE | 2018-05-27 08:00 | NUR ---
PT RESTING IN BED. NO DISTRESS NOTED. WILL MONITOR SEE SHIFT ASSESSMENT
[2018-05-27 12:00] VITALS: BP 115/55
--- NOTE | 2018-05-27 12:00 | NUR ---
Brick Molder Hand in to talk to patient. Patient states lives at HOME with ALONE. There are NO steps in the home. Physician: Mary Jane MAX Pharmacy: [facility] health services: NONE AT THIS TIME Patient's level of ADLs: MODERATE ASSIST Patient has working utilities: YES DME: OXYGEN PORTABLE TANKS ROLLATOR Follow-up physician's appointment after d/c: WILL BE MADE BY HOSPITALIST NURSE DIRECTOR ON DISCHARGE Does patient want to access PORTAL?: NO Discharge plan PT STATES HE LIVES AT [facility] ON [address], ALONE. STATES HE HAS OXYGEN AND ROLLATOR AND GET AROUND PRETTY GOOD. ALSO SAYS HE WILL NEED A RIDE HOME ON DISCHARGE, TOLD HIM WE COULD GET HIM A CAB RIDE HOME. WILL CONTINUE TO FOLLOW. CHRISTINA VENTURA
--- NOTE | 2018-05-27 14:09 | NUR ---
PHYSICAL THERAPY PAtient bathing at this time. Suyapa Radford ,PT
[2018-05-27 16:00] VITALS: BP 97/52
[2018-05-27 20:00] VITALS: BP 114/44
[2018-05-28] VITALS: BP 146/60
--- NOTE | 2018-05-28 01:50 | NUR ---
24 HR chart check completed.
[2018-05-28 06:59] LABS: BASO % 0.1 % (0.0-1.0); HEMATOCRIT 35.8 % (42.0-52.0); HEMOGLOBIN 11.9 g/dl (14.0-18.0); LYMPH # 0.8 10*3/uL (1.3-4.4); LYMPH % 7.6 % (27.0-41.0); MEAN CELL VOLUME 83.1 fl (80.0-94.0); MEAN CORPUSCULAR HGB 27.6 pg (27.0-31.0); MEAN CORPUSCULAR HGB CONC 33.2 g/dl (33.0-37.0); MEAN PLATELET VOLUME 8.8 fl (9.6-12.3); MONO # 0.4 10*3/uL (0.1-1.0); MONO % 4.1 % (3.0-9.0); NEUT # 8.7 10*3/uL (2.3-7.9); NEUT % 87.7 % (47.0-73.0); PLATELET COUNT AUTOMATED 401 10*3/uL (130-400); RED BLOOD COUNT 4.31 10*6/uL (4.50-5.90); RED CELL DISTRI WIDTH 18.4 % (0-14.5); WHITE BLOOD COUNT 9.9 10*3/uL (4.8-10.8)
[2018-05-28 07:13] LABS: BUN 6 mg/dl (7-24); CHLORIDE 98 mmol/L (98-107); CREATININE 0.54 mg/dL (0.70-1.30); POTASSIUM 4.1 mmol/L (3.5-5.1); SODIUM 132 mmol/L (136-145)
[2018-05-28 08:00] VITALS: BP 141/69
--- NOTE | 2018-05-28 08:51 | NUR ---
PT RESTING IN BED NO DISTRESS NOTED. SEE SHIFT ASSESSMENT. WILL MONITOR
[2018-05-28] MEDS ORDERED: MUCINEX ER600 MG PO (09:46)
[2018-05-28] MEDS ORDERED: LEVAQUIN750 M1 PO (09:46)
[2018-05-28] MEDS ORDERED: PREDNISONE10 MG PO (09:46)
--- NOTE | 2018-05-28 10:19 | NUR ---
SUPERVISOR PASTE MIXING IN ROOM TO ASK PT ABOUT WHAT HOME O2 COMPANY HE USES TO CALL TO GET HIM A TANK TO GO HOME WITH. PT STATES HE HAS A FULL TANK AT HOME. ASKED HIM IF SOMEONE COULD BRING IT TO HIM. GAVE ME NUMBER OF POLITICAL ANTHROPOLOGIST FOR [facility], YAKOV MADRIGAL. CALLED YAKOV AT [phone] AND LEFT MESSAGE FOR HIM TO RETURN MY CALL.
--- NOTE | 2018-05-28 11:51 | NUR ---
SPOKE WITH YAKOV AT [facility] AND HE STATES HE DOES NOT HAVE A CAR RIGHT NOW, BUT WILL TRY TO GET SOMEONE TO BRING HIM OVER WITH A O2 TANK FOR PT TO GO HOME WITH.
[2018-05-28 12:00] VITALS: BP 130/66
--- NOTE | 2018-05-28 13:11 | NUR ---
PHYSICAL THERAPY Patient to be discharged this date. Suyapa Radford,PT
[2018-05-28 16:00] VITALS: BP 144/80
--- NOTE | 2018-05-28 17:33 | NUR ---
Discharge instructions reviewed with patient/family. Patient receptive and verbalizes understanding. Follow-up care arranged. Written instructions given to patient/family. JAYDEN ALBA
[2018-08-28] MEDS ORDERED: ZITHROMAX500 MG PO (12:41)
[2018-08-28] MEDS ORDERED: IMDUR SA30 MG PO (12:41)
[2018-08-28] MEDS ORDERED: ATORVASTATIN CA20 M1 PO (12:42)
[2018-08-28] MEDS ORDERED: PREDNISONE10 MG PO (12:42)
[2018-08-28] MEDS ORDERED: CARDIZEM30 MG PO (15:03)
== END 2018-05-28 16:50 | disposition home or self-care (01) | DRG 191 ==
LOC: ED 01:35 → 5E 03:52 → EDHOLD 03:52 → 5E 04:20
PROVIDERS: Emergency Medicine Emergency Medical Services; Family Medicine; Student in an Organized Health Care Education/Training Program; ADMIT Internal Medicine
DX: J44.1 Chronic obstructive pulmonary disease with (acute) exacerbation (principal); E87.1 Hypo-osmolality and hyponatremia; I50.32 Chronic diastolic (congestive) heart failure; R65.10 Systemic inflammatory response syndrome (SIRS) of non-infectious origin without acute organ dysfunction; M86.10 Other acute osteomyelitis, unspecified site; K40.90 Unilateral inguinal hernia, without obstruction or gangrene, not specified as recurrent; F10.21 Alcohol dependence, in remission; N40.0 Benign prostatic hyperplasia without lower urinary tract symptoms; I25.10 Atherosclerotic heart disease of native coronary artery without angina pectoris; K29.50 Unspecified chronic gastritis without bleeding; I11.0 Hypertensive heart disease with heart failure; K21.9 Gastro-esophageal reflux disease without esophagitis; Z98.42 Cataract extraction status, left eye; Z96.1 Presence of intraocular lens; Z96.642 Presence of left artificial hip joint; B19.20 Unspecified viral hepatitis C without hepatic coma; D47.3 Essential (hemorrhagic) thrombocythemia; M81.0 Age-related osteoporosis without current pathological fracture; Z99.81 Dependence on supplemental oxygen; Z79.899 Other long term (current) drug therapy; Z79.82 Long term (current) use of aspirin; Z86.73 Personal history of transient ischemic attack (TIA), and cerebral infarction without residual deficits; Z85.038 Personal history of other malignant neoplasm of large intestine; Z86.19 Personal history of other infectious and parasitic diseases; I25.2 Old myocardial infarction; Z98.41 Cataract extraction status, right eye; Z82.49 Family history of ischemic heart disease and other diseases of the circulatory system; Z87.891 Personal history of nicotine dependence; Z87.81 Personal history of (healed) traumatic fracture

== ENCOUNTER 2018-11-07 23:33 | Emergency (ER) | payer MEDICARE ==
[~2018-11-07] VITALS: Wt 55.9 kg
--- NOTE | ~2018-11-07 | EKG ---
[place], [place] ELECTROCARDIOGRAM REPORT NAME: YURIDIA CHRISTIE UNIT #: [id number] ROOM: DOCTOR: EPIPHANY DRAFT REPORT BIRTHDATE: [birth year] [facility] Test Date: 2018-11-07 Test Time: 23:39:18 Pat Name: YURIDIA CHRISTIE Department: ED Room: 2 Gender: M Pan Operator: Rosa Chandler : 1950 Requested By: TRICIA HAY Order Number: [id number] Reading MD: Mark Gomez MD Measurements Intervals [place] Rate: 87 P: -16 IA: 150 QRS: -33 QRSD: 68 T: 66 QT: 354 QTc: 426 Interpretive Statements Sinus rhythm Consider right atrial enlargement Left axis deviation Baseline wander in lead(s) V1 Compared to ECG 08/26/2018 00:31:16 Left-axis deviation now present Left anterior fascicular block no longer present ST (T wave) deviation no longer present Electronically Signed On 11-09-2018 7:47:48 PDT by Mark Gomez MD CM:EKGRPT:ELECTROCARDIOGRAM REPORT [id number] TRICIA SCHMIDT DRAFT REPORT TRICIA HAY DO
[~2018-11-07 23:33] MED LIST changes: +ATORVASTATIN CA20 M1 PO; +CARDIZEM30 MG PO; +IMDUR SA30 MG PO; +ZITHROMAX500 MG PO
[2018-11-08 00:19] LABS: BASO # 0.2 10*3/uL (0.0-0.1); EOS # 0.5 10*3/uL (0.0-0.4); EOS % 6.2 % (1.0-4.0); HEMATOCRIT 41.9 % (42.0-52.0); HEMOGLOBIN 13.8 g/dl (14.0-18.0); LYMPH # 3.1 10*3/uL (1.3-4.4); LYMPH % 37.4 % (27.0-41.0); MEAN CORPUSCULAR HGB CONC 32.9 g/dl (33.0-37.0); MEAN PLATELET VOLUME 8.8 fl (9.6-12.3); MONO % 12.3 % (3.0-9.0); NEUT # 3.4 10*3/uL (2.3-7.9); NEUT % 41.9 % (47.0-73.0); PLATELET COUNT AUTOMATED 433 10*3/uL (130-400); RED BLOOD COUNT 4.76 10*6/uL (4.50-5.90); WHITE BLOOD COUNT 8.2 10*3/uL (4.8-10.8)
[2018-11-08 00:30] LABS: ACT PARTIAL THROMBO TIME 31.2 SECONDS (20.0-32.1)
[2018-11-08 00:39] LABS: ALKALINE PHOSPHATASE 96 U/L (45-117); BUN 5 mg/dl (7-24); CHLORIDE 96 mmol/L (98-107); CREATININE 0.55 mg/dL (0.70-1.30); POTASSIUM 4.3 mmol/L (3.5-5.1); SGOT/AST 35 IU/L (3-35); SGPT/ALT 28 U/L (12-78); SODIUM 132 mmol/L (136-145); TOTAL PROTEIN 7.4 gm/dL (6.4-8.2); TROPONIN I 0.025 ng/ml (<0.045)
[2018-11-08] MEDS ORDERED: PREDNISONE10 M1 PO (02:01)
[2018-11-08] MEDS ORDERED: ZITHROMAX500 MG PO (02:01)
[2019-01-09] MEDS ORDERED: MUCINEX ER600 MG PO (15:08)
[2019-01-09] MEDS ORDERED: PREDNISONE10 MG PO (15:08)
[2019-01-09] MEDS ORDERED: LEVAQUIN500 M2 PO (15:08)
== END 2018-11-08 02:50 | disposition home or self-care (01) ==
LOC: ED 23:33
PROVIDERS: Emergency Medicine
DX: J44.9 Chronic obstructive pulmonary disease, unspecified (principal); I25.10 Atherosclerotic heart disease of native coronary artery without angina pectoris; K21.9 Gastro-esophageal reflux disease without esophagitis; M81.0 Age-related osteoporosis without current pathological fracture; I13.0 Hypertensive heart and chronic kidney disease with heart failure and stage 1 through stage 4 chronic kidney disease, or unspecified chronic kidney disease; N18.9 Chronic kidney disease, unspecified; I50.32 Chronic diastolic (congestive) heart failure; Z87.891 Personal history of nicotine dependence; Z79.899 Other long term (current) drug therapy; Z79.82 Long term (current) use of aspirin; Z99.81 Dependence on supplemental oxygen

== ENCOUNTER 2019-04-16 20:41 | Inpatient (IN) | payer MEDICARE ==
[~2019-04-16] VITALS: Ht 157.5 cm; Wt 51.1 kg
[2019-04-16 20:41] VITALS: BP 140/90
[~2019-04-16 20:41] MED LIST changes: +PREDNISONE10 M1 PO
[2019-04-16 21:13] LABS: BASO # 0.1 10*3/uL (0.0-0.1); BASO % 1.2 % (0.0-1.0); EOS # 0.4 10*3/uL (0.0-0.4); EOS % 3.1 % (1.0-4.0); HEMATOCRIT 42.3 % (42.0-52.0); HEMOGLOBIN 14.4 g/dl (14.0-18.0); LYMPH % 17.2 % (27.0-41.0); MEAN CELL VOLUME 83.6 fl (80.0-94.0); MEAN CORPUSCULAR HGB 28.5 pg (27.0-31.0); MEAN PLATELET VOLUME 8.8 fl (9.6-12.3); MONO % 8.3 % (3.0-9.0); NEUT # 8.2 10*3/uL (2.3-7.9); NEUT % 69.7 % (47.0-73.0); PLATELET COUNT AUTOMATED 547 10*3/uL (130-400); RED BLOOD COUNT 5.06 10*6/uL (4.50-5.90); RED CELL DISTRI WIDTH 14.7 % (0-14.5); WHITE BLOOD COUNT 11.8 10*3/uL (4.8-10.8)
[2019-04-16 21:25] LABS: ACT PARTIAL THROMBO TIME 31.6 SECONDS (20.0-32.1)
[2019-04-16 21:33] LABS: ALBUMIN 3.7 gm/dl (3.1-4.5); ALKALINE PHOSPHATASE 78 U/L (45-117); BUN 7 mg/dl (7-24); CHLORIDE 100 mmol/L (98-107); CREATININE 0.46 mg/dL (0.70-1.30); LIPASE 112 U/L (73-393); POTASSIUM 4.2 mmol/L (3.5-5.1); SGOT/AST 29 IU/L (3-35); SGPT/ALT 34 U/L (12-78); SODIUM 129 mmol/L (136-145)
[2019-04-16 21:36] LABS: TROPONIN I 0.095 ng/ml (<0.045)
--- NOTE | 2019-04-16 21:36 | NUR ---
CRITICAL TROPONIN RECIEVED FROM LAB. OF 0.095 DR. LAM MADE AWARE
--- NOTE | 2019-04-16 21:45 | NUR ---
PT REPORTS TIGHTNESS IN CHEST STILL PRESENT. MINIMAL RELIEF AFTER RESP TX
[2019-04-16 21:46] VITALS: BP 145/76
[2019-04-16 22:36] LABS: BILIRUBIN NEGATIVE (NEGATIVE); BLOOD NEGATIVE (NEGATIVE); CLARITY CLEAR (CLEAR); COLOR YELLOW (YELLOW); GLUCOSE NEGATIVE (NEGATIVE); KETONE NEGATIVE (NEGATIVE); LEUKO ESTERASE NEGATIVE (NEGATIVE); NITRITE NEGATIVE (NEGATIVE); SPECIFIC GRAVITY <= 1.005 (1.005-1.030); UROBILINOGEN 0.2 E.U./dl (0.2-1.0)
--- NOTE | 2019-04-16 23:16 | NUR ---
A 68, admitted to 4E, under the services of LAURA Painting DO with a diagnosis of ELEVATED TROPONIN AND COPD EXACERBATION. Chief complaint is DYSPNEA. Patient arrived via stretcher from ER. Monitor applied. Initial assessment completed. Vital signs taken and recorded. LAURA PAINTING DO notified of admission to the unit. Orders received. See assessment for past medical history, medications and allergies. Patient and/or family oriented to unit. visitation policy reviewed. Clothing/patient valuable form completed. OLGA PALOMINO
--- NOTE | 2019-04-16 23:44 | NUR ---
DR. BASILIO NOTIFIED OF PATIENT'S ADMISSION TO THE FLOOR. NOTIFIED HER THAT PATIENT DOES NOT KNOW HIS HOME MEDICATIONS AND NURSING WILL CALL HIS PHARMACY IN THE MORNING TO GET AN UPDATED LIST. NOTIFIED DR. BASILIO OF MANUAL BLOOD PRESSURE OF 150/82. SHE STATED SHE WILL PUT ORDERS IN.
[2019-04-17] VITALS: BP 150/82; BP 189/83
--- NOTE | 2019-04-17 00:44 | NUR ---
CALLED DR. Blake BASILIO IN REGARDS TO TROPONIN OF 0.146.
--- NOTE | 2019-04-17 00:51 | NUR ---
NOTIFIED DR. KELLOGG'S ANSWERING SERVICE OF NEW CONSULT. REQUESTED A CALL BACK.
--- NOTE | 2019-04-17 00:59 | NUR ---
DR. MENDOZA RETURNED CALL. STATED TO GIVE 4 MG SL NITRO EVERY MINUTE X3, AND NITRO PASTE 1 INCH Q6H. HE WILL SEE HIM IN THE MORNING.
--- NOTE | 2019-04-17 02:55 | NUR ---
DR. MAGALLANES CALLED ABOUT TROPONIN OF 0.150
--- NOTE | 2019-04-17 03:00 | NUR ---
PATIENT SLEEPING IN BED. AWAKENS EASILY TO VOICE. NO REPORTS OF CHEST PAIN AT THIS TIME. WILL MONITOR.
[2019-04-17 05:02] VITALS: BP 120/74
--- NOTE | 2019-04-17 05:18 | NUR ---
PATIENT SLEEPING BUT AROUSES EASILY TO VOICE. PATIENT RATES CHEST PRESSURE 7/10. NITRO PASTE APPLIED TO RIGHT CHEST PER ORDER.
--- NOTE | 2019-04-17 05:20 | NUR ---
NOTIFIED DR. MAGALLANES THAT PATIENT'S CODE STATUS IS A DNR-CCA. PAPER PLACED IN CHART FROM LAST ADMISSION AND VERIFIED WITH PATIENT.
[2019-04-17 06:33] LABS: BASO % 0.7 % (0.0-1.0); EOS % 0.2 % (1.0-4.0); HEMOGLOBIN 13.9 g/dl (14.0-18.0); LYMPH # 0.8 10*3/uL (1.3-4.4); LYMPH % 13.1 % (27.0-41.0); MEAN CELL VOLUME 84.4 fl (80.0-94.0); MEAN CORPUSCULAR HGB 28.6 pg (27.0-31.0); MEAN CORPUSCULAR HGB CONC 33.9 g/dl (33.0-37.0); MEAN PLATELET VOLUME 9.5 fl (9.6-12.3); MONO # 0.1 10*3/uL (0.1-1.0); MONO % 1.2 % (3.0-9.0); PLATELET COUNT AUTOMATED 505 10*3/uL (130-400); RED BLOOD COUNT 4.86 10*6/uL (4.50-5.90); RED CELL DISTRI WIDTH 14.6 % (0-14.5)
[2019-04-17 06:57] LABS: BUN 12 mg/dl (7-24); CHLORIDE 99 mmol/L (98-107); CREATININE 0.44 mg/dL (0.70-1.30); FREE T4 1.09 ng/dl (0.76-1.46); PHOSPHOROUS 3.5 mg/dL (2.5-4.9); SODIUM 131 mmol/L (136-145)
[2019-04-17 07:03] LABS: THYROID STIM HORMONE (HS) 0.245 uIU/ml (0.358-4.75)
[2019-04-17 08:00] VITALS: BP 96/50
[2019-04-17] MEDS ORDERED: COMBIGAN 0.2%-010 ML OP (09:18)
[2019-04-17] MEDS ORDERED: LUMIGAN50 DRP OPH (09:18)
[2019-04-17 12:00] VITALS: BP 145/50
--- NOTE | 2019-04-17 12:25 | NUR ---
NOTIFIED OF NEW CONSULT. HE WILL SEE PT TOMORROW.
--- NOTE | 2019-04-17 13:10 | NUR ---
PATIENT C/O CHEST PAIN THAT RADIATES TO LEFT SHOULDER AND BACK. STAT EKG ORDERED. VITAL SIGNS STABLE. NOTIFIED AND . ORDERS OBTAINED FOR SL NITRO & IV MORPHINE. WILL MONITOR.
--- NOTE | 2019-04-17 13:20 | NUR ---
PT STATES CHEST PAIN RELIEVED AFTER MEDS GIVEN.
[2019-04-17 16:00] VITALS: BP 130/59
[2019-04-17 20:00] VITALS: BP 125/52
--- NOTE | 2019-04-17 20:07 | NUR ---
PATIENT RESTING IN BED. STATES HE NEEDS A BREATHING TREATMENT. LUNG SOUNDS DIMINISHED IN ALL SILVA. RESPIRATORY NOTIFIED. BED IN LOWEST POSITION, CALL LIGHT IN REACH
--- NOTE | 2019-04-17 23:45 | NUR ---
24 HR chart check completed.
[2019-04-18] VITALS: BP 128/53
[2019-04-18 06:35] LABS: BASO % 0.1 % (0.0-1.0); EOS % 0.1 % (1.0-4.0); HEMATOCRIT 36.2 % (42.0-52.0); HEMOGLOBIN 12.4 g/dl (14.0-18.0); LYMPH # 1.6 10*3/uL (1.3-4.4); LYMPH % 8.8 % (27.0-41.0); MEAN CORPUSCULAR HGB 28.4 pg (27.0-31.0); MEAN CORPUSCULAR HGB CONC 34.3 g/dl (33.0-37.0); MEAN PLATELET VOLUME 9.3 fl (9.6-12.3); MONO # 1.3 10*3/uL (0.1-1.0); MONO % 7.1 % (3.0-9.0); NEUT # 14.8 10*3/uL (2.3-7.9); NEUT % 83.4 % (47.0-73.0); PLATELET COUNT AUTOMATED 494 10*3/uL (130-400); RED BLOOD COUNT 4.36 10*6/uL (4.50-5.90); WHITE BLOOD COUNT 17.7 10*3/uL (4.8-10.8)
[2019-04-18 06:54] LABS: ALKALINE PHOSPHATASE 64 U/L (45-117); BUN 20 mg/dl (7-24); CHLORIDE 99 mmol/L (98-107); CREATININE 0.49 mg/dL (0.70-1.30); POTASSIUM 4.1 mmol/L (3.5-5.1); SGOT/AST 12 IU/L (3-35); SGPT/ALT 28 U/L (12-78); SODIUM 130 mmol/L (136-145); TOTAL PROTEIN 5.8 gm/dL (6.4-8.2)
[2019-04-18 08:00] VITALS: BP 120/68
[2019-04-18 12:00] VITALS: BP 132/57
[2019-04-18 16:00] VITALS: BP 133/44
--- NOTE | 2019-04-18 19:34 | NUR ---
PATIENT RESTING IN BED COMPLETING BREATHING TREATMENT. DENIES NEEDS AT THIS TIME. UNDERSTANDS NPO ORDER AT MIDNIGHT FOR STRESS TEST IN THE MORNING. BED IN LOWEST POSITION, CALL LIGHT IN REACH
[2019-04-18 20:00] VITALS: BP 130/43
[2019-04-19] VITALS: BP 105/54
[2019-04-19 06:36] LABS: BASO % 0.1 % (0.0-1.0); EOS % 0.1 % (1.0-4.0); HEMATOCRIT 36.2 % (42.0-52.0); HEMOGLOBIN 12.2 g/dl (14.0-18.0); LYMPH # 1.3 10*3/uL (1.3-4.4); LYMPH % 10.2 % (27.0-41.0); MEAN CELL VOLUME 84.6 fl (80.0-94.0); MEAN CORPUSCULAR HGB 28.5 pg (27.0-31.0); MEAN CORPUSCULAR HGB CONC 33.7 g/dl (33.0-37.0); MEAN PLATELET VOLUME 9.4 fl (9.6-12.3); MONO # 0.9 10*3/uL (0.1-1.0); MONO % 6.8 % (3.0-9.0); NEUT # 10.7 10*3/uL (2.3-7.9); NEUT % 82.4 % (47.0-73.0); PLATELET COUNT AUTOMATED 480 10*3/uL (130-400); RED BLOOD COUNT 4.28 10*6/uL (4.50-5.90); RED CELL DISTRI WIDTH 15.2 % (0-14.5); WHITE BLOOD COUNT 12.9 10*3/uL (4.8-10.8)
[2019-04-19 06:41] LABS: CHLORIDE 103 mmol/L (98-107); POTASSIUM 4.2 mmol/L (3.5-5.1); SODIUM 133 mmol/L (136-145)
[2019-04-19 06:47] LABS: BUN 9 mg/dl (7-24)
--- NOTE | 2019-04-19 07:28 | NUR ---
NOTIFIED KEENAN GERBER OF PATIENTS +BLOOD CULTURES. NO NEW ORDERS RECEIVED. WILL CONTINUE TO MONITOR.
--- NOTE | 2019-04-19 07:35 | NUR ---
PER NUCLEAR MED, REMOVE NITRO PASTE FOR STRESS TEST.
--- NOTE | 2019-04-19 08:35 | NUR ---
PATIENT OFF FLOOR FOR STRESS TEST.
--- NOTE | 2019-04-19 09:00 | NUR ---
Telephone Operator Chief in to talk to patient. Patient states lives at home with alone. There are no steps in the home. Physician: olu thomas [facility]acy: [facility] Home health services: none Patient's level of ADLs: INDEPENDENT Patient has working utilities: all working DME: home oxygen, portable tanks, rollator walker from [facility] Follow-up physician's appointment after d/c: will be made by hospitalist nurse director upon discharge Does patient want to access PORTAL?: no Discharge plan discussed with patient, he states he lives in an apartment alone, he is independent in adls and uses a rollator walker for ambulation, he home oxygen, portable tanks and a nebulzier from [facility], discussed with him a discharge plan and circumstances why he was unable to affort his medication. he stated he has had appointments with an habilitation specialist in [place] and has to pay his family to take him to appointments, educated him on being able to obtain his medications at the hospital pharmacy and he stated he would consider this, he states he will return home to his apartment, discussed with him VNA and he denies any home services, case management will follow. THAIS KUMAR
--- NOTE | 2019-04-19 09:55 | NUR ---
INFORMED CONSENT SIGNED FOR LEXISCAN STRESS TEST WITH DR. MENDOZA. RESTING EKG NSR WITH PAC, HR 70, BP 144/66. PULSE OX 100% ON 3L/NC AND BREATH SOUNDS DEMINISHED BILATERALLY. COMPLETED ONE MINUTE OF LEXISCAN PROTOCOL RECEIVING LEXISCAN 0.4MG OVER 10 SECONDS. PAC NOTED WITH NO ST CHANGES. PT C/O SOB. LAST RECOVERY HR 94 BP 142/68. WAITING NUCLEAR SCANNING IN STABLE CONDITION.
--- NOTE | 2019-04-19 11:24 | NUR ---
DR. JOE CALLED. STATED TO CANCEL CHEST XRAY AND ORDER CTA OF THE CHEST TO RULE OUT POSSIBLE PE. WILL CONTINUE TO MONITOR.
[2019-04-19 11:49] VITALS: BP 164/72
[2019-04-19 12:00] VITALS: BP 142/62
--- NOTE | 2019-04-19 12:42 | NUR ---
NEW IV STARTED IN PATIENTS LEFT AC FOR CTA. CT NOTIFIED.
--- NOTE | 2019-04-19 15:43 | NUR ---
PER DR. MENDOZA D/Tamika WARNER. STATED PATIENT WILL BE ABLE TO GO HOME TOMORROW.
[2019-04-19 16:00] VITALS: BP 182/62
[2019-04-19 17:00] VITALS: BP 126/64
--- NOTE | 2019-04-19 19:31 | NUR ---
PT AWAKE IN BED AT THIS TIME. PT DENIES ANY NEEDS BESIDES NEEDING HIS ICE PITCHER FILLED. WILL CONTINUE TO MONITOR. CALL LIGHT IN REACH.
[2019-04-19 20:00] VITALS: BP 115/49
[2019-04-20] VITALS: BP 124/55
[2019-04-20 06:50] LABS: BASO % 0.1 % (0.0-1.0); EOS % 0.1 % (1.0-4.0); HEMATOCRIT 37.3 % (42.0-52.0); HEMOGLOBIN 12.3 g/dl (14.0-18.0); LYMPH # 1.8 10*3/uL (1.3-4.4); LYMPH % 15.1 % (27.0-41.0); MEAN CELL VOLUME 84.8 fl (80.0-94.0); MEAN PLATELET VOLUME 9.4 fl (9.6-12.3); MONO # 0.8 10*3/uL (0.1-1.0); MONO % 6.5 % (3.0-9.0); NEUT # 9.4 10*3/uL (2.3-7.9); NEUT % 77.7 % (47.0-73.0); PLATELET COUNT AUTOMATED 488 10*3/uL (130-400); RED CELL DISTRI WIDTH 15.1 % (0-14.5); WHITE BLOOD COUNT 12.1 10*3/uL (4.8-10.8)
[2019-04-20 07:44] LABS: BUN 8 mg/dl (7-24); CHLORIDE 102 mmol/L (98-107); CREATININE 0.42 mg/dL (0.70-1.30); POTASSIUM 4.1 mmol/L (3.5-5.1); SODIUM 134 mmol/L (136-145)
[2019-04-20 08:00] VITALS: BP 102/66
--- NOTE | 2019-04-20 08:34 | NUR ---
Nursing screen received and chart reveiwed. Patient lives alone and uses a rollator walker and is independent in ADLs. At this time patient is not in need of OT. Thank you. Vivian Christianson OTr/L
--- NOTE | 2019-04-20 09:00 | NUR ---
case management visits with patient, he is being discharged to home today and will need a ride, he stated his son's truck is not running and he can not take him home, he stated he has a friend he will call and see if he or another friend can go to his apartment and get his portable oxygen tank and take him home, case management/funeral planner will follow
[2019-04-20] MEDS ORDERED: LOPRESSOR25 MG PO (09:03)
[2019-04-20] MEDS ORDERED: PREDNISONE10 MG PO (09:03)
[2019-04-20] MEDS ORDERED: DOXYCYCLINE100 M3 PO (09:03)
--- NOTE | 2019-04-20 11:58 | NUR ---
Contacted [facility] to deliver an oxygen tank for patient to transport home with. They stated it wouldn't be until later this afternoon. RN supervisor fish processing stated patient can borrow a tank from here to go home and must return it to the hospital. service clerk given money for taxi service when patient is ready to go home.
[2019-04-20 12:00] VITALS: BP 134/57
--- NOTE | 2019-04-20 13:00 | NUR ---
PATIENT UNABLE TO PAT FOR HIS MEDICATION. PATIENT ABLE TO GET NEW SCRIPTS THROUGH OUR PHARMACY FOR FREE. SCRIPTS SENT TO PHARMACY. PATIENT TO PICK THEM UP ON DISHCHARGE.
--- NOTE | 2019-04-20 14:35 | NUR ---
PATIENT HEART MONITOR REMOVED. 2 IVS REMOVED. PATIENT AWARE OF NEW PRESCRIPTIONS WAITING AT THE PHARMACY FOR HIIM. PATIENT TAKEN OUT VIA WHEELCHAIR. TAXI TAKING HIM HOME.
--- NOTE | 2019-04-20 14:35 | NUR ---
Discharge instructions reviewed with patient/family. Patient receptive and verbalizes understanding. Follow-up care arranged. Written instructions given to patient/family. KRISHNA SHERIFF
== END 2019-04-20 14:35 | disposition home or self-care (01) | DRG 280 ==
LOC: ED 20:41 → 4E 22:31 → EDHOLD 22:31 → 4E 22:47
PROVIDERS: Emergency Medicine Emergency Medical Services; Hospitalist; Internal Medicine; ADMIT Internal Medicine
DX: I21.A1 Myocardial infarction type 2 (principal); J18.9 Pneumonia, unspecified organism; J44.1 Chronic obstructive pulmonary disease with (acute) exacerbation; E87.1 Hypo-osmolality and hyponatremia; I50.32 Chronic diastolic (congestive) heart failure; J96.11 Chronic respiratory failure with hypoxia; J44.0 Chronic obstructive pulmonary disease with (acute) lower respiratory infection; R78.81 Bacteremia; B18.2 Chronic viral hepatitis C; I11.0 Hypertensive heart disease with heart failure; K29.20 Alcoholic gastritis without bleeding; K42.9 Umbilical hernia without obstruction or gangrene; R73.9 Hyperglycemia, unspecified; Z66 Do not resuscitate; Z51.5 Encounter for palliative care; N40.0 Benign prostatic hyperplasia without lower urinary tract symptoms; E83.42 Hypomagnesemia; D47.3 Essential (hemorrhagic) thrombocythemia; B96.89 Other specified bacterial agents as the cause of diseases classified elsewhere; M81.0 Age-related osteoporosis without current pathological fracture; Z96.1 Presence of intraocular lens; I25.10 Atherosclerotic heart disease of native coronary artery without angina pectoris; Z96.642 Presence of left artificial hip joint; K21.9 Gastro-esophageal reflux disease without esophagitis; Z86.73 Personal history of transient ischemic attack (TIA), and cerebral infarction without residual deficits; Z99.81 Dependence on supplemental oxygen; Z87.01 Personal history of pneumonia (recurrent); Z98.42 Cataract extraction status, left eye; Z98.41 Cataract extraction status, right eye; Z87.891 Personal history of nicotine dependence; Z82.49 Family history of ischemic heart disease and other diseases of the circulatory system; Z79.82 Long term (current) use of aspirin; Z79.899 Other long term (current) drug therapy; Z71.41 Alcohol abuse counseling and surveillance of alcoholic; Z71.6 Tobacco abuse counseling

== ENCOUNTER 2019-09-27 20:23 | Inpatient (IN) | payer MEDICARE ==
[~2019-09-27] VITALS: Ht 157.4 cm; Wt 61.8 kg
[~2019-09-27 20:23] MED LIST changes: +COMBIGAN 0.2%-010 ML OP; +LUMIGAN50 DRP OPH
[2019-09-27 20:26] VITALS: BP 123/78
[2019-09-28] VITALS (7 sets, daily range): BP systolic 104–125; BP diastolic 52–80
[2019-09-28] MEDS ORDERED: AMLODIPINE BESY10 MG PO (04:11)
[2019-09-28 06:19] LABS: ALBUMIN 3.6 gm/dl (3.1-4.5); ALKALINE PHOSPHATASE 83 U/L (45-117); BUN 11 mg/dl (7-24); CHLORIDE 87 mmol/L (98-107); CREATININE 0.45 mg/dL (0.70-1.30); LIPASE 48 U/L (73-393); SGOT/AST 44 IU/L (3-35); SGPT/ALT 36 U/L (12-78); SODIUM 123 mmol/L (136-145); TOTAL PROTEIN 6.6 gm/dL (6.4-8.2); TROPONIN I 0.034 ng/ml (<0.045)
[2019-09-28 06:22] LABS: BASO # 0.1 10*3/uL (0.0-0.1); BASO % 0.8 % (0.0-1.0); EOS # 0.1 10*3/uL (0.0-0.4); EOS % 0.8 % (1.0-4.0); HEMATOCRIT 34.9 % (42.0-52.0); LYMPH # 0.9 10*3/uL (1.3-4.4); LYMPH % 9.2 % (27.0-41.0); MEAN CELL VOLUME 85.3 fl (80.0-94.0); MEAN CORPUSCULAR HGB 29.6 pg (27.0-31.0); MEAN CORPUSCULAR HGB CONC 34.7 g/dl (33.0-37.0); MEAN PLATELET VOLUME 8.9 fl (9.6-12.3); MONO % 10.4 % (3.0-9.0); NEUT # 7.2 10*3/uL (2.3-7.9); NEUT % 78.1 % (47.0-73.0); PLATELET COUNT AUTOMATED 382 10*3/uL (130-400); RED BLOOD COUNT 4.09 10*6/uL (4.50-5.90); RED CELL DISTRI WIDTH 13.1 % (0-14.5); WHITE BLOOD COUNT 9.2 10*3/uL (4.8-10.8)
[2019-09-28 06:40] LABS: BUN 11 mg/dl (7-24); CHLORIDE 88 mmol/L (98-107); POTASSIUM 3.4 mmol/L (3.5-5.1); SODIUM 126 mmol/L (136-145)
[2019-09-28 06:51] LABS: ETHYL ALCOHOL < 3.0 mg/dl (<3)
[2019-09-28 07:14] LABS: BILIRUBIN NEGATIVE (NEGATIVE); BLOOD TRACE-INTACT (NEGATIVE); CLARITY CLEAR (CLEAR); COLOR YELLOW (YELLOW); GLUCOSE NEGATIVE (NEGATIVE); KETONE 3+ (NEGATIVE); LEUKO ESTERASE NEGATIVE (NEGATIVE); NITRITE NEGATIVE (NEGATIVE); RBC 0-2 rbc/hpf (0-2); SPECIFIC GRAVITY 1.015 (1.005-1.030); UROBILINOGEN 0.2 E.U./dl (0.2-1.0)
[2019-09-28 07:36] LABS: BASO # 0.1 10*3/uL (0.0-0.1); BASO % 0.7 % (0.0-1.0); EOS # 0.1 10*3/uL (0.0-0.4); LYMPH # 0.7 10*3/uL (1.3-4.4); LYMPH % 6.9 % (27.0-41.0); MEAN CELL VOLUME 82.4 fl (80.0-94.0); MEAN CORPUSCULAR HGB 29.5 pg (27.0-31.0); MEAN CORPUSCULAR HGB CONC 35.8 g/dl (33.0-37.0); MEAN PLATELET VOLUME 8.8 fl (9.6-12.3); MONO # 0.8 10*3/uL (0.1-1.0); MONO % 8.4 % (3.0-9.0); NEUT # 8.2 10*3/uL (2.3-7.9); NEUT % 82.7 % (47.0-73.0); PLATELET COUNT AUTOMATED 397 10*3/uL (130-400); RED BLOOD COUNT 4.37 10*6/uL (4.50-5.90)
[2019-09-28 07:51] LABS: ACT PARTIAL THROMBO TIME 34.3 SECONDS (20.0-32.1); INTERNATIONAL NORM RATIO 1.1 (2.0-3.5)
[2019-09-29] VITALS: BP 118/67
[2019-09-29 05:54] LABS: ALBUMIN 3.1 gm/dl (3.1-4.5); ALKALINE PHOSPHATASE 66 U/L (45-117); BUN 9 mg/dl (7-24); CHLORIDE 93 mmol/L (98-107); CREATININE 0.56 mg/dL (0.70-1.30); SGOT/AST 29 IU/L (3-35); SGPT/ALT 31 U/L (12-78); SODIUM 124 mmol/L (136-145)
[2019-09-29 06:24] LABS: BASO # 0.1 10*3/uL (0.0-0.1); BASO % 0.8 % (0.0-1.0); EOS # 0.3 10*3/uL (0.0-0.4); EOS % 2.9 % (1.0-4.0); HEMATOCRIT 32.8 % (42.0-52.0); LYMPH # 1.3 10*3/uL (1.3-4.4); LYMPH % 12.4 % (27.0-41.0); MEAN CELL VOLUME 85.4 fl (80.0-94.0); MEAN CORPUSCULAR HGB 29.4 pg (27.0-31.0); MEAN CORPUSCULAR HGB CONC 34.5 g/dl (33.0-37.0); MEAN PLATELET VOLUME 9.1 fl (9.6-12.3); MONO # 1.2 10*3/uL (0.1-1.0); MONO % 11.2 % (3.0-9.0); NEUT # 7.6 10*3/uL (2.3-7.9); NEUT % 72.2 % (47.0-73.0); PLATELET COUNT AUTOMATED 359 10*3/uL (130-400); RED BLOOD COUNT 3.84 10*6/uL (4.50-5.90); RED CELL DISTRI WIDTH 13.2 % (0-14.5); WHITE BLOOD COUNT 10.6 10*3/uL (4.8-10.8)
[2019-09-29 08:00] VITALS: BP 118/58
[2019-09-29 12:00] VITALS: BP 115/56
[2019-09-29 16:00] VITALS: BP 155/59
[2019-09-29 20:00] VITALS: BP 147/57
[2019-09-30] VITALS: BP 107/55
[2019-09-30 06:28] LABS: BASO # 0.1 10*3/uL (0.0-0.1); EOS # 0.3 10*3/uL (0.0-0.4); HEMATOCRIT 31.7 % (42.0-52.0); LYMPH % 14.1 % (27.0-41.0); MEAN CELL VOLUME 87.1 fl (80.0-94.0); MEAN CORPUSCULAR HGB 29.9 pg (27.0-31.0); MEAN CORPUSCULAR HGB CONC 34.4 g/dl (33.0-37.0); MEAN PLATELET VOLUME 8.9 fl (9.6-12.3); MONO # 0.9 10*3/uL (0.1-1.0); MONO % 13.7 % (3.0-9.0); NEUT # 4.5 10*3/uL (2.3-7.9); NEUT % 66.8 % (47.0-73.0); PLATELET COUNT AUTOMATED 340 10*3/uL (130-400); RED BLOOD COUNT 3.64 10*6/uL (4.50-5.90); RED CELL DISTRI WIDTH 13.2 % (0-14.5); WHITE BLOOD COUNT 6.8 10*3/uL (4.8-10.8)
[2019-09-30 06:31] LABS: ALKALINE PHOSPHATASE 66 U/L (45-117); BUN 6 mg/dl (7-24); CHLORIDE 92 mmol/L (98-107); CREATININE 0.47 mg/dL (0.70-1.30); POTASSIUM 3.7 mmol/L (3.5-5.1); SGOT/AST 22 IU/L (3-35); SGPT/ALT 29 U/L (12-78); SODIUM 129 mmol/L (136-145); TOTAL PROTEIN 5.8 gm/dL (6.4-8.2)
[2019-09-30 08:00] VITALS: BP 135/70
[2019-09-30 11:50] VITALS: BP 142/74
[2019-09-30] MEDS ORDERED: FLAGYL500 MG PO (13:22)
[2019-09-30] MEDS ORDERED: CIPRO500 MG PO (13:22)
== END 2019-09-30 13:52 | disposition home or self-care (01) | DRG 392 ==
LOC: ED 20:23 → 4E 09-28 01:33 → EDHOLD 09-28 01:33 → 4E 09-28 01:51
PROVIDERS: Emergency Medicine; Internal Medicine; ADMIT Internal Medicine
DX: K29.90 Gastroduodenitis, unspecified, without bleeding (principal); E87.1 Hypo-osmolality and hyponatremia; I50.32 Chronic diastolic (congestive) heart failure; J44.1 Chronic obstructive pulmonary disease with (acute) exacerbation; J96.11 Chronic respiratory failure with hypoxia; S92.421A Displaced fracture of distal phalanx of right great toe, initial encounter for closed fracture; S20.219A Contusion of unspecified front wall of thorax, initial encounter; E87.6 Hypokalemia; E87.8 Other disorders of electrolyte and fluid balance, not elsewhere classified; K21.9 Gastro-esophageal reflux disease without esophagitis; I11.0 Hypertensive heart disease with heart failure; I25.10 Atherosclerotic heart disease of native coronary artery without angina pectoris; E83.39 Other disorders of phosphorus metabolism; E83.42 Hypomagnesemia; I70.8 Atherosclerosis of other arteries; N40.0 Benign prostatic hyperplasia without lower urinary tract symptoms; M81.0 Age-related osteoporosis without current pathological fracture; R79.89 Other specified abnormal findings of blood chemistry; S90.812A Abrasion, left foot, initial encounter; S90.811A Abrasion, right foot, initial encounter; Y93.89 Activity, other specified; Y99.8 Other external cause status; Y92.009 Unspecified place in unspecified non-institutional (private) residence as the place of occurrence of the external cause; Z79.82 Long term (current) use of aspirin; Z79.899 Other long term (current) drug therapy; Z98.42 Cataract extraction status, left eye; Z98.41 Cataract extraction status, right eye; Z96.1 Presence of intraocular lens; Z96.642 Presence of left artificial hip joint; Z87.891 Personal history of nicotine dependence; Z82.49 Family history of ischemic heart disease and other diseases of the circulatory system; Z86.73 Personal history of transient ischemic attack (TIA), and cerebral infarction without residual deficits

== ENCOUNTER 2019-10-05 07:40 | Inpatient (IN) | payer MEDICARE ==
[~2019-10-05] VITALS: Ht 157.4 cm; Wt 54.4 kg
[2019-10-05] VITALS (8 sets, daily range): BP systolic 141–179; BP diastolic 53–78
[~2019-10-05 07:40] MED LIST changes: +AMLODIPINE BESY10 MG PO; +CIPRO500 MG PO
--- NOTE | 2019-10-05 08:08 | NUR ---
IV ESTABLISED. FLUIDS INFUSING WIDE OPEN PER ORDER, NO ACUTE DISTRESS NOTES, N O ACTIVE VOMITING NOTED, PO ZOFRAN ADMINSTERED BY EMS EFFECTIVE. PT IS MORE INTERESTED IN THE TV THAN PT CARE AT THIS TIME. CALL LIGHT IN REACH WILL MONITOR.
[2019-10-05 08:11] LABS: BASO % 0.2 % (0.0-1.0); EOS % 0.1 % (1.0-4.0); HEMATOCRIT 37.2 % (42.0-52.0); LYMPH # 0.3 10*3/uL (1.3-4.4); LYMPH % 2.7 % (27.0-41.0); MEAN CELL VOLUME 83.6 fl (80.0-94.0); MEAN CORPUSCULAR HGB 29.9 pg (27.0-31.0); MEAN CORPUSCULAR HGB CONC 35.8 g/dl (33.0-37.0); MEAN PLATELET VOLUME 8.3 fl (9.6-12.3); PLATELET COUNT AUTOMATED 498 10*3/uL (130-400); RED BLOOD COUNT 4.45 10*6/uL (4.50-5.90); WHITE BLOOD COUNT 12.5 10*3/uL (4.8-10.8)
[2019-10-05 08:24] LABS: ACT PARTIAL THROMBO TIME 32.9 SECONDS (20.0-32.1); INTERNATIONAL NORM RATIO 1.3 (2.0-3.5)
[2019-10-05 08:27] LABS: ALBUMIN 3.6 gm/dl (3.1-4.5); CREATININE 3.11 mg/dL (0.70-1.30); POTASSIUM 4.8 mmol/L (3.5-5.1); TOTAL PROTEIN 6.8 gm/dL (6.4-8.2); TROPONIN I 0.016 ng/ml (<0.045)
--- NOTE | 2019-10-05 08:52 | NUR ---
PT REPORTS HE IS UNABLE TO VOID AT THIS TIME, IV FLUIDS INFUSING.
--- NOTE | 2019-10-05 09:45 | NUR ---
PT RESTNG QUEITLY, NO SIGNS OF DISTRESS, NO ACTIVE VOMITING NOTED, PHENERGAN EFFECTIVE. PILLOW, WARM BLANKET, AND TV WERE PROVIDED AT HIS REQUEST.
[2019-10-05 10:55] LABS: CLARITY CLEAR (CLEAR); COLOR STRAW (YELLOW)
[2019-10-05 11:00] LABS: BACTERIA 1+; BILIRUBIN NEGATIVE (NEGATIVE); BLOOD TRACE-INTACT (NEGATIVE); GLUCOSE NEGATIVE (NEGATIVE); KETONE TRACE (NEGATIVE); LEUKO ESTERASE NEGATIVE (NEGATIVE); NITRITE NEGATIVE (NEGATIVE); UROBILINOGEN 0.2 E.U./dl (0.2-1.0)
--- NOTE | 2019-10-05 11:25 | NUR ---
YURIDIA CHRISTIE [id number] Please refer to the physician's history and physical for past medical history, comorbid conditions, and allergies. Diagnosis: ARF HYPONATREMIA NAUSEA VOMITING ABDOMINA PAIN Hernan Score: , WOUND DESCRIPTIONS: Wound Number: 1 Location of the wound: base of right great toe Thickness: Partial Size: 1.4cm x 1.7cm x <0.1cm Tunneling: none Undermining: none Sinus Tract: none Presence of Exudate: none Amount: None Color: Red Odor: None Periwound Skin Appearance: Erythema, ecchymotic Wound edges: approximated Pain (associated with wound): none at time of assessment How does patient state this happened? pt stated he fell last week at home. Wound Number: 2 Location of the wound: distal aspect of right great toe Thickness: Partial Size: 0.5cm x 0.4cm x <0.1cm Tunneling: none Undermining: none Sinus Tract: none Presence of Exudate: none Amount: None Color: Red Odor: None Periwound Skin Appearance: Erythema, ecchymotic Wound edges: approximated Pain (associated with wound): none at time of assessment How does patient state this happened? pt stated he fell last week at home. Wound Number: 3 Location of the wound:right 2nd toe Thickness: Partial Size: 0.1cm x 0.1cm x <0.1cm Tunneling: none Undermining: none Sinus Tract: none Presence of Exudate: none Amount: None Color: Red Odor: None Periwound Skin Appearance: Erythema, ecchymotic Wound edges: approximated Pain (associated with wound): none at time of assessment How does patient state this happened? pt stated he fell last week at home. Wound Number: 4 Location of the wound: left great toe Thickness: Partial Size: 1.0cm x 1.3cm x <0.1cm Tunneling: none Undermining: none Sinus Tract: none Presence of Exudate: none Amount: None Color: Red Odor: None Periwound Skin Appearance: Erythema, ecchymotic Wound edges: approximated Pain (associated with wound): none at time of assessment How does patient state this happened? pt stated he fell last week at home. Wound Number: 5 Location of the wound:left 2nd toe Thickness: Partial Size: 1.1cm x 0.9cm x <0.1cm Tunneling: none Undermining: none Sinus Tract: none Presence of Exudate: none Amount: None Color: Red Odor: None Periwound Skin Appearance: Erythema, ecchymotic Wound edges: approximated Pain (associated with wound): none at time of assessment How does patient state this happened? pt stated he fell last week at home. Wound Number: 6 Location of the wound: right knee Thickness: Partial Size: 4.2cm x 5.5cm x 0.1cm Tunneling: none Undermining: none Sinus Tract: none Presence of Exudate: Serosanguineous Amount: Light Color: Red Odor: None Periwound Skin Appearance: Erythema Wound edges: approximated Pain (associated with wound): none at time of assessment How does patient state this happened? pt stated he fell last week at home. Intact scab noted to right anterior lower leg. Not open at time of assessment. erythema noted in shape of bandaid around scab. Patient states that sometimes bandaids make these zavala on his skin. No drainage noted at time of assessment. Intact scabs noted to left knee. Not open at time of assessment. No erythema or drainage noted at time of assessment. Surface the patient is resting on: Isoflex SKIN PREVENTION RECOMMENDATION: 1. Pressure redistribution support surface as appropriate 2. Elevate heels 3. Remove boots/TEDS every shift and reapply 4. Head of bed 30 degrees as tolerated 5. Assess nutrition and hydration 6. Manage moisture 7. Avoid the use of containment devices while in bed 8. Use absorptive products on surfaces limit layers of linens on bed 9. Turn and reposition every 1-2 hours in bed and every 1 hour in chair as tolerated 10. Weight shifts every 15 minutes while up in chair 11. Offloading with pillows or device to keep heels elevated off bed 12. Monitor skin at least every shift 13. Inspect under medical devices twice a day WOUND TREATMENT RECOMMENDATIONS: Consult podiatry for BLE wounds. Partial thickness guidelines to right knee: Cleanse with nss apply sureprep around the wound allow to dry apply therahoney to wound bed and cover with optifoam gentle change every 2 days and prn soiling. Cleanse base of right great toe, distal aspect of right great toe, right 2nd toe, left great toe, and left 2nd toe with nss apply sureprep around the wound allow to dry paint with betadine and cover with dry sterile dressing daily and prn soiling.
--- NOTE | 2019-10-05 11:32 | NUR ---
REPORTS CALLED TO [facility] ON 4E, PT MS AND WILL BE TRANSPORTED BY THE PA'S FROM 4E.
--- NOTE | 2019-10-05 12:19 | NUR ---
Time: 1200 A 68 year old MALE admitted to 4E under services of LAURA PAINTING DO. Pt. arrived via ambulance from ER. Chief complaint: NAUSEA/VOMITING, ABDOMINAL PAIN. KIERSTEN MERCEDES
[2019-10-05 12:41] LABS: URINE CREATININE RANDOM 14.8 mg/dL
--- NOTE | 2019-10-05 13:02 | NUR ---
DR. PRADO AND PODIATRY NOTIFIED OF CONSULT. DR. SANTOS'S OFFICE NOTIFIED OF NEW CONSULT, AWAITING A CALL BACK.
[2019-10-05 14:40] LABS: CREATININE 3.34 mg/dL (0.70-1.30); POTASSIUM 4.7 mmol/L (3.5-5.1)
--- NOTE | 2019-10-05 14:43 | NUR ---
PHYSICAL THERAPY PT order received pt just admitted today from the ER dept and having intractable N/V with consults/tests ordered. Will follow in the AM. Harriet Godoy PT
--- NOTE | 2019-10-05 16:26 | NUR ---
DR. HINDS NOTIFIED OF CONSULT
[2019-10-05 19:23] LABS: CREATININE 3.36 mg/dL (0.70-1.30); POTASSIUM 4.5 mmol/L (3.5-5.1)
--- NOTE | 2019-10-05 20:00 | NUR ---
UP TO BSC WITH ASSISTANCE USING URINAL. IV FLUIDS STARTED. PT. CONCERNED ABOUT NEEDING A BREATHING TX; PULSE OX 98% ON 3 LITERS; NO DISTRESS NOTED. ALSO WORRIED ABOUT HIS BLOOD PRESSURE; BP WNL'S; SEE FLOW SHEET. CALL LIGHT WITHIN REACH.
--- NOTE | 2019-10-05 20:18 | NUR ---
CALLED DR. SANTOS & LEFT MESSAGE FOR PHYSCIAN TO CALL ME BACK.
--- NOTE | 2019-10-05 20:20 | NUR ---
CRISTIANA CHRISTIE, PATIENT'S SON CALLED PERTAINING TO UPDATE ON PATIENT.
--- NOTE | 2019-10-05 20:30 | NUR ---
DR. SANTOS CALLED BACK; NEW ORDERS RECEIVED TO HOLD 4 A.M. DDVAP & TO MONITOR PATIENT'S OUTPUT. IF PT. VOIDS MORE THAN 800 ML'S ON MY SHIFT I AM TO NOTIFY DR. SANTOS.
--- NOTE | 2019-10-05 23:45 | NUR ---
IV started left forearm with #22 protective cath after 2 attempts. Site prepped with Chloroprep. Sterile dressing applied. Patient tolerated procedure well. IV infusing at NS 125 cc/hr. MARE MELO
[2019-10-06] VITALS: BP 154/68
--- NOTE | 2019-10-06 | NUR ---
MEDICATED WITH TYLENOL FOR C/O BACK PAIN.
--- NOTE | 2019-10-06 01:00 | NUR ---
RESTING IN BED WITH EYES CLOSED; TYLENOL APPARENTLY EFFECTIVE.
--- NOTE | 2019-10-06 05:30 | NUR ---
AWAKE & ALERT; IV FLUIDS INFUSING ORDERED. IV SITE ASYMPTOMATIC. PT. VOICES NO C/O AT THIS TIME. CALL LIGHT WITHIN REACH.
[2019-10-06 06:16] LABS: BASO # 0.1 10*3/uL (0.0-0.1); BASO % 0.5 % (0.0-1.0); EOS # 0.1 10*3/uL (0.0-0.4); LYMPH # 0.8 10*3/uL (1.3-4.4); LYMPH % 6.4 % (27.0-41.0); MEAN CELL VOLUME 84.4 fl (80.0-94.0); MEAN CORPUSCULAR HGB 29.3 pg (27.0-31.0); MEAN CORPUSCULAR HGB CONC 34.7 g/dl (33.0-37.0); MEAN PLATELET VOLUME 8.6 fl (9.6-12.3); MONO # 1.3 10*3/uL (0.1-1.0); MONO % 10.3 % (3.0-9.0); NEUT # 9.9 10*3/uL (2.3-7.9); NEUT % 81.1 % (47.0-73.0); PLATELET COUNT AUTOMATED 490 10*3/uL (130-400); RED BLOOD COUNT 4.03 10*6/uL (4.50-5.90); RED CELL DISTRI WIDTH 13.1 % (0-14.5); WHITE BLOOD COUNT 12.1 10*3/uL (4.8-10.8)
--- NOTE | 2019-10-06 06:19 | NUR ---
CALLED DR. SANTOS; LEFT MESSAGE WITH ANSWERING SERVICE.
[2019-10-06 06:45] LABS: ALBUMIN 2.9 gm/dl (3.1-4.5); CREATININE 3.4 mg/dL (0.70-1.30); POTASSIUM 4.8 mmol/L (3.5-5.1); TOTAL PROTEIN 5.8 gm/dL (6.4-8.2)
--- NOTE | 2019-10-06 06:50 | NUR ---
CALLED DR. SANTOS AGAIN.
--- NOTE | 2019-10-06 07:00 | NUR ---
DR. SANTOS CALLED BACK; INFORMED HIM OF PT'S URINE OUTPUT FOR 12 HOUR SHIFT & NA+ LEVEL. NO NEW ORDERS RECEIVED.
--- NOTE | 2019-10-06 07:48 | NUR ---
PHYSICAL THERAPY Screen and PT eval received will follow thank you. Harriet Godoy PT
[2019-10-06 08:00] VITALS: BP 148/66
--- NOTE | 2019-10-06 08:30 | NUR ---
0800 ASSESSMENT COMPLETE. PT DENIES C/O AT THIS TIME. CALL LIGHT WITHIN REACH. WILL CONTINUE TO MONITOR.
--- NOTE | 2019-10-06 09:00 | NUR ---
Control Specialist in to talk to patient. Patient states lives at home with alone. There are no steps in the home. Physician: olu thomas [facility]acy: [facility] Home health services: none Patient's level of ADLs: INDEPENDENT Patient has working utilities: all working DME: home oxygen, portable tanks, nebulzier and rollator walker Follow-up physician's appointment after d/c: will be made by hospitalist nurse director upon discharge Does patient want to access PORTAL?: no Discharge plan discussed with patient, he lives at home in an apartment alone, he states he is independent in ambulation with a walker and independent in adls, he doesn't drive but walks where ever he needs to go or his son will drive him, discussed with him being a 30 days readmission and possibly having case management set up home health for him, he declined, stated he didn't need any home services at this time, case management will follow. patient states he will have a cab take him home when he is discharged. THAIS KUMAR
--- NOTE | 2019-10-06 09:30 | NUR ---
PHYSICAL THERAPY Eval received chart reviewed attempted to see pt for PT eval however per last admission d/c'd 09/29 to have post op shoe for RLE/foot due to R great toe fx. Spoke with from podiatry as pt's shoe is at home. Per MD wants post op shoe if up OOB/amb and he will order. Spoke with nsg reg above will wait until postop shoe received and proceed with evaluation also updated pt and in agreement with eval/activity after shoe available. Harriet Godoy PT
--- NOTE | 2019-10-06 09:42 | NUR ---
Katlyn Wayne BUNDLE SORTER notified of wound care recommendations.
--- NOTE | 2019-10-06 10:30 | NUR ---
Occupational therapy orders received and chart reviewed. Patient was supine in bed with nursing upon arrival. Per nursing, they had just returned from the bathroom. Patient's RLE post-op shoe in room at this time. Patient would like OTR to return at a later time, would like to rest at this time. Will check back at a later time. Thank you. Kay Castillo, OTR/L
[2019-10-06 12:00] VITALS: BP 124/64
[2019-10-06 12:53] LABS: CREATININE 3.41 mg/dL (0.70-1.30); POTASSIUM 4.4 mmol/L (3.5-5.1); TOTAL PROTEIN 6.1 gm/dL (6.4-8.2)
--- NOTE | 2019-10-06 13:30 | NUR ---
Occupational Therapy evaluation completed on four with full evaluation to follow. Recommend occupational therapy per plan of care and home with HH SN, OT, and PT upon discharge. Thank you for this referral. Kay Castillo OTR/L
--- NOTE | 2019-10-06 14:24 | NUR ---
Physical Therapy evaluation completed on fourth floor with full evaluation to follow. Recommend physical therapy per plan of care and home with HH upon discharge. Thank you for this referral. Harriet Godoy PT
[2019-10-06 16:00] VITALS: BP 138/71
[2019-10-06 17:44] LABS: CREATININE 3.38 mg/dL (0.70-1.30); POTASSIUM 4.5 mmol/L (3.5-5.1)
--- NOTE | 2019-10-06 17:48 | NUR ---
PT RESTING IN BED. NO ACUTE DISTRESS NOTED. CALL LIGHT WITHIN REACH. WILL CONTINUE TO MONITOR.
[2019-10-06 20:00] VITALS: BP 154/78
--- NOTE | 2019-10-06 20:30 | NUR ---
PATIENT RESTING IN BED. ALERT AND ORIENTED PLEASANT AND COOPERATIVE. 3L NC WHICH PATIENT STATES HE IS DEPENDENT ON. PATIENT EATING A YOGURT. DENIES ANY NAUSEA/VOMITING OR ABDOMINAL PAIN. SPOKE WITH HIM ABOUT HIS FLUID RESTRICTION AND HE IS IN UNDERSTANDING. CHATO IGOR PROVIDED TO PATIENT. PATIENT ALSO STATED THAT HE HAS NOT HAD A BOWEL MOVEMEMNT SINCE FRIDAY, BUT THAT IS OK, HE DENIES NEED FOR ANYTHING TO MAKE HIM GO TO THE BATHROOM. NORMOACTIVE BOWELS. PATIENT DENIES ANY OTHER NEEDS. CALL LIGHT WITHIN REACH, BED ALARM INTACT, WILL MONITOR
[2019-10-07] VITALS: BP 139/81
--- NOTE | 2019-10-07 00:50 | NUR ---
PATIENT STATES HIS HEELS ARE HURTING HIM. NO OPEN AREAS NOTED. NOTIFIED DR. HUSSEIN PATIENT WAS REQUESTING HEEL PROTECTORS. ORDER RECIEVED
--- NOTE | 2019-10-07 00:58 | NUR ---
DRESSINGS CHANGED TO BILATERAL TOES AND TO RIGHT KNEE
--- NOTE | 2019-10-07 01:02 | NUR ---
24 HR chart check completed.
--- NOTE | 2019-10-07 02:34 | NUR ---
PATIENT SLEEPING, NO DISTRESS NOTED. CALL LIGHT WITHIN REACH
--- NOTE | 2019-10-07 03:58 | NUR ---
Follow up with Boris TITUS in wound care clinic on 10/11/19 @ 2:00pm, call [phone] with any concerns
--- NOTE | 2019-10-07 04:00 | NUR ---
PATIENT CONTINUES TO SLEEP, NO DISTRESS NOTED.
[2019-10-07 06:47] LABS: POTASSIUM 4.3 mmol/L (3.5-5.1)
[2019-10-07 06:53] LABS: CREATININE 3.29 mg/dL (0.70-1.30); TOTAL PROTEIN 5.9 gm/dL (6.4-8.2)
--- NOTE | 2019-10-07 07:47 | NUR ---
24 HR chart check completed.
[2019-10-07 08:00] VITALS: BP 134/67
--- NOTE | 2019-10-07 08:50 | NUR ---
ENTERED PT'S ROOM TO ADMINISTER HIS MORNING MEDICATIONS. PT STATED THAT HE WAS SITTING IN A "WET" DIAPER AND IT NEEDED CHANGED. CLEANED PT UP AND PLACED A NEW DEPENDS ON HIM. PT HAD NO OTHER COMPLAINTS AT THIS TIME. PT ALSO BEGAN STATING THAT HE WAS NOT GOING TO LIVE FROM THE HOSPITAL TO GO TO [place], BUT THAT HE WOULD RATHER BE DISCHARGED FROM THE HOSPITAL AND HE WOULD PAY HIS SON TO DRIVE HIM TO [place] FOR HIS POSSIBLE PROCEDURE WITH DR. HINDS.
--- NOTE | 2019-10-07 09:00 | NUR ---
case management visits with patient, he states he will return home when medically stable. discussed with him [facility] and educated him on the services they provide. he stated he was aware of home health and didn't want any at this time, also discussed with him having a portable oxygen tank to return home on. he stated he left his portable oxygen tanks at home, also asked how he would be going home. he stated he wasn't sure how he would get home, he could use a cab if needed. educated him to attempt to contact his son or friend to knot picker cloth his oxygen tank and also see if someone would be available to transport him home when he is medically stable, patient stated he would try and contact someone, case management will follow
--- NOTE | 2019-10-07 09:40 | NUR ---
PHYSICAL THERAPY Patient seen this am 1;1 for therapy visit and was resting supine in bed following breakfast. Patient identified by name / and presented with continuos O2-2L via NC. Patient reports no new c/o's at this time and transfers supine to sit EOB with SBA x 1. Patient completed sit to stand transfer, SBA and ambulated with use of wh walker, SBA, 75'x 2, demonstrating slow, steady kaity and no LOB. Patient was cautious however during 180 turn around, recording SpO2 93%, HR 95 bpm during gait ex. Patient returned to bedside chair and remained with call light, tray table, cell phone and body alarm for safety. Will continue per POC as tolerated, total treatment time 18 minutes. Mario Rios, TRAVEL INFORMATION CENTER SUPERVISOR
--- NOTE | 2019-10-07 10:00 | NUR ---
OT NOTE Pt was seen this A.M. 1:1 for 25 minute OT session. Upon arrival pt was supine in bed. Pt identified by name and and had complaints of "2-3/10 chronic low back pain." Pt presented to therapy with continuous 2L-O2 via NC which he remained on throughout the entire session. Pt transferred supine to sit EOB with SBA and use of bed rail for UE support. While sitting EOB pt donned R surgical shoe and L slipper with SBA. Sit to stand completed from bed level with CGA and use of w/w for UE support. Challenged pt's static standing tolerance needed for increased I in self care tasks and functional transfers, pt was able to tolerate aprox 7 minutes at a time before sitting due to fatigue. Functional mobility was then completed to the bathroom with CGA and use of w/w. There he transferred on/off standard commode with SBA and use of grab bar for UE support. Pt then stood sink side while washing his hands, while standing without UE support pt had retrograde LOB that required Avila to correct. Pt then returned to the recliner for a seated rest. Challenged pt's dynamic standing balance while weight shifting, crossing midline, and reaching over all planes. Pt was able to maintain F-/F standing balance throughout. Pt was left sitting upright in the recliner with call light in hand, tray table in place, and body alarm activated for safety. Continue with rec D/C plan to SNF. GABRIELLE Carty/Colin
--- NOTE | 2019-10-07 11:25 | NUR ---
SPOKE WITH PT, PT STATED THAT HE USUALLY HAS A BM EVERY 3-4 DAYS AND THAT IS NORMAL FOR HIM. PT STATES HE HAD A BM BEFORE HE CAME TO THE HOSPITAL. WILL CONTINUE TO TRY AND OBTAIN SAMPLE TO SEND TO LAB. PT IS AWARE WE NEED A SAMPLE TO SEND. PT IS ALSO REFUSING TO TAKE ANY MEDICATION TO HELP. HE STATES THAT THIS IS NORMAL AND HE DID NOT WANT TO TAKE ANYTHING.
[2019-10-07 12:00] VITALS: BP 118/58
[2019-10-07 16:00] VITALS: BP 120/58
--- NOTE | 2019-10-07 19:55 | NUR ---
PRN TYLENOL GIVEN FOR PT COMPLAINTS OF RIGHT SIDED RIB PAIN RATING IT 8/10. CALL LIGHT WITHIN REACH, WILL MONITOR
[2019-10-07 20:00] VITALS: BP 145/63
--- NOTE | 2019-10-07 20:55 | NUR ---
PRN TYLENOL APPEARS EFFECTIVE, PT SLEEPING
--- NOTE | 2019-10-07 22:33 | NUR ---
24 HR chart check completed.
--- NOTE | 2019-10-07 23:30 | NUR ---
PATIENT'S IV INFILTRATED. NEW IV STARTED IN LEFT HAND BY NURSE ELIDA WHILE I WAS GETTING REPORT ON PATIENT. 24 GUAGE. HEP LOCKED.
[2019-10-08] VITALS: BP 110/56
[2019-10-08 05:57] LABS: BASO # 0.1 10*3/uL (0.0-0.1); BASO % 0.9 % (0.0-1.0); EOS # 0.2 10*3/uL (0.0-0.4); EOS % 1.7 % (1.0-4.0); HEMATOCRIT 29.1 % (42.0-52.0); LYMPH % 11.2 % (27.0-41.0); MEAN CELL VOLUME 84.3 fl (80.0-94.0); MEAN CORPUSCULAR HGB 29.9 pg (27.0-31.0); MEAN CORPUSCULAR HGB CONC 35.4 g/dl (33.0-37.0); MEAN PLATELET VOLUME 8.8 fl (9.6-12.3); MONO % 10.7 % (3.0-9.0); NEUT # 6.7 10*3/uL (2.3-7.9); NEUT % 74.6 % (47.0-73.0); PLATELET COUNT AUTOMATED 454 10*3/uL (130-400); RED BLOOD COUNT 3.45 10*6/uL (4.50-5.90); RED CELL DISTRI WIDTH 13.5 % (0-14.5); WHITE BLOOD COUNT 8.9 10*3/uL (4.8-10.8)
[2019-10-08 06:04] LABS: CREATININE 2.77 mg/dL (0.70-1.30); POTASSIUM 3.4 mmol/L (3.5-5.1)
--- NOTE | 2019-10-08 06:19 | NUR ---
TYLENOL GIVEN PER PATIENT REQUEST FOR COMPLAINTS OF RIGHT SIDED BACK AND RIB PAIN RATED 7/10. WILL ASSESS EFFECTIVENESS.
--- NOTE | 2019-10-08 07:25 | NUR ---
Patient may be converted to PO Flagyl if clinically feasible -- all criteria have been met. Thanks, Wade Arce, PharmD, [facility]
--- NOTE | 2019-10-08 09:00 | NUR ---
case management visits with patient, patient was ambulating in [place] with physical therapy and walker, gait steady, patient tolerated well. patient states he will return home when medically stable possibly today, patient denies any home needs
--- NOTE | 2019-10-08 09:30 | NUR ---
PHYSICAL THERAPY Patient seen this am 1:1 for therapy visit and was resting supine in bed upon therapist arrival. Patient identified by name / and presents with continuous O2-2L via NC. Patient reports no c/o's pain and was joined by OT home care assistant for observation only this session. Patient transfers supine to sit EOB SBA x1, then sit to stand SBA, ambulating with use of wh walker, > 150'x 1 demonstrating slow kaity / decreased stride. Patients SpO2, HR remained WFL's throughout entire treatment as patient returned to EOB sit with mild fatigue. Patient remained EOB sit with call light, tray table and telephone. Will continue per POC as tolerated, total treatment time 14 minutes. Mario Rios, INSERT MOLDING OPERATOR
--- NOTE | 2019-10-08 09:45 | NUR ---
OT NOTE Pt was seen this A.M. 1:1 for 25 minute OT session. Upon arrival pt was supine in bed. Pt identified by name and and had no complaints at this time. Pt presented to therapy with continuous 2L-O2 via NC which he remained on throughout the entire session. Pt transferred supine to sit EOB with SBA. While sitting EOB pt donned R surgical shoe with supervision and L slipper with supervision. Sit to stand completed from bed level with SBA and use of w/w for UE support. Functional mobility was then completed around the room and to the bathroom with SBA and use of w/w. There he transferred on/off standard commode with SBA. Challenged pt's static standing tolerance needed for increased I in self care tasks and functional transfers, pt was able to tolerate aprox 8 minutes before sitting due to fatigue. Then challenged pt's dynamic standing balance while weight shifting, crossing midline, and reaching over all planes. Pt was able to maintain G-/F+ standing balance throughout. Pt was left supine in bed with call light in hand, tray table in place, and phone in reach. Continue with rec D/C plan to SNF. GABRIELLE Carty/Colin
--- NOTE | 2019-10-08 12:54 | NUR ---
PT REFUSED DISCHARGE WOUND PHOTOS ; ANXIOUS TO LEAVE.
--- NOTE | 2019-10-08 13:08 | NUR ---
DISCHARGE INSTRUCTIONS REVIEWED. KAYLAN HUFFMAN'Fabby, PT BEING TRANSPORTED DOWN TO ER VIA WHEELCHAIR TO BE PICKED UP BY HIS SON.
--- NOTE | 2019-10-08 14:58 | NUR ---
OCCUPATIONAL THERAPY CO-SIGN I approve of the Occupational Therapy notes written above. MING JESUS, OTR/L
--- NOTE | 2019-10-08 15:20 | NUR ---
PHYSICAL THERAPY CO-SIGN I approve of the Physical Therapy notes written above. Harriet Godoy PT
== END 2019-10-08 13:08 | disposition home or self-care (01) | DRG 391 ==
LOC: ED 07:40 → 4E 09:39 → EDHOLD 09:39 → 4E 10:04
PROVIDERS: Emergency Medicine; Family Medicine; Internal Medicine Nephrology; Registered Nurse; ADMIT Internal Medicine
DX: K52.9 Noninfective gastroenteritis and colitis, unspecified (principal); N17.0 Acute kidney failure with tubular necrosis; N39.0 Urinary tract infection, site not specified; E87.1 Hypo-osmolality and hyponatremia; J96.11 Chronic respiratory failure with hypoxia; I50.32 Chronic diastolic (congestive) heart failure; S92.421A Displaced fracture of distal phalanx of right great toe, initial encounter for closed fracture; E86.0 Dehydration; K21.9 Gastro-esophageal reflux disease without esophagitis; I11.0 Hypertensive heart disease with heart failure; I25.10 Atherosclerotic heart disease of native coronary artery without angina pectoris; F10.20 Alcohol dependence, uncomplicated; K40.90 Unilateral inguinal hernia, without obstruction or gangrene, not specified as recurrent; N40.0 Benign prostatic hyperplasia without lower urinary tract symptoms; K44.9 Diaphragmatic hernia without obstruction or gangrene; J44.9 Chronic obstructive pulmonary disease, unspecified; I73.9 Peripheral vascular disease, unspecified; S90.811A Abrasion, right foot, initial encounter; X58.XXXA Exposure to other specified factors, initial encounter; S90.812A Abrasion, left foot, initial encounter; Y93.89 Activity, other specified; Y92.89 Other specified places as the place of occurrence of the external cause; Y99.8 Other external cause status; Z68.24 Body mass index [BMI] 24.0-24.9, adult; Z99.81 Dependence on supplemental oxygen; Z86.73 Personal history of transient ischemic attack (TIA), and cerebral infarction without residual deficits; Z79.899 Other long term (current) drug therapy; Z79.82 Long term (current) use of aspirin; Z98.42 Cataract extraction status, left eye; Z98.41 Cataract extraction status, right eye; Z96.1 Presence of intraocular lens; Z96.642 Presence of left artificial hip joint; Z87.891 Personal history of nicotine dependence; Z82.49 Family history of ischemic heart disease and other diseases of the circulatory system

== ENCOUNTER 2019-10-20 10:52 | Observation (INO) | payer MEDICARE ==
[2019-10-20] VITALS (7 sets, daily range): BP systolic 124–178; BP diastolic 55–77
[~2019-10-20] VITALS: Ht 157.4 cm; Wt 51.0 kg
[2019-10-20 11:35] LABS: BASO # 0.1 10*3/uL (0.0-0.1); BASO % 1.9 % (0.0-1.0); EOS # 0.1 10*3/uL (0.0-0.4); HEMATOCRIT 29.3 % (42.0-52.0); LYMPH # 1.1 10*3/uL (1.3-4.4); LYMPH % 19.9 % (27.0-41.0); MEAN CELL VOLUME 85.4 fl (80.0-94.0); MEAN CORPUSCULAR HGB 29.2 pg (27.0-31.0); MEAN CORPUSCULAR HGB CONC 34.1 g/dl (33.0-37.0); MEAN PLATELET VOLUME 8.4 fl (9.6-12.3); MONO # 0.8 10*3/uL (0.1-1.0); MONO % 14.9 % (3.0-9.0); NEUT # 3.3 10*3/uL (2.3-7.9); NEUT % 60.7 % (47.0-73.0); PLATELET COUNT AUTOMATED 597 10*3/uL (130-400); RED BLOOD COUNT 3.43 10*6/uL (4.50-5.90); RED CELL DISTRI WIDTH 13.1 % (0-14.5); WHITE BLOOD COUNT 5.4 10*3/uL (4.8-10.8)
[2019-10-20 11:45] LABS: ACT PARTIAL THROMBO TIME 26.7 SECONDS (20.0-32.1); INTERNATIONAL NORM RATIO 1.1 (2.0-3.5)
--- NOTE | 2019-10-20 11:48 | NUR ---
PT RESTING QUEITLY, VOICES NO COMPLAINTS. NO ACTIVE STOOLS OR BLEEDING WHILE IN ER. VS STABLE CALL LIGHT IN REACH WILL MONITOR.
[2019-10-20 11:54] LABS: ALBUMIN 3.4 gm/dl (3.1-4.5); ALKALINE PHOSPHATASE 73 U/L (45-117); BUN 11 mg/dl (7-24); CHLORIDE 94 mmol/L (98-107); LIPASE 116 U/L (73-393); POTASSIUM 3.5 mmol/L (3.5-5.1); SGOT/AST 16 IU/L (3-35); SGPT/ALT 22 U/L (12-78); SODIUM 127 mmol/L (136-145); TOTAL PROTEIN 6.5 gm/dL (6.4-8.2); TROPONIN I 0.017 ng/ml (<0.045)
--- NOTE | 2019-10-20 13:54 | NUR ---
PT TRANSPORTED TO 522 BY CHARLES MOSQUEDA , REPORTS GEIVEN TO DANII MOSQUEDA.
--- NOTE | 2019-10-20 13:58 | NUR ---
A 68, admitted to , under the services of ALEKSANDR Tabares DO with a diagnosis of GI BLEED. Chief complaint is BLACK BOWEL MOVEMENTS. Patient arrived via bed from ER. Monitor applied. Initial assessment completed. Vital signs taken and recorded. ALEKSANDR TABARES DO notified of admission to the unit. Orders received. See assessment for past medical history, medications and allergies. Patient and/or family oriented to unit. [facility] visitation policy reviewed. Clothing/patient valuable form completed. MONICA TRIPLETT
[2019-10-20] MEDS ORDERED: MUCINEX1200 M1 PO (14:04)
--- NOTE | 2019-10-20 14:14 | NUR ---
CALLED DR LIU TO INFROM HER OR UPDATED MED LIST. SHE STATES HE WILL REMAIN NPO UNTIL DR PRADO SEE'S THE PATIENT
--- NOTE | 2019-10-20 14:57 | NUR ---
DR. PRADO NOTIFIED OF CONSULT, OBTAINED ORDERS FOR REGULAR DIET, THEN NPO MIDNIGHT FOR EGD TOMORROW.
--- NOTE | 2019-10-20 16:54 | NUR ---
Patient resting. Responding to scheduled and prn medications with fewer complaints of pain and anxiety.
--- NOTE | 2019-10-20 19:35 | NUR ---
SPOKE WITH DR. HUSSEIN AT THIS TIME. PATIENT VERY UPSET AND STATES THAT HE HAS BEEN ASKING FOR A BREATHING TREATMENT FOR OVER AN HOUR. HE STATES HE TAKES THEM Q4H AT HOME. EXPLAINED TO THE PATIENT THAT IT WAS NOT ON HIS MEDICATION LIST FROM HOME. NOTIFIED DR. HUSSEIN THAT PATIENT GOT DUONEBS Q4H WHEN HE WAS HERE LAST WEEK. DR. HUSSEIN STATED IT'S OK TO PUT THAT IN PRN.
--- NOTE | 2019-10-20 20:00 | NUR ---
PATIENT STATES HE FEELS MUCH BETTER AFTER HIS BREATHNG TREATMENT. SPOKE WITH PATIENT ABOUT BEING NPO AFTER MIDNIGHT FOR EGD IN THE AM. PATIENT VERBALIZED UNDERSTANDING. CALL LIGHT WITHIN REACH, WILL MONITOR
[2019-10-20] MEDS ORDERED: Ipratropium Brom3 ML INH (23:00)
[2019-10-21] VITALS: BP 155/63
--- NOTE | 2019-10-21 01:01 | NUR ---
24 HR chart check completed.
--- NOTE | 2019-10-21 03:58 | NUR ---
YURIDIA CHRISTIE [id number] Please refer to the physician's history and physical for past medical history, comorbid conditions, and allergies. Diagnosis: DIARRHEA MELENA Hernan Score: 19,LOW OR NO RISK WOUND DESCRIPTIONS: Wound Number: 1 Location of the wound: right knee Type of wound: scab Thickness: Partial Size: 0.4cm x 0.4cm x <0.1cm Tunneling: none Undermining: none Sinus Tract: none Presence of Exudate: none Amount: None Color: [place], red, yellow Odor: None Periwound Skin Appearance: Normal Wound edges: approximated Pain (associated with wound): none at time of assessment How does patient state this happened? pt stated he had this from previous fall Wound Number: 2 Location of the wound: right knee medial Type of wound: scab Thickness: Partial Size: 0.3cm x 0.3cm x <0.1cm Tunneling: none Undermining: none Sinus Tract: none Presence of Exudate: none Amount: None Color: [place], red, yellow Odor: None Periwound Skin Appearance: Normal Wound edges: approximated Pain (associated with wound): none at time of assessment How does patient state this happened? pt stated he had this from previous fall Wound Number: 3 Location of the wound: right great toe dorsal aspect Thickness: Full Size: 1.1cm x 0.9cm x <0.1cm Tunneling: none Undermining: none Sinus Tract: none Presence of Exudate: Serous Amount: Light Color: [place], red, yellow Odor: None Periwound Skin Appearance: Normal Wound edges: approximated Pain (associated with wound): none at time of assessment How does patient state this happened? pt stated he had this from previous fall Wound Number: 4 Location of the wound: left great toe Thickness: Partial Size: 0.6cm x 0.5cm x <0.1cm Tunneling: none Undermining: none Sinus Tract: none Presence of Exudate: none Amount: None Color: red, yellow Odor: None Periwound Skin Appearance: Normal Wound edges: approximated Pain (associated with wound): none at time of assessment How does patient state this happened? pt stated he had this from previous fall Wound Number: 5 Location of the wound: left 2nd toe no open areas noted at time of assessment. No drainage noted at time of assessment. Area is pink and blanchable at time of assessment. Wound Number: 6 Location of the wound: right great toe tip Type of wound: DTI Size: 3.5cm x 3.0cm x <0.1cm Tunneling: none Undermining: none Sinus Tract: none Presence of Exudate: none Amount: None Color: Purple, Red Odor: None Periwound Skin Appearance: Normal Wound edges: approximated Pain (associated with wound): none at time of assessment How does patient state this happened? pt stated he had this from previous fall Wound Number: 7 Location of the wound: left great toe tip Type of wound: DTI Size: 1.3cm x 1.1cm x <0.1cm Tunneling: none Undermining: none Sinus Tract: none Presence of Exudate: none Amount: None Color: Purple, red Odor: None Periwound Skin Appearance: Normal Wound edges: approximated Pain (associated with wound): none at time of assessment How does patient state this happened? pt stated he had this from previous fall Wound Number: 8 Location of the wound: right buttock Type of wound: stage 2 Thickness: Partial Size: 0.5cm x 0.3cm x 0.1cm Tunneling: none Undermining: none Sinus Tract: none Presence of Exudate: none Amount: None Color: Red Odor: None Periwound Skin Appearance: Normal Wound edges: approximated Pain (associated with wound): none at time of assessment How does patient state this happened? pt stated he had this from previous fall Surface the patient is resting on: Isoflex SKIN PREVENTION RECOMMENDATION: 1. Pressure redistribution support surface as appropriate 2. Elevate heels 3. Remove boots/TEDS every shift and reapply 4. Head of bed 30 degrees as tolerated 5. Assess nutrition and hydration 6. Manage moisture 7. Avoid the use of containment devices while in bed 8. Use absorptive products on surfaces limit layers of linens on bed 9. Turn and reposition every 1-2 hours in bed and every 1 hour in chair as tolerated 10. Weight shifts every 15 minutes while up in chair 11. Offloading with pillows or device to keep heels elevated off bed 12. Monitor skin at least every shift 13. Inspect under medical devices twice a day WOUND TREATMENT RECOMMENDATIONS: Patient has wound care center appointment tomorrow on 10/22/19 pt states he needs to follow up with Dr. Telles for flow problems in his legs Wheelchair cushion when oob Heel raiser pro boots to bilateral feet while in bed Partial thickness guidelines: Cleanse right knee, right knee medial with nss apply sureprep around the wound allow to dry apply therahoney to wound bed and cover with optifoam gentle change every 2 days and prn soiling. Cleanse base of right great toe, tip of right great toe, tip of left great toe, left great toe, with nss apply sureprep around the wound allow to dry paint with betadine and cover with dry sterile dressing daily and prn soiling. Stage 2 guidelines: Cleanse right buttocks with nss and apply sureprep around the wound therahoney to wound bed and cover with optifoam gentle every 2 days and prn for soiling
--- NOTE | 2019-10-21 05:39 | NUR ---
PATIENT PROVIDED MOUTH WASH FOR TOOTHETTES TO WET MOUTH HE STATES HE'S DRY AND THE MOUTH WASH FEELS BETTER THAN THE WATER.
[2019-10-21 07:21] LABS: BUN 10 mg/dl (7-24); CHLORIDE 100 mmol/L (98-107); POTASSIUM 3.3 mmol/L (3.5-5.1); SODIUM 134 mmol/L (136-145)
[2019-10-21 07:33] LABS: BASO # 0.1 10*3/uL (0.0-0.1); BASO % 2.1 % (0.0-1.0); EOS # 0.2 10*3/uL (0.0-0.4); EOS % 3.7 % (1.0-4.0); HEMATOCRIT 31.6 % (42.0-52.0); LYMPH # 1.4 10*3/uL (1.3-4.4); LYMPH % 25.2 % (27.0-41.0); MEAN CELL VOLUME 87.1 fl (80.0-94.0); MEAN CORPUSCULAR HGB 28.9 pg (27.0-31.0); MEAN CORPUSCULAR HGB CONC 33.2 g/dl (33.0-37.0); MEAN PLATELET VOLUME 8.7 fl (9.6-12.3); MONO # 0.9 10*3/uL (0.1-1.0); MONO % 15.1 % (3.0-9.0); NEUT % 53.4 % (47.0-73.0); PLATELET COUNT AUTOMATED 634 10*3/uL (130-400); RED BLOOD COUNT 3.63 10*6/uL (4.50-5.90); RED CELL DISTRI WIDTH 13.1 % (0-14.5); WHITE BLOOD COUNT 5.6 10*3/uL (4.8-10.8)
[2019-10-21 08:00] VITALS: BP 147/64
--- NOTE | 2019-10-21 08:30 | NUR ---
Dr. Ortega notified of wound care recommendations
--- NOTE | 2019-10-21 09:00 | NUR ---
Church Business Administrator in to talk to patient. Patient states lives at home with alone. There are no steps in the home. Physician: olu thomas Pharmacy: [facility] health services: none Patient's level of ADLs: INDEPENDENT Patient has working utilities: all working DME: home oxygen, portable tanks, nebulizer, rollator walker from [facility] Follow-up physician's appointment after d/c: will be made by hospitalist nurse director upon discharge Does patient want to access PORTAL?: no Discharge plan discussed with patient he lives in an apartment alone, he is independent in adls and ambulation with rollator walker, he has home oxygen, portable tanks and a nebulizer from [facility]. discussed with patient being a 30 day readmission possibly going to a short term retirement for 24 hour care and 5 days of therapy. patient declined, stated he wasn't going anywhere but home when discharged. also discussed with him [facility] and educated him on their services. he also declined this, patient will return home when discharged, no home needs at this time. THAIS KUMAR
--- NOTE | 2019-10-21 09:28 | NUR ---
PATIENT TAKEN OFF FLOOR TO SURGERY AT THIS TIME.
[2019-10-21 09:41] VITALS: BP 147/71
--- NOTE | 2019-10-21 10:54 | NUR ---
PT. UNAVAILABLE CURRENTLY OFF FLOOR FOR PROCEDURE.
[2019-10-21 11:02] VITALS: BP 122/65
[2019-10-21 11:15] VITALS: BP 129/65
[2019-10-21 12:00] VITALS: BP 162/67
[2019-10-21] MEDS ORDERED: PROTONIX40 MG PO (13:29)
[2019-10-21] MEDS ORDERED: ASPIRIN ADULT L81 M2 PO (13:29)
--- NOTE | 2019-10-21 13:33 | NUR ---
case management received a message that patient would be discharged to home today. contacted patient's son Hunter, asked if he was able to come and pick patient up and stop at patient's apartment and get a portable oxygen tank for patient. he stated he was getting ready for work but would have his fiance come get patient's keys to the apartment and get the portable tank from the apartment and bring it to the hospital and transport patient home, case mangaement will follow, will inform patient and nursing staff
--- NOTE | 2019-10-21 15:37 | NUR ---
Discharge instructions reviewed with patient/family. Patient receptive and verbalizes understanding. Follow-up care arranged. Written instructions given to patient/family. WOUND PHOTOS TAKEN. HEPLOCK DISCONTINUED. IMPLEMENT MECHANIC REMOVED. PATIENT TAKEN OFF FLOOR VIA WHEELCHAIR. JOSE WILLIAM
== END 2019-10-21 15:37 | disposition home or self-care (01) ==
LOC: ED 10:52 → EDHOLD 13:03 → 5E 13:03
PROVIDERS: Emergency Medicine; Student in an Organized Health Care Education/Training Program; ADMIT Family Medicine
DX: K44.9 Diaphragmatic hernia without obstruction or gangrene (principal); K29.81 Duodenitis with bleeding; K21.0 Gastro-esophageal reflux disease with esophagitis; J96.11 Chronic respiratory failure with hypoxia; R19.7 Diarrhea, unspecified; K92.1 Melena; D64.9 Anemia, unspecified; D72.810 Lymphocytopenia; E87.8 Other disorders of electrolyte and fluid balance, not elsewhere classified; F10.10 Alcohol abuse, uncomplicated; B19.20 Unspecified viral hepatitis C without hepatic coma; I25.10 Atherosclerotic heart disease of native coronary artery without angina pectoris; N40.0 Benign prostatic hyperplasia without lower urinary tract symptoms; M81.0 Age-related osteoporosis without current pathological fracture; J44.9 Chronic obstructive pulmonary disease, unspecified; I50.32 Chronic diastolic (congestive) heart failure; I11.0 Hypertensive heart disease with heart failure

== ENCOUNTER 2019-11-05 15:04 | Emergency (ER) | payer MEDICARE ==
[~2019-11-05] VITALS: Ht 157.4 cm; Wt 54.4 kg
[~2019-11-05 15:04] MED LIST changes: +Ipratropium Brom3 ML INH
[2019-11-05] MEDS ORDERED: MIRALAX119 GM PO (17:46)
[2019-11-05] MEDS ORDERED: COLACE100 MG PO (17:46)
== END 2019-11-05 20:43 | disposition home or self-care (01) ==
LOC: ED 15:04
DX: K59.00 Constipation, unspecified (principal); J44.9 Chronic obstructive pulmonary disease, unspecified; K21.9 Gastro-esophageal reflux disease without esophagitis; I25.10 Atherosclerotic heart disease of native coronary artery without angina pectoris; I50.9 Heart failure, unspecified; I11.0 Hypertensive heart disease with heart failure; Z79.899 Other long term (current) drug therapy; Z87.891 Personal history of nicotine dependence

== ENCOUNTER → 2019-11-30 | Outpatient (CLI) | payer MEDICARE ==
[~2019-11-30] MED LIST changes: +MIRALAX119 GM PO
== END | disposition home or self-care (01) ==
LOC: US 14:56
DX: R19.09 Other intra-abdominal and pelvic swelling, mass and lump (principal); R60.0 Localized edema; M79.605 Pain in left leg

== ENCOUNTER → 2020-03-22 | Outpatient (CLI) | payer MEDICARE | END | disposition home or self-care (01) | LOC: ORTHO 02:13 | PROVIDERS: ATTEND Orthopaedic Surgery | DX: M19.011 Primary osteoarthritis, right shoulder (principal) ==

== ENCOUNTER → 2020-03-28 | Outpatient (CLI) | payer MEDICARE | END | disposition home or self-care (01) | LOC: CT 13:30 | PROVIDERS: ATTEND Orthopaedic Surgery | DX: S43.021A Posterior subluxation of right humerus, initial encounter (principal); M19.011 Primary osteoarthritis, right shoulder; M85.611 Other cyst of bone, right shoulder; M85.811 Other specified disorders of bone density and structure, right shoulder; M25.411 Effusion, right shoulder; I70.90 Unspecified atherosclerosis; J43.9 Emphysema, unspecified; M47.812 Spondylosis without myelopathy or radiculopathy, cervical region; M62.521 Muscle wasting and atrophy, not elsewhere classified, right upper arm; X58.XXXA Exposure to other specified factors, initial encounter; Y93.89 Activity, other specified; Y92.89 Other specified places as the place of occurrence of the external cause; Y99.8 Other external cause status ==

== ENCOUNTER 2020-08-22 18:05 | Emergency (ER) | payer MEDICARE ==
[~2020-08-22] VITALS: Ht 165.1 cm; Wt 63.5 kg
== END 2020-08-22 21:18 | disposition home or self-care (01) ==
LOC: ED 18:05
DX: S01.81XA Laceration without foreign body of other part of head, initial encounter (principal); S80.01XA Contusion of right knee, initial encounter; S09.90XA Unspecified injury of head, initial encounter; J44.9 Chronic obstructive pulmonary disease, unspecified; I10 Essential (primary) hypertension; K21.9 Gastro-esophageal reflux disease without esophagitis; I25.10 Atherosclerotic heart disease of native coronary artery without angina pectoris; Z79.899 Other long term (current) drug therapy; Z98.890 Other specified postprocedural states; Z95.818 Presence of other cardiac implants and grafts; W19.XXXA Unspecified fall, initial encounter; Y93.89 Activity, other specified; Y92.098 Other place in other non-institutional residence as the place of occurrence of the external cause; Y99.8 Other external cause status

== ENCOUNTER 2020-12-24 13:39 | Inpatient (IN) | payer MEDICARE ==
[~2020-12-24] VITALS: Ht 157.4 cm; Wt 52.6 kg
[2020-12-24 13:46] VITALS: BP 1358/79
[2020-12-24 14:21] LABS: BASO # 0.1 10*3/uL (0.0-0.1); BASO % 0.9 % (0.0-1.0); EOS % 0.5 % (1.0-4.0); HEMATOCRIT 41.5 % (42.0-52.0); LYMPH # 0.7 10*3/uL (1.3-4.4); LYMPH % 8.9 % (27.0-41.0); MEAN CELL VOLUME 91.6 fl (80.0-94.0); MEAN CORPUSCULAR HGB 31.3 pg (27.0-31.0); MEAN CORPUSCULAR HGB CONC 34.2 g/dl (33.0-37.0); MEAN PLATELET VOLUME 8.8 fl (9.6-12.3); MONO # 0.9 10*3/uL (0.1-1.0); MONO % 11.7 % (3.0-9.0); NEUT # 5.7 10*3/uL (2.3-7.9); NEUT % 77.6 % (47.0-73.0); PLATELET COUNT AUTOMATED 452 10*3/uL (130-400); RED BLOOD COUNT 4.53 10*6/uL (4.50-5.90); RED CELL DISTRI WIDTH 12.2 % (0-14.5); WHITE BLOOD COUNT 7.4 10*3/uL (4.8-10.8)
[2020-12-24 14:29] LABS: ALKALINE PHOSPHATASE 83 U/L (45-117); BUN 13 mg/dl (7-24); CHLORIDE 98 mmol/L (98-107); CREATININE 0.39 mg/dL (0.70-1.30); POTASSIUM 3.6 mmol/L (3.5-5.1); SGOT/AST 51 IU/L (3-35); SGPT/ALT 43 U/L (12-78); SODIUM 127 mmol/L (136-145); TOTAL PROTEIN 7.5 gm/dL (6.4-8.2)
[2020-12-24 16:30] VITALS: BP 147/89
[2020-12-24 18:08] VITALS: BP 166/85
[2020-12-24 20:00] VITALS: BP 159/90
[2020-12-25] VITALS: BP 168/100
[2020-12-25 00:14] LABS: BILIRUBIN Negative (Negative); BLOOD Negative (Negative); CLARITY Clear (Clear); COLOR Yellow (Yellow); GLUCOSE Trace (Negative); KETONE 1+ (Negative); LEUKO ESTERASE Negative (Negative); NITRITE Negative (Negative); PH 6.5 (4.5-8.0)
[2020-12-25 00:24] LABS: RBC 0-2 rbc/hpf (0-2); WBC 0-2 wbc/hpf (0-5)
[2020-12-25 06:15] LABS: CHLORIDE 95 mmol/L (98-107); POTASSIUM 3.5 mmol/L (3.5-5.1); SODIUM 129 mmol/L (136-145)
[2020-12-25 06:37] LABS: ALBUMIN 3.6 gm/dl (3.1-4.5); ALKALINE PHOSPHATASE 82 U/L (45-117); BUN 9 mg/dl (7-24); CHOLESTEROL 153 mg/dL (<200); CREATININE 0.29 mg/dL (0.70-1.30); LDL CHOLESTEROL 70 mg/dL (9-159); SGOT/AST 33 IU/L (3-35); SGPT/ALT 51 U/L (12-78); THYROID STIM HORMONE (HS) 0.217 uIU/ml (0.358-4.75); TOTAL PROTEIN 7.1 gm/dL (6.4-8.2); TRIGLYCERIDES 44 mg/dl (<150)
[2020-12-25 06:39] LABS: BASO % 0.1 % (0.0-1.0); HEMATOCRIT 43.3 % (42.0-52.0); LYMPH # 0.7 10*3/uL (1.3-4.4); LYMPH % 7.5 % (27.0-41.0); MEAN CELL VOLUME 92.5 fl (80.0-94.0); MEAN CORPUSCULAR HGB 31.6 pg (27.0-31.0); MEAN CORPUSCULAR HGB CONC 34.2 g/dl (33.0-37.0); MEAN PLATELET VOLUME 9.3 fl (9.6-12.3); MONO # 0.5 10*3/uL (0.1-1.0); MONO % 5.7 % (3.0-9.0); NEUT # 8.1 10*3/uL (2.3-7.9); PLATELET COUNT AUTOMATED 451 10*3/uL (130-400); RED BLOOD COUNT 4.68 10*6/uL (4.50-5.90); RED CELL DISTRI WIDTH 12.4 % (0-14.5); WHITE BLOOD COUNT 9.4 10*3/uL (4.8-10.8)
[2020-12-25 08:00] VITALS: BP 154/90
[2020-12-25 12:00] VITALS: BP 158/86
[2020-12-25 16:00] VITALS: BP 150/73
[2020-12-25 20:00] VITALS: BP 127/71
[2020-12-26] VITALS: BP 135/80
[2020-12-26 06:12] LABS: ALBUMIN 3.1 gm/dl (3.1-4.5); ALKALINE PHOSPHATASE 68 U/L (45-117); BUN 6 mg/dl (7-24); CHLORIDE 97 mmol/L (98-107); CREATININE 0.28 mg/dL (0.70-1.30); POTASSIUM 3.9 mmol/L (3.5-5.1); SGOT/AST 14 IU/L (3-35); SGPT/ALT 32 U/L (12-78); SODIUM 131 mmol/L (136-145); TOTAL PROTEIN 6.2 gm/dL (6.4-8.2)
[2020-12-26 06:28] LABS: BASO % 0.1 % (0.0-1.0); HEMATOCRIT 39.6 % (42.0-52.0); LYMPH # 0.7 10*3/uL (1.3-4.4); LYMPH % 6.4 % (27.0-41.0); MEAN CELL VOLUME 92.3 fl (80.0-94.0); MEAN CORPUSCULAR HGB 31.5 pg (27.0-31.0); MEAN CORPUSCULAR HGB CONC 34.1 g/dl (33.0-37.0); MEAN PLATELET VOLUME 9.2 fl (9.6-12.3); MONO # 0.5 10*3/uL (0.1-1.0); MONO % 4.5 % (3.0-9.0); NEUT # 9.9 10*3/uL (2.3-7.9); NEUT % 88.2 % (47.0-73.0); PLATELET COUNT AUTOMATED 404 10*3/uL (130-400); RED BLOOD COUNT 4.29 10*6/uL (4.50-5.90); RED CELL DISTRI WIDTH 12.2 % (0-14.5); WHITE BLOOD COUNT 11.2 10*3/uL (4.8-10.8)
[2020-12-26 08:00] VITALS: BP 156/81
[2020-12-26 12:00] VITALS: BP 139/76
[2020-12-26 16:00] VITALS: BP 150/82
[2020-12-26 20:00] VITALS: BP 123/68
[2020-12-26] MEDS ORDERED: SERTRALINE HYDR50 MG PO (23:50)
[2020-12-26] MEDS ORDERED: LEVOTHYROXINE125 MC1 PO (23:51)
[2020-12-26] MEDS ORDERED: TOPROL XL25 MG PO (23:51)
[2020-12-26] MEDS ORDERED: CARAFATE1 G1 PO (23:52)
[2020-12-27] VITALS: BP 133/81
[2020-12-27 06:47] LABS: ALBUMIN 3.1 gm/dl (3.1-4.5); ALKALINE PHOSPHATASE 63 U/L (45-117); BUN 9 mg/dl (7-24); CHLORIDE 94 mmol/L (98-107); CREATININE 0.36 mg/dL (0.70-1.30); POTASSIUM 3.8 mmol/L (3.5-5.1); SGOT/AST 9 IU/L (3-35); SGPT/ALT 27 U/L (12-78); SODIUM 127 mmol/L (136-145); TOTAL PROTEIN 5.9 gm/dL (6.4-8.2)
[2020-12-27 07:01] LABS: BASO % 0.1 % (0.0-1.0); HEMATOCRIT 38.3 % (42.0-52.0); LYMPH # 0.9 10*3/uL (1.3-4.4); LYMPH % 8.7 % (27.0-41.0); MEAN CELL VOLUME 92.3 fl (80.0-94.0); MEAN CORPUSCULAR HGB 31.8 pg (27.0-31.0); MEAN CORPUSCULAR HGB CONC 34.5 g/dl (33.0-37.0); MEAN PLATELET VOLUME 9.4 fl (9.6-12.3); MONO # 0.5 10*3/uL (0.1-1.0); MONO % 4.9 % (3.0-9.0); NEUT # 8.6 10*3/uL (2.3-7.9); NEUT % 85.5 % (47.0-73.0); PLATELET COUNT AUTOMATED 441 10*3/uL (130-400); RED BLOOD COUNT 4.15 10*6/uL (4.50-5.90); RED CELL DISTRI WIDTH 12.1 % (0-14.5)
[2020-12-27 08:00] VITALS: BP 119/71
[2020-12-27 12:00] VITALS: BP 122/76
[2020-12-27 16:00] VITALS: BP 122/68
[2020-12-27] MEDS ORDERED: PREDNISONE10 MG PO ×2 (16:41)
[2020-12-27] MEDS ORDERED: AMLODIPINE BESY10 MG PO (16:41)
[2020-12-27] MEDS ORDERED: ASPIRIN ADULT L81 M2 PO (16:41)
[2020-12-27] MEDS ORDERED: LEVOFLOXACIN750 M2 PO ×2 (16:41)
[2020-12-27 20:00] VITALS: BP 131/69
[2020-12-28] VITALS: BP 136/64
[2020-12-28 06:03] LABS: BUN 13 mg/dl (7-24); CHLORIDE 97 mmol/L (98-107); CREATININE 0.42 mg/dL (0.70-1.30); POTASSIUM 3.8 mmol/L (3.5-5.1); SODIUM 131 mmol/L (136-145)
[2020-12-28 06:26] LABS: HEMATOCRIT 37.2 % (42.0-52.0); MEAN CELL VOLUME 93.7 fl (80.0-94.0); MEAN CORPUSCULAR HGB CONC 34.1 g/dl (33.0-37.0); MEAN PLATELET VOLUME 9.2 fl (9.6-12.3); PLATELET COUNT AUTOMATED 460 10*3/uL (130-400); RED BLOOD COUNT 3.97 10*6/uL (4.50-5.90); RED CELL DISTRI WIDTH 12.5 % (0-14.5); WHITE BLOOD COUNT 8.1 10*3/uL (4.8-10.8)
[2020-12-28 07:52] LABS: PLATELET SUFFICIENCY HIGH (NORMAL); TOTAL CELLS COUNTED 100 #CELLS
[2020-12-28 08:00] VITALS: BP 132/71
[2020-12-28 12:00] VITALS: BP 121/61
== END 2020-12-28 14:00 | disposition home or self-care (01) | DRG 391 ==
LOC: ED 13:39 → EDHOLD 14:54 → 5E 14:54 → 4E 14:54 → 5E 15:12 → 4E 12-25 02:28
PROVIDERS: Emergency Medicine; Internal Medicine; Student in an Organized Health Care Education/Training Program; ADMIT Emergency Medicine; ATTEND Emergency Medicine
DX: K21.9 Gastro-esophageal reflux disease without esophagitis (principal); J96.21 Acute and chronic respiratory failure with hypoxia; J44.1 Chronic obstructive pulmonary disease with (acute) exacerbation; I50.32 Chronic diastolic (congestive) heart failure; E87.1 Hypo-osmolality and hyponatremia; R13.19 Other dysphagia; R73.9 Hyperglycemia, unspecified; I25.10 Atherosclerotic heart disease of native coronary artery without angina pectoris; R29.6 Repeated falls; N40.0 Benign prostatic hyperplasia without lower urinary tract symptoms; K59.00 Constipation, unspecified; M81.0 Age-related osteoporosis without current pathological fracture; Z96.642 Presence of left artificial hip joint; I11.0 Hypertensive heart disease with heart failure; K22.2 Esophageal obstruction; Z20.822 Contact with and (suspected) exposure to COVID-19; M54.5 Low back pain; G89.29 Other chronic pain; E86.0 Dehydration; S91.109A Unspecified open wound of unspecified toe(s) without damage to nail, initial encounter; W18.39XA Other fall on same level, initial encounter; Y93.89 Activity, other specified; Y92.89 Other specified places as the place of occurrence of the external cause; Y99.8 Other external cause status; Z87.820 Personal history of traumatic brain injury; Z86.19 Personal history of other infectious and parasitic diseases; Z98.42 Cataract extraction status, left eye; Z98.41 Cataract extraction status, right eye; Z82.49 Family history of ischemic heart disease and other diseases of the circulatory system; Z66 Do not resuscitate; Z51.5 Encounter for palliative care

== ENCOUNTER 2021-01-08 08:13 | Inpatient (IN) | payer MEDICARE ==
[~2021-01-08] VITALS: Ht 157.4 cm; Wt 52.3 kg
[2021-01-08] VITALS (15 sets, daily range): BP systolic 100–159; BP diastolic 40–70
[~2021-01-08 08:13] MED LIST changes: +LEVOFLOXACIN750 M2 PO; +LEVOTHYROXINE125 MC1 PO; +SERTRALINE HYDR50 MG PO
[2021-01-08 08:43] LABS: HEMATOCRIT 21.9 % (42.0-52.0); MEAN CELL VOLUME 97.3 fl (80.0-94.0); MEAN CORPUSCULAR HGB 32.4 pg (27.0-31.0); MEAN CORPUSCULAR HGB CONC 33.3 g/dl (33.0-37.0); MEAN PLATELET VOLUME 8.2 fl (9.6-12.3); PLATELET COUNT AUTOMATED 424 10*3/uL (130-400); RED BLOOD COUNT 2.25 10*6/uL (4.50-5.90); RED CELL DISTRI WIDTH 13.9 % (0-14.5); WHITE BLOOD COUNT 17.5 10*3/uL (4.8-10.8)
[2021-01-08 08:59] LABS: ALBUMIN 2.8 gm/dl (3.1-4.5); ALKALINE PHOSPHATASE 57 U/L (45-117); BUN 37 mg/dl (7-24); CHLORIDE 95 mmol/L (98-107); CREATININE 0.42 mg/dL (0.70-1.30); POTASSIUM 3.6 mmol/L (3.5-5.1); SGOT/AST 14 IU/L (3-35); SGPT/ALT 27 U/L (12-78); SODIUM 128 mmol/L (136-145); TOTAL PROTEIN 5.6 gm/dL (6.4-8.2)
[2021-01-08 09:08] LABS: TOTAL CELLS COUNTED 100 #CELLS
[2021-01-08 09:09] LABS: PLATELET SUFFICIENCY HIGH (NORMAL)
[2021-01-08 09:30] LABS: TROPONIN I 0.054 ng/ml (<0.045)
[2021-01-08 09:55] LABS: ACT PARTIAL THROMBO TIME 25.9 SECONDS (20.0-32.1); INTERNATIONAL NORM RATIO 1.1 (2.0-3.5)
[2021-01-09] VITALS (15 sets, daily range): BP systolic 121–157; BP diastolic 42–62
[2021-01-09 06:19] LABS: MEAN CORPUSCULAR HGB 31.4 pg (27.0-31.0); MEAN CORPUSCULAR HGB CONC 33.5 g/dl (33.0-37.0); MEAN PLATELET VOLUME 8.4 fl (9.6-12.3); PLATELET COUNT AUTOMATED 369 10*3/uL (130-400); RED CELL DISTRI WIDTH 14.9 % (0-14.5); WHITE BLOOD COUNT 12.2 10*3/uL (4.8-10.8)
[2021-01-09 06:28] LABS: MEAN CELL VOLUME 93.6 fl (80.0-94.0)
[2021-01-09 06:29] LABS: HEMATOCRIT 20.6 % (42.0-52.0)
[2021-01-09 06:31] LABS: ALBUMIN 2.7 gm/dl (3.1-4.5); CHLORIDE 97 mmol/L (98-107); SGOT/AST 16 IU/L (3-35); SGPT/ALT 35 U/L (12-78); SODIUM 132 mmol/L (136-145)
[2021-01-09 06:34] LABS: ALKALINE PHOSPHATASE 53 U/L (45-117); TOTAL PROTEIN 5.2 gm/dL (6.4-8.2)
[2021-01-09 06:38] LABS: BUN 16 mg/dl (7-24)
[2021-01-09 06:57] LABS: PLATELET SUFFICIENCY NORMAL (NORMAL); TOTAL CELLS COUNTED 100 #CELLS
[2021-01-09 18:08] LABS: BASO % 0.2 % (0.0-1.0); EOS # 0.1 10*3/uL (0.0-0.4); EOS % 0.7 % (1.0-4.0); LYMPH # 1.1 10*3/uL (1.3-4.4); LYMPH % 8.7 % (27.0-41.0); MEAN CELL VOLUME 92.6 fl (80.0-94.0); MEAN CORPUSCULAR HGB 31.1 pg (27.0-31.0); MEAN CORPUSCULAR HGB CONC 33.6 g/dl (33.0-37.0); MEAN PLATELET VOLUME 8.1 fl (9.6-12.3); MONO # 0.9 10*3/uL (0.1-1.0); MONO % 7.4 % (3.0-9.0); NEUT # 9.9 10*3/uL (2.3-7.9); NUCLEATED RED BLOOD CELL 0.2 % (0.0-0.0); PLATELET COUNT AUTOMATED 329 10*3/uL (130-400); RED CELL DISTRI WIDTH 15.6 % (0-14.5); WHITE BLOOD COUNT 12.3 10*3/uL (4.8-10.8)
[2021-01-10] VITALS: BP 126/46
[2021-01-10 07:18] LABS: BASO % 0.3 % (0.0-1.0); EOS # 0.1 10*3/uL (0.0-0.4); EOS % 1.2 % (1.0-4.0); HEMATOCRIT 26.3 % (42.0-52.0); LYMPH % 9.3 % (27.0-41.0); MEAN CELL VOLUME 93.9 fl (80.0-94.0); MEAN CORPUSCULAR HGB 31.1 pg (27.0-31.0); MEAN CORPUSCULAR HGB CONC 33.1 g/dl (33.0-37.0); MONO # 0.8 10*3/uL (0.1-1.0); MONO % 7.9 % (3.0-9.0); NEUT # 8.1 10*3/uL (2.3-7.9); NEUT % 79.2 % (47.0-73.0); PLATELET COUNT AUTOMATED 336 10*3/uL (130-400); RED CELL DISTRI WIDTH 16.2 % (0-14.5); WHITE BLOOD COUNT 10.2 10*3/uL (4.8-10.8)
[2021-01-10 07:28] LABS: BUN 10 mg/dl (7-24); CHLORIDE 101 mmol/L (98-107); CREATININE 0.25 mg/dL (0.70-1.30); POTASSIUM 3.7 mmol/L (3.5-5.1); SODIUM 131 mmol/L (136-145)
[2021-01-10 08:00] VITALS: BP 131/48
[2021-01-10 12:00] VITALS: BP 119/48
[2021-01-10 16:00] VITALS: BP 136/52
[2021-01-10 20:00] VITALS: BP 124/53
[2021-01-11] VITALS: BP 123/52
[2021-01-11 08:00] VITALS: BP 136/52
[2021-01-11 09:40] LABS: BASO % 0.4 % (0.0-1.0); EOS # 0.1 10*3/uL (0.0-0.4); EOS % 1.1 % (1.0-4.0); HEMATOCRIT 25.1 % (42.0-52.0); LYMPH # 0.8 10*3/uL (1.3-4.4); LYMPH % 9.4 % (27.0-41.0); MEAN CELL VOLUME 96.5 fl (80.0-94.0); MEAN CORPUSCULAR HGB 31.2 pg (27.0-31.0); MEAN CORPUSCULAR HGB CONC 32.3 g/dl (33.0-37.0); MONO # 0.7 10*3/uL (0.1-1.0); MONO % 8.1 % (3.0-9.0); NEUT # 6.7 10*3/uL (2.3-7.9); NEUT % 79.7 % (47.0-73.0); PLATELET COUNT AUTOMATED 314 10*3/uL (130-400); RED CELL DISTRI WIDTH 17.1 % (0-14.5); WHITE BLOOD COUNT 8.4 10*3/uL (4.8-10.8)
[2021-01-11] MEDS ORDERED: PROTONIX40 MG PO (11:34)
[2021-01-11] MEDS ORDERED: ASPIRIN ADULT L81 M2 PO (11:34)
[2021-01-11 12:00] VITALS: BP 111/54
== END 2021-01-11 15:51 | disposition home or self-care (01) | DRG 377 ==
LOC: ED 08:13 → 5E 09:39 → EDHOLD 09:39 → 5E 11:15
PROVIDERS: Emergency Medicine; Internal Medicine; Registered Nurse; ADMIT Family Medicine; ATTEND Family Medicine
PROC: 30233N1 Transfusion of Nonautologous Red Blood Cells into Peripheral Vein, Percutaneous Approach (ICD-10-PCS; principal; 2021-01-08)
PROC: 0DB78ZX Excision of Stomach, Pylorus, Via Natural or Artificial Opening Endoscopic, Diagnostic (ICD-10-PCS; 2021-01-09)
DX: K26.4 Chronic or unspecified duodenal ulcer with hemorrhage (principal); K20.91 Esophagitis, unspecified with bleeding; I50.32 Chronic diastolic (congestive) heart failure; J96.11 Chronic respiratory failure with hypoxia; E87.1 Hypo-osmolality and hyponatremia; E44.0 Moderate protein-calorie malnutrition; K25.4 Chronic or unspecified gastric ulcer with hemorrhage; R77.8 Other specified abnormalities of plasma proteins; N40.0 Benign prostatic hyperplasia without lower urinary tract symptoms; I25.10 Atherosclerotic heart disease of native coronary artery without angina pectoris; K59.00 Constipation, unspecified; K21.9 Gastro-esophageal reflux disease without esophagitis; M81.0 Age-related osteoporosis without current pathological fracture; I11.0 Hypertensive heart disease with heart failure; Z96.642 Presence of left artificial hip joint; D64.9 Anemia, unspecified; S91.119A Laceration without foreign body of unspecified toe without damage to nail, initial encounter; X58.XXXA Exposure to other specified factors, initial encounter; Y93.89 Activity, other specified; Y92.89 Other specified places as the place of occurrence of the external cause; Y99.8 Other external cause status; Z86.73 Personal history of transient ischemic attack (TIA), and cerebral infarction without residual deficits; Z98.42 Cataract extraction status, left eye; Z98.41 Cataract extraction status, right eye; Z99.81 Dependence on supplemental oxygen; Z86.19 Personal history of other infectious and parasitic diseases; Z68.22 Body mass index [BMI] 22.0-22.9, adult; C80.1 Malignant (primary) neoplasm, unspecified

== ENCOUNTER 2021-05-31 11:48 | Emergency (ER) | payer MEDICARE ==
[~2021-05-31] VITALS: Ht 157.4 cm; Wt 50.8 kg
[2021-05-31 12:17] LABS: BASO # 0.1 10*3/uL (0.0-0.1); BASO % 0.7 % (0.0-1.0); EOS # 0.1 10*3/uL (0.0-0.4); EOS % 0.6 % (1.0-4.0); LYMPH # 0.5 10*3/uL (1.3-4.4); LYMPH % 4.7 % (27.0-41.0); MEAN CORPUSCULAR HGB 26.7 pg (27.0-31.0); MEAN CORPUSCULAR HGB CONC 33.6 g/dl (33.0-37.0); MONO # 0.6 10*3/uL (0.1-1.0); MONO % 6.3 % (3.0-9.0); NEUT # 8.5 10*3/uL (2.3-7.9); NEUT % 87.2 % (47.0-73.0); PLATELET COUNT AUTOMATED 601 10*3/uL (130-400); RED BLOOD COUNT 5.29 10*6/uL (4.50-5.90); RED CELL DISTRI WIDTH 17.8 % (0-14.5); WHITE BLOOD COUNT 9.7 10*3/uL (4.8-10.8)
[2021-05-31 12:20] LABS: MEAN CELL VOLUME 79.4 fl (80.0-94.0)
[2021-05-31 12:33] LABS: ALKALINE PHOSPHATASE 96 U/L (45-117); BUN 13 mg/dl (7-24); CHLORIDE 84 mmol/L (98-107); CREATININE 0.61 mg/dL (0.70-1.30); LIPASE 77 U/L (73-393); POTASSIUM 4.2 mmol/L (3.5-5.1); SGOT/AST 26 IU/L (3-35); SGPT/ALT 33 U/L (12-78); SODIUM 122 mmol/L (136-145); TOTAL PROTEIN 7.9 gm/dL (6.4-8.2)
[2021-05-31 14:30] LABS: ACT PARTIAL THROMBO TIME 33.1 SECONDS (20.0-32.1); INTERNATIONAL NORM RATIO 1.1 (2.0-3.5)
== END 2021-05-31 17:57 | disposition home or self-care (01) ==
LOC: ED 11:48
PROVIDERS: Student in an Organized Health Care Education/Training Program
DX: K59.00 Constipation, unspecified (principal); Z79.899 Other long term (current) drug therapy; Z87.891 Personal history of nicotine dependence

== ENCOUNTER 2021-06-02 08:17 | Emergency (ER) | payer MEDICARE ==
[~2021-06-02] VITALS: Ht 157.4 cm; Wt 50.8 kg
[2021-06-02 08:59] LABS: BASO % 0.2 % (0.0-1.0); HEMATOCRIT 35.4 % (42.0-52.0); LYMPH # 0.8 10*3/uL (1.3-4.4); MEAN CELL VOLUME 80.6 fl (80.0-94.0); MEAN CORPUSCULAR HGB 26.9 pg (27.0-31.0); MEAN CORPUSCULAR HGB CONC 33.3 g/dl (33.0-37.0); MEAN PLATELET VOLUME 8.3 fl (9.6-12.3); MONO # 1.1 10*3/uL (0.1-1.0); MONO % 6.4 % (3.0-9.0); NEUT # 14.3 10*3/uL (2.3-7.9); NEUT % 87.7 % (47.0-73.0); PLATELET COUNT AUTOMATED 622 10*3/uL (130-400); RED BLOOD COUNT 4.39 10*6/uL (4.50-5.90); RED CELL DISTRI WIDTH 18.1 % (0-14.5); WHITE BLOOD COUNT 16.3 10*3/uL (4.8-10.8)
[2021-06-02 09:15] LABS: CPK 82 U/L (39-308)
[2021-06-02 09:18] LABS: ALBUMIN 3.4 gm/dl (3.1-4.5); ALKALINE PHOSPHATASE 69 U/L (45-117); CHLORIDE 90 mmol/L (98-107); CREATININE 0.65 mg/dL (0.70-1.30); LIPASE 48 U/L (73-393); POTASSIUM 3.8 mmol/L (3.5-5.1); SGOT/AST 31 IU/L (3-35); SGPT/ALT 51 U/L (12-78); SODIUM 125 mmol/L (136-145); TOTAL PROTEIN 7.1 gm/dL (6.4-8.2)
[2021-06-02 09:26] LABS: BUN 58 mg/dl (7-24); ETHYL ALCOHOL < 3.0 mg/dl (<3)
[2021-06-02 10:04] LABS: BILIRUBIN Negative (Negative); BLOOD Negative (Negative); CLARITY Clear (Clear); COLOR Yellow (Yellow); GLUCOSE Negative (Negative); KETONE 1+ (Negative); LEUKO ESTERASE Negative (Negative); NITRITE Negative (Negative); SPECIFIC GRAVITY 1.025 (1.001-1.030)
[2021-06-02 10:20] LABS: BACTERIA TRACE; EPITHELIAL CELLS 0-2; HYALINE CAST 0-2; WBC 0-2 wbc/hpf (0-5)
[2021-06-02] MEDS ORDERED: PRILOSEC20 M1 PO (14:07)
== END 2021-06-02 15:04 | disposition home or self-care (01) ==
LOC: ED 08:17
PROVIDERS: Emergency Medicine
DX: C78.7 Secondary malignant neoplasm of liver and intrahepatic bile duct (principal); R10.11 Right upper quadrant pain; G89.3 Neoplasm related pain (acute) (chronic); E87.1 Hypo-osmolality and hyponatremia; K59.00 Constipation, unspecified; E86.1 Hypovolemia; K40.90 Unilateral inguinal hernia, without obstruction or gangrene, not specified as recurrent; E86.0 Dehydration; I25.10 Atherosclerotic heart disease of native coronary artery without angina pectoris; J44.9 Chronic obstructive pulmonary disease, unspecified; I11.0 Hypertensive heart disease with heart failure; I50.32 Chronic diastolic (congestive) heart failure; K21.9 Gastro-esophageal reflux disease without esophagitis; M81.0 Age-related osteoporosis without current pathological fracture; E44.0 Moderate protein-calorie malnutrition; Z79.899 Other long term (current) drug therapy; Z79.82 Long term (current) use of aspirin; Z86.73 Personal history of transient ischemic attack (TIA), and cerebral infarction without residual deficits; Z98.890 Other specified postprocedural states; Z96.642 Presence of left artificial hip joint; Z98.61 Coronary angioplasty status; Z96.1 Presence of intraocular lens; Z87.891 Personal history of nicotine dependence

== ENCOUNTER 2021-07-08 14:05 | Emergency (ER) | payer MEDICARE ==
[~2021-07-08] VITALS: Ht 157.4 cm; Wt 50.8 kg
[~2021-07-08 14:05] MED LIST changes: +PRILOSEC20 M1 PO
[2021-07-08 15:32] LABS: BASO # 0.1 10*3/uL (0.0-0.1); BASO % 1.4 % (0.0-1.0); EOS # 0.2 10*3/uL (0.0-0.4); HEMATOCRIT 27.8 % (42.0-52.0); LYMPH # 1.4 10*3/uL (1.3-4.4); LYMPH % 13.9 % (27.0-41.0); MEAN CELL VOLUME 76.2 fl (80.0-94.0); MEAN CORPUSCULAR HGB CONC 30.2 g/dl (33.0-37.0); MEAN PLATELET VOLUME 8.6 fl (9.6-12.3); MONO # 1.1 10*3/uL (0.1-1.0); NEUT # 7.3 10*3/uL (2.3-7.9); PLATELET COUNT AUTOMATED 623 10*3/uL (130-400); RED BLOOD COUNT 3.65 10*6/uL (4.50-5.90); RED CELL DISTRI WIDTH 20.7 % (0-14.5); WHITE BLOOD COUNT 10.2 10*3/uL (4.8-10.8)
[2021-07-08 15:47] LABS: ALBUMIN 3.6 gm/dl (3.1-4.5); ALKALINE PHOSPHATASE 97 U/L (45-117); BUN 17 mg/dl (7-24); CHLORIDE 103 mmol/L (98-107); ETHYL ALCOHOL < 3.0 mg/dl (<3); LIPASE 103 U/L (73-393); POTASSIUM 4.5 mmol/L (3.5-5.1); SGOT/AST 16 IU/L (3-35); SGPT/ALT 23 U/L (12-78); SODIUM 136 mmol/L (136-145)
== END 2021-07-08 17:10 | disposition home or self-care (01) ==
LOC: ED 14:05
PROVIDERS: Emergency Medicine
DX: E86.0 Dehydration (principal); K52.1 Toxic gastroenteritis and colitis; I25.10 Atherosclerotic heart disease of native coronary artery without angina pectoris; I50.9 Heart failure, unspecified; J44.9 Chronic obstructive pulmonary disease, unspecified; I11.0 Hypertensive heart disease with heart failure; K21.9 Gastro-esophageal reflux disease without esophagitis; Z79.899 Other long term (current) drug therapy; Z86.73 Personal history of transient ischemic attack (TIA), and cerebral infarction without residual deficits; Z98.890 Other specified postprocedural states; Z87.891 Personal history of nicotine dependence